=== PATIENT | male | born 1940 | race Caucasian/White ===

== ENCOUNTER 2021-11-02 10:45 | Inpatient (IN) | payer MEDICARE, OTHER ==
[~2021-11-02] VITALS: Ht 190.5 cm; Wt 130.2 kg
[2021-11-02] MEDS ORDERED: DOCUSATE SODIUM 100 MG (COLACE) CAP PO PRN (11:00)
[2021-11-02] MEDS ORDERED: BISACODYL 10 MG SUPP (DULCOLAX) PR PRN (11:00)
[2021-11-02] MEDS ORDERED: ACETAMINOPHEN 325 MG TABLET PO PRN (11:00)
[2021-11-02] MEDS ORDERED: guaiFENesin/CODEINE (ROBITUSSIN AC) 10ML UDC PO PRN (11:00)
[2021-11-02] MEDS ORDERED: ONDANSETRON 4 MG (ZOFRAN) ORAL DISSOLVE TAB PO PRN (11:00)
[2021-11-02] MEDS ORDERED: CALCIUM CARBONATE 500 MG (TUMS) TAB.CHEW PO PRN (11:00)
[2021-11-02] MEDS ORDERED: FLEET ENEMA ADULT 1 EA BTL PR PRN (11:00)
[2021-11-02] MEDS ORDERED: MELATONIN 3 MG TABLET PO PRN (11:00)
[2021-11-02] MEDS ORDERED: LACTULOSE SYRUP 10GM/15ML (ENULOSE) 30ML UDC PO PRN ×2 (11:00→16:00)
[2021-11-02] MEDS ORDERED: ALPRAZolam 0.25 MG (XANAX) TAB PO PRN (11:00)
[2021-11-02] MEDS ORDERED: LOPERAMIDE 2 MG (IMODIUM) TABLET PO PRN (11:00)
[2021-11-02] MEDS ORDERED: diphenhydrAMINE 25 MG TAB (BENADRYL) PO PRN (11:00)
--- NOTE | 2021-11-02 13:14 | Progress Note ---
NOEMI BARRAGAN 11/02/21 1314: Progress Note CC: Debility following sigmoid resection and colostomy placement HPI: This is a 81yo M s/p sigmoid resection and colostomy due to a large bowel obstruction. DNR/DNI? Status post knee replacement with Dr. Mckeon POD #2. 11/29 right knee pain. Tolerating pain medications. Having normal bowel movements, requiring laxatives for help. Urinating without issues. Admitted on 09/22/2021 from [facility]? Pt also monitored by PT and OT during his stay in [place] Patient followed with Pulmonology, Critical Care, Hospitalist, Supervisor Waterproofing PT, OT, and ST (speech therapy) (No RT?) Past Medical Hx: Large Bowel Obstruction s/p sugmoid resection, solostomy aspiration PNA acute hypoxic respiratory failure CHF CKD stage 3 atrial fibrillation anxiety depression pulmonary HTN GERD Past Surgical Hx: sigmoid resection, solostomy CABG appendectomy hernia repair Allergies: Amiodarone Lisinopril Home Medications: Acetaminophen (Tylenol Arthritis) 650 Mg Tablet.er, 650 MG PO Q6H PRN Acetazolamide 250 Mg Tablet PO BID Albuterol Sulfate 2.5 Mg/0.5 Ml Vial.neb, 2.5 MG INH Q4H PRN Atorvastatin Calcium (Atorvastatin Calcium) 40 Mg Tablet, 40 MG PO HS Digoxin (Digoxin) 125 Mcg Tablet, 125 MCG PO DAILY Diltiazem HCl (Diltiazem HCl) 30 Mg Tablet, 30 MG PO BID Docusate Sodium (Docusate Sodium) 100 Mg Capsule, 100 MG PO BID Enoxaparin Sodium (Enoxaparin Sodium) 60 Mg/0.6 Ml Syringe, 60 MG SQ DAILY Famotidine (Famotidine) 20 Mg Tablet, 20 MG PO BID Furosemide (Furosemide) 40 Mg Tablet, 60 MG PO DAILY Gabapentin (Gabapentin) 100 Mg Capsule, 100 MG PO BID Guaifenesin (Mucinex) 600 Mg Tab.er.12h, 600 MG PO BID Ibuprofen (Ibuprofen) 400 Mg Tablet, 400 MG PO Q8H PRN Lactulose 20 Gm/30 Ml Solution, 30 ML PO DAILY PRN Metoclopramide HCl 10 Mg Tablet, 10 MG PO Q6H Multivitamin with Minerals 1 Each Tablet PO Daily Nystatin 15 Gm Cream..g., 1 APPLIC TP Q4H PRN Polyethylene Glycol 3350 (Miralax) 17 Gm Powd.pack, 17 GM PO DAILY Potassium Chloride (K-Tab ER) 20 Meq Tablet.er, 40 MEQ PO DAILY Trazodone HCl (Trazodone HCl) 50 Mg Tablet PO HS Social Hx: Smoke- EtOH- Retired as a or current job as to his [employer] of 31 years Family Hx: ROS: General: No fatigue or dizziness. HEENT: No decrease in hearing or change in vision. CVS: No chest pain, edema, or palpitations. Resp: No cough or shortness of breath. GI: No nausea, vomiting, diarrhea, constipation, abdominal pain, or bloody stools. : No urinary incontinence, dysuria, or hematuria Neuro: No anxiety or depression. Extremities: Decreased ROM on Right knee from knee replacement surgery. No decreased ROM in other extremities. Physical Exam: General Appearance: No apparent distress, WD/WN. HEENT: PERRLA, EOMI, moist mucous membranes, anicteric sclera bilaterally. Respiratory: Lungs clear, normal breath sounds, no accessory muscle use, no respiratory distress. CVS: Regular rate and rhythm, no murmur, no edema GI: Normoactive bowel sounds, no organomegaly, no pulsatile mass, abdomen nontender Neuro: Alert, Oriented x3, No motor/sensory deficits, normal mood/affect, CN II-XII normal as tested Extremity: Decreased ROM on right knee from knee replacement surgery. No decreased ROM in other extremities. Labs and Imaging Assessment: Debility following sigmoid resection and colostomy placement and aspiration pneumonia Post Op Constipation Anemia Large Bowel Obstruction s/p sigmoid resection, colostomy aspiration pna acute hypoxic respiratory failure CHF CKD stage 3, baseline Cr 1.0-1.2? atrial fibrillation anxiety depression pulmonary HTN GERD ?SIgnificant scrotal swelling Plan: Colostomy Care Current O2 status, wean o2 to 2L NC like patient was prior to procedure Supportive care monitor anxiety and depression Pain control Bowel regimen Monitor BP Monitor colostomy Review labs (WBC, Hgb, electrolytes) Start Here CC: Debility following sigmoid resection and colostomy placement and aspiration pneumonia Tolerating pain medications? Having normal bowel movements, requiring laxatives for help? Urinating without issues? Patient currently on __L of O2 by [place] when transferred. Admitted on 09/22/2021 from [facility]? [place] dates? HPI: This is a 81yo M s/p sigmoid resection and colostomy due to a large bowel obstruction. Patient is DNI and DNR. History of CKD stage 3, baseline Documentation Improvement Specialist 1.0-1.2, CHF, atrial fibrillation, anxiety, depression, pulmonary HTN, ?HTN?, GERD, and on home O2 3L. Patient presented to [facility] ED on 08/29/2021 with complaints of abdominal pain, found to have a large bowel obstruction. Subsequently underwent C-scope on 08/30, then laparoscopic sigmoid colon resection and colostomy on 09/02. And now being placed in Rehab at [facility]. During his recovery, patient encountered complications including aspiration PNA, Acute hypoxic respiratory failure, LIST OTHER COMPLICATIONS Patient followed by Critical Care Hospitalist, Supervisor Waterproofing PT, OT, and ST (No RT?) Patient had vomiting post op then aspiration pneumonia. Pas placed NPO and TPN initiated. Patient required BiPap for hypoxia post aspiration on 09/09. Intubated on 09/09/2021 following acute hypoxic respiratory failure due to aspiration and cardiac arrest that required CPR. Patient had Bipap, also with Oximizer and Vapo Therm at various points being involved in the weaning process. Patient eventually to [place] Cannula at 8L by the end of his stay. which in the mix also Aspiration PNA treated with Flagyl and Zosyn, Zosyn later changed to Rocephin. Extubated on 09/15/2021. had LOFTSMAN/WOMAN with hypoxia, SOB, and eventually CPR. He was transferred to ICU, dx with sepsis secondary to asp pna, was treated with zosyn and flagyl, zosyn later changed to rocephin. He was intubated on 09/09 and subsequently extubated on 09/15. Currently today on 8L oximizer, eating regular diet, good ostomy output is being admitted to [facility] for further oxygen weaning and pt and ot CKD remained stable with monitoring of Creatinine throughout the course. GERD controlled with Pepcid Anxiety and depression controlled with Ativan PRN and Zoloft Earliest BNP was at 4240. BNP up to 6990 at one point in time. Then went down a little to 6760 Diuresis with lasix was increased CRP also at 4.9 on 10/08 Patient encountered anemia with a Hgb drop to 7. Lovenox was held. Patient given transfusions and stabilized? Hgb up to 7.8. Hyponatremia with Na down to 130. Patient given NaCl. Hypokalemia with K down to ?3.5? now on bumex? Noted that patient also experiences desaturations when lying flat in the bed. cxr showwed CHF, pulm vascular congestion and his diuretics were increased to bid on 10/09 Increased LE edema Patient also had complaints of abdominal distention and stool from the ostomy was thick, nearly formed 09/28 this am serum bicarb unchanged (on po diamox)- plan to increase dose diamox to 500mg bid serum bicarb 39, and has co2 retention of ABG hgb this am 7.6 Patient given blood transfusionswhen? 10/19 was off AC for a few days for bleeding, will check D dimer today and resume lovenox 40mg bid 10/20 Ddimer 4861?, BNP improved to 4861 from 6760 serum mag 1.6 3 seconds of NSVT yesterday, none since On 10/23 it was noted a large hematoma of right calf area, warm and edema at sight, stat US was ordered, eloquis and ASA were held. US showed right leg hematoma, no DVT. Patient has had bleeding complications from coumadin and eloquis in the past hold eloquis and asa pending results RLE hematoma resolving Lovenox was continued Also had scrotal edema. Xarxlyn also added to regimen 10/25 this am hgb will give 1 unit blood today RLE hematoma resolving circumference of leg reducing, good sensation, motor and pulses wiill resume lovenox 60mg daily starting today cont lasix plus xarxlyn on 8L salter this AM 10/26 r leg hematoma continue to improve back on lovenox daily on 6-8 L salter, bipap at hs bicarb up to 39 this am on chem panel will change to diuretics to daily only lasix plus zaroxylyn 10/27 serum bicarb up to 41 on diuretics will add bid diamox today remains on 7-8 L salter cannula r leg hematoma resolving 10/28 abd distension, had a hard stool yesterday w/ enema through ostomy this am generalized abd tenderness w/ liught presure had lactulose yesterday, soft stool in ostomy this am stoma edematous scrotal edema on lasix plus zaroxylyn no nausea, v, good apetits will obtain AXR, edema to stoma on 5L salter 10/29 down to 5L salter abd distention improved 300ML stool output yesterday from sostomy after mg citrate still swelling RLE millicent wrap RLE had UOP 2L w/ increased lasix plus zarox serum k 2.9 this am will give kcl A and P Large bowel obstruct s/p. C-scope on 08/30. Sigmoid colectomy and colostomy on 09/02. Continue wound care. 09/26 remove christina at lower abdominal. Christina removed 10/11 10/29? down to 5L salter this am abd distention improved had 300ml stool output yesterday from ostomy after mag citrate still las swelling RLE but improved will millicent wrap RLE for therapy Had uop 2L with increased lasix plus zaroxylyn yesterday, will continue twice today also serum k this am 2.9 will give total 160 meq kcl and repeat bmp in am dyspepsia w/ gaseous distention: tympanic sound on exam. Continue [place]lanta. somewhat better today. will obtain AXR. may consider NG tube decompression pe nding findings on XR Acute hypoxic respiratory failure d/t aspiration PNA. Has underlying pulm HTN. slowly improving. On vapotherm RT and pulmonary following for weaning. 10/16 VT 25L,40% changing to salter cannula today, advance to regular diet 10/17 this AM on 25L, 50%, weaning. 10/18 VT 10/[address] 35L, 45%. BNP at 6760 (up) last checked. continue lasix, edema is responding. check d dimer, resume lovenox 40mg bid today was stopped d/t bleeding 10/20 ddimer elevated at 4861 have resumed lovenox 40mg bid, will monitor hgb BNP down to 4861 on increased lasix Today VT 35, 45% 3/ on VT 30,45, weaning in progress. 3/ on VT, off steroids, continue diuretics and eliquis 10/23-10/24 6L salter 10/25 hgb 6.7, will give 1 unit blood today resume lovenox 60mg daily startying today. continue lasix plus xaroxylyn 10/26 6-8L on lovenox daily due to development of right leg hematoma bicarb on chem panel up to 39, will reduce diuretic to lasix plus zaroxylyn only daily 10/27 7-8L salter, add diamox for metabolic alkalosis 10/28 5L salter this am continue to wean pulm following increasing diuretics as below 10/29 down to 5L salter, abd distention improved. had 300 ml stool output yuesterday from ostomy after mg citrate still has swelling RLE, but improved continue acewrap for therapy had uop 2L with increased lasix plus zarox will continue twice today also. serum K this am 2.9 will give total of 160meq kcl repeat bmp in am metabolic alkalosis 10/27 serum bicarb up to 41 on diuretics will add bid diamox increasing diuretics today to bid for 2 days then back ti daily abd distentuion hard stool 10/28 had some results with enema to stoma and lactulose this am stoma noted to be edematous, there is soft stool in ostomy today gave bedside tap water enema today with good results soft stool and gas some relief will obtain axr today, continue lactulose as needed 10/29 abd distention improved had 300ml stool output yesterday from ostomy after citrate of mag still has swelling RLE, but improved scrotal edema generalized edema, anasarca 10/24 add zaroxylyn 2.5 mg QD, one hour prior to lasix dose 10/28 increase lasix plus xaroxylyn to bid for 2 days, then drop back down to da sabrina elevate scrotum on pillows 10/20 had uop 2L with increased lasix plus zaroxylyn yesterday, will continuye twice today also Candidal intertrigo 10/28 add nystatin powder in groin rash area hyponatremia 10/21 resolved serum Na up to 137 this am off nacl tabs NSVT 10/20 had short 3 second episode of NSVT yesterday at 150 bpm, mag was 1.6, will give oral of 4gm mag today over 4 hours serum K this am 3.4, will give KCl continue cardizem, not on BB, will monitor closely 10/21 no furtehr NSVT edema LE bilateral 10/17 will increase lasix 10/25 this am hgb 6.7 will give 1 unit blood today continue lasix plus xaro 7L salter this am CHF/afib, continue rate control meds, rate adequately controlled acute on chronic blood loss anemia. Holding lovenox 10/14. hb down to 7.3 HLD: continue statin. CKD stage 3: grossly stable, renal function slowly improving anxiety/depression: cointinue ativan prn, continue zoloft / add gabapentin GERD: pepcid supportive: DVT ppx with SCD. Hb 7.5 again today. labs tomorrow, if stable can continue DVT ppx DVT PPX: SCD Ulcer PPX: Pepcid stress ulcer ppx with famotidine DNR/DNI Critical Care Progerss Note (10/29) Dx and plan Problesm Acute hypoxic and hypercapnic resporaory failure/Aspiration PNA a fib/CHF pulm htn AAA stent deconditiong s/p post lmaging and surgery rt leg hematoma acute blood loss anemia likely d/t Rt leg hematoma that occurred on 120mg bid of lovanox used at full dose due to elevated D-Dimer Lovenox then decreased to 60mg daily due to hematoma. stress ulcer ppx with famotidine BOB HOUSER DO 11/03/21 0548: Supervisory-Addendum Brief Verification & Attestation Participated in pt care: history, MDM, physical Personally performed: exam, history, MDM, supervision of care Care discussed with: Medical Student Procedures: n/a Results interpretation: Verified all documentation Verification and Attestation of Medical Student E/M Service A medical student performed and documented this service in my presence. I reviewed and verified all information documented by the medical student and made modifications to such information, when appropriate. I personally performed the physical exam and medical decision making. Bob Houser Nov 03, 2021,05:48 NOEMI BARRAGAN Nov 02, 2021 13:14 BOB HOUSER DO Nov 03, 2021 05:48
--- NOTE | 2021-11-02 13:35 | PM&R Post Admission Assessment ---
PM&R HP Date of Visit: Nov 02, 2021 Time of Visit: 14:00 History of Present Illness Chief complaint: Critical illness myopathy History of present illness: This is a 81-year-old white male clinic patient of Dr. Rajiv Silva and counselor aid Dr. Saez who has a past medical history of atrial fibrillation previously on oral anticoagulation who presents from [facility] after a long hospital course following admission to [facility] after presenting to the ER with abdominal pain found to have a large bowel obstruction status post colonoscopy then sigmoid resection with diverting colostomy due to severe obstruction. He had aspiration pneumonia which caused acute respiratory failure requiring ICU admission BiPAP and then intubation and extubated on 10/16/2021. Aspiration pneumonia required antibiotics which have been completed. He also had volume overload requiring diuresis with Lasix and Zaroxolyn and oxygen supplementation has been variable anywhere from Vapotherm to nasal nasal cannula. He remains a DO NOT RESUSCITATE and DO NOT INTUBATE. He did have a right lower extremity hematoma requiring 1 unit of blood and oral anticoagulation is held at this point and only DVT prophylaxis dose of Lovenox given. I have consulted Dr. Brown for cardiology and Dr. Grimes general surgery. I did meet with his upon arrival and explained the process of inpatient rehab. H&P by GUEVARA PonceII: CC: Debility following sigmoid resection and colostomy placement HPI: This is a 81yo M s/p sigmoid resection and colostomy due to a large bowel obstruction. DNR/DNI Admitted on 09/22/2021 from [facility] after presented to the ER for abdominal pain Pt also monitored by PT and OT during his stay in [place] Patient followed with Pulmonology, Critical Care, Hospitalist, Drill Punch Operator PT, OT, and ST (speech therapy) (No RT?) Past Medical Hx: Large Bowel Obstruction s/p sigmoid resection, colostomy aspiration PNA acute hypoxic respiratory failure CHF CKD stage 3 atrial fibrillation anxiety depression pulmonary HTN GERD Past Surgical Hx: sigmoid resection, colostomy CABG appendectomy hernia repair Allergies: Amiodarone Lisinopril Home Medications: Acetaminophen (Tylenol Arthritis) 650 Mg Tablet.er, 650 MG PO Q6H PRN Acetazolamide 250 Mg Tablet PO BID Albuterol Sulfate 2.5 Mg/0.5 Ml Vial.neb, 2.5 MG INH Q4H PRN Atorvastatin Calcium (Atorvastatin Calcium) 40 Mg Tablet, 40 MG PO HS Digoxin (Digoxin) 125 Mcg Tablet, 125 MCG PO DAILY Diltiazem HCl (Diltiazem HCl) 30 Mg Tablet, 30 MG PO BID Docusate Sodium (Docusate Sodium) 100 Mg Capsule, 100 MG PO BID Enoxaparin Sodium (Enoxaparin Sodium) 60 Mg/0.6 Ml Syringe, 60 MG SQ DAILY Famotidine (Famotidine) 20 Mg Tablet, 20 MG PO BID Furosemide (Furosemide) 40 Mg Tablet, 60 MG PO DAILY Gabapentin (Gabapentin) 100 Mg Capsule, 100 MG PO BID Guaifenesin (Mucinex) 600 Mg Tab.er.12h, 600 MG PO BID Ibuprofen (Ibuprofen) 400 Mg Tablet, 400 MG PO Q8H PRN Lactulose 20 Gm/30 Ml Solution, 30 ML PO DAILY PRN Metoclopramide HCl 10 Mg Tablet, 10 MG PO Q6H Multivitamin with Minerals 1 Each Tablet PO Daily Nystatin 15 Gm Cream..g., 1 APPLIC TP Q4H PRN Polyethylene Glycol 3350 (Miralax) 17 Gm Powd.pack, 17 GM PO DAILY Potassium Chloride (K-Tab ER) 20 Meq Tablet.er, 40 MEQ PO DAILY Trazodone HCl (Trazodone HCl) 50 Mg Tablet PO HS Social Hx: Smoke- EtOH- Retired as a or current job to his [employer] of 31 years Family Hx: ROS: General: No fatigue or dizziness. HEENT: No decrease in hearing or change in vision. CVS: No chest pain, edema, or palpitations. Resp: No cough or shortness of breath. GI: No nausea, vomiting, diarrhea, constipation, abdominal pain, or bloody stools. : No urinary incontinence, dysuria, or hematuria Neuro: No anxiety or depression. Extremities: Decreased ROM on Right knee from knee replacement surgery. No decreased ROM in other extremities. Physical Exam: General Appearance: No apparent distress, WD/WN. HEENT: PERRLA, EOMI, moist mucous membranes, anicteric sclera bilaterally. Respiratory: Lungs clear, normal breath sounds, no accessory muscle use, no respiratory distress. CVS: Regular rate and rhythm, no murmur, no edema GI: Normoactive bowel sounds, no organomegaly, no pulsatile mass, abdomen nontender Neuro: Alert, Oriented x3, No motor/sensory deficits, normal mood/affect, CN II-XII normal as tested Extremity: Decreased ROM on right knee from knee replacement surgery. No decreased ROM in other extremities. Labs and Imaging Assessment: Debility following sigmoid resection and colostomy placement and aspiration pneumonia Post Op Constipation Anemia Large Bowel Obstruction s/p sigmoid resection, colostomy aspiration pna acute hypoxic respiratory failure CHF CKD stage 3, baseline Cr 1.0-1.2? atrial fibrillation anxiety depression pulmonary HTN GERD Significant scrotal swelling Plan: Colostomy Care Current O2 status, wean o2 to 2L NC like patient was prior to procedure Supportive care monitor anxiety and depression Pain control Bowel regimen Monitor BP Monitor colostomy Review labs (WBC, Hgb, electrolytes) CC: Debility following sigmoid resection and colostomy placement and aspiration pneumonia Tolerating pain medications? Having normal bowel movements, requiring laxatives for help? Urinating without issues? Patient currently on __L of O2 by CT when transferred. Admitted on 09/22/2021 from [facility]? [place] dates? HPI: This is a 81yo M s/p sigmoid resection and colostomy due to a large bowel obstruction. Patient is DNI and DNR. History of CKD stage 3, baseline Speed Runner 1.0-1.2, CHF, atrial fibrillation, anxiety, depression, pulmonary HTN, ?HTN?, GERD, and on home O2 3L. Patient presented to [facility] ED on 08/29/2021 with complaints of abdominal pain, found to have a large bowel obstruction. Subsequently underwent C-scope on 08/30, then laparoscopic sigmoid colon resection and colostomy on 09/02. And now being placed in Rehab at [facility]. During his recovery, patient encountered complications including aspiration PNA, Acute hypoxic respiratory failure, LIST OTHER COMPLICATIONS Patient followed by Critical Care Hospitalist, Drill Punch Operator PT, OT, and ST (No RT?) Patient had vomiting post op then aspiration pneumonia. Pas placed NPO and TPN initiated. Patient required BiPap for hypoxia post aspiration on 09/09. Intubated on 09/09/2021 following acute hypoxic respiratory failure due to aspiration and cardiac arrest that required CPR. Patient had Bipap, also with Oximizer and Vapo Therm at various points being involved in the weaning process. Patient eventually to Salter Cannula at 8L by the end of his stay. which in the mix also Aspiration PNA treated with Flagyl and Zosyn, Zosyn later changed to Rocephin. Extubated on 09/15/2021. had SOFTWARE SALES REPRESENTATIVE with hypoxia, SOB, and eventually CPR. He was transferred to ICU, dx with sepsis secondary to asp pna, was treated with zosyn and flagyl, zosyn later changed to rocephin. He was intubated on 09/09 and subsequently extubated on 09/15. Currently today on 8L oximizer, eating regular diet, good ostomy output is being admitted to [facility] for further oxygen weaning and pt and ot CKD remained stable with monitoring of Creatinine throughout the course. GERD controlled with Pepcid Anxiety and depression controlled with Ativan PRN and Zoloft Earliest BNP was at 4240. BNP up to 6990 at one point in time. Then went down a little to 6760 Diuresis with lasix was increased CRP also at 4.9 on 10/08 Patient encountered anemia with a Hgb drop to 7. Lovenox was held. Patient given transfusions and stabilized? Hgb up to 7.8. Hyponatremia with Na down to 130. Patient given NaCl. Hypokalemia with K down to ?3.5? now on bumex? Noted that patient also experiences desaturations when lying flat in the bed. cxr showwed CHF, pulm vascular congestion and his diuretics were increased to bid on 10/09 Increased LE edema Patient also had complaints of abdominal distention and stool from the ostomy was thick, nearly formed 09/28 this am serum bicarb unchanged (on po diamox)- plan to increase dose diamox to 500mg bid serum bicarb 39, and has co2 retention of ABG hgb this am 7.6 Patient given blood transfusionswhen? 10/19 was off AC for a few days for bleeding, will check D dimer today and resume lovenox 40mg bid 10/20 Ddimer 4861?, BNP improved to 4861 from 6760 serum mag 1.6 3 seconds of NSVT yesterday, none since On 10/23 it was noted a large hematoma of right calf area, warm and edema at sight, stat US was ordered, eloquis and ASA were held. US showed right leg hematoma, no DVT. Patient has had bleeding complications from coumadin and eloquis in the past hold eloquis and asa pending results RLE hematoma resolving Lovenox was continued Also had scrotal edema. Xarxlyn also added to regimen 10/25 this am hgb will give 1 unit blood today RLE hematoma resolving circumference of leg reducing, good sensation, motor and pulses wiill resume lovenox 60mg daily starting today cont lasix plus xarxlyn on 8L salter this AM 10/26 r leg hematoma continue to improve back on lovenox daily on 6-8 L salter, bipap at hs bicarb up to 39 this am on chem panel will change to diuretics to daily only lasix plus zaroxylyn 10/27 serum bicarb up to 41 on diuretics will add bid diamox today remains on 7-8 L salter cannula r leg hematoma resolving 10/28 abd distension, had a hard stool yesterday w/ enema through ostomy this am generalized abd tenderness w/ liught presure had lactulose yesterday, soft stool in ostomy this am stoma edematous scrotal edema on lasix plus zaroxylyn no nausea, v, good apetits will obtain AXR, edema to stoma on 5L salter 10/29 down to 5L salter abd distention improved 300ML stool output yesterday from sostomy after mg citrate still swelling RLE millicent wrap RLE had UOP 2L w/ increased lasix plus zarox serum k 2.9 this am will give kcl A and P Large bowel obstruct s/p. C-scope on 08/30. Sigmoid colectomy and colostomy on 09/02. Continue wound care. 09/26 remove christina at lower abdominal. Christina removed 10/11 10/29? down to 5L salter this am abd distention improved had 300ml stool output yesterday from ostomy after mag citrate still las swelling RLE but improved will millicent wrap RLE for therapy Had uop 2L with increased lasix plus zaroxylyn yesterday, will continue twice to day also serum k this am 2.9 will give total 160 meq kcl and repeat bmp in am dyspepsia w/ gaseous distention: tympanic sound on exam. Continue mylanta. somewhat better today. will obtain AXR. may consider NG tube decompression pending findings on XR Acute hypoxic respiratory failure d/t aspiration PNA. Has underlying pulm HTN. slowly improving. On vapotherm RT and pulmonary following for weaning. 10/16 VT 25L,40% changing to salter cannula today, advance to regular diet 10/17 this AM on 25L, 50%, weaning. 10/18 VT 10/[address] 35L, 45%. BNP at 6760 (up) last checked. continue lasix, edema is responding. check d dimer, resume lovenox 40mg bid today was stopped d/t bleeding 10/20 ddimer elevated at 4861 have resumed lovenox 40mg bid, will monitor hgb BNP down to 4861 on increased lasix Today VT 35, 45% 10/21 on VT 30,45, weaning in progress. 10/22 on VT, off steroids, continue diuretics and eliquis 10/23-10/24 6L salter 10/25 hgb 6.7, will give 1 unit blood today resume lovenox 60mg daily startying today. continue lasix plus xaroxylyn 10/26 6-8L on lovenox daily due to development of right leg hematoma bicarb on chem panel up to 39, will reduce diuretic to lasix plus zaroxylyn only daily 10/27 7-8L salter, add diamox for metabolic alkalosis 10/28 5L salter this am continue to wean pulm following increasing diuretics as below 10/29 down to 5L salter, abd distention improved. had 300 ml stool output yuesterday from ostomy after mg citrate still has swelling RLE, but improved continue acewrap for therapy had uop 2L with increased lasix plus zarox will continue twice today also. serum K this am 2.9 will give total of 160meq kcl repeat bmp in am metabolic alkalosis 10/27 serum bicarb up to 41 on diuretics will add bid diamox increasing diuretics today to bid for 2 days then back ti daily abd distentuion hard stool 10/28 had some results with enema to stoma and lactulose this am stoma noted to be edematous, there is soft stool in ostomy today gave bedside tap water enema today with good results soft stool and gas some relief will obtain axr today, continue lactulose as needed 10/29 abd distention improved had 300ml stool output yesterday from ostomy after citrate of mag still has swelling RLE, but improved scrotal edema generalized edema, anasarca 10/24 add zaroxylyn 2.5 mg QD, one hour prior to lasix dose 10/28 increase lasix plus xaroxylyn to bid for 2 days, then drop back down to daily elevate scrotum on pillows 10/20 had uop 2L with increased lasix plus zaroxylyn yesterday, will continuye twice today also Candidal intertrigo 10/28 add nystatin powder in groin rash area hyponatremia 10/21 resolved serum Na up to 137 this am off nacl tabs NSVT 10/20 had short 3 second episode of NSVT yesterday at 150 bpm, mag was 1.6, will give oral of 4gm mag today over 4 hours serum K this am 3.4, will give KCl continue cardizem, not on BB, will monitor closely 10/21 no furtehr NSVT edema LE bilateral 10/17 will increase lasix 10/25 this am hgb 6.7 will give 1 unit blood today continue lasix plus xaro 7L salter this am CHF/afib, continue rate control meds, rate adequately controlled acute on chronic blood loss anemia. Holding lovenox 10/14. hb down to 7.3 HLD: continue statin. CKD stage 3: grossly stable, renal function slowly improving anxiety/depression: cointinue ativan prn, continue zoloft 09/23 add gabapentin GERD: pepcid supportive: DVT ppx with SCD. Hb 7.5 again today. labs tomorrow, if stable can continue DVT ppx DVT PPX: SCD Ulcer PPX: Pepcid stress ulcer ppx with famotidine DNR/DNI Critical Care Progerss Note (10/29) Dx and plan Problesm Acute hypoxic and hypercapnic resporaory failure/Aspiration PNA a fib/CHF pulm htn AAA stent deconditiong s/p post lmaging and surgery rt leg hematoma acute blood loss anemia likely d/t Rt leg hematoma that occurred on 120mg bid of lovanox used at full dose due to elevated D-Dimer Lovenox then decreased to 60mg daily due to hematoma. stress ulcer ppx with famotidine Past [id number] Hx Past Med/Social Hx: Reviewed Nursing Past Med/Soc Hx, Reviewed and Corrections made Patient Social History Marrital Status: Employed/Student: retired Alcohol Use: Occasionally Uses Smoking Status: Former Smoker Past Medical History Surgeries: Abdominal (Sigmoid resection), CABG Hernia Respiratory: Pneumonia (Aspiration type during critical illness at [place]) Cardiac: Atrial Fibrillation, Chronic Edema/Swelling, Coronary Artery Disease, High Cholesterol, Hypertension, Peripheral Vascular (AAA endograft) Genitourinary: Benign Prostatic Hyperpl, Renal Failure Gastrointestinal: Gastroesophageal Reflux, Obstructive Bowel Musculoskeletal: Arthritis, Chronic Back Pain Psychosocial: Anxiety, Depression Adverse Reaction to Blood Carey: No PM&R Allergy/Meds/Data Review Allergies Coded Allergies: amiodarone (Verified Allergy, Unknown, 11/02/21) lisinopril (Verified Allergy, Unknown, 11/02/21) Home Medications Scheduled Acetazolamide (Acetazolamide), 250 MG PO BID, (Reported) Atorvastatin Calcium (Atorvastatin Calcium), 40 MG PO HS, (Reported) Digoxin (Digoxin), 125 MCG PO DAILY, (Reported) Diltiazem HCl (Diltiazem HCl), 30 MG PO BID, (Reported) Docusate Sodium (Docusate Sodium), 100 MG PO BID, (Reported) Enoxaparin Sodium (Enoxaparin Sodium), 60 MG SQ DAILY, (Reported) Famotidine (Famotidine), 20 MG PO BID, (Reported) Furosemide (Furosemide), 60 MG PO DAILY, (Reported) Gabapentin (Gabapentin), 100 MG PO BID, (Reported) Guaifenesin (Mucinex), 600 MG PO BID, (Reported) Metoclopramide HCl (Metoclopramide HCl), 10 MG PO Q6H, (Reported) Multivitamin with Minerals (Multivitamins with Minerals), 1 EACH PO DAILY, (Reported) Polyethylene Glycol 3350 (Miralax), 17 GM PO DAILY, (Reported) Potassium Chloride (K-Tab ER), 40 MEQ PO DAILY, (Reported) Trazodone HCl (Trazodone HCl), 50 MG PO HS, (Reported) Scheduled PRN Acetaminophen (Tylenol Arthritis), 650 MG PO Q6H PRN for PAIN-MILD (1-4) OR TEMPATURE, (Reported) Albuterol Sulfate (Albuterol Sulfate), 2.5 MG INH Q4H PRN for SHORTNESS OF BREATH, (Reported) Ibuprofen (Ibuprofen), 400 MG PO Q8H PRN for PAIN-MILD (1-4), (Reported) Lactulose (Lactulose), 30 ML PO DAILY PRN for CONSTIPATION-3RD LINE, (Reported) Nystatin (Nystatin), 1 APPLIC TP Q4H PRN for GROIN RASH, (Reported) Current Medications Current Medications Reviewed Review of Systems Constitutional: see HPI, malaise, weakness EENTM: no symptoms reported Respiratory: dyspnea on exertion, short of breath Cardiovascular: edema Gastrointestinal: abdominal pain, constipation, loss of appetite, nausea Genitourinary: decreased output Musculoskeletal: back pain, joint pain Skin: no symptoms reported Psychiatric/Neurological: Anxiety, Depressed All Other Systems Reviewed Negative Unless Noted: Yes Physical Exam Physical Exam Vital Signs Capillary Refill : Height, Weight, BMI Height: '" Weight: lbs. oz. kg; BMI Method: General Appearance: No Apparent Distress, WD/WN, Chronically ill, Obese Eyes: Bilateral Eye Normal Inspection, Bilateral Eye PERRL HEENT: PERRL/EOMI, Normal ENT Inspection, Pharynx Normal Neck: Full Range of Motion, Normal Inspection, Non Tender, Supple, Carotid Bruit Respiratory: Chest Non Tender, Lungs Clear, Normal Breath Sounds, No Accessory Muscle Use, No Respiratory Distress, Crackles, Decreased Breath Sounds Cardiovascular: No Gallop, No JVD, No Murmur, Normal Peripheral Pulses, Irregularly Irregular Gastrointestinal: Normal Bowel Sounds, No Organomegaly, No Pulsatile Mass, Soft, Distended, Tenderness Back: Normal Inspection, No CVA Tenderness, No Vertebral Tenderness Extremity: Normal Capillary Refill, Normal Inspection, Normal Range of Motion (Limited range of motion), Non Tender, Calf Tenderness (Right) Neurologic/Psychiatric: Alert, Oriented x3, voltage inspector II-XII Norm as Tested, D epressed Affect, Motor Weakness (Generalized) Skin: Normal Color, Warm/Dry Lymphatic: No Adenopathy PM&R Medical Assessment & Plan REHAB/MEDICAL ASSESSMENT AND PLAN: REHAB IMPAIRMENT GROUP: 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 The comorbidities that impact the patients function and/or functional outcome by: Severe myopathy, anasarca, bowel dysfunction, new colostomy, atrial fibrillation, CAD REHAB PLAN: The patient is being admitted to our comprehensive inpatient rehabilitation facility and can tolerate the intensity of service consisting of at least: 180 minutes of therapy a day, 5 out of 7 days a week Rehab treatment will consist of: PT and OT will focus on regaining function with ADLs in order to increase independence in independent living skills and ambulatory skills The patient/family has a good understanding of our discharge process and will benefit from an interdisciplinary inpatient rehabilitation program. The patient has potential to make improvement and is in need of at least two of the following multidisciplinary therapies including but not limited to physical, occupational, speech, and prosthetics and orthotics. Additionally the patient will need services from respiratory, nutritional services, wound care, psychology, etc. (Customize this to each patient). Given the patients complex condition and risk of further medical complications, rehabilitation services cannot be safely or effectively provided at a lower level of care such as a long term facility. 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 PT and OT will focus on regaining function with ADLs in order to increase independence in independent living skills and ambulatory skills All the above goals were reviewed with the patient and he/she is in agreement. By signing this document, I acknowledge that I have personally performed a full physical examination on this patient within 24 hours of admission to this inpatient rehabilitation facility and have determined the patient to be able to tolerate the above course of treatment at an intensive level for a reasonable period of time. I will be completing a detailed individualized Plan of Care for this patient by day #4 of the patients stay based upon the Preadmission Screen, the Post-Admission Evaluation, and the therapy evaluations. Admission Dx/Comorbidities: (1) Myopathy ICD Codes: G72.9 - Myopathy, unspecified (2) Large bowel obstruction ICD Codes: K56.609 - Unspecified intestinal obstruction, unspecified as to partial versus complete obstruction (3) Colostomy present ICD Codes: Z93.3 - Colostomy status (4) Spaulding catheter in place ICD Codes: Z97.8 - Presence of other specified devices (5) CHF (congestive heart failure) ICD Codes: I50.9 - Heart failure, unspecified (6) Anasarca ICD Codes: R60.1 - Generalized edema (7) CAD (coronary artery disease) ICD Codes: I25.10 - Atherosclerotic heart disease of [place] coronary artery without angina pectoris (8) History of coronary artery bypass graft ICD Codes: Z95.1 - Presence of aortocoronary bypass graft (9) Chronic kidney disease, stage III (moderate) ICD Codes: N18.30 - Chronic kidney disease, stage 3 unspecified (10) Anxiety ICD Codes: F41.9 - Anxiety disorder, unspecified (11) Depression ICD Codes: F32.A - Depression, unspecified (12) S/P AAA repair using bifurcation graft ICD Codes: Z95.828 - Presence of other vascular implants and grafts; Z86.79 - Personal history of other diseases of the circulatory system (13) Hypertension ICD Codes: I10 - Essential (primary) hypertension (14) GERD (gastroesophageal reflux disease) ICD Codes: K21.9 - Gastro-esophageal reflux disease without esophagitis (15) Pulmonary hypertension ICD Codes: I27.20 - Pulmonary hypertension, unspecified (16) Hematoma of right lower leg ICD Codes: S80.11XA - Contusion of right lower leg, initial encounter (17) Anemia ICD Codes: D64.9 - Anemia, unspecified (18) History of transfusion ICD Codes: Z92.89 - Personal history of other medical treatment (19) Aspiration pneumonia ICD Codes: J69.0 - Pneumonitis due to inhalation of food and vomit (20) Hypoxia ICD Codes: R09.02 - Hypoxemia (21) Abdominal distention ICD Codes: R14.0 - Abdominal distension (gaseous) Assessment/Plan Assessment and Plan Assess & Plan/Chief Complaint Assessment: 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 Recent aspiration pneumonia requiring intubation Continued hypoxia requiring supplemental oxygen Anasarca Atrial fibrillation CAD History of bypass History of AAA repair with endograft Hypertension GERD Chronic kidney disease Depression Anxiety Spaulding catheter in place Anemia Transfusion required Right lower extremity hematoma Plan: Cardiology consult General surgery consult Ostomy consult Monitor hemoglobin Urology consult Aggressive rehab BOB HOUSER DO Nov 02, 2021 13:35
--- OUTSIDE RECORDS SUMMARY | 2021-11-02 14:01 | XMS REPORT | Clinical Summary ---
Author Author [facility] Organization [facility] Address Unknown Phone Unavailable Care Team Providers Care Brick Wheeler Name Role Phone Edenilson Silva MD PCP Allergies Comments Active Allergy Reactions Severity Noted Date lung toxicity Amiodarone Analogues Other (See 04/10/2019 Comments) Lisinopril Cough 04/10/2019 Medications End Date Status Medication Sig Dispensed Refills Start Date Active apixaban (ELIQUIS) 5 mg Take 5 mg by 0 tablet mouth 2 (two) times a day. Active aspirin 81 MG EC tablet Take 81 mg by 0 mouth daily. Active spironolactone Take 25 mg by 0 (ALDACTONE) 25 MG tablet mouth daily. Active pantoprazole (PROTONIX) Take 40 mg by 0 40 MG tablet mouth every morning. Active atorvastatin (LIPITOR) 40 Take 40 mg by 0 MG tablet mouth nightly. Active calcitriol (ROCALTROL) Take 0.25 mcg 0 0.25 MCG capsule by mouth daily. Takes Mon, Wed and Fri Active ALPRAZolam (XANAX) 0.5 MG Take 0.5 mg 0 tablet by mouth nightly as needed. Active metoprolol tartrate Take 50 mg by 0 (LOPRESSOR) 50 MG tablet mouth 2 (two) times a day. Active ergocalciferol, vitamin Take by mouth 0 D2, (VITAMIN D2 ORAL) daily. Active MULTAQ 400 mg tablet Take 400 mg 0 by mouth 2 0 (two) times a day. Active bumetanide (BUMEX) 2 MG Take 1 tablet 0 tablet (2 mg total) 0 by mouth daily. Active Problems Problem Noted Date residential current use of antiarrhythmic drug 020 Infrarenal Abdominal aortic aneurysm 02/02/2019 Overview: Formatting of this note might be differ ent from the original. 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 PAF (paroxysmal atrial fibrillation) Pulmonary HTN History of mitral valve replacement wit h bioprosthetic valve Secondary hyperparathyroidism Pulmonary fibrosis Essential hypertension Multiple pulmonary nodules CKD (chronic kidney disease), stage III Chronic diastolic heart failure Anemia Chronic respiratory failure Protein calorie malnutrition Depression GILBERTO (obstructive sleep apnea) Oxygen dependent Varicose veins of both lower extremitie s Aortic valve stenosis Atrial fibrillation with RVR Obesity (BMI 30.0-34.9) S/P Maze operation for atrial fibrillat ion Status post AAA (abdominal aortic aneur ysm) repair Amiodarone pulmonary toxicity Resolved Problems Problem Noted Date Resolved Date History of aortic valve replacement with bioprostheti c valve 04/09/2019 Family History Medical History Relation Name Comments Heart attack Father Other Father Rheumatic heart dis ease Kidney disease Mother Thyroid disease Mother Relation Name Status Comments Father COD: [place] (Age 65) Mother COD: Age related (Age 80) Social History Date Tobacco Use Types Packs/Day Years Used 08/22/1958 - 1999 Former Smoker 2 40 Smokeless Tobacco: Never Used Comments Alcohol Use Standard Drinks/Week formerly drank 3/4 of a bottle of scotch daily. Not Currently 0 (1 standard drink = 0.6 o z pure alcohol) Alcohol Habits Answer Date Recorded How often do you have a drink containing alcohol? No t asked How many drinks containing alcohol do you have on No t asked a typical day when you are drinking? How often do you have six or more drinks on one Not asked occasion? Comment: formerly drank 3/4 of a bottle 019 of scotch daily. Sex Assigned at Date Recorded Not on file Last Filed Vital Signs Reading Time Taken Comments Vital Sign 111/56 09/27/2019 7:45 AM [employer] C[employer]IED NETWORK PROFESSIONAL Blood Pressure 63 09/27/2019 7:45 AM [employer]WORK PROFESSIONAL Pulse 36.7 C (98.1 F) 09/27/2019 7:45 AM [employer] C[employer] NETWORK PROFESSIONAL Temperature 20 09/27/2019 7:45 AM [employer] C[employer] NETWORK PROFESSIONAL Respiratory Rate 95% 09/27/2019 7:45 AM [employer] C[employer] NETWORK PROFESSIONAL Oxygen Saturation - - Inhaled Oxygen Concentration 114.9 kg (253 lb 3.2 oz) 09/27/2019 5:00 AM [employer] C[employer] NETWORK PROFESSIONAL Weight 190.5 cm (6' 3") 09/26/2019 6:37 AM [employer] C[employer] NETWORK PROFESSIONAL Height 31.65 09/26/2019 6:37 AM [employer] C[employer]IED NETWORK PROFESSIONAL Body Mass Index Plan of Treatment Health Maintenance Due Date Last Done Comments Medicare Annual Wellness 1940 Td/Tdap# 1940 Pneumococcal Vaccine: 65+ 1948 Years (1 of 4 - PCV13) COVID-19 Vaccine (1) 1954 Zoster Vaccine# (1 of 2) 1992 Advance Care Plan 2007 Conversation Needed # Advance Care Plan 2007 Document Filed # Advance Care Planning # 2007 Depression Screening 2007 PHQ-9 # Fall Risk Assessment # 09/27/2020 09/27/2019 Influenza Vaccine (#1) 2021 Social Determinants of 08/22/2021 Health# Results Not on filefrom Last 3 Months Insurance Type Payer Benefit Subscriber ID Effective Phone Address Plan / Dates Group Medicare MEDICARE MEDICARE [id number] 2007- [phone] WPS GHA PART A B Present ATTN CLAIMS DEPT [address] [place] [address] COMMERCIAL-NONCONTRACTED MUTUAL OF [id number] 2018- [address] Present MUTUAL OF MEDICARE [address] SUPPLEMENT [place] [id number] Bipin Burnette Personal/F Self [address] [place] (Home) [place] [id number] Advance Directives For more information, please contact: [phone] Patient Certified Nurse Explanation Type Date Recorded Health Care Directive Date Inactivated Comments Code Status Date Activated 09/27/2019 2:22 PM Full Code 09/26/2019 10:20 AM 07/12/2019 7:59 PM Full Code 07/12/2019 2:27 PM Care Teams Start Date End Date Brick Wheeler Relationship Specialty 04/10/19 Edenilson Silva MD PCP - General Internal [address] [place] [address] [address] [place] [id number]
--- OUTSIDE RECORDS SUMMARY | 2021-11-02 14:01 | XMS REPORT | Clinical Summary ---
Author Author [facility] Organization [facility] Address Unknown Phone Unavailable Care Team Providers Care Retail Account Manager Name Role Phone Edenilson Silva MD PCP Source Comments Some departments are not documenting in the electronic medical record. If you d o not see the information that you expected, contact Release of Information in [facility] Information Management department at [phone] for further assistan ce in locating additional records.[facility] Allergies Comments Active Allergy Reactions Severity Noted Date Amiodarone UNKNOWN Low 04/30/2020 Lisinopril UNKNOWN Low 04/30/2020 Medications End Date Status Medication Sig Dispensed Refills Start Date Active aspirin 81 mg chewable Chew 81 mg by 0 tablet mouth daily. Take with food. Active spironolactone Take 50 mg by 0 (ALDACTONE) 50 mg tablet mouth daily. Take with food. Active pantoprazole DR Take 40 mg by 0 (PROTONIX) 40 mg tablet mouth daily. Active atorvastatin (LIPITOR) 40 Take 40 mg by 0 mg tablet mouth daily. Active Cholecalciferol (Vitamin Take 1 0 D3) (VITAMIN D-3) 50 mcg capsule by (2,000 unit) cap mouth daily. Active calcitrioL (ROCALTROL) Take 0.25 mcg 0 0.25 mcg capsule by mouth three times weekly. Active ALPRAZolam (XANAX) 0.5 mg Take 0.5 mg 0 tablet by mouth daily as needed for Anxiety. Active bumetanide (BUMEX) 2 mg Take one-half 30 tablet 0 tablet tablet by 0 mouth daily. Active metoprolol tartrate Take one-half 60 tablet 0 04/22 (LOPRESSOR) 25 mg tablet tablet by 0 mouth twice daily. Active warfarin (COUMADIN) 3 mg Take one 90 tablet 0 0 tabletIndications: AFIB tablet by 0 mouth at bedtime daily. Indications: AFIB Active Problems Problem Noted Date GI bleed 04/30/2020 Surgical History Surgery Date Site/Laterality Comments CORONARY ARTERY BYPASS GRAFT APPENDECTOMY HX MITRAL VALVE 08/22/2015 - REPLACEMENT 08/21/2016 SC RIGHT HEART CATH O2 06/22/2019 RV systolic pre ssure > 80 mm Hg, unable to obtain SATURATION & CARDIAC - PA pressure. CI = 2.0 OUTPUT 07/21/2019 ABDOMINAL AORTIC ANEURYSM 08/22/2018 - REPAIR, ENDOVASCULAR 08/21/2019 CARDIOVERSION 08/22/2015 - 08/21/2016 SPIROMETRY FEV1 61% FVC 61%; historic al ABLATION OF DYSRHYTHMIC 09/22/2019 - Cryo; A Fib FOCUS 10/20/2019 UPPER GASTROINTESTINAL 04/30/2020 N/A ESOPHAG OGASTRODUODENOSCOPY WITH BIOPSY - FLEXIBLE ENDOSCOPY performed by Eryn Pichardo MD at [facility] ENDO ENTEROSCOPY 04/30/2020 N/A SMALL INTESTINA L ENTEROSCOPY BEYOND SECOND PORTION DUODENUM WITH CONTROL OF BLEEDING Doubl e Balloon performed by Ronald Pichardo MD at [facility] Medical History Medical History Date Comments Pulmonary HTN (HCC) 06/2019 Dr. Marrufo; RV pressu re 82/27 unable to obtain PA or wedge CHF (congestive heart failure) (HCC) Atrial fibrillation (HCC) Anxiety H/O abdominal aortic aneurysm repair 2018 CKD (chronic kidney disease) stage 3, GFR 30-59 ml/min (HCC) GILBERTO (obstructive sleep apnea) Family History Medical History Relation Name Comments Heart Attack Father Rheumatic fever as a child None Reported Mother Relation Name Status Comments Father Mother Social History Date Tobacco Use Types Packs/Day Years Used 04/30/1956 - 04/30/2000 Former Smoker 2 44 Smokeless Tobacco: Never Used Comments Alcohol Use Standard Drinks/Week 1-2 glasses of wine in the evening, 5 da ys per week. Yes 10 (1 standard drink = 0.6 oz pure alcohol) Alcohol Habits Answer Date Recorded How often do you have a drink containing alcohol? 4 or mor e times a week 04/30/2020 How many drinks containing alcohol do you have on 1 or 2 04/30/2020 a typical day when you are drinking? How often do you have six or more drinks on one Never 04/30/2020 occasion? Comment: 1-2 glasses of wine in the 04/30/2020 evening, 5 days per week. Sex Assigned at Date Recorded Not on file Obstetrics History Last Filed Vital Signs Reading Time Taken Comments Vital Sign 102/81 05/08/2020 12:05 PM CDT Blood Pressure 76 05/08/2020 5:00 AM CDT Pulse 36.4 C (97.5 F) 05/08/2020 8:00 AM CDT Temperature - - Respiratory Rate 94% 05/08/2020 8:00 AM CDT Oxygen Saturation - - Inhaled Oxygen Concentration 115.4 kg (254 lb 6.4 oz) 05/08/2020 12:00 PM CDT Weight 190.5 cm (6' 3") 05/01/2020 3:34 PM CDT Height 31.8 05/01/2020 3:34 PM CDT Body Mass Index Plan of Treatment Health Maintenance Due Date Last Done Comments MEDICARE ANNUAL WELLNESS 1940 VISIT COVID-19 VACCINE (1) 1947 DTAP/TDAP VACCINES (1 - 1960 Tdap) HEPATITIS C SCREENING 1960 PHYSICAL (COMPREHENSIVE) 1960 EXAM SHINGLES RECOMBINANT 1992 VACCINE (1 of 2) PNEUMONIA (PPSV23) 2007 VACCINE (1 of 1 - PPSV23) INFLUENZA VACCINE 03/22/2021 Goals Goal Patient Associated Recent Progress Patient-Stat Aut hor Goal Type Problems ed? 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 needed Care Teams Start Date End Date Retail Account Manager Relationship Specialty 04/30/20 Edenilson Silva MD PCP - General Internal [facility] [address] Medicine [address] [address] [place] [phone]
[2021-11-02] MEDS ORDERED: ATOR40TA70 PO (14:08)
[2021-11-02] MEDS ORDERED: FAMO20TA5 PO (14:08)
[2021-11-02] MEDS ORDERED: LACT20SO2 PO (14:08)
[2021-11-02] MEDS ORDERED: NYST15CR TP (14:08)
[2021-11-02] MEDS ORDERED: POTA-53 PO (14:08)
[2021-11-02] MEDS ORDERED: ACET250T3 PO (14:08)
[2021-11-02] MEDS ORDERED: DIGO125T3 PO (14:08)
[2021-11-02] MEDS ORDERED: ACET-2650 PO (14:08)
[2021-11-02] MEDS ORDERED: FURO40TA4 PO (14:08)
[2021-11-02] MEDS ORDERED: TRZ50T PO (14:08)
[2021-11-02] MEDS ORDERED: POLY17PO6 PO (14:08)
[2021-11-02] MEDS ORDERED: IBUP-1779 PO (14:08)
[2021-11-02] MEDS ORDERED: DILT30TA PO (14:08)
[2021-11-02] MEDS ORDERED: MULT-166 PO (14:08)
[2021-11-02] MEDS ORDERED: ALB0.5V INH (14:08)
[2021-11-02] MEDS ORDERED: ENOX60DI7 SQ (14:08)
[2021-11-02] MEDS ORDERED: GUAI600T43 PO (14:08)
[2021-11-02] MEDS ORDERED: GABA-486 PO (14:08)
[2021-11-02] MEDS ORDERED: MTC10T PO (14:08)
[2021-11-02] MEDS ORDERED: DOCU100C37 PO (14:08)
--- NOTE | 2021-11-02 14:56 | Physical Therapy Evaluation ---
PT Evaluation-General Medical Diagnosis Admission Date Nov 02, 2021 at 13:30 Medical Diagnosis: s/p sigmoid resection and colostomy Onset Date: Sep 22, 2021 Therapy Diagnosis Therapy Diagnosis: impaired mobility, strength, endurance Referral Physician: Lynn Farrar DO Reason for Referral: Evaluation/Treatment Medical History Additional Medical History Past Medical History Large Bowel Obstruction s/p sugmoid resection, solostomy aspiration PNA acute hypoxic respiratory failure CHF CKD stage 3 atrial fibrillation anxiety depression pulmonary HTN GERD Past Surg History sigmoid resection, solostomy CABG appendectomy hernia repair Reviewed History: Yes Social History Current Living Status: Spouse Entry Into Home: Stairs With Railing PT Steps Into Home: 2 Prior Prior Level of Function SCALE: Activities may be completed with or without assistive devices. 3-Ijztddbgqg-nkotima completes the activity by him/herself with no assistance from a helper. 5-Set-up or Clean-up Assistance-helper sets up or cleans up; patient completes activity. Jewell assists only prior to or following the activity. 4-Supervision or Touching Assistance-helper provides verbal cues and/or to uching/steadying and/or contact guard assistance as patient completes activity. Assistance may be provided throughout the activity or intermittently. 3-Partial/Moderate Assistance-helper does LESS THAN HALF the effort. Jewell lifts, holds or supports trunk or limbs, but provides less than half the effort. 2-Substantial/Maximal Assistance-helper does MORE THAN HALF the effort. Jewell lifts or holds trunk or limbs and provides more than half the effort. 2-Sbwsodonx-psjgez does ALL the effort. Patient does none of the effort to complete the activity. Or, the assistance of 2 or more helpers is required for the patient to complete the activity. If activity was not attempted, code reason: 7-Patient Refused. 9-Not Applicable-not attempted and the patient did not perform the activity before the current illness, exacerbation or injury. 10-Not Attempted due to Environmental Limitations-(lack of equipment, weather restraints, etc.). 88-Not Attempted due to Medical Conditions or Safety Concerns. Bed Mobility: 6 Transfers (B,C,W/C): 6 Gait: 6 Stairs: 6 Indoor Mobility (Ambulation): Independent Stairs: Independent PT Evaluation-Current Subjective Patient in bed pre tx, agrees to PT, has unrated pain in scrotum, it is very s wollen. Will be co-treating with OT for part of tx due to poor patient mobility, strength, endurance, severe debility, coordinate UE and LE with activity, safety and reduce risk of falls. Pt/Family Goals to be independent at home Objective Patient Orientation: Person, Place, Situation Attachments: Spaulding Catheter ROM/Strength ROM Lower Extremities limited due to scrotum swelling Strength Lower Extremities LLE (hip flexion 3+/5, knee flexion 4-/5, knee extension 4-/5, dorsiflexion 3- /5), RLE (hip flexion 3+/5, knee flexion 4-/5, knee extension 4-/5, dorsiflexion 3-/5) Sensory Vision: Functional Hearing: Functional Sensation Right Lower Extremit: Intact Sensation Left Lower Extremity: Intact Transfers Roll Left & Right (QC): 2 Sit to Lying (QC): 1 Lying to Sitting/Side of Bed(Q: 1 Sit to Stand (QC): 2 Chair/Nku-ls-Srbiq Xfer(QC): 88 Toilet Transfer (QC): 88 Car Transfer (QC): 88 Patient rolls with max assist, supine <-> sit dependent. Patient needs assist of 2 for supine to sit, he sits to the side of the bed and once he gets there he can sit without assist. He does have discomfort and pain due to his scrotum swelling. Patient is able to stand from the side of the elevated bed with max assist, he stands for about 20 seconds, sits back down and then stands again. He lays back down to rest. During this time his O2 drops into the 80's, O2 is increased to 8L and O2 comes back up into the 90's with purse lip breathing. Patient then bathes. Sits again with assist of 2, attempted to stand but couldn 't, lays back down. Then he performs LE exercises. Gait Walk 10 feet (QC): 88 Walk 50 ft with 2 Turns(QC): 88 Walk 150 ft (QC): 88 Walking 10ft/uneven surface-QC: 88 Wheelchair Training Wheel 50 ft with 2 turns (QC): 88 Wheel 150 ft (QC): 88 Stairs 1 Step (curb) (QC): 88 4 Steps (QC): 88 12 Steps (QC): 88 Balance Sitting Static: Fair Sitting Dynamic: Fair Standing Static: Poor Picking up an Object (QC): 88 Treatment All in supine: Bilateral Ankle pumps (1x10), Bilateral Heel slides (1x10), Bilateral Hip ABD/ADD (1x10), Bilateral SLR (1x5) Assessment/Needs Patient in bed post tx with nurse call, phone, tray, all needs met. Patient has impaired mobility, strength, endurance. He has a lot of scrotal swelling which makes any activity difficult and painful. He was not able to perform a transfer into the chair this afternoon. Rehab Potential: Guarded PT Short Term Goals Short Term Goals Time Frame: Nov 09, 2021 Roll Left & Right: 3 Sit to lyin Lying to sitting on side of be: 2 Sit to stand: 3 Chair/eeb-ab-ugduw transfer: 3 PT Metal Roofing Mechanic Goals Halfway Goals PT Halfway Goals Time Frame: Nov 23, 2021 Roll Left & Right (QC): 4 Sit to Lying (QC): 3 Lying-Sitting on Side/Bed(QC): 3 Sit to Stand (QC): 4 Chair/Wiv-wi-Hntuq Xfer(QC): 4 Toilet Transfer (QC): 4 Car Transfer (QC): 3 Does the Patient Walk: Yes Walk 10 feet (QC): 4 Walk 50ft with 2 Turns (QC): 88 Walk 150 ft (QC): 88 Walking 10ft on Uneven Surface: 88 1 Step (curb) (QC): 88 4 Steps (QC): 88 12 Steps (QC): 88 Picking up an Object (QC): 4 Wheel 50 feet with 2 turns (QC: 4 Wheel 150 feet: 4 PT Plan Problem List Problem List: Activity Tolerance, Functional Strength, Safety, Balance, Gait, Transfer, Bed Mobility, ROM Treatment/Plan Treatment Plan: Continue Plan of Care Treatment Plan: Bed Mobility, Education, Functional Activity Whitney, Functional Strength, Group Therapy, Gait, Safety, Therapeutic Exercise, Transfers Treatment Duration: Nov 23, 2021 Frequency: At least 5 of 7 days/Wk (IRF) Estimated Hrs Per Day: 1.5 hours per day Patient and/or Family Agrees t: Yes Safety Risks/Education Patient Education: Correct Positioning, Safety Issues Teaching Recipient: Patient Teaching Methods: Demonstration, Discussion Response to Teaching: Reinforcement Needed Discharge Recommendations Plan Patient will perform bed mobility and transfer training, balance and endurance training, functional strengthening, gait training, and education, to improve functional mobility and independence at home. Therapy Discharge Recommendati: Scheduled Assistance, Home & Family, Post Acute PT Time/GCodes Time In: 1330 Time Out: 1510 Total Billed Treatment Time: 90 Total Billed Treatment 1 visit EVM 10' FA 80' PT performed bed mobility, sitting, LE strengthening, positioning and safety during ADL's, OT performed ADL's, UE positioning and safety during activity, UE strengthening, assist with mobility. PT eval from [id number], OT eval from [id number], co-treat from [id number] CLIFTON STANLEY PT Nov 02, 2021 14:55
--- NOTE | 2021-11-02 15:09 | Occupational Therapy Eval ---
OT Evaluation-General/PLF Medical Diagnosis Admission Date Nov 02, 2021 at 13:30 Medical Diagnosis: Signmoid colon resection; colostomy Onset Date: Aug 30, 2021 Therapy Diagnosis Therapy Diagnosis: reduced adl status Precautions Precautions/Isolations: Fall Prevention, Standard Precautions Referral Physician: Charan Garcia Reason: Evaluation/Treatment Medical History Pertinent Medical History: Atrial Fib, GERD, Heart Failure Additional Medical History CKD, stage III Current History Pt admitted to [facility] with c/o abdominal pain. He was found to have a large Bowel obstruction and underwent a c-scope on 08/30, then laparoscopic sigmoid colon resection; colostomy. Pt required BiPap for hypoxia post aspiration on 09/09. He was later diagnosed with sepsis due to asp pna. He was intubated and later extubated on 09/15. He was transferred to [facility] for oxygen weaning and therapy. Pt lives with his in a single story home. He was indep with adls and shared iadl responsibilities with his . He was not using any AD prior to admission. He still drove and enjoys gardening/yard work. Reviewed History: Yes Social History Home: Single Level Current Living Status: Spouse ADL-Prior Level of Function SCALE: Activities may be completed with or without assistive devices. 3-Fofmfetevh-epuoewb completes the activity by him/herself with no assistance from a helper. 5-Set-up or Clean-up Assistance-helper sets up or cleans up; patient completes activity. [place] assists only prior to or following the activity. 4-Supervision or Touching Assistance-helper provides verbal cues and/or touching/steadying and/or contact guard assistance as patient completes activity. Assistance may be provided throughout the activity or intermittently. 3-Partial/Moderate Assistance-helper does LESS THAN HALF the effort. [place] lifts, holds or supports trunk or limbs, but provides less than half the effort. 2-Substantial/Maximal Assistance-helper does MORE THAN HALF the effort. [place] lifts or holds trunk or limbs and provides more than half the effort. 5-Ptmerfzct-xujwof does ALL the effort. Patient does none of the effort to complete the activity. Or, the assistance of 2 or more helpers is required for the patient to complete the activity. If activity was not attempted, code reason: 7-Patient Refused. 9-Not Applicable-not attempted and the patient did not perform the activity before the current illness, exacerbation or injury. 10-Not Attempted due to Environmental Limitations-(lack of equipment, weather restraints, etc.). 88-Not Attempted due to Medical Conditions or Safety Concerns. Self Care: Independent Functional Cognition: Independent DME/Equipment: Grab Bars, Shower Drive Self: Yes OT Current Status Subjective Pt reports pain in scrotum and RLE. RN aware. Co-treat with PT due to need of 2 skilled clinicians to progress indep with adls and mobility. Appearance Pt left supine in bed, all needs within reach. Mental Status/Objective Attachments: Colostomy/Ileostomy, Peterson Catheter, Oxygen Current Glasses/Contacts: Yes (readers) Hearing Aids: No Dentures/Partials: Yes Hand Dominance: Left Upper Extremity ROM WNL Upper Extremity Strength R shoulder: 3+/5 L shoulder: 4/5 Bilateral elbow-distally: 3+/5 ADL-Treatment Eating (QC): 4 Oral Hygiene (QC): 4 Shower/Bathe Self (QC): 2 Upper Body Dressing (QC): 88 Lower Body Dressing (QC): 1 (per clinical judgment) On/Off Footwear (QC): 1 Toileting Hygiene (QC): 1 (colostomy and peterson catheter) Supine<>sit: Max a x2. Pt c/o pain with sitting secondary to scrotal edema. Sit<>stand: max a x2. Pt only able to tolerate standing for ~15 seconds before initiating sitting due to fatigue and LE weakness. Pt also unable to tolerate sitting due to pain and fatigue and often requests to return to supine. Sponge bath performed at bed level. Pt able to wash upper body with cues to initiate. Dependent to wash from waist to feet. Significant redness/irritation exhibited around scrotum. OT discussed with RN on getting fungal cream/powder. OT provided pt with scrotal sling with use of millicent wrap and wrapping around torso to provide extra support and lift during transfers. Pt reports some improvement in maintaining proper positioning with adaptive sling. Pt may benefit from wearing supportive underwear/briefs for support. No appropriate size clothing available at this time, thus new gown donned. Anticipate assist x2 for clothing management in standing. Pt requires significant amount of rest breaks secondary to fatigue and desat into mid 80's. Cues for PLB. Oxygen increased from 5 to 8L during activity. Other Treatments Pt completed UE exercises while supine in bed. 10x1 all planes. Mod cues needed for correct technique. Education OT Patient Education: Correct positioning, Disease process, Energy conservation, Modified ADL techniques, Progress toward Goal/Update tx plan, Purpose of tx/functional activities, Reviewed precautions, Rehab process, Safety issues, Transfer techniques Teaching Recipient: Patient, Family Teaching Methods: Demonstration, Discussion Response to Teaching: Verbalize Understanding, Return Demonstration, Reinforcem ent Needed OT Short Term Goals Short Term Goals Time Frame: Nov 13, 2021 Eatin Oral hygiene: 5 Toileting hygiene: 3 Shower/bathe self: 2 Upper body dressin Lower body dressin Putting on/taking off footwear: 2 OT Print Support Specialist Goals Print Support Specialist Goals Time Frame: Dec 04, 2021 Eating (QC): 6 Oral Hygiene (QC): 6 Toileting Hygiene (QC): 3 Shower/Bathe Self (QC): 5 Upper Body Dressing (QC): 6 Lower Body Dressing (QC): 5 On/Off Footwear (QC): 4 1=Demonstrate adherence to instructed precautions during ADL tasks. 2=Patient will verbalize/demonstrate understanding of assistive devices/modifications for ADL. 3=Patient will improve strength/tolerance for activity to enable patient to perform ADL's. OT Education/Plan Problem List/Assessment Assessment: Decreased Activ Tolerance, Decreased Safety Aware, Decreased UE Strength, Dependent Transfers, Edema, Impaired Bed Mobility, Impaired Coordination, Impaired Funct Balance, Impaired I ADL's, Impaired Self-Care Skills, Restricted Funct UE ROM Discharge Recommendations Plan/Recommendations: Continue POC Therapy Discharge Recommendati: Post Acute OT Treatment Plan/Plan of Care Treatment,Training & Education: Yes Patient would benefit from OT for education, treatment and training to promote independence in ADL's, mobility, safety and/or upper extremity function for ADL's. Plan of Care: ADL Retraining, Cognitive Retraining, Functional Mobility, Group Exercise/Act as Ind, UE Funct Exercise/Act, W/C Management Training Treatment Duration: Dec 04, 2021 Frequency: At least 5 of 7 days/Wk (IRF) Estimated Hrs Per Day: 1.5 hours per day Agreement: Yes Time/GCodes Start Time: 13:40 Stop Time: 15:10 Total Time Billed (hr/min): 90 Billed Treatment Time 1 visit EVH (10 min) ADL x3 (50 min) EX x2 (30 min) Constance Hogan OT Nov 02, 2021 15:09
[2021-11-02] MEDS ORDERED: RT-ALBUTEROL SULF 2.5 MG/3 ML PRE-MIX VIAL INH PRN (16:00)
[2021-11-02] MEDS ORDERED: NYSTATIN CREAM (MYCOSTATIN) 30 GM TUBE TP PRN (16:00)
--- NOTE | 2021-11-02 17:24 | Consultation - Surgery ---
ALEXIA SCHNEIDER 11/02/21 1724: History of Present Illness History of Present Illness Patient Consulted On(adair/time) 11/02/21 17:11 Date Seen by Provider: Nov 02, 2021 Time Seen by Provider: 03:15 Reason for Visit: Rehabilitation following sigmoid resection/respiratory failure/sepsis History of Present Illness Consult requested by Dr. Farrar regarding pt's colostomy bag. Pt unable to stay away during examination, most history obtained from his . Pt is 81 yo male with hx of CKD, AFib, GERD, pulmonary HTN, and CHF. He began having lower abdominal pain in early August. No N/V/D or constipation. The pain started as a week of cramps, before transitioning to constant pain on TuesdayAugust 28. OTC meds did not relieve the pain. Pt went to [facility] Tuesday when the pain did not brant. [facility] Xrays showed volvulus. They tried to untwist the volvulus via colonoscopy on TuesdayAug 30. It was unsuccessful, so he underwent a barium enema TuesdaySep 02. He had a sigmoid resection and colostomy that day. He experienced a lot of nausea and vomiting postop, and came down with aspiration pneumonia that led to sepsis on 09/09. He had hypoxic respiratory failure. The pt was extubated on Sep 15. He was moved to [place] after that. There he received some physical therapy. He required high flow oxygen and bipap at night. He resumed a regular diet 3 weeks ago. The pt sought out [facility] rehab because they have more opportunities for physical therapy and rehabilitation. His ostomy is working normally now, although his states it took awhile for his stomach to begin working after his surgery. He just takes Colace now to help with bowel movements. The pt has had a hematoma for 2 weeks on his right leg, though it has become significantly less painful. The pt had one episode of blood in his stool in 2018. He went to [facility] and [facility] trying to find the source. In October of 2019, [facility] cauterized a bleeding source in his upper intestine. His last EGD was at [facility] this past August. His last full colonoscopy was at [facility] in 2019 (he only had a partial to investigate his sigmoid issues this past August). Allergies and Home Medications Allergies Coded Allergies: amiodarone (Verified Allergy, Unknown, 11/02/21) lisinopril (Verified Allergy, Unknown, 11/02/21) Patient Home Medication List Acetaminophen (Tylenol Arthritis) 650 Mg Tablet.er, 650 MG PO Q6H PRN for PAIN- MILD (1-4) OR TEMPATURE, (Reported) Entered as Reported by: DALY WOLF on 11/02/211407 Last Action: Held Acetazolamide (Acetazolamide) 250 Mg Tablet, 250 MG PO BID, (Reported) Entered as Reported by: DALY WOLF on 11/02/211407 Last Action: Continued Albuterol Sulfate (Albuterol Sulfate) 2.5 Mg/0.5 Ml Vial.neb, 2.5 MG INH Q4H PRN for SHORTNESS OF BREATH, (Reported) Entered as Reported by: DALY WOLF on 11/02/211407 Last Action: Continued Atorvastatin Calcium (Atorvastatin Calcium) 40 Mg Tablet, 40 MG PO HS, (Reported) Entered as Reported by: DALY WOLF on 11/02/211407 Last Action: Continued Digoxin (Digoxin) 125 Mcg Tablet, 125 MCG PO DAILY, (Reported) Entered as Reported by: DALY WOLF on 11/02/211407 Last Action: Continued Diltiazem HCl (Diltiazem HCl) 30 Mg Tablet, 30 MG PO BID, (Reported) Entered as Reported by: DALY WOLF on 11/02/211407 Last Action: Continued Docusate Sodium (Docusate Sodium) 100 Mg Capsule, 100 MG PO BID, (Reported) Entered as Reported by: DALY WOLF on 11/02/211407 Last Action: Continued Enoxaparin Sodium (Enoxaparin Sodium) 60 Mg/0.6 Ml Syringe, 60 MG SQ DAILY, (Reported) Entered as Reported by: DALY WOLF on 11/02/211407 Last Action: Continued Famotidine (Famotidine) 20 Mg Tablet, 20 MG PO BID, (Reported) Entered as Reported by: DALY WOLF on 11/02/211407 Last Action: Continued Furosemide (Furosemide) 40 Mg Tablet, 60 MG PO DAILY, (Reported) Entered as Reported by: DALY WOLF on 11/02/211407 Last Action: Continued Gabapentin (Gabapentin) 100 Mg Capsule, 100 MG PO BID, (Reported) Entered as Reported by: DALY WOLF on 11/02/211407 Last Action: Continued Guaifenesin (Mucinex) 600 Mg Tab.er.12h, 600 MG PO BID, (Reported) Entered as Reported by: DALY WOLF on 11/02/211407 Last Action: Continued Ibuprofen (Ibuprofen) 400 Mg Tablet, 400 MG PO Q8H PRN for PAIN-MILD (1-4), (Reported) Entered as Reported by: DALY WOLF on 11/02/211407 Last Action: Held Lactulose (Lactulose) 20 Gm/30 Ml Solution, 30 ML PO DAILY PRN for CONSTIPATION- 3RD LINE, (Reported) Entered as Reported by: DALY WOLF on 11/02/211407 Last Action: Continued Metoclopramide HCl (Metoclopramide HCl) 10 Mg Tablet, 10 MG PO Q6H, (Reported) Entered as Reported by: DALY WOLF on 11/02/211407 Last Action: Continued Multivitamin with Minerals (Multivitamins with Minerals) 1 Each Tablet, 1 EACH PO DAILY, (Reported) Entered as Reported by: DALY WOLF on 11/02/211407 Last Action: Continued Nystatin (Nystatin) 15 Gm Cream..g., 1 APPLIC TP Q4H PRN for GROIN RASH, (Reported) Entered as Reported by: DALY WOLF on 11/02/211407 Last Action: Continued Polyethylene Glycol 3350 (Miralax) 17 Gm Powd.pack, 17 GM PO DAILY, (Reported) Entered as Reported by: DALY WOLF on 11/02/211407 Last Action: Continued Potassium Chloride (K-Tab ER) 20 Meq Tablet.er, 40 MEQ PO DAILY, (Reported) Entered as Reported by: DALY WOLF on 11/02/211407 Last Action: Converted Trazodone HCl (Trazodone HCl) 50 Mg Tablet, 50 MG PO HS, (Reported) Entered as Reported by: DALY WOLF on 11/02/211407 Last Action: Continued Past Flfrfvm-Tokaaz-Wjztqc Hx Patient Social History Smoking Status: Former Smoker (quit 1999; about 40 pack year history) Alcohol Use?: Yes Have you traveled recently?: No Immunizations Up To Date Date of Influenza Vaccine: Jul 06, 2022 Surgeries Surgeries: Abdominal (umbilical hernia), Appendectomy, Bowel Surgery (sigmoid resection and colostomy), Cardiac (aortic aneurysm), CABG, Open Heart Surgery (replaced mitral valve) Respiratory History of Respiratory Disorde: Yes Respiratory Disorders: Pneumonia (aspiration pneumonia; hypoxic respiratory failure) Cardiovascular History of Cardiac Disorders: Yes Cardiac Disorders: Aneurysm, Atrial Fibrillation, Cardiomyopathy Genitourinary Genitourinary Disorders: Renal Failure (CKD) Gastrointestinal History of Gastrointestinal Di: Yes Gastrointestinal Disorders: Gastroesophageal Reflux, Obstructive Bowel Psychosocial Behavioral Health Disorders: Anxiety, Depression Family Medical History Significant Family History: Asthma (sister), Heart Disease (dad) Review of Systems-General Other Unable to obtain, pt drowsy Physical Exam-General Problems Physical Exam Vital Signs Vital Signs - First Documented 11/02/21 13:30 Temp 35.7 Pulse 79 Resp 20 B/P (MAP) 119/67 O2 Delivery Nasal Cannula O2 Flow Rate 6.00 Capillary Refill : General Appearance: WD/WN, obese Neck: supple, normal inspection Respiratory: no respiratory distress, no accessory muscle use, wheezing Cardiovascular: no murmur, irregularly irregular Gastrointestinal: soft, other (colostomy pink and functioning) Extremities: normal inspection, no pedal edema Neurologic/Psychiatric: normal mood/affect, other (drowsy) Skin: warm/dry, other (R leg recent hematoma) Assessment/Plan Assessment/Plan Assessment/Plan 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 Pt seen and examined with his in the room. He appears lethargic but responds to most questions. does give most of the history. Pt denies any abdominal pain, mainly just very weak. Allergies and Home Medications Allergies Coded Allergies: amiodarone (Verified Allergy, Unknown, 11/02/21) lisinopril (Verified Allergy, Unknown, 11/02/21) Patient Home Medication List Home Medication List Reviewed: Yes Acetaminophen (Tylenol Arthritis) 650 Mg Tablet.er, 650 MG PO Q6H PRN for PAIN- MILD (1-4) OR TEMPATURE, (Reported) Entered as Reported by: DALY WOLF on 11/02/211407 Last Action: Held Acetazolamide (Acetazolamide) 250 Mg Tablet, 250 MG PO BID, (Reported) Entered as Reported by: DALY WOLF on 11/02/211407 Last Action: Continued Albuterol Sulfate (Albuterol Sulfate) 2.5 Mg/0.5 Ml Vial.neb, 2.5 MG INH Q4H PRN for SHORTNESS OF BREATH, (Reported) Entered as Reported by: DALY WOLF on 11/02/211407 Last Action: Continued Atorvastatin Calcium (Atorvastatin Calcium) 40 Mg Tablet, 40 MG PO HS, (Reported) Entered as Reported by: DALY WOLF on 11/02/211407 Last Action: Continued Digoxin (Digoxin) 125 Mcg Tablet, 125 MCG PO DAILY, (Reported) Entered as Reported by: DALY WOLF on 11/02/211407 Last Action: Continued Diltiazem HCl (Diltiazem HCl) 30 Mg Tablet, 30 MG PO BID, (Reported) Entered as Reported by: DALY WOLF on 11/02/211407 Last Action: Continued Docusate Sodium (Docusate Sodium) 100 Mg Capsule, 100 MG PO BID, (Reported) Entered as Reported by: DALY WOLF on 11/02/211407 Last Action: Continued Enoxaparin Sodium (Enoxaparin Sodium) 60 Mg/0.6 Ml Syringe, 60 MG SQ DAILY, (Reported) Entered as Reported by: DALY WOLF on 11/02/211407 Last Action: Continued Famotidine (Famotidine) 20 Mg Tablet, 20 MG PO BID, (Reported) Entered as Reported by: DALY WOLF on 11/02/211407 Last Action: Continued Furosemide (Furosemide) 40 Mg Tablet, 60 MG PO DAILY, (Reported) Entered as Reported by: DALY WOLF on 11/02/211407 Last Action: Continued Gabapentin (Gabapentin) 100 Mg Capsule, 100 MG PO BID, (Reported) Entered as Reported by: DALY WOLF on 11/02/211407 Last Action: Continued Guaifenesin (Mucinex) 600 Mg Tab.er.12h, 600 MG PO BID, (Reported) Entered as Reported by: DALY WOLF on 11/02/211407 Last Action: Continued Ibuprofen (Ibuprofen) 400 Mg Tablet, 400 MG PO Q8H PRN for PAIN-MILD (1-4), (Reported) Entered as Reported by: DALY WOLF on 11/02/211407 Last Action: Held Lactulose (Lactulose) 20 Gm/30 Ml Solution, 30 ML PO DAILY PRN for CONSTIPATION- 3RD LINE, (Reported) Entered as Reported by: DALY WOLF on 11/02/211407 Last Action: Continued Metoclopramide HCl (Metoclopramide HCl) 10 Mg Tablet, 10 MG PO Q6H, (Reported) Entered as Reported by: DALY WOLF on 11/02/211407 Last Action: Continued Multivitamin with Minerals (Multivitamins with Minerals) 1 Each Tablet, 1 EACH PO DAILY, (Reported) Entered as Reported by: DALY WOLF on 11/02/211407 Last Action: Continued Nystatin (Nystatin) 15 Gm Cream..g., 1 APPLIC TP Q4H PRN for GROIN RASH, (Reported) Entered as Reported by: DALY WOLF on 11/02/211407 Last Action: Continued Polyethylene Glycol 3350 (Miralax) 17 Gm Powd.pack, 17 GM PO DAILY, (Reported) Entered as Reported by: DALY WOLF on 11/02/211407 Last Action: Continued Potassium Chloride (K-Tab ER) 20 Meq Tablet.er, 40 MEQ PO DAILY, (Reported) Entered as Reported by: DALY WOLF on 11/02/211407 Last Action: Converted Trazodone HCl (Trazodone HCl) 50 Mg Tablet, 50 MG PO HS, (Reported) Entered as Reported by: DALY WOLF on 11/02/211407 Last Action: Continued Past Hsbmxql-Mteejq-Oxtcxd Hx Patient Social History Smoking Status: Former Smoker (quit 1999; about 40 pack year history) Surgeries History of Surgeries: Yes Surgeries: Abdominal (umbilical hernia), Appendectomy, Bowel Surgery (sigmoid resection and colostomy), Cardiac (aortic aneurysm), CABG, Open Heart Surgery (replaced mitral valve) Respiratory History of Respiratory Disorde: Yes Respiratory Disorders: Pneumonia (aspiration pneumonia; hypoxic respiratory failure) Cardiovascular History of Cardiac Disorders: Yes Cardiac Disorders: Aneurysm, Atrial Fibrillation, Cardiomyopathy Genitourinary History of Genitourinary Disor: Yes Genitourinary Disorders: Renal Failure (CKD) Gastrointestinal History of Gastrointestinal Di: Yes Gastrointestinal Disorders: Gastroesophageal Reflux, Obstructive Bowel Endocrine History of Endocrine Disorders: No HEENT Hearing Impairment: Hard of Hearing Cancer History of Cancer: No Psychosocial History of Psychiatric Problem: Yes Behavioral Health Disorders: Anxiety, Depression Family Medical History Significant Family History: Asthma (sister), Heart Disease (dad) Review of Systems-General Constitutional: No chills, No diaphoresis; malaise, weakness EENTM: No blurred vision, No mouth swelling, No epistaxis Respiratory: No cough, No dyspnea on exertion Cardiovascular: No chest pain, No edema; Hx of Intervention Gastrointestinal: No abdominal pain, No hematemesis, No jaundice, No nausea, No vomiting Genitourinary: No dysuria, No frequency, No hematuria Musculoskeletal: joint pain, joint swelling, muscle stiffness, muscle weakness Skin: No change in color, No change in hair/nails Psychiatric/Neurological: Anxiety, Depressed, Weakness Physical Exam-General Problems Physical Exam General Appearance: no apparent distress, obese, other (lethargic) Eyes: Bilateral Eye PERRL, Bilateral Eye EOMI HEENT: pharynx normal; No scleral icterus (R), No scleral icterus (L) Neck: non-tender, supple Respiratory: no respiratory distress, no accessory muscle use, wheezing Cardiovascular: no murmur, irregularly irregular Gastrointestinal: non tender, soft; No guarding, No rebound; other (colostomy pink and functioning) Extremities: normal inspection, no pedal edema, no calf tenderness Neurologic/Psychiatric: normal mood/affect, other (drowsy) Skin: warm/dry, other (R leg recent hematoma) Lymphatic: no adenopathy (neck, axilla or groin) Assessment/Plan Assessment/Plan Assessment/Plan 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 I then reviewed and verified all information documented by the medical student and made raina fications to such information, when appropriate. I personally performed a physical exam, medical decision making and then discussed any differences between the notes and made revisions as necessary to create one note. Brandy Sutton , 11/02/21 , 18:35 ALEXIA SCHNEIDER Nov 02, 2021 17:24 BRANDY SUTTON DO Nov 02, 2021 18:35
[2021-11-02] MEDS: METOCLOPRAMIDE 10 MG (REGLAN) TAB PO SCH ×2 (18:11→20:50)
[2021-11-02 19:32] VITALS: BP 103/57
[2021-11-02] MEDS: acetaZOLAMIDE 250 MG (DIAMOX) TAB PO SCH (20:49)
[2021-11-02] MEDS: FAMOTIDINE 20 MG (PEPCID) TABLET PO SCH (20:49)
[2021-11-02] MEDS: traZODone 50 MG (DESYREL) TAB PO SCH (20:49)
[2021-11-02] MEDS: guaiFENesin (MUCINEX) 600 MG TAB PO SCH (20:49)
[2021-11-02] MEDS: GABAPENTIN 100 MG (NEURONTIN) CAP PO SCH (20:50)
[2021-11-02] MEDS: DOCUSATE SODIUM 100 MG (COLACE) CAP PO SCH ×2 (20:50→20:52)
[2021-11-02] MEDS: SENNA W/DOCUSATE (SENOKOT S) TABLET PO SCH (20:51)
[2021-11-02] MEDS: polyethylene glycoL POWDER 17 GM (MIRALAX) PACK PO SCH (20:52)
[2021-11-03] MEDS: METOCLOPRAMIDE 10 MG (REGLAN) TAB PO SCH ×4 (03:40→20:19)
[2021-11-03] MEDS: MULTIVIT W/MINERALS TAB (THERAGRAN M) PO SCH (06:08)
[2021-11-03 06:09] LABS: BASOPHILS % (AUTO) 0 % (0-10); EOSINOPHILS # (AUTO) 0.3 10^3/uL (0.0-0.3); EOSINOPHILS % (AUTO) 3 % (0-10); HEMATOCRIT 27 % (40-54); HEMOGLOBIN 8.1 g/dL (13.3-17.7); LYMPHOCYTES # (AUTO) 0.8 10^3/uL (1.0-4.0); LYMPHOCYTES % (AUTO) 8 % (12-44); MEAN CORPUSCULAR HEMOGLOBIN 29 pg (25-34); MEAN CORPUSCULAR HGB CONC 30 g/dL (32-36); MEAN CORPUSCULAR VOLUME 95 fL (80-99); MEAN PLATELET VOLUME 9.1 fL (9.0-12.2); MONOCYTES # (AUTO) 0.8 10^3/uL (0.0-1.0); MONOCYTES % (AUTO) 8 % (0-12); NEUTROPHILS # (AUTO) 7.5 10^3/uL (1.8-7.8); NEUTROPHILS % (AUTO) 78 % (42-75); PLATELET COUNT 213 10^3/uL (130-400); WHITE BLOOD COUNT 9.6 10^3/uL (4.3-11.0)
[2021-11-03 06:23] LABS: ALBUMIN 2.4 GM/DL (3.2-4.5)
[2021-11-03 06:24] LABS: POTASSIUM 3.1 MMOL/L (3.6-5.0)
[2021-11-03 06:25] LABS: CALCIUM 8.8 MG/DL (8.5-10.1)
[2021-11-03 06:26] LABS: TOTAL PROTEIN 7.3 GM/DL (6.4-8.2)
[2021-11-03 06:28] LABS: BILIRUBIN,TOTAL 0.7 MG/DL (0.1-1.0)
--- NOTE | 2021-11-03 06:39 | Individualized Plan of Care ---
Individualized Plan of Care Rehab Nursing IPOC Order Admission Date Nov 02, 2021 at 13:30 Current Orders Orders Admission Order(Inpt,Obs,Sdc) (11/02/21 10:52) Vital Signs: Per Unit Policy ( 08,16,00 (11/02/21 10:52) Ehsan Ochoa , (11/02/21 10:52) Sequential Compression Device (11/02/21 10:52) Retail Customer Service Specialist-Inpt Rehab Con (11/02/21 10:52) Rehab Nursing Orders-Ipoc (11/02/21 10:52) Physical Therapy Rehab Orders (11/02/21 10:52) Occupational Therapy Rehab Ord (11/02/21 10:52) Speech Therapy Rehab Orders (11/02/21 10:52) Cbc With Automated Diff (11/03/21 06:00) Comprehensive Metabolic Panel (11/03/21 06:00) Precautions (Aru) (11/02/21 10:52) Weekly Weight WEEK (11/02/21 10:52) Rehab-Intensity Of Therapy (11/02/21 10:52) Initiate Admission Nursing Pro .admission (11/02/21 10:52) Alprazolam Tablet (Xanax Tablet) (11/02/21 11:00) Calcium Carbonate Chew Tablet (Antacid C (11/02/21 11:00) Diphenhydramine Tablet (Benadryl Tablet) (11/02/21 11:00) Docusate Sodium Capsule (Colace Capsule) (11/02/21 21:00) Docusate Sodium Capsule (Colace Capsule) (11/02/21 11:00) Bisacodyl Suppository (Dulcolax Supposit (11/02/21 11:00) Lactulose Oral Solution (Enulose Oral So (11/02/21 11:00) Na Phos/Na Biphos Enema (Fleet Enema Scott (11/02/21 11:00) Guaifenesin/Codeine Syrup (Robitussin Ac (11/02/21 11:00) Loperamide Tablet (Imodium Tablet) (11/02/21 11:00) Melatonin Tablet (Melatonin Tablet) (11/02/21 11:00) Polyethylene Glycol Powder Pkt (Miralax (11/02/21 21:00) Ondansetron Oral Dissolve Tab (Zofran (11/02/21 11:00) Senna S Tablet (Senokot S Tablet) (11/02/21 21:00) Acetaminophen Tablet/Caplet (Tylenol T (11/02/21 11:00) Code/Resuscitation (11/02/21 10:52) Initiate Admission Nursing Pro .admission (11/02/21 10:52) Consult General Surgery (11/02/21 13:34) Consult Cardiology (11/02/21 13:34) Ekg Tracing (11/02/21 13:34) Code/Resuscitation (11/02/21 15:48) Acetazolamide Tablet (Diamox Tablet) (11/02/21 21:00) Albuterol Pre-Mix Nebs (Rt) (Proventil (11/02/21 16:00) Atorvastatin Tablet (Lipitor Tablet) (11/02/21 21:00) Digoxin Tablet (Lanoxin Tablet) (11/03/21 09:00) Diltiazem Tablet (Cardizem Tablet) (11/02/21 21:00) Docusate Sodium Capsule (Colace Capsule) (11/02/21 21:00) Enoxaparin Injection (Lovenox Injectio (11/03/21 09:00) Famotidine Tablet (Pepcid Tablet) (11/02/21 21:00) Furosemide Tablet (Lasix Tablet) (11/03/21 09:00) Gabapentin Capsule/Tablet (Neurontin Cap (11/02/21 21:00) Guaifenesin Tablet (Mucinex Tablet) (11/02/21 21:00) Lactulose Oral Solution (Enulose Oral So (11/02/21 16:00) Metoclopramide Tablet (Reglan Tablet) (11/02/21 16:00) Therapeutic Multivitamin Tab (Vitamins, (11/03/21 07:00) Nystatin Cream (Mycostatin Cream) (11/02/21 16:00) Polyethylene Glycol Powder Pkt (Miralax (11/03/21 09:00) Trazodone Tablet (Desyrel Tablet) (11/02/21 21:00) (Nf) Potassium Chloride (K-Tab Er) (11/03/21 09:00) Svn Small Volume Nebulizer (11/02/21 15:49) Digoxin (11/03/21 06:00) Potassium Chloride (Tablet) (K Dur Table (11/03/21 07:00) General/Regular (11/02/21 Dinner) Potassium Chloride (Tablet) (K Dur Table (11/03/21 07:00) Fluid Restriction (11/03/21 06:40) Consult Urology (11/03/21 06:40) Iron Test (Fe) (11/03/21 06:40) Vitamin B 12 (11/03/21 06:40) Patient Visit (11/03/21 ) Speech Sound Lang Comp (11/03/21 ) Treat. Speech/Lang/Voice (11/03/21 ) Patient Visit (11/02/21 ) Pt Eval Moderate Complexity (11/02/21 ) Functional Activities, Ea 15 (11/02/21 ) Patient Visit (11/03/21 ) Exercise Therap, Ea 15 Min (11/03/21 ) Functional Activities, Ea 15 (11/03/21 ) Consult Wound Care Physician (11/03/21 18:58) Rehab Nursing Orders: Ongoing Assess. of Cognitive Status, Ongoing Assess. of Function Status, Bladder Management, Bladder Scan, Bladder Training, Bowel Management, Bowel Training, Disease Management & Educaiton, DVT Prophylaxis, Fall Prevention, Fluid/Electrolyte/Nutrition Mgmt, Infection Prevention, Medication Management & Education, Management of Risks & Complications, Management of Skin Intergrity, Nutrition Management, Pain Management, Patient/Family Support, Safety Management, Swallow Precautions, Weight Bearing Precaution, Wound Management Intensity of Therapy to be met Patient to be seen: Min.3h per day/5 of 7d PT IPOC Problem List: Activity Tolerance, Functional Strength, Safety, Balance, Gait, Transfer, Bed Mobility, ROM Treatment Plan: Continue Plan of Care Bed Mobility, Education, Functional Activity Whitney, Functional Strength, Group Therapy, Gait, Safety, Therapeutic Exercise, Transfers Treatment Duration: Nov 23, 2021 Frequency: At least 5 of 7 days/Wk (IRF) Estimated Hrs Per Day: 1.5 hours per day OT IPOC Problems: Decreased Activ Tolerance, Decreased Safety Aware, Decreased UE Strength, Dependent Transfers, Edema, Impaired Bed Mobility, Impaired Coordination, Impaired Funct Balance, Impaired I ADL's, Impaired Self-Care Skills, Restricted Funct UE ROM OT Treatment, Training and Edu: Yes Plan of Care: ADL Retraining, Cognitive Retraining, Functional Mobility, Group Exercise/Act as Ind, UE Funct Exercise/Act, W/C Management Training Treatment Duration: Dec 04, 2021 Frequency: At least 5 of 7 days/Wk (IRF) Estimated Hrs Per Day: 1.5 hours per day [facility] Speech Therapy Treatment Plan: Continue Plan of Care Treatment Duration: Nov 03, 2021 Frequency: Modified Program (IRF) Estimated Hrs Per Day: .5 hour per day Retail Customer Service Specialist/Case Mgmt Retail Customer Service Specialist/Case Managemen: Discharge Planning Dietitian/Direct Support Staff Member Dietitian/Direct Support Staff Member to monitor nutritional status and make changes and/or recommendations as needed and work with speech pathology on dietary upgrades as the occur. Physician [facility] Medical Issues being managed closely and that require the 24 hour availability of a physician: Recent critical illness with aspiration requiring intubation and continued edema requiring Cardiology consultation along with Urology and general surgery in order to increase independence with ADL's and ambulatory function in order to return home Medical Issues: Bowel/Bladder Function, DVT Prophylaxis, Falls Precautions, Fluid/Electrolyte/Nutrition Balance, Infection Protection, Pain Management, Swallowing Precautions, Wound Care Brief Synthesis of Preadmission Screen, Post-Admission Evaluation, and Therapy Evaluations: PT OT will focus on regaining function with assistive devices in order to regain enough function to return home to live independently while increasing stamina for ambulation. Medical Prognosis: Good Anticipated Length of Stay: 14 days BOB HOUSER DO Nov 03, 2021 06:39
--- NOTE | 2021-11-03 06:39 | PM&R Progress Note ---
Subjective HPI/CC On Admission Date Seen by Provider: Nov 03, 2021 Time Seen by Provider: 10:00 Subjective/Events-last exam 11/03/2021: Patient had a pretty good night Wore oxygen last night No pain reported Labs noted Urology consulted for Peterson DC Iron and B12 checked Fluid restriction at 1200cc Review of Systems General: Fatigue, Malaise Pulmonary: Dyspnea Cardiovascular: Edema Neurological: Weakness Objective Exam Vital Signs Vital Signs Date Time Temp Pulse Resp B/P (MAP) Pulse Ox O2 Delivery O2 Flow Rate FiO2 11/03/21 21:02 91 Nasal Cannula 5.00 11/03/21 19:43 36.8 86 20 105/59 (74) Capillary Refill : General Appearance: No Apparent Distress, WD/WN, Chronically ill, Obese HEENT: PERRL/EOMI, Normal ENT Inspection, Pharynx Normal Neck: Full Range of Motion, Normal Inspection, Non Tender, Supple, Carotid Bruit Respiratory: Chest Non Tender, Lungs Clear, Normal Breath Sounds, No Accessory Muscle Use, No Respiratory Distress, Crackles, Decreased Breath Sounds Cardiovascular: No Gallop, No JVD, No Murmur, Normal Peripheral Pulses, Irregularly Irregular Gastrointestinal: Normal Bowel Sounds, No Organomegaly, No Pulsatile Mass, Soft, Distended, Tenderness Back: Normal Inspection, No CVA Tenderness, No Vertebral Tenderness Extremity: Normal Capillary Refill, Normal Inspection, Normal Range of Motion (Limited range of motion), Non Tender, Calf Tenderness (Right) Neurologic/Psychiatric: Alert, Oriented x3, specimen transporter II-XII Norm as Tested, Depresse d Affect, Motor Weakness (Generalized) Skin: Normal Color, Warm/Dry Lymphatic: No Adenopathy Results/Procedures Lab Patient resulted labs reviewed. FIM Transfers Therapy Code Descriptions/Definitions Functional [place] Measure: 0=Not Assessed/NA 4=Minimal Assistance 1=Total Assistance 5=Supervision or Setup 2=Maximal Assistance 6=Modified [place] 3=Moderate Assistance 7=Complete IndependenceSCALE: Activities may be completed with or without assistive devices. 6-Omjrpbogvi-pnwbqow completes the activity by him/herself with no assistance from a helper. 5-Set-up or Clean-up Assistance-helper sets up or cleans up; patient completes activity. [place] assists only prior to or following the activity. 4-Supervision or Touching Assistance-helper provides verbal cues and/or touching/steadying and/or contact guard assistance as patient completes activity. Assistance may be provided throughout the activity or intermittently. 3-Partial/Moderate Assistance-helper does LESS THAN HALF the effort. [place] lifts, holds or supports trunk or limbs, but provides less than half the effort. 2-Substantial/Maximal Assistance-helper does MORE THAN HALF the effort. [place] lifts or holds trunk or limbs and provides more than half the effort. 1-Rosezjloq-ryakgb does ALL the effort. Patient does none of the effort to com plete the activity. Or, the assistance of 2 or more helpers is required for the patient to complete the activity. If activity was not attempted, code reason: 7-Patient Refused. 9-Not Applicable-not attempted and the patient did not perform the activity before the current illness, exacerbation or injury. 10-Not Attempted due to Environmental Limitations-(lack of equipment, weather restraints, etc.). 88-Not Attempted due to Medical Conditions or Safety Concerns. Roll Left to Right (QC): 2 Sit to Lying (QC): 1 Sit to Stand (QC): 2 Chair/Sma-xo-Uyfra Xfer(QC): 88 Car Transfer (QC): 88 Gait Training Walk 10 feet (QC): 88 Walk 50 ft with 2 Turns(QC): 88 Walk 150 ft (QC): 88 Walking 10ft/uneven surface-QC: 88 Wheelchair Training Wheel 50 ft with 2 turns (QC): 88 Wheel 150 ft (QC): 88 Stair Training 1 Step (curb) (QC): 88 4 Steps (QC): 88 12 Steps (QC): 88 Balance Picking up an Object (QC): 88 ADL-Treatment Eating (QC): 4 Oral Hygiene (QC): 4 Shower/Bathe Self (QC): 2 Upper Body Dressing (QC): 88 Lower Body Dressing (QC): 1 (per clinical judgment) On/Off Footwear (QC): 1 Toileting Hygiene (QC): 1 (colostomy and peterson catheter) Assessment/Plan Assessment and Plan Assess & Plan/Chief Complaint Assessment: 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 Recent aspiration pneumonia requiring intubation Continued hypoxia requiring supplemental oxygen Anasarca Atrial fibrillation CAD History of bypass History of AAA repair with endograft Hypertension GERD Chronic kidney disease Depression Anxiety Peterson catheter in place consulted Urology Anemia iron def Transfusion required Right lower extremity hematoma Hyponatremia Plan: Cardiology consult General surgery consult Ostomy consult Monitor hemoglobin Urology consult Aggressive rehab 11/03/21: Fluid restriction Iron and B12 check Urology Cardiology (1) Myopathy (2) Large bowel obstruction (3) Colostomy present (4) Peterson catheter in place (5) CHF (congestive heart failure) (6) Anasarca (7) CAD (coronary artery disease) (8) History of coronary artery bypass graft (9) Chronic kidney disease, stage III (moderate) (10) Anxiety (11) Depression (12) S/P AAA repair using bifurcation graft (13) Hypertension (14) GERD (gastroesophageal reflux disease) (15) Pulmonary hypertension (16) Hematoma of right lower leg (17) Anemia (18) History of transfusion (19) Aspiration pneumonia (20) Hypoxia (21) Abdominal distention BOB HOUSER DO Nov 03, 2021 06:39
[2021-11-03] MEDS: KCL 20 MEQ TAB (K-DUR) PO SCH ×4 (06:49→16:55)
[2021-11-03] MEDS ORDERED: KCL 20 MEQ TAB (K-DUR) PO SCH (07:00)
[2021-11-03 07:29] VITALS: BP 102/59
[2021-11-03] MEDS: acetaZOLAMIDE 250 MG (DIAMOX) TAB PO SCH ×2 (08:33→20:19)
[2021-11-03] MEDS: guaiFENesin (MUCINEX) 600 MG TAB PO SCH ×2 (08:33→20:19)
[2021-11-03] MEDS: GABAPENTIN 100 MG (NEURONTIN) CAP PO SCH ×2 (08:33→20:19)
[2021-11-03] MEDS: ENOXAPARIN 60 MG/0.6 ML (LOVENOX) SYR SQ SCH (08:33)
[2021-11-03] MEDS: DIGOXIN 0.125 MG (LANOXIN) TAB PO SCH (08:33)
[2021-11-03] MEDS: DOCUSATE SODIUM 100 MG (COLACE) CAP PO SCH ×4 (08:34→20:19)
[2021-11-03] MEDS: SENNA W/DOCUSATE (SENOKOT S) TABLET PO SCH ×2 (08:34→20:19)
[2021-11-03] MEDS: FUROSEMIDE 40 MG (LASIX) TAB PO SCH (08:34)
[2021-11-03] MEDS: FAMOTIDINE 20 MG (PEPCID) TABLET PO SCH ×2 (08:34→20:19)
[2021-11-03] MEDS: polyethylene glycoL POWDER 17 GM (MIRALAX) PACK PO SCH ×3 (08:34→20:20)
--- NOTE | 2021-11-03 08:55 | Occupational Ther Daily Note ---
OT Current Status-Daily Note Subjective Pt in bed, agreeable to OT tx. Mental Status/Objective Patient Orientation: Person, Place, Situation Attachments: Oxygen (5L at rest, 8L with activity) ADL-Treatment Therapy Code Descriptions/Definitions Functional [place] Measure: 0=Not Assessed/NA 4=Minimal Assistance 1=Total Assistance 5=Supervision or Setup 2=Maximal Assistance 6=Modified [place] 3=Moderate Assistance 7=Complete IndependenceSCALE: Activities may be completed with or without assistive devices. 3-Pguddvealv-gwtdozo completes the activity by him/herself with no assistance from a helper. 5-Set-up or Clean-up Assistance-helper sets up or cleans up; patient completes activity. [place] assists only prior to or following the activity. 4-Supervision or Touching Assistance-helper provides verbal cues and/or touching/steadying and/or contact guard assistance as patient completes activity. Assistance may be provided throughout the activity or intermittently. 3-Partial/Moderate Assistance-helper does LESS THAN HALF the effort. [place] lifts, holds or supports trunk or limbs, but provides less than half the effort. 2-Substantial/Maximal Assistance-helper does MORE THAN HALF the effort. [place] lifts or holds trunk or limbs and provides more than half the effort. 7-Juwkdhkah-lerfcu does ALL the effort. Patient does none of the effort to complete the activity. Or, the assistance of 2 or more helpers is required for the patient to complete the activity. If activity was not attempted, code reason: 7-Patient Refused. 9-Not Applicable-not attempted and the patient did not perform the activity before the current illness, exacerbation or injury. 10-Not Attempted due to Environmental Limitations-(lack of equipment, weather restraints, etc.). 88-Not Attempted due to Medical Conditions or Safety Concerns. Upper Body Dressing (QC): 3 (min A) Lower Body Dressing (QC): 1 (assist x2, assist all parts) On/Off Footwear: 1 (total assist) Toileting Hygiene (QC): 1 (total assist (catheter and ostomy)) Toilet Transfer (QC): 88 Other Treatment [id number] OT tx: Pt laying in bed, declined ADLs at this time. Pt agreeable to BUE exercises in order to increase strength and activity tolerance. Pt completed x10 reps each of the following: shoulder flexion, front punch, elbow flexion/extension. OT gathered clothing from pt's closet, pt agreeable to donning clothes. Mesh disposable underwear in order to support scrotum. [id number] OT/PT cotreat due to skill of 2 clinicians required which a clinical rehabilitation specialist could not perform in order to coordinate UE/LEs, decrease fall risk, and due to pt's limitations in strength, mobility, transfers, and activity tolerance. OT focused on UE placement, cues for sequencing and safety, and ADLs, PT focused on LE placement, gross overall movements, and transfers/mobility. Underwear donned at bed level, pt attempted to bridge up so underwear can be managed up. Pt then transferred to EOB, pants and shirt donned. Pt stood at FWW, assist x2 in pipe organ installer order to manage pant hike. Pt reports he feels good support with scrotum. Pt transferred to w/c via SPT, pt unable to perform transfer with FWW on this date. Pt performed functional mobility in w/c around [facility] common area in order to increase activity tolerance and BUE strengthening. Pt taken to therapy gym, standing in parallel bars x5 trials (10-20 seconds each), 2 trials pt able to take a couple of small steps (R knee buckling with steps). Pt propelled w/c back to his room part way, then assisted the rest of the way. Pt transferred back to bed, SPT (total assist x2). Post tx, pt in bed, call light in reach and all needs met. Education OT Patient Education: Correct positioning, Energy conservation, Modified ADL techniques, Progress toward Goal/Update tx plan, Purpose of tx/functional activities, Rehab process Teaching Recipient: Patient Teaching Methods: Discussion Response to Teaching: Verbalize Understanding OT Short Term Goals Short Term Goals Time Frame: Nov 13, 2021 Eatin Oral hygiene: 5 Toileting hygiene: 3 Shower/bathe self: 2 Upper body dressin Lower body dressin Putting on/taking off footwear: 2 OT Snf Goals Spindle Carver Goals Time Frame: Dec 04, 2021 Eating (QC): 6 Oral Hygiene (QC): 6 Toileting Hygiene (QC): 3 Shower/Bathe Self (QC): 5 Upper Body Dressing (QC): 6 Lower Body Dressing (QC): 5 On/Off Footwear (QC): 4 1=Demonstrate adherence to instructed precautions during ADL tasks. 2=Patient will verbalize/demonstrate understanding of assistive devices/modifications for ADL. 3=Patient will improve strength/tolerance for activity to enable patient to perform ADL's. OT Education/Plan Problem List/Assessment Assessment: Decreased Activ Tolerance, Decreased UE Strength, Dependent Carey sfers, Impaired Bed Mobility, Impaired Funct Balance, Impaired I ADL's, Impaired Self-Care Skills Discharge Recommendations Plan/Recommendations: Continue POC Treatment Plan/Plan of Care Patient would benefit from OT for education, treatment and training to promote independence in ADL's, mobility, safety and/or upper extremity function for ADL's. Plan of Care: ADL Retraining, Cognitive Retraining, Functional Mobility, Group Exercise/Act as Ind, UE Funct Exercise/Act, W/C Management Training Treatment Duration: Dec 04, 2021 Frequency: At least 5 of 7 days/Wk (IRF) Estimated Hrs Per Day: 1.5 hours per day Agreement: Yes Rehab Potential: Guarded Time/GCodes Start Time: 08:45 Stop Time: 10:00 Total Time Billed (hr/min): 75 Billed Treatment Time Cotreat x60', OT tx x15' 1, EX (15'), ADL (15'), FA 3 (45') JUSTIN LOMAX OT Nov 03, 2021 08:55
[2021-11-03] MEDS ORDERED: POTASSIUM CHLORIDE 40 MEQ PO SCH (09:00)
--- NOTE | 2021-11-03 09:32 | Consultation-Cardiology ---
HPI-Cardiology Cardiology Consultation Date of Consultation 11/03/21 Date of Admission Time Seen by Provider: 08:15 Indication: afib HPI Patient is a 81 y/o male with history of chronic afib, mitral valve repain, AAA with stent graft repair. Has had prolonged hospitalization for bowel obstruction, aspiration pneumonia requiring intubation. Had been slowly recovering at [facility] and recently transferred to inpatient rehab. Upon interviewing patient, he reports ongoing dyspnea. Denies any chest pain, dizzi ness or lightheadedness. States he has had afib since 1999 and has been off of OAC for the past 2 years d/t recurrent GI bleed Home Medications & Allergies Allergies: Coded Allergies: amiodarone (Verified Allergy, Unknown, 11/02/21) lisinopril (Verified Allergy, Unknown, 11/02/21) Home Medication List Reviewed: Yes PBA-Zhqjuz-Igimbc Hx Patient Social History Marital Status: Employed/Student: retired Smoking Status: Former Smoker Have you traveled recently?: No Alcohol Use?: Yes Immunizations Up To Date Date of Influenza Vaccine: Jul 06, 2022 Past Medical History Afib, mitral valve repair, CHF Family Medical History Significant Family History: Asthma (sister), Heart Disease (dad) Review of Systems-General Review of Systems Constitutional: see HPI, malaise, weakness EENTM: see HPI, no symptoms reported Respiratory: see HPI, dyspnea on exertion, short of breath Cardiovascular: see HPI; No chest pain; edema, Hx of Intervention; No palpitations, No vascular heart diseas Gastrointestinal: abdominal pain, constipation, loss of appetite, nausea Genitourinary: decreased output Musculoskeletal: back pain, joint pain Skin: no symptoms reported Psychiatric/Neurological: Anxiety, Depressed All Other Systems Reviewed Negative Unless Noted: Yes Reviewed Test Results Reviewed Test Results Lab Laboratory Tests 11/03/21 06:02: White Blood Count 9.6, Red Blood Count 2.80L, Hemoglobin 8.1L, Hematocrit 27L, Mean Corpuscular Volume 95, Mean Corpuscular Hemoglobin 29, Mean Corpuscular Hemoglobin Concent 30L, Red Cell Distribution Width 16.8H, Platelet Count 213, Mean Platelet Volume 9.1, Immature Granulocyte % (Auto) 2, Neutrophils (%) (Auto) 78H, Lymphocytes (%) (Auto) 8L, Monocytes (%) (Auto) 8, Eosinophils (%) (Auto) 3, Basophils (%) (Auto) 0, Neutrophils # (Auto) 7.5, Lymphocytes # (Auto) 0.8L, Monocytes # (Auto) 0.8, Eosinophils # (Auto) 0.3, Basophils # (Auto) 0.0, Immature Granulocyte # (Auto) 0.2H, Sodium Level 128L, Potassium Level 3.1L, Chloride Level 87L, Carbon Dioxide Level 32, Anion Gap 9, Blood Urea Nitrogen 32H, Creatinine 1.00, Estimat Glomerular Filtration Rate 77, BUN/Creatinine Ratio 32, Glucose Level 88, Calcium Level 8.8, Corrected Calcium 10.1, Total Bilirubin 0.7, Aspartate Amino Transf (AST/SGOT) 20, Alanine Aminotransferase (ALT/SGPT) 13, Alkaline Phosphatase 59, Total Protein 7.3, Albumin 2.4L, Digoxin Level 0.61L ECG Impression ECG Initial ECG Rhythm: A Fib/Flutter Physical Exam Physical Exam Vital Signs Vital Signs - First Documented 11/02/21 11/02/21 13:30 17:38 Temp 35.7 Pulse 79 Resp 20 B/P (MAP) 119/67 Pulse Ox 98 O2 Delivery Nasal Cannula O2 Flow Rate 6.00 Capillary Refill : Height, Weight, BMI Height: '" Weight: lbs. oz. kg; 36.12 BMI Method: General Appearance: No Apparent Distress, WD/WN, Chronically ill, Obese Eyes: Bilateral Eye Normal Inspection, Bilateral Eye PERRL, Bilateral Eye EOMI HEENT: PERRL/EOMI, Normal ENT Inspection, Pharynx Normal Neck: Full Range of Motion, Normal Inspection, Non Tender, Supple, Carotid Bruit Respiratory: Chest Non Tender, Lungs Clear, Normal Breath Sounds, No Accessory Muscle Use, No Respiratory Distress, Crackles, Decreased Breath Sounds Cardiovascular: No Gallop, No JVD, No Murmur, Normal Peripheral Pulses, Irregularly Irregular Gastrointestinal: Normal Bowel Sounds, No Organomegaly, No Pulsatile Mass, Soft, Distended, Tenderness Back: Normal Inspection, No CVA Tenderness, No Vertebral Tenderness Extremity: Normal Capillary Refill, Normal Inspection, Normal Range of Motion (Limited range of motion), Non Tender, Calf Tenderness (Right) Neurologic/Psychiatric: Alert, Oriented x3, pets salesperson II-XII Norm as Tested, Depressed Affect, Motor Weakness (Generalized) Skin: Normal Color, Warm/Dry Lymphatic: No Adenopathy A/P-Cardiology Admission Diagnosis afib mitral valve replacement HTN Critical illness myopathy Assessment/Plan Atrial fibrillation, reports long standing hx of afib since 1999, history of GI bleed on Coumadin and Eliquis, patient reports has been off OAC for the past couple years. Currently rate controlled afib, continue to monitor. History of Mitral valve replacement with tissue valve with Dr. Smith approx 6-7 years, questionable KRISTEN ligation, I will try to obtain copy of records for further review. History of AAA with endograft repair. s/p large bowel obstruction in Aug 2021 requiring resection and colostomy Recent aspiration pneumonia requiring intubation, extubated and slowly improving, on supplemental oxygen. Hypertension, controlled, continue to monitor. Critical illness myopathy CKD, continue to montior renal function Right lower extremity hematoma per US done at [facility] 3/4 Anemia requiring recent blood transfusion, continue to monitor H/H. Depression Thank you for allowing us to participate in the management of Mr. Burnette. This is Alice Bardales PA-C, as a scribe for Dr. Brown. Patient was seen and evaluated with Alice, I interviewed and examined the patient and discussed the management plan with Alice. Agree with the current scribed note. Patient has longstanding atrial fibrillation, history of GI bleed, intolerant to aggressive anticoagulation. Had mitral valve replacement with questionable maze procedure. And possible left atrial appendage ligation. Had history of endograft repair of AAA. Continue to monitor blood pressure, no changes to his current medication. ALICE NGUYEN Nov 03, 2021 09:31 MELI BROWN MD Nov 03, 2021 16:43
--- NOTE | 2021-11-03 09:53 | Physical Therapy Daily Note ---
PT Daily Note-Current Subjective Patient in bed pre tx, agrees to PT, has pain in right leg on lateral calf with touch. Will be co-treating with OT due to poor patient mobility, strength, endurance, severe debility, coordinate UE and LE with activity, safety and reduce risk of falls. Appearance Patient in bed post tx with nurse call, phone, tray, all needs met. Mental Status Patient Orientation: Person, Place, Situation Attachments: Spaulding Catheter Transfers SCALE: Activities may be completed with or without assistive devices. 6-Bndnmkzarc-jhaocsg completes the activity by him/herself with no assistance from a helper. 5-Set-up or Clean-up Assistance-helper sets up or cleans up; patient completes activity. [place] assists only prior to or following the activity. 4-Supervision or Touching Assistance-helper provides verbal cues and/or touching/steadying and/or contact guard assistance as patient completes activity. Assistance may be provided throughout the activity or intermittently. 3-Partial/Moderate Assistance-helper does LESS THAN HALF the effort. [place] lifts, holds or supports trunk or limbs, but provides less than half the effort. 2-Substantial/Maximal Assistance-helper does MORE THAN HALF the effort. [place] lifts or holds trunk or limbs and provides more than half the effort. 1-Lafgedtae-cbtruj does ALL the effort. Patient does none of the effort to co mplete the activity. Or, the assistance of 2 or more helpers is required for the patient to complete the activity. If activity was not attempted, code reason: 7-Patient Refused. 9-Not Applicable-not attempted and the patient did not perform the activity before the current illness, exacerbation or injury. 10-Not Attempted due to Environmental Limitations-(lack of equipment, weather restraints, etc.). 88-Not Attempted due to Medical Conditions or Safety Concerns. Roll Left & Right (QC): 3 Sit to Lying (QC): 2 Lying to Sitting/Side of Bed(Q: 2 Sit to Stand (QC): 2 Chair/Xhr-zk-Tlgyh Xfer(QC): 1 Patient dresses partially in bed and then sits to the side of the bed with max assist, rests, continues dressing and then stands to complete dressing. Sits again and rests and then stand pivot to WC. After getting back to his room max assist of 2 people (dependent) stand pivot transfers back to bed and lays back down. Wheelchair Training Does the Pt Use a Wheelchair?: Yes Wheel 50 ft with 2 turns (QC): 3 Type of Wheelchair: Manual 100', 50', uses all 4 extremities Exercises Seated Therapy Exercises: Ankle pumps, Long arc quads Seated Reps: 20 Patient stands in the parallel bars x5 for about 10-20 seconds each time, he is able to take a couple of small steps during 2 of the stands. The steps are only maybe one inch at a time, right knee has to be blocked to prevent buckling when stepping with left leg. Treatments PT performed bed mobility and transfers, standing, stepping, WC mobility, positioning and safety during dressing, OT performed dressing, assisted with transfers, UE positioning and safety during activity. Assessment Current Status: Poor Progress Patient is very debilitated, cannot tolerate much activity, tends to give up and needs encouragement to continue. PT Short Term Goals Short Term Goals Time Frame: Nov 09, 2021 Roll Left & Right: 3 Sit to lyin Lying to sitting on side of be: 2 Sit to stand: 3 Chair/seu-rt-gijzo transfer: 3 PT Alf Goals Alf Goals PT Alf Goals Time Frame: Nov 23, 2021 Roll Left & Right (QC): 4 Sit to Lying (QC): 3 Lying-Sitting on Side/Bed(QC): 3 Sit to Stand (QC): 4 Chair/Kxb-wt-Sfndq Xfer(QC): 4 Toilet Transfer (QC): 4 Car Transfer (QC): 3 Does the Patient Walk: Yes Walk 10 feet (QC): 4 Walk 50ft with 2 Turns (QC): 88 Walk 150 ft (QC): 88 Walking 10ft on Uneven Surface: 88 1 Step (curb) (QC): 88 4 Steps (QC): 88 12 Steps (QC): 88 Picking up an Object (QC): 4 Wheel 50 feet with 2 turns (QC: 4 Wheel 150 feet: 4 PT Plan Problem List Problem List: Activity Tolerance, Functional Strength, Safety, Balance, Gait, Transfer, Bed Mobility, ROM Treatment/Plan Treatment Plan: Continue Plan of Care Treatment Plan: Bed Mobility, Education, Functional Activity [place], Functional Strength, Group Therapy, Gait, Safety, Therapeutic Exercise, Transfers Treatment Duration: Nov 23, 2021 Frequency: At least 5 of 7 days/Wk (IRF) Estimated Hrs Per Day: 1.5 hours per day Patient and/or Family Agrees t: Yes Safety Risks/Education Patient Education: Gait Training, Transfer Techniques, Correct Positioning, W/C Management, Safety Issues Teaching Recipient: Patient Teaching Methods: Demonstration, Discussion Response to Teaching: Reinforcement Needed Time/GCodes Time In: 0900 Time Out: 1000 Total Billed Treatment Time: 60 Total Billed Treatment 1 visit EX 10' FA 50' CLIFTON STANLEY PT Nov 03, 2021 09:53
--- NOTE | 2021-11-03 11:14 | ST Cognitive Linguistic Eval ---
Speech Evaluation-General Medical Diagnosis Signmoid Colon Resection; Colostomy Onset Date: Aug 30, 2021 Therapy Diagnosis Therapy Diagnosis: Mild Neurocognitive Impairment Precautions Precautions: Fall, Aspiration Precautions/Isolations: Aspiration, Fall Prevention, Standard Precautions Referral Referring Physician: Dr. Lynn Farrar Reason for Referral: Evaluation/Treatment Medical History Pertinent Medical History: Atrial Fib, GERD, Heart Failure Current History The patient is a 81 year old male with a past medical history of CKD, AFib, GERD, pulmonary HTN, and CHF, who was transferred from [facility] following a sigmoid resection and colostomy in August 2021. Reviewed History: Yes Social History Current Living Status: Spouse Speech PLF-Current Status Prior Level of Function The patient was independent with ADL's prior to his recent hospitalization. The patient consumed a regular diet with thin liquids. Subjective The patient was lying in bed, awake and alert upon entrance to his room by the clinician. The patient has his and son present at bedside. The patient greeted the clinician appropriately and was agreeable to participation in the cognitive linguistic evaluation. Following a chart review, a prior history of "aspiration pneumonia" was included. The patient appears to have aspirated on his own emesis resulting in intubation. Due to the report, the clinician screened the patient's oropharyngeal swallowing function. The patient ate one bite of a banana and sipped on water via straw. Overt s/s of suspected aspiration were not demonstrated. S/s of aspiration were discussed with the patient and the patient's family members. The patient and the patient's family members were asked to contact the patient's RN if any decline in the swallowing function was experienced. Language Eval: Auditory Comprehends Simple Yes/No Ques: Functional Indent/Objects [place]: Functional Ident/Pics in [place]: Functional Follows 1-Step Commands: Functional Follows Complex Directions: Functional Follows General Conversations: Functional Language Eval: Verbal Language Completes Spontaneous Greeting: Functional Produces Auto, Serial Info: Functional Imitates Simple Words/Phrases: Functional Word Finding: Mild Requests Basic Needs: Functional States Basic Personal Info: Functional Expresses Complex Ideas: Functional Language Evaluation: Reading Follows Simple Written Direct: Functional Language Evaluation: Writing Writes to Simple Dictation: Functional Cognitive Patient Orientation The patient was independently oriented to self, location, month, day of week, date and year. Objective Cognitive Domain Attention: WNL Memory: Mild Problem Solving: Functional Executive Functions: WNL Visuospatial Skills: WNL Composite Severity Rating: Mild Clock Drawing Severity Rating: WNL Objective Formal/Standardized Tests [place] Mental Status Exam (UMS) Results The patient demonstrated a result of +26/30 on the SLUMS correlating to a mild neurocognitive deficit. Oral Motor/Speech Production The patient does not display dysarthria or apraxia of speech. The patient is 100% intelligible in known and unknown contexts. Impression The patient displays a mild neurocognitive deficit in the area of memory. Per patient, he has experienced a decline in his memory function since the onset of his hospitalization in August 2021. Due to this, the clinician will focus skilled speech pathology towards functional memory skills and improvement. Speech Patient Assess Expression of Ideas/Wants: Expression (4) Understanding Verbal Content: Understands (4) Brief Interview-Mental Status: Yes Repetition of Three Words: Three (3) Temporal Orientation: Year: Correct (3) Temporal Orientation: Month: Accurate within 5 days(2) Temporal Orientation: Day: Correct (1) Recall : Wear to say "Sock": Yes, no cue required (2) Recall : Color: Yes, no cue required (2) Recall : Bed: Yes, no cue required (2) Memory/Recall Ability: Current season, Location of own room, That he or she is in a hsp/hsp unit Speech Short Term Goals Short Term Goals Short Term Goals 1. The patient will demonstrate 80% accuracy with memory exercises and mild clinician verbal cueing. Time Frame-STG: Five Days. Speech Mammography Tech Goals Mammography Tech Goals 1. The patient will demonstrate increased neurocognitive skills for safe discharge to the least restrictive environment. Time Frame: Two Weeks Speech-Plan Patient/Family Goals Patient/Family Goals: The patient wishes to return home ([place]) with . Treatment Plan Speech Therapy Treatment Plan: Continue Plan of Care Treatment Duration: Nov 19, 2021 Frequency: Modified Program (IRF) (Three to five times per week.) Estimated Hrs Per Day: .5 hour per day Rehab Potential: Guarded Pt/Family Agrees to Plan: Yes Safety Risks/Education Teaching Recipient: Patient, Family Teaching Methods: Discussion Response to Teaching: Verbalize Understanding Education Topics Provided: Speech Pathology Plan of Care, Results of SLUMS Time Speech Therapy Time In: 10:00 Speech Therapy Time Out: 10:30 Total Billed Time: 30 Billed Treatment Time 1, SPSNDCOMP, SLTS No AMBER,SHANNAN ST Nov 03, 2021 11:14
--- NOTE | 2021-11-03 12:55 | CONSULTATION REPORT ---
DATE OF SERVICE: 11/03/2021 ATTENDING PHYSICIAN: Dr. Farrar. 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 He has a Spaulding catheter in and Dr. Farrar want me on board in case he has issues of voiding. The patient had a TURP 5 years ago in [facility], has been doing well since. He takes no urological medications or has no problem trimble. IMPRESSION: Possible neurogenic bladder and BPH. RECOMMENDATIONS: Trial of voiding any time per Dr. Farrar and we will manage accordingly. Job ID: [id number] DocumentID: [id number] Dictated Date: 11/03/2021 12:11:10 Material Stress Tester Date: 11/03/2021 12:53:48 Dictated By: EMMANUEL HE MD
--- NOTE | 2021-11-03 13:46 | Physical Therapy Daily Note ---
PT Daily Note-Current Subjective Pt was ready for PT this afternoon. Pt reports no new complaints. Pain Comment: Pt voices no complaints of pain Mental Status Patient Orientation: Person, Place, Situation Attachments: Colostomy/Ileostomy, Oxygen, Spaulding Catheter Transfers SCALE: Activities may be completed with or without assistive devices. 2-Gketqgutwp-gzadiin completes the activity by him/herself with no assistance from a helper. 5-Set-up or Clean-up Assistance-helper sets up or cleans up; patient completes activity. [place] assists only prior to or following the activity. 4-Supervision or Touching Assistance-helper provides verbal cues and/or touching/steadying and/or contact guard assistance as patient completes activity. Assistance may be provided throughout the activity or intermittently. 3-Partial/Moderate Assistance-helper does LESS THAN HALF the effort. [place] lifts, holds or supports trunk or limbs, but provides less than half the effort. 2-Substantial/Maximal Assistance-helper does MORE THAN HALF the effort. [place] lifts or holds trunk or limbs and provides more than half the effort. 7-Mfuktrevc-fuhodc does ALL the effort. Patient does none of the effort to complete the activity. Or, the assistance of 2 or more helpers is required for the patient to complete the activity. If activity was not attempted, code reason: 7-Patient Refused. 9-Not Applicable-not attempted and the patient did not perform the activity before the current illness, exacerbation or injury. 10-Not Attempted due to Environmental Limitations-(lack of equipment, weather restraints, etc.). 88-Not Attempted due to Medical Conditions or Safety Concerns. Exercises Supine Ex: Ankle pumps (1x10), Heel Slides (1x10 supine raised head of bed), Short Arc Quads (1x10), Straight leg raise (1x10) LE extension into towel. 2x8 Treatments LE ROM and strengthening Assessment Current Status: Fair Progress Pt seemed to be recovered from therapy this morning and was more energized. Pt performed LE strengthening and ROM exercises. During heel slides, pt's ROM was very short and R LE kept falling into ER and ABD. Pt was especially weak with LE extension, SLR, and SAQ. Pt did not complain of any pain during activities PT Short Term Goals Short Term Goals Time Frame: Nov 09, 2021 Roll Left & Right: 3 Sit to lyin Lying to sitting on side of be: 2 Sit to stand: 3 Chair/sqb-jx-xyzyp transfer: 3 PT Attending Pathologist Goals Care Home Goals PT Care Home Goals Time Frame: Nov 23, 2021 Roll Left & Right (QC): 4 Sit to Lying (QC): 3 Lying-Sitting on Side/Bed(QC): 3 Sit to Stand (QC): 4 Chair/Ahe-ya-Hshqp Xfer(QC): 4 Toilet Transfer (QC): 4 Car Transfer (QC): 3 Does the Patient Walk: Yes Walk 10 feet (QC): 4 Walk 50ft with 2 Turns (QC): 88 Walk 150 ft (QC): 88 Walking 10ft on Uneven Surface: 88 1 Step (curb) (QC): 88 4 Steps (QC): 88 12 Steps (QC): 88 Picking up an Object (QC): 4 Wheel 50 feet with 2 turns (QC: 4 Wheel 150 feet: 4 PT Plan Problem List Problem List: Activity Tolerance, Functional Strength, Safety, Balance, Gait, Transfer, Bed Mobility, ROM Treatment/Plan Treatment Plan: Continue Plan of Care Treatment Plan: Bed Mobility, Education, Functional Activity Whitney, Functional Strength, Group Therapy, Gait, Safety, Therapeutic Exercise, Transfers Treatment Duration: Nov 23, 2021 Frequency: At least 5 of 7 days/Wk (IRF) Estimated Hrs Per Day: 1.5 hours per day Patient and/or Family Agrees t: Yes Safety Risks/Education Patient Education: Correct Positioning, Safety Issues Teaching Recipient: Patient Teaching Methods: Demonstration, Discussion Response to Teaching: Reinforcement Needed Time/GCodes Time In: 1300 Time Out: 1315 Total Billed Treatment Time: 15 Total Billed Treatment 1 visit EX CLIFTON WEAVER PT Nov 03, 2021 13:46
[2021-11-03 19:43] VITALS: BP 105/59
[2021-11-03] MEDS: traZODone 50 MG (DESYREL) TAB PO SCH (20:19)
[2021-11-04] MEDS: METOCLOPRAMIDE 10 MG (REGLAN) TAB PO SCH ×4 (04:12→21:14)
[2021-11-04] MEDS: MULTIVIT W/MINERALS TAB (THERAGRAN M) PO SCH (06:03)
--- NOTE | 2021-11-04 07:23 | PM&R Progress Note ---
Subjective HPI/CC On Admission Date Seen by Provider: Nov 04, 2021 Time Seen by Provider: 10:30 Subjective/Events-last exam 11/04/2021: Patient had a really good night Voiding well no Spaulding catheter in and out cath required No pain is reported Scrotal edema continues to be supported Oxygen is maintained Dr. Bar will evaluate sacral decubitus ulcer and heels Ostomy output has slowed so may need to reach out to Dr. Cornelio Kemp cardiology 11/03/2021: Patient had a pretty good night Wore oxygen last night No pain reported Labs noted Urology consulted for Spaulding DC Iron and B12 checked Fluid restriction at 1200cc Review of Systems General: Fatigue, Malaise Pulmonary: Dyspnea Gastrointestinal: Abdominal Pain Objective Exam Vital Signs Vital Signs Date Time Temp Pulse Resp B/P (MAP) Pulse Ox O2 Delivery O2 Flow Rate FiO2 11/04/21 22:06 95 Nasal Cannula 7.00 11/04/21 20:26 36.6 86 20 108/65 (79) Capillary Refill : General Appearance: No Apparent Distress, WD/WN, Chronically ill, Obese HEENT: PERRL/EOMI, Normal ENT Inspection, Pharynx Normal Neck: Full Range of Motion, Normal Inspection, Non Tender, Supple, Carotid Bruit Respiratory: Chest Non Tender, Lungs Clear, Normal Breath Sounds, No Accessory Muscle Use, No Respiratory Distress, Crackles, Decreased Breath Sounds Cardiovascular: No Gallop, No JVD, No Murmur, Normal Peripheral Pulses, Irregularly Irregular Gastrointestinal: Normal Bowel Sounds, No Organomegaly, No Pulsatile Mass, Soft, Distended, Tenderness Back: Normal Inspection, No CVA Tenderness, No Vertebral Tenderness Extremity: Normal Capillary Refill, Normal Inspection, Normal Range of Motion (Limited range of motion), Non Tender, Calf Tenderness (Right) Neurologic/Psychiatric: Alert, Oriented x3, hotel room attendant II-XII Norm as Tested, Depressed Affect, Motor Weakness (Generalized) Skin: Normal Color, Warm/Dry Lymphatic: No Adenopathy Results/Procedures Lab Patient resulted labs reviewed. FIM Transfers Therapy Code Descriptions/Definitions Functional [place] Measure: 0=Not Assessed/NA 4=Minimal Assistance 1=Total Assistance 5=Supervision or Setup 2=Maximal Assistance 6=Modified [place] 3=Moderate Assistance 7=Complete IndependenceSCALE: Activities may be completed with or without assistive devices. 6-Irzhyxwmba-ibbnrtf completes the activity by him/herself with no assistance from a helper. 5-Set-up or Clean-up Assistance-helper sets up or cleans up; patient completes activity. [place] assists only prior to or following the activity. 4-Supervision or Touching Assistance-helper provides verbal cues and/or touching/steadying and/or contact guard assistance as patient completes activity. Assistance may be provided throughout the activity or intermittently. 3-Partial/Moderate Assistance-helper does LESS THAN HALF the effort. [place] lifts, holds or supports trunk or limbs, but provides less than half the effort. 2-Substantial/Maximal Assistance-helper does MORE THAN HALF the effort. [place] lifts or holds trunk or limbs and provides more than half the effort. 9-Pgumamzfq-vutnda does ALL the effort. Patient does none of the effort to complete the activity. Or, the assistance of 2 or more helpers is required for the patient to complete the activity. If activity was not attempted, code reason: 7-Patient Refused. 9-Not Applicable-not attempted and the patient did not perform the activity before the current illness, exacerbation or injury. 10-Not Attempted due to Environmental Limitations-(lack of equipment, weather restraints, etc.). 88-Not Attempted due to Medical Conditions or Safety Concerns. Roll Left to Right (QC): 3 Sit to Lying (QC): 2 Sit to Stand (QC): 2 Chair/Dvo-vr-Qoctq Xfer(QC): 1 Car Transfer (QC): 88 Gait Training Does the Patient Walk?: No and Walking Goal IS indicated Walk 10 feet (QC): 88 Walk 50 ft with 2 Turns(QC): 88 Walk 150 ft (QC): 88 Walking 10ft/uneven surface-QC: 88 Wheelchair Training Does the Pt Use a Wheelchair?: Yes Wheel 50 ft with 2 turns (QC): 3 Wheel 150 ft (QC): 88 Type of Wheelchair: Manual Stair Training 1 Step (curb) (QC): 88 4 Steps (QC): 88 12 Steps (QC): 88 Balance Picking up an Object (QC): 88 ADL-Treatment Eating (QC): 4 Oral Hygiene (QC): 4 Shower/Bathe Self (QC): 2 Upper Body Dressing (QC): 3 (min A) Lower Body Dressing (QC): 1 (assist x2, assist all parts) On/Off Footwear (QC): 1 (total assist) Toileting Hygiene (QC): 1 (total assist (catheter and ostomy)) Toilet Transfer (QC): 88 Assessment/Plan Assessment and Plan Assess & Plan/Chief Complaint Assessment: 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 Recent aspiration pneumonia requiring intubation Continued hypoxia requiring supplemental oxygen Anasarca Atrial fibrillation CAD 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 Bar for wound care (1) Myopathy (2) Large bowel obstruction (3) Colostomy present (4) Spaulding catheter in place (5) CHF (congestive heart failure) (6) Anasarca (7) CAD (coronary artery disease) (8) History of coronary artery bypass graft (9) Chronic kidney disease, stage III (moderate) (10) Anxiety (11) Depression (12) S/P AAA repair using bifurcation graft (13) Hypertension (14) GERD (gastroesophageal reflux disease) (15) Pulmonary hypertension (16) Hematoma of right lower leg (17) Anemia (18) History of transfusion (19) Aspiration pneumonia (20) Hypoxia (21) Abdominal distention BOB HOUSER DO Nov 04, 2021 07:23
[2021-11-04 07:33] VITALS: BP 134/72
[2021-11-04] MEDS: DOCUSATE SODIUM 100 MG (COLACE) CAP PO SCH ×3 (08:11→21:14)
[2021-11-04] MEDS: polyethylene glycoL POWDER 17 GM (MIRALAX) PACK PO SCH ×3 (08:11→21:16)
[2021-11-04] MEDS: DIGOXIN 0.125 MG (LANOXIN) TAB PO SCH (08:37)
[2021-11-04] MEDS: KCL 20 MEQ TAB (K-DUR) PO SCH ×3 (08:37→17:31)
[2021-11-04] MEDS: guaiFENesin (MUCINEX) 600 MG TAB PO SCH ×2 (08:37→21:14)
[2021-11-04] MEDS: SENNA W/DOCUSATE (SENOKOT S) TABLET PO SCH ×2 (08:37→21:17)
[2021-11-04] MEDS: FUROSEMIDE 40 MG (LASIX) TAB PO SCH (08:37)
[2021-11-04] MEDS: ENOXAPARIN 60 MG/0.6 ML (LOVENOX) SYR SQ SCH (08:37)
[2021-11-04] MEDS: FAMOTIDINE 20 MG (PEPCID) TABLET PO SCH ×2 (08:37→21:14)
[2021-11-04] MEDS: acetaZOLAMIDE 250 MG (DIAMOX) TAB PO SCH ×2 (08:37→21:15)
[2021-11-04] MEDS: GABAPENTIN 100 MG (NEURONTIN) CAP PO SCH ×2 (08:37→21:14)
--- NOTE | 2021-11-04 08:47 | Progress Note - Urology ---
Progress Note-Urology Progress Notes/Assess & Plan Progress/Assessment & Plan VOIDING WELL. PVR UNDER 150CC. CONTINUE SAME Final Diagnosis RETENTION EMMANUEL HE MD Nov 04, 2021 08:47
--- NOTE | 2021-11-04 10:07 | Physical Therapy Daily Note ---
PT Daily Note-Current Subjective Pt is laying in bed upon arrival. Pt agrees to PT/OT co-treat. Pain Location Body Site: Genital Pain Description: Ache Comment: Reported but not rated Mental Status Patient Orientation: Person, Place Attachments: Oxygen (5L at rest & 7L w/activity) Transfers SCALE: Activities may be completed with or without assistive devices. 7-Gjlrjxeyzp-fwkzlgv completes the activity by him/herself with no assistance from a helper. 5-Set-up or Clean-up Assistance-helper sets up or cleans up; patient completes activity. [place] assists only prior to or following the activity. 4-Supervision or Touching Assistance-helper provides verbal cues and/or touching/steadying and/or contact guard assistance as patient completes activity. Assistance may be provided throughout the activity or intermittently. 3-Partial/Moderate Assistance-helper does LESS THAN HALF the effort. [place] lifts, holds or supports trunk or limbs, but provides less than half the effort. 2-Substantial/Maximal Assistance-helper does MORE THAN HALF the effort. [place] lifts or holds trunk or limbs and provides more than half the effort. 0-Wamojectg-keygza does ALL the effort. Patient does none of the effort to complete the activity. Or, the assistance of 2 or more helpers is required for the patient to complete the activity. If activity was not attempted, code reason: 7-Patient Refused. 9-Not Applicable-not attempted and the patient did not perform the activity before the current illness, exacerbation or injury. 10-Not Attempted due to Environmental Limitations-(lack of equipment, weather restraints, etc.). 88-Not Attempted due to Medical Conditions or Safety Concerns. Sit to Lying (QC): 3 Lying to Sitting/Side of Bed(Q: 3 Exercises Supine Ex: Rolling Treatments Co-treat with PT for part of session ([id number]) due to need of 2 skilled clinicians to progress indep with adls and mobility. Dressing tasks performed at bed level with HOB fully upright. Pt able to demonstrate minimal hip flexion/abduction in order to bring foot more proximal. OT instructed and demonstrated use of can patcher to assist in reaching feet. With extra time, pt was able to thread brief/pants over toes (with can patcher) but requires assist to lift foot off bed in order to don over heel. Max a to pull up to thighs due to pain on R side of leg (from hematoma). Pt unable to perform bridging this date after good attempt. Thus he rolled R/L with mod a. Dependent to pull clothing up to waist with therapist also managing scrotum to prevent squishing. Supine>sit: Mod a x2. Extra time and min a to square hips for proper sitting at EOB. Initially pt with posterior list. Requires intermittent min a to maintain upright positioning. With cues and time, pt improves to SBA. Pt sat EOB for ~25 minutes while participating in activities to increase dynamic sitting balance, core strength, endurance, activity tolerance, and functional reach needed for adls and transfers. Pt hit balloon back with both UE's, intermittent CGA and single UE support needed to maintain balance. He fatigues quickly with task and often needs short rest breaks. SOA observable, cues for PLB. Pt then completed seated core exercises including posterior, R/L lateral lean, and anteriorly, 10x 1 each. He fatigues after ~6-7 reps and needs a rest break before finishing remaining reps in set. Pt most fearful about anterior forward reach. PT/OT on each side for comfort and to ease fear. Towards end of session, Wound nurse enters room and requests to remove pants and return pt back to bed in order to assess wounds/jay area. Max a x2 to return to supine, dependent to doff p ants/brief. Assessment Current Status: Good Progress Transfers and bed mobility improving although pt still requires assistance to complete. Balance is improving. PT Short Term Goals Short Term Goals Time Frame: Nov 09, 2021 Roll Left & Right: 3 Sit to lyin Lying to sitting on side of be: 2 Sit to stand: 3 Chair/fgn-uh-gijdg transfer: 3 PT Senior Functional Analyst Goals [facility] Goals PT [facility] Goals Time Frame: Nov 23, 2021 Roll Left & Right (QC): 4 Sit to Lying (QC): 3 Lying-Sitting on Side/Bed(QC): 3 Sit to Stand (QC): 4 Chair/Rgw-nk-Parfm Xfer(QC): 4 Toilet Transfer (QC): 4 Car Transfer (QC): 3 Does the Patient Walk: Yes Walk 10 feet (QC): 4 Walk 50ft with 2 Turns (QC): 88 Walk 150 ft (QC): 88 Walking 10ft on Uneven Surface: 88 1 Step (curb) (QC): 88 4 Steps (QC): 88 12 Steps (QC): 88 Picking up an Object (QC): 4 Wheel 50 feet with 2 turns (QC: 4 Wheel 150 feet: 4 PT Plan Problem List Problem List: Activity Tolerance, Functional Strength, Transfer Treatment/Plan Treatment Plan: Continue Plan of Care Treatment Plan: Bed Mobility, Education, Functional Activity Whitney, Functional Strength, Group Therapy, Gait, Safety, Therapeutic Exercise, Transfers Treatment Duration: Nov 23, 2021 Frequency: At least 5 of 7 days/Wk (IRF) Estimated Hrs Per Day: 1.5 hours per day Patient and/or Family Agrees t: Yes Safety Risks/Education Patient Education: Gait Training, Transfer Techniques, Correct Positioning Teaching Recipient: Patient Teaching Methods: Discussion Response to Teaching: Verbalize Understanding Time/GCodes Time In: 900 Time Out: 1000 Total Billed Treatment Time: 60 Total Billed Treatment Co-treat w/OT for 60m 1, FA x2 (30m) & EX x2 (30m) TELLY BRIZUELA PTA Nov 04, 2021 10:07
--- NOTE | 2021-11-04 10:09 | Occupational Ther Daily Note ---
OT Current Status-Daily Note Subjective Pt reports poor sleep secondary to staff coming in/out of room frequently to turn patient. Co-treat with PT for part of session ([id number]) due to need of 2 skilled clinicians to progress indep with adls and mobility. Appearance Pt returned to supine in bed, all needs within reach, RN notified. Mental Status/Objective Attachments: Oxygen ADL-Treatment Therapy Code Descriptions/Definitions Functional [place] Measure: 0=Not Assessed/NA 4=Minimal Assistance 1=Total Assistance 5=Supervision or Setup 2=Maximal Assistance 6=Modified [place] 3=Moderate Assistance 7=Complete IndependenceSCALE: Activities may be completed with or without assistive devices. 1-Ndpdqpacmp-ighuark completes the activity by him/herself with no assistance from a helper. 5-Set-up or Clean-up Assistance-helper sets up or cleans up; patient completes activity. [place] assists only prior to or following the activity. 4-Supervision or Touching Assistance-helper provides verbal cues and/or touching/steadying and/or contact guard assistance as patient completes activity. Assistance may be provided throughout the activity or intermittently. 3-Partial/Moderate Assistance-helper does LESS THAN HALF the effort. [place] lifts, holds or supports trunk or limbs, but provides less than half the effort. 2-Substantial/Maximal Assistance-helper does MORE THAN HALF the effort. [place] lifts or holds trunk or limbs and provides more than half the effort. 2-Gfdhiqkdh-pqomak does ALL the effort. Patient does none of the effort to complete the activity. Or, the assistance of 2 or more helpers is required for the patient to complete the activity. If activity was not attempted, code reason: 7-Patient Refused. 9-Not Applicable-not attempted and the patient did not perform the activity before the current illness, exacerbation or injury. 10-Not Attempted due to Environmental Limitations-(lack of equipment, weather restraints, etc.). 88-Not Attempted due to Medical Conditions or Safety Concerns. Lower Body Dressing (QC): 2 On/Off Footwear: 1 Toileting Hygiene (QC): 1 Toilet Transfer (QC): 1 Pt supine in bed at OT arrival. Pt reports several incontinence episodes of urine since removal of catheter. Due to significant scrotal edema, pt is unable to position urinal properly. He reports adequate sensation to know when he has to void. Education on calling for assistance right when he receives urge thus accident can be avoided. Lengthy education also on skin care and ensuring skin is clean and dry for proper healing. OT attempts to provide education on positioning and support of scrotum with all transfers and bed positioning however pt often verbalizes that this therapist has no idea because she is a women. Dressing tasks performed at bed level with HOB fully upright. Pt able to demonstrate minimal hip flexion/abduction in order to bring foot more proximal. OT instructed and demonstrated use of planner internship to assist in reaching feet. With extra time, pt was able to thread brief/pants over toes (with planner internship) but requires assist to lift foot off bed in order to don over heel. Max a to pull up to thighs due to pain on R side of leg (from hematoma). Pt unable to perform bridging this date after good attempt. Thus he rolled R/L with mod a. Dependent to pull clothing up to waist with therapist also managing scrotum to prevent squishing. Towards end of session, Wound nurse enters room and requests to remove pants and return pt back to bed in order to assess wounds/jay area. Max a x2 to return to supine, dependent to doff pants/brief. Other Treatment Supine>sit: Mod a x2. Extra time and min a to square hips for proper sitting at EOB. Initially pt with posterior list. Requires intermittent min a to maintain upright positioning. With cues and time, pt improves to SBA. Pt sat EOB for ~25 minutes while participating in activities to increase dynamic sitting balance, core strength, endurance, activity tolerance, and functional reach needed for adls and transfers. Pt hit balloon back with both UE's, intermittent CGA and single UE support needed to maintain balance. He fatigues quickly with task and often needs short rest breaks. SOA observable, cues for PLB. Pt then completed seated core exercises including posterior, R/L lateral lean, and anteriorly, 10x1 each. He fatigues after ~6-7 reps and needs a rest break before finishing remaining reps in set. Pt most fearful about anterior forward reach. PT/OT on each side for comfort and to ease fear. Education OT Patient Education: Correct positioning, Energy conservation, Modified ADL techniques, Progress toward Goal/Update tx plan, Purpose of tx/functional activities, Rehab process, Safety issues, Transfer techniques, Use of adapted equipment Teaching Recipient: Patient Teaching Methods: Demonstration, Discussion Response to Teaching: Verbalize Understanding, Return Demonstration, Reinforcement Needed OT Short Term Goals Short Term Goals Time Frame: Nov 13, 2021 Eatin Oral hygiene: 5 Toileting hygiene: 3 Shower/bathe self: 2 Upper body dressin Lower body dressin Putting on/taking off footwear: 2 OT Senior Living Goals Assistant Administrator Goals Time Frame: Dec 04, 2021 Eating (QC): 6 Oral Hygiene (QC): 6 Toileting Hygiene (QC): 3 Shower/Bathe Self (QC): 5 Upper Body Dressing (QC): 6 Lower Body Dressing (QC): 5 On/Off Footwear (QC): 4 1=Demonstrate adherence to instructed precautions during ADL tasks. 2=Patient will verbalize/demonstrate understanding of assistive devices/modifications for ADL. 3=Patient will improve strength/tolerance for activity to enable patient to perform ADL's. OT Education/Plan Problem List/Assessment Assessment: Decreased Activ Tolerance, Decreased Safety Aware, Decreased UE Strength, Dependent Transfers, Edema, Impaired Bed Mobility, Impaired Cognition, Impaired Funct Balance, Impaired I ADL's, Impaired Self-Care Skills Discharge Recommendations Plan/Recommendations: Continue POC Equpiment Recommendations-D/C: Multiplex Operator Treatment Plan/Plan of Care Treatment,Training & Education: Yes Patient would benefit from OT for education, treatment and training to promote independence in ADL's, mobility, safety and/or upper extremity function for ADL's. Plan of Care: ADL Retraining, Cognitive Retraining, Functional Mobility, Group Exercise/Act as Ind, UE Funct Exercise/Act, W/C Management Training Treatment Duration: Dec 04, 2021 Frequency: At least 5 of 7 days/Wk (IRF) Estimated Hrs Per Day: 1.5 hours per day Agreement: Yes Rehab Potential: Guarded Time/GCodes Start Time: 08:45 Stop Time: 10:00 Total Time Billed (hr/min): 75 Billed Treatment Time 1 visit ADL x3 (45 min) FA x2 (30 min) Constance Hogan OT Nov 04, 2021 10:09
--- NOTE | 2021-11-04 10:54 | Speech Therapy Daily Note ---
Speech Daily Progress Note Subjective Date Seen by Provider: Nov 04, 2021 Time Seen by Provider: 10:00 The patient was lying in bed, eyes closed upon entrance to his room by the clinician. The patient opened his eyes to a verbal clinician greeting and was agreeable to participation in the cognitive linguistic treatment session. To note, the patient displayed fatigue throughout the treatment session, requiring consistent verbal prompting and encouragement for continued participation and appropriate alertness levels. Objective - The patient discussed his fatigue with the clinician throughout the initiation of the treatment session. The patient requested a reduction in nocturnal interruptions stating the "catheter thing" kept him "up and down" all night. The clinician politely explained the necessity of specific interruptions however did agree to share the patient's request with the therapy team at the patient's upcoming plan of care meeting. - Orientation: The patient remains independently oriented to self, location, month, day of week, date, and year. - Delayed Recall/ External Memory Strategies: The patient and clinician discussed external memory strategies including associations, visualizations, and repetition. The patient recalled five of five single words immediately and four of five single words following a five minute delay. The patient was not able to recall the fifth word with a category cue provided. Assessment Assessment Current Status: Fair Progress Treatment Plan Continue Plan of Care Speech Short Term Goals Short Term Goals Short Term Goals 1. The patient will demonstrate 80% accuracy with memory exercises and mild clinician verbal cueing. Time Frame-STG: Five Days. Speech Longterm Goals Auto Locator Goals 1. The patient will demonstrate increased neurocognitive skills for safe discharge to the least restrictive environment. Time Frame: Two Weeks Speech-Plan Treatment Plan Speech Therapy Treatment Plan: Continue Plan of Care Treatment Duration: Nov 03, 2021 Frequency: Modified Program (IRF) Estimated Hrs Per Day: .5 hour per day Rehab Potential: Guarded Pt/Family Agrees to Plan: Yes Safety Risks/Education Teaching Recipient: Patient Teaching Methods: Discussion Response to Teaching: Reinforcement Needed Education Topics Provided: Skilled Therapy Plan of Care, External Memory Strategies Time Speech Therapy Time In: 10:00 Speech Therapy Time Out: 10:30 Total Billed Time: 30 Billed Treatment Time [facility] Nov 04, 2021 10:54
--- NOTE | 2021-11-04 11:58 | Wound Care Assessment ---
Wound Care Assessment Date Seen by Provider: Nov 04, 2021 Time Seen by Provider: 11:53 Chief Complaint 1. Bilateral heel pressure injury 2. Gaulding of jay-area/sacrum HPI This pleasant 81 year old gentleman has had prolonged hospitalization for volvulus and bowel resection/colostomy with subsequent aspiration pneumonia and vent stay. I am consulted today to evaluate for pressure injuries to heel and sacrum. Significant debility and numerous medical comorbidities putting him at risk for chronic wounds. Wound healing will be complicated by: anemia, protein energy malnutrition, chronic edema, and coronary artery disease. Currently, Bipin does not appear to have significant deep injury to heels. He does appear to have 2 corns vs. plantar warts on left heel. No eschar or obvious concern for arterial ulceration today. I would strongly advise cushioning areas with bordered foam dressings and primo boots while in bed/seated due to his significant debility. He has significant gaulding in groin and sacral region with moisture related injury. Plan to switch from anti-fungal cream to powder and cover sacrum with bordered foam dressing for further protection from breakdown. I will also advise addition of protein shakes to aide in protein energy malnutrition. Past Medical History: Admits Heart Disease Anemia, atrial fibrillation (rate controlled), CAD with h/o CABG and CHF, CKD, chronic hyponatremia, s/p large bowel resection and aspiration pneumonia Smoking Status: Former Smoker Alcohol Use: Occasionally Uses Review of Systems General: Fatigue Neurological: Weakness Exam Vital Signs Date Time Temp Pulse Resp B/P (MAP) Pulse Ox O2 Delivery O2 Flow Rate FiO2 11/04/21 09:00 High Flow N/C 5.00 11/04/21 07:33 36.8 90 20 134/72 (92) 92 Capillary Refill : General Appearance: obese Neck: full range of motion Cardiovascular: other (edema) Respiratory: no accessory muscle use Gastrointestinal: other (colostomy) Skin: warm/dry, cyanosis, pallor Wound assessment: 1. Bilateral heels: no open wound or eschar. Callouses bilateral with plantar warts. 2. Periarea: no open wounds. Gaulding with flaking of entire region. Assessment/Plan/Dx Assessment: 1. Protein energy malnutrition 2. Fungal dermatitis of periarea 3. Moisture related injury 4. Immobility syndrome Plan: 1. Allevyn bordered foam dressing bilateral heels 2. Primo boots while sleeping or sitting. Do not wear for ambulation 3. Miconazole powder bid to periarea. Wash daily with soap and water 4. Allevyn bordered foam dressing to sacrum (atop miconazole powder) to be changed qod 5. Protein shakes tid TIGRE LAM MD Nov 04, 2021 11:58
--- NOTE | 2021-11-04 13:23 | Diagnostic Imaging Report ---
INDICATION: PICC line placement. TIME OF EXAM: 12:49 p.m. COMPARISON: No prior studies are available for comparison. FINDINGS: Left upper extremity PICC line has the tip overlying the SVC. There are changes of median sternotomy. The heart is enlarged. There are bilateral interstitial and airspace infiltrates throughout both lungs. There also appears to be a small right effusion. No pneumothorax is seen. IMPRESSION: 1. Satisfactory PICC line placement. 2. Bilateral pulmonary infiltrates and small right effusion. Dictated by: Dictated on workstation # [id number]
[2021-11-04] MEDS: IRON SUCROSE 200 MG/10 ML (VENOFER) VIAL IV SCH (13:54)
[2021-11-04] MEDS: CYANOCOBALAMIN 1,000 MCG (VITAMIN B-12) TABLET PO SCH (13:54)
--- NOTE | 2021-11-04 14:20 | Physical Therapy Daily Note ---
PT Daily Note-Current Subjective Pt asleep Supine in bed w/HOB raised. Sp present. Pt agrees to PT. Pain Location Body Site: Genital Pain Description: Ache Comment: Reports but doesn't rate Mental Status Patient Orientation: Person, Place, Time, Situation Attachments: Oxygen Transfers SCALE: Activities may be completed with or without assistive devices. 3-Qbltqyycan-kcavkfy completes the activity by him/herself with no assistance from a helper. 5-Set-up or Clean-up Assistance-helper sets up or cleans up; patient completes activity. [place] assists only prior to or following the activity. 4-Supervision or Touching Assistance-helper provides verbal cues and/or t ouching/steadying and/or contact guard assistance as patient completes activity. Assistance may be provided throughout the activity or intermittently. 3-Partial/Moderate Assistance-helper does LESS THAN HALF the effort. [place] lifts, holds or supports trunk or limbs, but provides less than half the effort. 2-Substantial/Maximal Assistance-helper does MORE THAN HALF the effort. [place] lifts or holds trunk or limbs and provides more than half the effort. 5-Qatukflek-hrjlsd does ALL the effort. Patient does none of the effort to complete the activity. Or, the assistance of 2 or more helpers is required for the patient to complete the activity. If activity was not attempted, code reason: 7-Patient Refused. 9-Not Applicable-not attempted and the patient did not perform the activity before the current illness, exacerbation or injury. 10-Not Attempted due to Environmental Limitations-(lack of equipment, weather restraints, etc.). 88-Not Attempted due to Medical Conditions or Safety Concerns. Exercises Supine Ex: Ankle pumps, Quad Set, Glut sets, Heel Slides, Short Arc Quads, Straight leg raise, Hip abd/add Supine Reps: 10 Treatments Pt completes Supine Ex with Min A on R LE. Pt resting at end of tx w/all needs met, call light in hand. Assessment Current Status: Fair Progress Pt very fatigued this afternoon, citing tired and didn't get much sleep. PT Short Term Goals Short Term Goals Time Frame: Nov 09, 2021 Roll Left & Right: 3 Sit to lyin Lying to sitting on side of be: 2 Sit to stand: 3 Chair/ecd-fi-gwlry transfer: 3 PT Correction Goals Correction Goals PT Correction Goals Time Frame: Nov 23, 2021 Roll Left & Right (QC): 4 Sit to Lying (QC): 3 Lying-Sitting on Side/Bed(QC): 3 Sit to Stand (QC): 4 Chair/Jxk-tp-Cgabn Xfer(QC): 4 Toilet Transfer (QC): 4 Car Transfer (QC): 3 Does the Patient Walk: Yes Walk 10 feet (QC): 4 Walk 50ft with 2 Turns (QC): 88 Walk 150 ft (QC): 88 Walking 10ft on Uneven Surface: 88 1 Step (curb) (QC): 88 4 Steps (QC): 88 12 Steps (QC): 88 Picking up an Object (QC): 4 Wheel 50 feet with 2 turns (QC: 4 Wheel 150 feet: 4 PT Plan Problem List Problem List: Activity Tolerance, Functional Strength Treatment/Plan Treatment Plan: Continue Plan of Care Treatment Plan: Bed Mobility, Education, Functional Activity Whitney, Functional Strength, Group Therapy, Gait, Safety, Therapeutic Exercise, Transfers Treatment Duration: Nov 23, 2021 Frequency: At least 5 of 7 days/Wk (IRF) Estimated Hrs Per Day: 1.5 hours per day Patient and/or Family Agrees t: Yes Safety Risks/Education Patient Education: Correct Positioning, Safety Issues Teaching Recipient: Patient, Significant Other Teaching Methods: Discussion Response to Teaching: Verbalize Understanding Time/GCodes Time In: 1340 Time Out: 1355 Total Billed Treatment Time: 15 Total Billed Treatment 1, EX (15m) TELLY BRIZUELA PTA Nov 04, 2021 14:20
--- NOTE | 2021-11-04 16:45 | Progress Note ---
ASHISH MCCOY 11/04/21 1645: Progress Note 72yo white M with history of CKD, atrial fibrillation, GERD presents with debility following sigmoid resection due to bowel obstruction, colostomy placement, and aspiration pneumonia. On 08/29/2021, patient was at [facility] ED with abdominal pain and found with large bowel obstruction. Sigmoid resection and colostomy placement on 09/02/2021. Then placed in [facility] inpatient rehab for recovery and faced multiple complications including aspiration pneumonia, acute hypoxic respiratory failure, right calf hematoma without DVT and scrotal wound. On 09/09, patient intubated for aspiration pneumonia leading to acute hypoxic respiratory failure. Treated with flagyl and rocephin. Extubated on 09/15. Then on 10/23, right calf hematoma which is continuing to improve. Scrotal wound is followed by wound care and nystatin powder for candidal intertrigo. On 11/04, anemic and iron level deficient requiring IV iron and B12 supplementation. Patient will need continued care with PT, OT, RT, and wound care. LYNN HOUSER DO 11/05/21 0602: Supervisory-Addendum Brief Verification & Attestation Participated in pt care: history, MDM, physical Personally performed: exam, history, MDM, supervision of care Care discussed with: Medical Student Procedures: n/a Results interpretation: Verified all documentation Verification and Attestation of Medical Student E/M Service A medical student performed and documented this service in my presence. I reviewed and verified all information documented by the medical student and made modifications to such information, when appropriate. I personally performed the physical exam and medical decision making. Lynn Houser Nov 05, 2021,06:02 ASHISH MCCOY Nov 04, 2021 16:45 LYNN HOUSER DO Nov 05, 2021 06:02
[2021-11-04 20:26] VITALS: BP 108/65
[2021-11-04] MEDS: traZODone 50 MG (DESYREL) TAB PO SCH (21:14)
[2021-11-04] MEDS: MICONAZOLE 2% POWDER (DESENEX AF) 90 GM TOP SCH (21:17)
[2021-11-05] MEDS: METOCLOPRAMIDE 10 MG (REGLAN) TAB PO SCH ×4 (03:24→22:58)
[2021-11-05] MEDS: CYANOCOBALAMIN 1,000 MCG (VITAMIN B-12) TABLET PO SCH (06:09)
[2021-11-05] MEDS: MULTIVIT W/MINERALS TAB (THERAGRAN M) PO SCH (06:09)
--- NOTE | 2021-11-05 06:24 | PM&R Progress Note ---
Subjective HPI/CC On Admission Date Seen by Provider: Nov 05, 2021 Time Seen by Provider: 11:30 Subjective/Events-last exam 11/05/2021: Patient doing fairly well Slow progress No pain is reported Voiding fairly well Dr. Rodriguez will evaluate IV diuresis at bedside Oxygen maintained 11/04/2021: Patient had a really good night Voiding well no Spaulding catheter in and out cath required No pain is reported Scrotal edema continues to be supported Oxygen is maintained Dr. Bar will evaluate sacral decubitus ulcer and heels Ostomy output has slowed so may need to reach out to Dr. Grimes Appreciate cardiology 11/03/2021: Patient had a pretty good night Wore oxygen last night No pain reported Labs noted Urology consulted for Spaulding DC Iron and B12 checked Fluid restriction at 1200cc Review of Systems General: Fatigue, Malaise Neurological: Weakness, Incoordination Objective Exam Vital Signs Vital Signs Date Time Temp Pulse Resp B/P (MAP) Pulse Ox O2 Delivery O2 Flow Rate FiO2 11/05/21 20:56 93 High Flow N/C 6.00 11/05/21 19:38 36.8 107 20 112/55 (74) Capillary Refill : General Appearance: No Apparent Distress, WD/WN, Chronically ill, Obese HEENT: PERRL/EOMI, Normal ENT Inspection, Pharynx Normal Neck: Full Range of Motion, Normal Inspection, Non Tender, Supple, Carotid Bruit Respiratory: Chest Non Tender, Lungs Clear, Normal Breath Sounds, No Accessory Muscle Use, No Respiratory Distress, Crackles, Decreased Breath Sounds Cardiovascular: No Gallop, No JVD, No Murmur, Normal Peripheral Pulses, Irregularly Irregular Gastrointestinal: Normal Bowel Sounds, No Organomegaly, No Pulsatile Mass, Soft, Distended, Tenderness Back: Normal Inspection, No CVA Tenderness, No Vertebral Tenderness Extremity: Normal Capillary Refill, Normal Inspection, Normal Range of Motion (Limited range of motion), Non Tender, Calf Tenderness (Right) Neurologic/Psychiatric: Alert, Oriented x3, cheesemaker helper II-XII Norm as Tested, Depressed Affect, Motor Weakness (Generalized) Skin: Normal Color, Warm/Dry Lymphatic: No Adenopathy Results/Procedures Lab Patient resulted labs reviewed. FIM Transfers Therapy Code Descriptions/Definitions Functional [place] Measure: 0=Not Assessed/NA 4=Minimal Assistance 1=Total Assistance 5=Supervision or Setup 2=Maximal Assistance 6=Modified [place] 3=Moderate Assistance 7=Complete IndependenceSCALE: Activities may be completed with or without assistive devices. 5-Sillmhhbcg-fqlxzih completes the activity by him/herself with no assistance from a helper. 5-Set-up or Clean-up Assistance-helper sets up or cleans up; patient completes activity. [place] assists only prior to or following the activity. 4-Supervision or Touching Assistance-helper provides verbal cues and/or touching/steadying and/or contact guard assistance as patient completes activity. Assistance may be provided throughout the activity or intermittently. 3-Partial/Moderate Assistance-helper does LESS THAN HALF the effort. [place] lifts, holds or supports trunk or limbs, but provides less than half the effort. 2-Substantial/Maximal Assistance-helper does MORE THAN HALF the effort. [place] lifts or holds trunk or limbs and provides more than half the effort. 9-Kmrrtvbiz-gdiwjv does ALL the effort. Patient does none of the effort to complete the activity. Or, the assistance of 2 or more helpers is required for the patient to complete the activity. If activity was not attempted, code reason: 7-Patient Refused. 9-Not Applicable-not attempted and the patient did not perform the activity before the current illness, exacerbation or injury. 10-Not Attempted due to Environmental Limitations-(lack of equipment, weather restraints, etc.). 88-Not Attempted due to Medical Conditions or Safety Concerns. Roll Left to Right (QC): 3 Sit to Lying (QC): 3 Sit to Stand (QC): 2 Chair/Cew-xd-Swkvz Xfer(QC): 1 Car Transfer (QC): 88 Gait Training Does the Patient Walk?: No and Walking Goal IS indicated Walk 10 feet (QC): 88 Walk 50 ft with 2 Turns(QC): 88 Walk 150 ft (QC): 88 Walking 10ft/uneven surface-QC: 88 Wheelchair Training Does the Pt Use a Wheelchair?: Yes Wheel 50 ft with 2 turns (QC): 3 Wheel 150 ft (QC): 88 Type of Wheelchair: Manual Stair Training 1 Step (curb) (QC): 88 4 Steps (QC): 88 12 Steps (QC): 88 Balance Picking up an Object (QC): 88 ADL-Treatment Eating (QC): 4 Oral Hygiene (QC): 4 Shower/Bathe Self (QC): 2 Upper Body Dressing (QC): 3 (min A) Lower Body Dressing (QC): 2 On/Off Footwear (QC): 1 Toileting Hygiene (QC): 1 Toilet Transfer (QC): 1 Assessment/Plan Assessment and Plan Assess & Plan/Chief Complaint Assessment: 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 Recent aspiration pneumonia requiring intubation Continued hypoxia requiring supplemental oxygen Anasarca Atrial fibrillation CAD 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 Bar for wound care 11/05/2021: Continue fluid restriction Bowel regimen Dr. Bar appreciated Dr. Rodriguez appreciated IV diuresis? (1) Myopathy (2) Large bowel obstruction (3) Colostomy present (4) Spaulding catheter in place (5) CHF (congestive heart failure) (6) Anasarca (7) CAD (coronary artery disease) (8) History of coronary artery bypass graft (9) Chronic kidney disease, stage III (moderate) (10) Anxiety (11) Depression (12) S/P AAA repair using bifurcation graft (13) Hypertension (14) GERD (gastroesophageal reflux disease) (15) Pulmonary hypertension (16) Hematoma of right lower leg (17) Anemia (18) History of transfusion (19) Aspiration pneumonia (20) Hypoxia (21) Abdominal distention BOB HOUSER DO Nov 05, 2021 06:24
[2021-11-05 07:30] VITALS: BP 130/76
[2021-11-05] MEDS: acetaZOLAMIDE 250 MG (DIAMOX) TAB PO SCH ×2 (08:12→20:13)
[2021-11-05] MEDS: FAMOTIDINE 20 MG (PEPCID) TABLET PO SCH ×2 (08:12→20:13)
[2021-11-05] MEDS: guaiFENesin (MUCINEX) 600 MG TAB PO SCH ×2 (08:12→20:13)
[2021-11-05] MEDS: DOCUSATE SODIUM 100 MG (COLACE) CAP PO SCH ×2 (08:12→20:13)
[2021-11-05] MEDS: GABAPENTIN 100 MG (NEURONTIN) CAP PO SCH ×2 (08:12→20:13)
[2021-11-05] MEDS: DIGOXIN 0.125 MG (LANOXIN) TAB PO SCH (08:12)
[2021-11-05] MEDS: FUROSEMIDE 40 MG (LASIX) TAB PO SCH (08:12)
[2021-11-05] MEDS: polyethylene glycoL POWDER 17 GM (MIRALAX) PACK PO SCH ×2 (08:13→20:14)
[2021-11-05] MEDS: ENOXAPARIN 60 MG/0.6 ML (LOVENOX) SYR SQ SCH (08:19)
[2021-11-05] MEDS: SENNA W/DOCUSATE (SENOKOT S) TABLET PO SCH ×2 (08:30→20:13)
[2021-11-05] MEDS: KCL 20 MEQ TAB (K-DUR) PO SCH ×3 (08:30→17:16)
[2021-11-05] MEDS: MICONAZOLE 2% POWDER (DESENEX AF) 90 GM TOP SCH ×2 (08:34→20:17)
--- NOTE | 2021-11-05 09:57 | Occupational Ther Daily Note ---
OT Current Status-Daily Note Subjective Pt alert, lying in bed. Pt agrees to therapy. No c/o pain only fatigue. Pt on 8L O2 with activity, decreased to mid 80's then with small recovery breaks was able to get over 90%. Mental Status/Objective Patient Orientation: Person, Place, Time, Situation Attachments: IV, Oxygen ADL-Treatment PT/OT cotreat, skills of 2 clinicians required to decrease fall risk, increase functional mobility and monitor O2 levels throughout session. PT focusing on bed mobility, sit to stands and standing endurance while OT focusing on ADLs and dynamic standing during bathing. Pt agrees to sponge bath sitting EOB. Pt able to cleanse upper body, upper legs and using LH sponge lower legs/feet. Assist with drying feet and cleansing in buttocks in standing while PT assists with standing. Dependent with footwear and lower body clothing. After therapy, OTR took over care of pt with COMMUNITY DEVELOPMENT WORKER. All needs met. Therapy Code Descriptions/Definitions Functional [place] Measure: 0=Not Assessed/NA 4=Minimal Assistance 1=Total Assistance 5=Supervision or Setup 2=Maximal Assistance 6=Modified [place] 3=Moderate Assistance 7=Complete IndependenceSCALE: Activities may be completed with or without assistive devices. 9-Oobevyfhoa-aqiqlzy completes the activity by him/herself with no assistance from a helper. 5-Set-up or Clean-up Assistance-helper sets up or cleans up; patient completes activity. [place] assists only prior to or following the activity. 4-Supervision or Touching Assistance-helper provides verbal cues and/or touching/steadying and/or contact guard assistance as patient completes activity. Assistance may be provided throughout the activity or intermittently. 3-Partial/Moderate Assistance-helper does LESS THAN HALF the effort. [place] lifts, holds or supports trunk or limbs, but provides less than half the effort. 2-Substantial/Maximal Assistance-helper does MORE THAN HALF the effort. [place] lifts or holds trunk or limbs and provides more than half the effort. 1-Znvgfmjxe-amguht does ALL the effort. Patient does none of the effort to complete the activity. Or, the assistance of 2 or more helpers is required for the patient to complete the activity. If activity was not attempted, code reason: 7-Patient Refused. 9-Not Applicable-not attempted and the patient did not perform the activity before the current illness, exacerbation or injury. 10-Not Attempted due to Environmental Limitations-(lack of equipment, weather restraints, etc.). 88-Not Attempted due to Medical Conditions or Safety Concerns. Bathing Location: L Arm, R Arm, L Upper Leg, R Upper Leg, L Lower Leg (including foot), R Lower Leg (including foot), Chest, Abdomen Shower/Bathe Self (QC): 1 (Assist x2 during standing for safety while assisting with cleansing buttocks/jay area.) Lower Body Dressing (QC): 1 (Assist x2 in standing for safety. Pt able to stand with one while assist to manipulate clohting with 2nd person.) On/Off Footwear: 1 OT Short Term Goals Short Term Goals Time Frame: Nov 13, 2021 Eatin Oral hygiene: 5 Toileting hygiene: 3 Shower/bathe self: 2 Upper body dressin Lower body dressin Putting on/taking off footwear: 2 OT Chemical Waste Management Technician Goals Usp Goals Time Frame: Dec 04, 2021 Eating (QC): 6 Oral Hygiene (QC): 6 Toileting Hygiene (QC): 3 Shower/Bathe Self (QC): 5 Upper Body Dressing (QC): 6 Lower Body Dressing (QC): 5 On/Off Footwear (QC): 4 1=Demonstrate adherence to instructed precautions during ADL tasks. 2=Patient will verbalize/demonstrate understanding of assistive devices/modifications for ADL. 3=Patient will improve strength/tolerance for activity to enable patient to perform ADL's. OT Education/Plan Problem List/Assessment Assessment: Decreased Activ Tolerance, Decreased UE Strength, Impaired Bed Mobility, Impaired Funct Balance, Impaired Self-Care Skills Discharge Recommendations Plan/Recommendations: Continue POC Treatment Plan/Plan of Care Patient would benefit from OT for education, treatment and training to promote independence in ADL's, mobility, safety and/or upper extremity function for ADL's. Plan of Care: ADL Retraining, Cognitive Retraining, Functional Mobility, Group Exercise/Act as Ind, UE Funct Exercise/Act, W/C Management Training Treatment Duration: Dec 04, 2021 Frequency: At least 5 of 7 days/Wk (IRF) Estimated Hrs Per Day: 1.5 hours per day Agreement: Yes Rehab Potential: Guarded Time/GCodes Start Time: 09:00 Stop Time: 09:30 Total Time Billed (hr/min): 30 Billed Treatment Time 1 visit-ADL 2 (30 min) co-treat with PT MIS CARL Nov 05, 2021 09:57
--- NOTE | 2021-11-05 10:28 | Physical Therapy Daily Note ---
PT Daily Note-Current Subjective Pt alert, lying in bed. Pt agrees to therapy. No c/o pain only fatigue. Pain Location: No Pain Reported Mental Status Patient Orientation: Person, Place, Time, Situation Attachments: Oxygen (6L at rest and 8L during activity) Transfers SCALE: Activities may be completed with or without assistive devices. 6-Xgqiuqixpm-sobiqin completes the activity by him/herself with no assistance from a helper. 5-Set-up or Clean-up Assistance-helper sets up or cleans up; patient completes activity. [place] assists only prior to or following the activity. 4-Supervision or Touching Assistance-helper provides verbal cues and/or touching/steadying and/or contact guard assistance as patient completes activity. Assistance may be provided throughout the activity or intermittently. 3-Partial/Moderate Assistance-helper does LESS THAN HALF the effort. [place] lifts, holds or supports trunk or limbs, but provides less than half the effort. 2-Substantial/Maximal Assistance-helper does MORE THAN HALF the effort. [place] lifts or holds trunk or limbs and provides more than half the effort. 0-Kehzvnuid-agjtsj does ALL the effort. Patient does none of the effort to complete the activity. Or, the assistance of 2 or more helpers is required for the patient to complete the activity. If activity was not attempted, code reason: 7-Patient Refused. 9-Not Applicable-not attempted and the patient did not perform the activity before the current illness, exacerbation or injury. 10-Not Attempted due to Environmental Limitations-(lack of equipment, weather restraints, etc.). 88-Not Attempted due to Medical Conditions or Safety Concerns. Sit to Lying (QC): 2 Lying to Sitting/Side of Bed(Q: 3 Sit to Stand (QC): 2 Weight Bearing Full Weight Bearing Full Weight Bearing Wheelchair Training Does the Pt Use a Wheelchair?: Yes Wheel 50 ft with 2 turns (QC): 3 Wheel 150 ft (QC): 3 Type of Wheelchair: Manual Treatments PT/OT cotreat, skills of 2 clinicians required to decrease fall risk, increase functional mobility and monitor O2 levels throughout session. PT focusing on bed mobility, sit to stands and standing endurance while OT focusing on ADLs and dynamic standing during bathing. Pt agrees to sponge bath sitting EOB. Pt able to cleanse upper body, upper legs and using LH sponge lower legs/feet. Assist with drying feet and cleansing in buttocks in standing while PT assists with standing. Dependent with footwear and lower body clothing. Pt sit to stand & TF to [facility] at Mod-Max A depending on fatigue. Pt propels WC in hallway at Min A for veering to Right. Pt returns to room & TF to EOB then Supine. Pt is repositioned to comfort, B LE elevated on pillows. After therapy, OTR took over care of pt with NETWORKER. All needs met. Assessment t on 8L O2 with activity, decreased to mid 80's then with small recovery breaks was able to get over 90%. PT Short Term Goals Short Term Goals Time Frame: Nov 09, 2021 Roll Left & Right: 3 Sit to lyin Lying to sitting on side of be: 2 Sit to stand: 3 Chair/cno-px-wxest transfer: 3 PT Jacquard Loom Card Changer Goals Snf Goals PT Snf Goals Time Frame: Nov 23, 2021 Roll Left & Right (QC): 4 Sit to Lying (QC): 3 Lying-Sitting on Side/Bed(QC): 3 Sit to Stand (QC): 4 Chair/Xfn-if-Bdwgp Xfer(QC): 4 Toilet Transfer (QC): 4 Car Transfer (QC): 3 Does the Patient Walk: Yes Walk 10 feet (QC): 4 Walk 50ft with 2 Turns (QC): 88 Walk 150 ft (QC): 88 Walking 10ft on Uneven Surface: 88 1 Step (curb) (QC): 88 4 Steps (QC): 88 12 Steps (QC): 88 Picking up an Object (QC): 4 Wheel 50 feet with 2 turns (QC: 4 Wheel 150 feet: 4 PT Plan Problem List Problem List: Activity Tolerance, Functional Strength, Transfer Treatment/Plan Treatment Plan: Continue Plan of Care Treatment Plan: Bed Mobility, Education, Functional Activity [place], Functional Strength, Group Therapy, Gait, Safety, Therapeutic Exercise, Transfers Treatment Duration: Nov 23, 2021 Frequency: At least 5 of 7 days/Wk (IRF) Estimated Hrs Per Day: 1.5 hours per day Patient and/or Family Agrees t: Yes Safety Risks/Education Patient Education: Transfer Techniques, Correct Positioning, W/C Management Teaching Recipient: Patient Teaching Methods: Discussion Response to Teaching: Verbalize Understanding Time/GCodes Time In: 900 Time Out: 1030 Total Billed Treatment Time: 90 Total Billed Treatment Co-treat w/OT for 90m 1, FA x3 (45m) & [facility] (45m) TELLY BRIZUELA NETWORKER Nov 05, 2021 10:28
--- NOTE | 2021-11-05 10:28 | Occupational Ther Daily Note ---
OT Current Status-Daily Note Subjective Pt working with therapy, this therapist took over for THOMAS. Pt agreeable to continued OT/PT cotreat. Mental Status/Objective Attachments: Oxygen (8L with activity, 6L at rest.) ADL-Treatment Therapy Code Descriptions/Definitions Functional [place] Measure: 0=Not Assessed/NA 4=Minimal Assistance 1=Total Assistance 5=Supervision or Setup 2=Maximal Assistance 6=Modified [place] 3=Moderate Assistance 7=Complete IndependenceSCALE: Activities may be completed with or without assistive devices. 8-Valsjnhtel-kgnmpke completes the activity by him/herself with no assistance from a helper. 5-Set-up or Clean-up Assistance-helper sets up or cleans up; patient completes activity. [place] assists only prior to or following the activity. 4-Supervision or Touching Assistance-helper provides verbal cues and/or touching/steadying and/or contact guard assistance as patient completes activity. Assistance may be provided throughout the activity or intermittently. 3-Partial/Moderate Assistance-helper does LESS THAN HALF the effort. [place] lifts, holds or supports trunk or limbs, but provides less than half the effort. 2-Substantial/Maximal Assistance-helper does MORE THAN HALF the effort. [place] lifts or holds trunk or limbs and provides more than half the effort. 6-Naxnvaoxc-igwbvd does ALL the effort. Patient does none of the effort to complete the activity. Or, the assistance of 2 or more helpers is required for the patient to complete the activity. If activity was not attempted, code reason: 7-Patient Refused. 9-Not Applicable-not attempted and the patient did not perform the activity before the current illness, exacerbation or injury. 10-Not Attempted due to Environmental Limitations-(lack of equipment, weather restraints, etc.). 88-Not Attempted due to Medical Conditions or Safety Concerns. Lower Body Dressing (QC): 1 Other Treatment OT took over tx from THOMAS. OT/PT cotreat due to skill of 2 clinicians required which a vocational rehabilitation specialist could not perform in order to coordinate UE/LEs, decrease fall risk, and due to pt's limitations in strength, mobility, transfers and activity tolerance. OT focused on UE placement, cues for sequencing and safety, and ADLs, PT focused on LE placement, gross overall movement, and transfers/mobility. Pt finished donning LE clothing, assist x2 in stand and assist all parts. Pt took seated rest break at EOB, able to maintain sitting balance with SBA. Pt completed sit to stand transfer from EOB to w/c, then performed w/c mobility in hallways. Pt required min assistance with maintaining straight path as he veered towards the R side. Pt had poor recall of how to turn w/c, requiring step by step cues and hand over hand assistance. Pt propelled w/c back to his room. Pt completed sit to stand, but unable to perform transfer as he sat back into chair abruptly. With assist x2, pt able to stand from w/c, and transfer to EOB using FWW. Pt transferred supine, and assisted with positioning to comfort. Post tx, pt in bed, call light in reach and all needs met. Pt on 6L O2 post tx Education OT Patient Education: Correct positioning, Energy conservation, Modified ADL techniques, Progress toward Goal/Update tx plan, Purpose of tx/functional activities, Rehab process Teaching Recipient: Patient Teaching Methods: Discussion Response to Teaching: Verbalize Understanding OT Short Term Goals Short Term Goals Time Frame: Nov 13, 2021 Eatin Oral hygiene: 5 Toileting hygiene: 3 Shower/bathe self: 2 Upper body dressin Lower body dressin Putting on/taking off footwear: 2 OT Custodial Goals Custodial Goals Time Frame: Dec 04, 2021 Eating (QC): 6 Oral Hygiene (QC): 6 Toileting Hygiene (QC): 3 Shower/Bathe Self (QC): 5 Upper Body Dressing (QC): 6 Lower Body Dressing (QC): 5 On/Off Footwear (QC): 4 1=Demonstrate adherence to instructed precautions during ADL tasks. 2=Patient will verbalize/demonstrate understanding of assistive devices/modifications for ADL. 3=Patient will improve strength/tolerance for activity to enable patient to perform ADL's. OT Education/Plan Problem List/Assessment Assessment: Decreased Activ Tolerance, Decreased Safety Aware, Decreased UE Strength, Impaired Bed Mobility, Impaired Coordination, Impaired Funct Balance, Impaired I ADL's, Impaired Self-Care Skills Discharge Recommendations Plan/Recommendations: Continue POC Treatment Plan/Plan of Care Patient would benefit from OT for education, treatment and training to promote independence in ADL's, mobility, safety and/or upper extremity function for ADL's. Plan of Care: ADL Retraining, Cognitive Retraining, Functional Mobility, Group Exercise/Act as Ind, UE Funct Exercise/Act, W/C Management Training Treatment Duration: Dec 04, 2021 Frequency: At least 5 of 7 days/Wk (IRF) Estimated Hrs Per Day: 1.5 hours per day Agreement: Yes Rehab Potential: Guarded Time/GCodes Start Time: 09:30 Stop Time: 10:30 Total Time Billed (hr/min): 60 Billed Treatment Time cotreat x60' 1, FA 4 JUSTIN LOMAX OT Nov 05, 2021 10:28
--- NOTE | 2021-11-05 18:44 | Cardiology Progress Note ---
Progress Note-Cardiology Events since last exam Date Seen by Provider: Nov 05, 2021 Time Seen by Provider: 18:39 Events since last exam We are following him due to atrial fibrillation and possible volume overload. He continues to be fairly short of breath while working with physical therapy. He denies chest discomfort, palpitations, or syncope. He has persistent bilateral lower extremity edema. He normally follows with a wood heel back liner in [place] at [facility]. He does not know when was the last time he had an echocardiogram. Certain portions of this document may have been dictated utilizing voice recognition technology. Inherent to this technology, typographical and grammatical errors may exist. As much as I am diligent to identify and correct these mistakes, some errors may remain in the document. Vitals Last set of Vitals Signs Vital Signs 11/05/21 11/05/21 07:30 08:57 Temp 36.6 Pulse 97 Resp 18 B/P (MAP) 130/76 (94) Pulse Ox 90 O2 Delivery High Flow N/C O2 Flow Rate 6.00 Exam Vital Signs Vital Signs Date Time Temp Pulse Resp B/P (MAP) Pulse Ox O2 Delivery O2 Flow Rate FiO2 11/05/21 08:57 90 High Flow N/C 6.00 11/05/21 07:30 36.6 97 18 130/76 (94) Physical Exam General: Alert. No acute distress. He is obese. Eye: No xanthelasma. HENT: Normocephalic. Neck: Jugular venous pressure does not appear elevated. Respiratory: Lungs have decreased breath sounds bilaterally. Respirations are non-labored. Breath sounds are equal. Symmetrical chest wall expansion. Cardiovascular: Normal rateI. Irregular rhythm. 2/6 systolic ejection murmur. No gallop. Legs are wrapped in [place] bandages. Gastrointestinal: Soft. Normal bowel sounds. Skin: Warm. Dry. Neurologic: Alert and oriented to person, place, time. Cranial nerves 3-11 grossly intact. Psychiatric: Cooperative. Appropriate mood & affect. Diagnosis/Problems Diagnosis/Problems (1) Permanent atrial fibrillation Assessment & Plan: Heart rates appear controlled with digoxin and diltiazem. 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 He may be a candidate for a Watchman device. He can discuss this with his regular wood heel back liner at the outside facility following discharge. (2) Acute on chronic heart failure Assessment & Plan: He appears to have some degree of volume overload. His ejection fraction is unknown. I will start him on intravenous furosemide. I will obtain an echocardiogram in the morning to assess ejection fraction. (3) H/O mitral valve replacement Assessment & Plan: He has a reported bioprosthetic mitral valve. We can assess the prosthetic valve function with the echocardiogram. (4) Primary hypertension Assessment & Plan: Blood pressure is reasonably controlled with the present combination of medications. (5) Mixed hyperlipidemia Assessment & Plan: Continue statin. ELIESER SHAH JR, MD Nov 05, 2021 18:44
[2021-11-05] MEDS ORDERED: FUROSEMIDE 40 MG/4 ML INJ (LASIX) IVP ONE (18:45)
[2021-11-05 19:38] VITALS: BP 112/55
[2021-11-05] MEDS: traZODone 50 MG (DESYREL) TAB PO SCH (20:13)
[2021-11-06] MEDS: METOCLOPRAMIDE 10 MG (REGLAN) TAB PO SCH ×3 (06:18→18:03)
[2021-11-06] MEDS: CYANOCOBALAMIN 1,000 MCG (VITAMIN B-12) TABLET PO SCH (06:18)
[2021-11-06] MEDS: MULTIVIT W/MINERALS TAB (THERAGRAN M) PO SCH (06:18)
--- NOTE | 2021-11-06 06:55 | PM&R Progress Note ---
Subjective HPI/CC On Admission Date Seen by Provider: Nov 06, 2021 Time Seen by Provider: 11:15 Subjective/Events-last exam 11/06/2021: Patient is stable Slow recovery at bedside IV diuresis tolerated Noted labs Change potassium Denies any pain 11/05/2021: Patient doing fairly well Slow progress No pain is reported Voiding fairly well Dr. Rodriguez will evaluate IV diuresis at bedside Oxygen maintained 11/04/2021: Patient had a really good night Voiding well no Spaulding catheter in and out cath required No pain is reported Scrotal edema continues to be supported Oxygen is maintained Dr. Bar will evaluate sacral decubitus ulcer and heels Ostomy output has slowed so may need to reach out to Dr. Cornelio Kemp cardiology 11/03/2021: Patient had a pretty good night Wore oxygen last night No pain reported Labs noted Urology consulted for Spaulding DC Iron and B12 checked Fluid restriction at 1200cc Review of Systems General: Fatigue, Malaise Pulmonary: Dyspnea Cardiovascular: Edema Objective Exam Vital Signs Vital Signs Date Time Temp Pulse Resp B/P (MAP) Pulse Ox O2 Delivery O2 Flow Rate FiO2 11/06/21 20:51 93 High Flow N/C 6.00 11/06/21 20:14 36.3 111 20 121/75 (90) Capillary Refill : General Appearance: No Apparent Distress, WD/WN, Chronically ill, Obese HEENT: PERRL/EOMI, Normal ENT Inspection, Pharynx Normal Neck: Full Range of Motion, Normal Inspection, Non Tender, Supple, Carotid Bruit Respiratory: Chest Non Tender, Lungs Clear, Normal Breath Sounds, No Accessory Muscle Use, No Respiratory Distress, Crackles, Decreased Breath Sounds Cardiovascular: No Gallop, No JVD, No Murmur, Normal Peripheral Pulses, Irre gularly Irregular Gastrointestinal: Normal Bowel Sounds, No Organomegaly, No Pulsatile Mass, Soft, Distended, Tenderness Back: Normal Inspection, No CVA Tenderness, No Vertebral Tenderness Extremity: Normal Capillary Refill, Normal Inspection, Normal Range of Motion (Limited range of motion), Non Tender, Calf Tenderness (Right) Neurologic/Psychiatric: Alert, Oriented x3, lens gauger II-XII Norm as Tested, Depressed Affect, Motor Weakness (Generalized) Skin: Normal Color, Warm/Dry Lymphatic: No Adenopathy Results/Procedures Lab Laboratory Tests 11/06/21 07:30 Patient resulted labs reviewed. FIM Transfers Therapy Code Descriptions/Definitions Functional [place] Measure: 0=Not Assessed/NA 4=Minimal Assistance 1=Total Assistance 5=Supervision or Setup 2=Maximal Assistance 6=Modified [place] 3=Moderate Assistance 7=Complete IndependenceSCALE: Activities may be completed with or without assistive devices. 8-Xpwbsipwcm-ympdyus completes the activity by him/herself with no assistance from a helper. 5-Set-up or Clean-up Assistance-helper sets up or cleans up; patient completes activity. [place] assists only prior to or following the activity. 4-Supervision or Touching Assistance-helper provides verbal cues and/or touching/steadying and/or contact guard assistance as patient completes activ ity. Assistance may be provided throughout the activity or intermittently. 3-Partial/Moderate Assistance-helper does LESS THAN HALF the effort. [place] lifts, holds or supports trunk or limbs, but provides less than half the effort. 2-Substantial/Maximal Assistance-helper does MORE THAN HALF the effort. [place] lifts or holds trunk or limbs and provides more than half the effort. 7-Tvimqasdx-ifurmm does ALL the effort. Patient does none of the effort to complete the activity. Or, the assistance of 2 or more helpers is required for the patient to complete the activity. If activity was not attempted, code reason: 7-Patient Refused. 9-Not Applicable-not attempted and the patient did not perform the activity before the current illness, exacerbation or injury. 10-Not Attempted due to Environmental Limitations-(lack of equipment, weather restraints, etc.). 88-Not Attempted due to Medical Conditions or Safety Concerns. Roll Left to Right (QC): 3 Sit to Lying (QC): 2 Sit to Stand (QC): 2 Chair/Pfi-sv-Rogmi Xfer(QC): 1 Car Transfer (QC): 88 Gait Training Does the Patient Walk?: No and Walking Goal IS indicated Walk 10 feet (QC): 88 Walk 50 ft with 2 Turns(QC): 88 Walk 150 ft (QC): 88 Walking 10ft/uneven surface-QC: 88 Wheelchair Training Does the Pt Use a Wheelchair?: Yes Wheel 50 ft with 2 turns (QC): 3 Wheel 150 ft (QC): 3 Type of Wheelchair: Manual Stair Training 1 Step (curb) (QC): 88 4 Steps (QC): 88 12 Steps (QC): 88 Balance Picking up an Object (QC): 88 ADL-Treatment Eating (QC): 4 Oral Hygiene (QC): 4 Bathing Location: L Arm, R Arm, L Upper Leg, R Upper Leg, L Lower Leg (including foot), R Lower Leg (including foot), Chest, Abdomen Shower/Bathe Self (QC): 1 (Assist x2 during standing for safety while assisting with cleansing buttocks/jay area.) Upper Body Dressing (QC): 3 (min A) Lower Body Dressing (QC): 1 On/Off Footwear (QC): 1 Toileting Hygiene (QC): 1 Toilet Transfer (QC): 1 Assessment/Plan Assessment and Plan Assess & Plan/Chief Complaint Assessment: 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 Recent aspiration pneumonia requiring intubation Continued hypoxia requiring supplemental oxygen Anasarca Atrial fibrillation CAD 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 Bar for wound care 11/05/2021: Continue fluid restriction Bowel regimen Dr. Bar appreciated Dr. Rodriguez appreciated IV diuresis? 11/06/2021: IV diuresis Fluid restriction Wound care Cardiology appreciated (1) Permanent atrial fibrillation Assessment & Plan: Heart rates appear controlled with digoxin and diltiazem. 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 He may be a candidate for a Watchman device. 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 (2) Acute on chronic heart failure Assessment & Plan: He appears to have some degree of volume overload. His ejection fraction is unknown. I will start him on intravenous furosemide. I will obtain an echocardiogram in the morning to assess ejection fraction. (3) H/O mitral valve replacement Assessment & Plan: He has a reported bioprosthetic mitral valve. We can assess the prosthetic valve function with the echocardiogram. (4) Primary hypertension Assessment & Plan: Blood pressure is reasonably controlled with the present combination of medications. (5) Mixed hyperlipidemia Assessment & Plan: Continue statin. BOB HOUSER DO Nov 06, 2021 06:55
[2021-11-06 07:37] LABS: BASOPHILS # (AUTO) 0.1 10^3/uL (0.0-0.1); BASOPHILS % (AUTO) 1 % (0-10); EOSINOPHILS # (AUTO) 0.2 10^3/uL (0.0-0.3); EOSINOPHILS % (AUTO) 2 % (0-10); HEMATOCRIT 30 % (40-54); HEMOGLOBIN 8.9 g/dL (13.3-17.7); LYMPHOCYTES # (AUTO) 0.9 10^3/uL (1.0-4.0); LYMPHOCYTES % (AUTO) 10 % (12-44); MEAN CORPUSCULAR HEMOGLOBIN 29 pg (25-34); MEAN CORPUSCULAR HGB CONC 30 g/dL (32-36); MEAN CORPUSCULAR VOLUME 98 fL (80-99); MEAN PLATELET VOLUME 9.4 fL (9.0-12.2); MONOCYTES # (AUTO) 0.8 10^3/uL (0.0-1.0); MONOCYTES % (AUTO) 9 % (0-12); NEUTROPHILS # (AUTO) 7.1 10^3/uL (1.8-7.8); NEUTROPHILS % (AUTO) 76 % (42-75); PLATELET COUNT 177 10^3/uL (130-400); WHITE BLOOD COUNT 9.4 10^3/uL (4.3-11.0)
[2021-11-06] MEDS: guaiFENesin (MUCINEX) 600 MG TAB PO SCH ×2 (07:49→20:16)
[2021-11-06] MEDS: DIGOXIN 0.125 MG (LANOXIN) TAB PO SCH (07:49)
[2021-11-06] MEDS: FUROSEMIDE 40 MG/4 ML INJ (LASIX) IVP SCH (07:49)
[2021-11-06] MEDS: IRON SUCROSE 200 MG/10 ML (VENOFER) VIAL IV SCH (07:49)
[2021-11-06] MEDS: SENNA W/DOCUSATE (SENOKOT S) TABLET PO SCH ×2 (07:50→20:18)
[2021-11-06] MEDS: ENOXAPARIN 60 MG/0.6 ML (LOVENOX) SYR SQ SCH (07:50)
[2021-11-06] MEDS: acetaZOLAMIDE 250 MG (DIAMOX) TAB PO SCH ×2 (07:50→20:16)
[2021-11-06] MEDS: DOCUSATE SODIUM 100 MG (COLACE) CAP PO SCH ×2 (07:50→20:16)
[2021-11-06] MEDS: KCL 20 MEQ TAB (K-DUR) PO SCH ×2 (07:50→18:03)
[2021-11-06] MEDS: FAMOTIDINE 20 MG (PEPCID) TABLET PO SCH ×2 (07:50→20:16)
[2021-11-06] MEDS: GABAPENTIN 100 MG (NEURONTIN) CAP PO SCH ×2 (07:50→20:16)
[2021-11-06] MEDS: MICONAZOLE 2% POWDER (DESENEX AF) 90 GM TOP SCH ×2 (07:51→20:20)
[2021-11-06] MEDS: polyethylene glycoL POWDER 17 GM (MIRALAX) PACK PO SCH ×2 (07:51→19:28)
[2021-11-06 07:57] LABS: ALBUMIN 2.6 GM/DL (3.2-4.5); BILIRUBIN,TOTAL 0.7 MG/DL (0.1-1.0); CALCIUM 8.9 MG/DL (8.5-10.1); CREATININE SERUM 1.25 MG/DL (0.60-1.30); MAGNESIUM 2.1 MG/DL (1.6-2.4); POTASSIUM 4.2 MMOL/L (3.6-5.0); TOTAL PROTEIN 8.1 GM/DL (6.4-8.2)
[2021-11-06 08:00] VITALS: BP 128/80
--- NOTE | 2021-11-06 09:02 | Diagnostic Imaging Report ---
INDICATION: Shortness of breath. TIME OF EXAM: 9:00 a.m. Correlation is made with prior chest from 11/04/2021. The heart is enlarged and stable. There are changes of median sternotomy and CABG. Left upper extremity PICC line has tip overlying the SVC. Bilateral pulmonary infiltrates persist. Small right effusion is again noted. There is no pneumothorax. IMPRESSION: Stable chest since exam 2 days earlier. Dictated by: Dictated on workstation # [id number]
--- NOTE | 2021-11-06 09:34 | Progress Note - Urology ---
Progress Note-Urology Progress Notes/Assess & Plan Progress/Assessment & Plan CONTINUES FAIRLY WELL LAYLA MURILLO. Final Diagnosis RETENTION EMMANUEL HE MD Nov 06, 2021 09:34
--- NOTE | 2021-11-06 10:33 | Occupational Ther Daily Note ---
OT Current Status-Daily Note Subjective Pt agreeable to treatment. Co-treat with PT for part of session ([id number]) due to need of 2 skilled clinicians to progress indep with adls and mobility. Appearance Pt returned to supine in bed, all needs within reach. Mental Status/Objective Patient Orientation: Person Attachments: Colostomy/Ileostomy, Oxygen ADL-Treatment Therapy Code Descriptions/Definitions Functional [place] Measure: 0=Not Assessed/NA 4=Minimal Assistance 1=Total Assistance 5=Supervision or Setup 2=Maximal Assistance 6=Modified [place] 3=Moderate Assistance 7=Complete IndependenceSCALE: Activities may be completed with or without assistive devices. 1-Avovlyhprg-mxmwwhv completes the activity by him/herself with no assistance from a helper. 5-Set-up or Clean-up Assistance-helper sets up or cleans up; patient completes activity. [place] assists only prior to or following the activity. 4-Supervision or Touching Assistance-helper provides verbal cues and/or touching/steadying and/or contact guard assistance as patient completes activity. Assistance may be provided throughout the activity or intermittently. 3-Partial/Moderate Assistance-helper does LESS THAN HALF the effort. [place] lifts, holds or supports trunk or limbs, but provides less than half the effort. 2-Substantial/Maximal Assistance-helper does MORE THAN HALF the effort. [place] lifts or holds trunk or limbs and provides more than half the effort. 0-Qgtkdqeko-ixndoi does ALL the effort. Patient does none of the effort to complete the activity. Or, the assistance of 2 or more helpers is required for the patient to complete the activity. If activity was not attempted, code reason: 7-Patient Refused. 9-Not Applicable-not attempted and the patient did not perform the activity before the current illness, exacerbation or injury. 10-Not Attempted due to Environmental Limitations-(lack of equipment, weather restraints, etc.). 88-Not Attempted due to Medical Conditions or Safety Concerns. Upper Body Dressing (QC): 4 Lower Body Dressing (QC): 1 On/Off Footwear: 1 Toileting Hygiene (QC): 1 Supine>sit: CGA-Min a with HOB elevated. Upon sitting upright and removing gown, OT notices pt's colostomy bag was max full and leaking out of both ends. He was returned to supine (mod a x2) for clean up and change of bag. Dependent to manage and clean. Prior to sitting upright again, pt reports need to urinate. He refuses to sit up to use urinal and demands therapist position before having ac cident. Dependent for placement and holding as pt voided. Clothing donned seated EOB. Close supervision for seated balance as he donned shirt overhead, no LOB. Extra time and min verbal reminders on use of milieu counselor when threading feet into brief/shorts. He stood from elevated bed with mod-max a x1 as second person completed clothing management. Poor standing tolerance, only able to tolerate ~45 sec. Poor recall on correct hand placement, requires cues with all transfers. Other Treatment Stand pivot from elevated bed with mod a x2, min a to fully turn hips to square with w/c. Pt propelled w/c ~75 feet with min-mod a. Pt often drifts towards the right and requires cues and HOHA to propel on R side. Poor recall of how to maneuver w/c with turns and requires several verbal cues and hands on assist. Pt often verbalizes awareness and dislike about drifting to the right but does not attempt to adjust method or self correct. Pt fatigues quickly with propulsion and requires several rest breaks. Both OT/PT attempt to educate pt on dropping hand toward axle to improve efficiency of propulsion as well as energy expenditure but pt does not follow through with cues. Max a x2 to stand from lower surface and pivot towards bed. Mod a to return to supine. In supine, pt completed UE exercises with 2# dowel keenan. Goal to improve BUE strength and endurance needed for adls and transfers. Pt able to complete all movements through full range with extra time, cues for proper technique. Pt often fatigues after ~8 reps, needs encouragement to finish last 2-3 reps. 10x1 all planes. Education OT Patient Education: Correct positioning, Disease process, Energy conservation, Exercise program, Modified ADL techniques, Progress toward Goal/U pdate tx plan, Purpose of tx/functional activities, Safety issues, Transfer techniques, Use of adapted equipment, W/C management Teaching Recipient: Patient Teaching Methods: Demonstration, Discussion Response to Teaching: Reinforcement Needed OT Short Term Goals Short Term Goals Time Frame: Nov 13, 2021 Eatin Oral hygiene: 5 Toileting hygiene: 3 Shower/bathe self: 2 Upper body dressin Lower body dressin Putting on/taking off footwear: 2 OT Senior Living Goals Senior Living Goals Time Frame: Dec 04, 2021 Eating (QC): 6 Oral Hygiene (QC): 6 Toileting Hygiene (QC): 3 Shower/Bathe Self (QC): 5 Upper Body Dressing (QC): 6 Lower Body Dressing (QC): 5 On/Off Footwear (QC): 4 1=Demonstrate adherence to instructed precautions during ADL tasks. 2=Patient will verbalize/demonstrate understanding of assistive devices/modifications for ADL. 3=Patient will improve strength/tolerance for activity to enable patient to perform ADL's. OT Education/Plan Problem List/Assessment Assessment: Decreased Activ Tolerance, Decreased Safety Aware, Decreased UE Strength, Dependent Transfers, Edema, Impaired Bed Mobility, Impaired Cognition, Impaired Funct Balance, Impaired I ADL's, Impaired Self-Care Skills Discharge Recommendations Plan/Recommendations: Continue POC Equpiment Recommendations-D/C: Sheet Metal Layout Mechanic Treatment Plan/Plan of Care Treatment,Training & Education: Yes Patient would benefit from OT for education, treatment and training to promote independence in ADL's, mobility, safety and/or upper extremity function for ADL's. Plan of Care: ADL Retraining, Cognitive Retraining, Functional Mobility, Group Exercise/Act as Ind, UE Funct Exercise/Act, W/C Management Training Treatment Duration: Dec 04, 2021 Frequency: At least 5 of 7 days/Wk (IRF) Estimated Hrs Per Day: 1.5 hours per day Agreement: Yes Rehab Potential: Guarded Time/GCodes Start Time: 09:00 Stop Time: 10:30 Total Time Billed (hr/min): 90 Billed Treatment Time 1 visit ADL x3 (50 min) FA (15 min) EX x2 (25 min) Constance Hogan OT Nov 06, 2021 10:33
--- NOTE | 2021-11-06 11:12 | Physical Therapy Daily Note ---
PT Daily Note-Current Subjective Pt laying supine in bed upon arrival. Pt agrees to PT. Pain Location Body Site: Genital Pain Description: Ache Comment: Reported but not rated Mental Status Patient Orientation: Person, Place, Time, Situation Transfers SCALE: Activities may be completed with or without assistive devices. 7-Uaswtrufwg-zglpnrg completes the activity by him/herself with no assistance from a helper. 5-Set-up or Clean-up Assistance-helper sets up or cleans up; patient completes activity. [place] assists only prior to or following the activity. 4-Supervision or Touching Assistance-helper provides verbal cues and/or touching/steadying and/or contact guard assistance as patient completes activity. Assistance may be provided throughout the activity or intermittently. 3-Partial/Moderate Assistance-helper does LESS THAN HALF the effort. [place] lifts, holds or supports trunk or limbs, but provides less than half the effort. 2-Substantial/Maximal Assistance-helper does MORE THAN HALF the effort. [place] lifts or holds trunk or limbs and provides more than half the effort. 4-Axwwspfcg-qqesbk does ALL the effort. Patient does none of the effort to complete the activity. Or, the assistance of 2 or more helpers is required for the patient to complete the activity. If activity was not attempted, code reason: 7-Patient Refused. 9-Not Applicable-not attempted and the patient did not perform the activity before the current illness, exacerbation or injury. 10-Not Attempted due to Environmental Limitations-(lack of equipment, weather restraints, etc.). 88-Not Attempted due to Medical Conditions or Safety Concerns. Sit to Lying (QC): 3 Lying to Sitting/Side of Bed(Q: 4 Sit to Stand (QC): 3 Chair/Iof-tj-Jucug Xfer(QC): 3 Weight Bearing Full Weight Bearing Full Weight Bearing Wheelchair Training Does the Pt Use a Wheelchair?: Yes Wheel 50 ft with 2 turns (QC): 3 Wheel 150 ft (QC): 3 Type of Wheelchair: Manual Treatments Co-treat with PT for part of session ([id number]) due to need of 2 skilled clinicians to progress indep with adls and mobility. Supine>sit: CGA-Min a with HOB elevated. Upon sitting upright and removing gown, OT notices pt's colostomy bag was max full and leaking out of both ends. He was returned to supine (mod a x2) for clean up and change of bag. Dependent to manage and clean. Prior to sitting upright again, pt reports need to urinate. He refuses to sit up to use urinal and demands therapist position before having accident. Dependent for placement and holding as pt voided. Clothing donned seated EOB. Close supervision for seated balance as he donned shirt overhead, no LOB. Extra time and min verbal reminders on use of production helper when threading feet into brief/shorts. He stood from elevated bed with mod-max a x1 as second person completed clothing management. Poor standing tolerance, only able to tolerate ~45 sec. Poor recall on correct hand placement, requires cues with all transfers. Stand pivot from elevated bed with mod a x2, min a to fully turn hips to square with w/c. Pt propelled w/c ~75 feet with min-mod a. Pt often drifts towards the right and requires cues and HOHA to propel on R side. Poor recall of how to maneuver w/c with turns and requires several verbal cues and hands on assist. Pt often verbalizes awareness and dislike about drifting to the right but does not attempt to adjust method or self correct. Pt fatigues quickly with propulsion and requires several rest breaks. Both OT/PT attempt to educate pt on dropping hand toward axle to improve efficiency of propulsion as well as energy expenditure but pt does not follow through with cues. Max a x2 to stand from lo wer surface and pivot towards bed. Mod a to return to supine. PT departs at this time, OT continues tx. Assessment Current Status: Fair Progress Pt fatigues easily and needs frequent RB to recover. PT Short Term Goals Short Term Goals Time Frame: Nov 09, 2021 Roll Left & Right: 3 Sit to lyin Lying to sitting on side of be: 2 Sit to stand: 3 Chair/spz-gn-nfkjm transfer: 3 PT Fci Goals Fci Goals PT Private Branch Exchange Repairer Goals Time Frame: Nov 23, 2021 Roll Left & Right (QC): 4 Sit to Lying (QC): 3 Lying-Sitting on Side/Bed(QC): 3 Sit to Stand (QC): 4 Chair/Hjf-do-Zblns Xfer(QC): 4 Toilet Transfer (QC): 4 Car Transfer (QC): 3 Does the Patient Walk: Yes Walk 10 feet (QC): 4 Walk 50ft with 2 Turns (QC): 88 Walk 150 ft (QC): 88 Walking 10ft on Uneven Surface: 88 1 Step (curb) (QC): 88 4 Steps (QC): 88 12 Steps (QC): 88 Picking up an Object (QC): 4 Wheel 50 feet with 2 turns (QC: 4 Wheel 150 feet: 4 PT Plan Problem List Problem List: Activity Tolerance, Functional Strength, Transfer Treatment/Plan Treatment Plan: Continue Plan of Care Treatment Plan: Bed Mobility, Education, Functional Activity [place], Functional Strength, Group Therapy, Gait, Safety, Therapeutic Exercise, Transfers Treatment Duration: Nov 23, 2021 Frequency: At least 5 of 7 days/Wk (IRF) Estimated Hrs Per Day: 1.5 hours per day Patient and/or Family Agrees t: Yes Safety Risks/Education Patient Education: Transfer Techniques, Correct Positioning, W/C Management, Sa fety Issues Teaching Recipient: Patient Teaching Methods: Discussion Response to Teaching: Verbalize Understanding Time/GCodes Time In: 900 Time Out: 1000 Total Billed Treatment Time: 60 Total Billed Treatment 1, FA x2 (25m), EX (15m), [facility] (20m) Co-treat w/OT for 60m TELLY BRIZUELA SUPERVISOR GRAPHITE Nov 06, 2021 11:12
--- NOTE | 2021-11-06 12:31 | Progress Note ---
ASHISH MCCOY 11/06/21 1231: Progress Note Since first seeing patient on 11/04/2021, I have not seen much improvement in patient condition. However, patient is in stable condition. There is still potential, but patient is expected to have a slow recovery. LYNN HOUSER DO 11/07/21 0533: Supervisory-Addendum Brief Verification & Attestation Participated in pt care: history, MDM, physical Personally performed: exam, history, MDM, supervision of care Care discussed with: Medical Student Procedures: n/a Results interpretation: Verified all documentation Verification and Attestation of Medical Student E/M Service A medical student performed and documented this service in my presence. I rev iewed and verified all information documented by the medical student and made modifications to such information, when appropriate. I personally performed the physical exam and medical decision making. Lynn Houser Nov 07, 2021,05:33 ASHISH MCCOY Nov 06, 2021 12:31 LYNN HOUSER DO Nov 07, 2021 05:33
--- NOTE | 2021-11-06 14:00 | Occupational Ther Daily Note ---
OT Current Status-Daily Note Subjective Pt sleeping in bed, woke to touch and name. Pt sleepily agrees to therapy. No c/o pain. Mental Status/Objective Patient Orientation: Person, Place, Time, Situation Attachments: IV ADL-Treatment Therapy Code Descriptions/Definitions Functional [place] Measure: 0=Not Assessed/NA 4=Minimal Assistance 1=Total Assistance 5=Supervision or Setup 2=Maximal Assistance 6=Modified [place] 3=Moderate Assistance 7=Complete IndependenceSCALE: Activities may be completed with or without assistive devices. 0-Sowbnslmfr-qcuvyfz completes the activity by him/herself with no assistance from a helper. 5-Set-up or Clean-up Assistance-helper sets up or cleans up; patient completes activity. [place] assists only prior to or following the activity. 4-Supervision or Touching Assistance-helper provides verbal cues and/or touching/steadying and/or contact guard assistance as patient completes activity. Assistance may be provided throughout the activity or intermittently. 3-Partial/Moderate Assistance-helper does LESS THAN HALF the effort. [place] lifts, holds or supports trunk or limbs, but provides less than half the effort. 2-Substantial/Maximal Assistance-helper does MORE THAN HALF the effort. [place] lifts or holds trunk or limbs and provides more than half the effort. 1-Rlbqdzwhv-sxkzgq does ALL the effort. Patient does none of the effort to complete the activity. Or, the assistance of 2 or more helpers is required for the patient to complete the activity. If activity was not attempted, code reason: 7-Patient Refused. 9-Not Applicable-not attempted and the patient did not perform the activity before the current illness, exacerbation or injury. 10-Not Attempted due to Environmental Limitations-(lack of equipment, weather restraints, etc.). 88-Not Attempted due to Medical Conditions or Safety Concerns. Other Treatment Pt completed B UE exercises with light resistance 1 set 10 reps. Bicep curls, tricep ext, shldr press, int/ext rotation, isometric tricep then internal rotation, ankle pumps and knee ext. Pt fatigues quickly and requires recovery break between sets. After session, pt lying in bed with call light/phone in reach. All needs met in room. OT Short Term Goals Short Term Goals Time Frame: Nov 13, 2021 Eatin Oral hygiene: 5 Toileting hygiene: 3 Shower/bathe self: 2 Upper body dressin Lower body dressin Putting on/taking off footwear: 2 OT Procurement Coordinator Goals [facility] Goals Time Frame: Dec 04, 2021 Eating (QC): 6 Oral Hygiene (QC): 6 Toileting Hygiene (QC): 3 Shower/Bathe Self (QC): 5 Upper Body Dressing (QC): 6 Lower Body Dressing (QC): 5 On/Off Footwear (QC): 4 1=Demonstrate adherence to instructed precautions during ADL tasks. 2=Patient will verbalize/demonstrate understanding of assistive devices/modifications for ADL. 3=Patient will improve strength/tolerance for activity to enable patient to perform ADL's. OT Education/Plan Problem List/Assessment Assessment: Decreased Activ Tolerance, Decreased Safety Aware, Decreased UE Strength Discharge Recommendations Plan/Recommendations: Continue POC Treatment Plan/Plan of Care Patient would benefit from OT for education, treatment and training to promote independence in ADL's, mobility, safety and/or upper extremity function for ADL's. Plan of Care: ADL Retraining, Cognitive Retraining, Functional Mobility, Group Exercise/Act as Ind, UE Funct Exercise/Act, W/C Management Training Treatment Duration: Dec 04, 2021 Frequency: At least 5 of 7 days/Wk (IRF) Estimated Hrs Per Day: 1.5 hours per day Agreement: Yes Rehab Potential: Guarded Time/GCodes Start Time: 13:20 Stop Time: 13:50 Total Time Billed (hr/min): 30 Billed Treatment Time 1 visit-EX 2 (30 min) MIS CARL Nov 06, 2021 14:00
--- NOTE | 2021-11-06 17:47 | Cardiology Progress Note ---
Progress Note-Cardiology Events since last exam Date Seen by Provider: Nov 06, 2021 Time Seen by Provider: 19:12 Events since last exam We are following him due to heart failure with preserved ejection fraction. He still has a fair amount of dyspnea on exertion when working with physical therapy. He also has a fair amount of peripheral edema. He denies chest discomfort, palpitations, or syncope. Certain portions of this document may have been dictated utilizing voice recognition technology. Inherent to this technology, typographical and grammatical errors may exist. As much as I am diligent to identify and correct these mistakes, some errors may remain in the document. Vitals Last set of Vitals Signs Vital Signs 11/06/21 11/06/21 08:00 09:02 Temp 36.0 Pulse 102 Resp 21 B/P (MAP) 128/80 (96) Pulse Ox 90 O2 Delivery High Flow N/C O2 Flow Rate 6.00 Labs Labs Laboratory Tests 11/06/21 07:30 Exam Vital Signs Vital Signs Date Time Temp Pulse Resp B/P (MAP) Pulse Ox O2 Delivery O2 Flow Rate FiO2 11/06/21 09:02 90 High Flow N/C 6.00 11/06/21 08:00 36.0 102 21 128/80 (96) Physical Exam General: Alert. No acute distress. He is obese. Eye: No xanthelasma. HENT: Normocephalic. Neck: Jugular venous pressure does not appear elevated. Respiratory: Lungs have decreased breath sounds bilaterally. Respirations are non-labored. Breath sounds are equal. Symmetrical chest wall expansion. Cardiovascular: Normal rateI. Irregular rhythm. 2/6 systolic ejection murmur and 1/6 diastolic murmur. No gallop. 2+ bilateral pretibial edema. Gastrointestinal: Soft. Normal bowel sounds. Skin: Warm. Dry. Neurologic: Alert and oriented to person, place, time. Cranial nerves 3-11 grossly intact. Psychiatric: Cooperative. Appropriate mood & affect. Labs Laboratory Tests Test 11/06/21 07:30 Range/Units White Blood Count 9.4 4.3-11.0 10^3/uL Red Blood Count 3.08 L 4.30-5.52 10^6/uL Hemoglobin 8.9 L 13.3-17.7 g/dL Hematocrit 30 L 40-54 % Mean Corpuscular Volume 98 80-99 fL Mean Corpuscular Hemoglobin 29 25-34 pg Mean Corpuscular Hemoglobin Concent 30 L 32-36 g/dL Red Cell Distribution Width 17.1 H 10.0-14.5 % Platelet Count 177 130-400 10^3/uL Mean Platelet Volume 9.4 9.0-12.2 fL Immature Granulocyte % (Auto) 3 % Neutrophils (%) (Auto) 76 H 42-75 % Lymphocytes (%) (Auto) 10 L 12-44 % Monocytes (%) (Auto) 9 0-12 % Eosinophils (%) (Auto) 2 0-10 % Basophils (%) (Auto) 1 0-10 % Neutrophils # (Auto) 7.1 1.8-7.8 10^3/uL Lymphocytes # (Auto) 0.9 L 1.0-4.0 10^3/uL Monocytes # (Auto) 0.8 0.0-1.0 10^3/uL Eosinophils # (Auto) 0.2 0.0-0.3 10^3/uL Basophils # (Auto) 0.1 0.0-0.1 10^3/uL Immature Granulocyte # (Auto) 0.3 H 0.0-0.1 10^3/uL Sodium Level 135 135-145 MMOL/L Potassium Level 4.2 3.6-5.0 MMOL/L Chloride Level 96 L 98-107 MMOL/L Carbon Dioxide Level 27 21-32 MMOL/L Anion Gap 12 5-14 MMOL/L Blood Urea Nitrogen 35 H 7-18 MG/DL Creatinine 1.25 0.60-1.30 MG/DL Estimat Glomerular Filtration Rate 59 BUN/Creatinine Ratio 28 Glucose Level 104 70-105 MG/DL Calcium Level 8.9 8.5-10.1 MG/DL Corrected Calcium 10.0 8.5-10.1 MG/DL Magnesium Level 2.1 1.6-2.4 MG/DL Total Bilirubin 0.7 0.1-1.0 MG/DL Aspartate Amino Transf (AST/SGOT) 22 5-34 U/L Alanine Aminotransferase (ALT/SGPT) 19 0-55 U/L Alkaline Phosphatase 54 40-136 U/L Total Protein 8.1 6.4-8.2 GM/DL Albumin 2.6 L 3.2-4.5 GM/DL Radiology ECHOCARDIOGRAM (11/06/2021): 1. Left ventricle: The cavity size is normal. There is severe concentric hypertrophy. Systolic function is normal. The estimated ejection fraction is 55- 65%. There were no regional wall motion abnormalities identified. The left ventricular diastolic function is indeterminate due to atrial fibrillation. 2. Right ventricle: The cavity size is severely increased. Systolic function is normal. TAPSE 1.6 cm. 3. Left atrium: The left atrium is severely dilated with a volume index ranging from 60-85 mL/m. 4. Right atrium: The right atrium is severely dilated with an area of 42 cm. 5. Mitral valve: There appears to be a bioprosthetic valve in the mitral position which has a pressure half-time of 103 ms which is moderately elevated. 6. Aortic valve: The aortic valve appears tricuspid with mildly thickened and calcified leaflets with mildly restricted leaflet mobility. There is mild aortic stenosis with a mean gradient of 18 mmHg, a peak gradient of 34 mmHg, and a peak velocity of 2.9 m/s. The calculated aortic valve area was falsely low. 7. Tricuspid valve: There is severe regurgitation. 8. Inferior vena cava: The vessel is dilated. The respirophasic diameter changes are blunted (less than 50%). These findings are consistent with severely elevated right atrial pressure (15 mmHg). 9. Pulmonary arteries: The estimated pulmonary artery systolic pressure is 81 mmHg assuming a right atrial pressure of 15 mmHg. Diagnosis/Problems Diagnosis/Problems (1) Acute on chronic heart failure with preserved ejection fraction (HFpEF) Assessment & Plan: Since starting intravenous furosemide on 11/05, he has made minimal improvement in the past 24 hours. I recommend he continue the intravenous furosemide and watch his renal function closely. (2) Permanent atrial fibrillation Assessment & Plan: Heart rates appear controlled with digoxin and diltiazem. 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 He may be a candidate for a Watchman device. He can discuss this with his regular ad setter at the outside facility following discharge. I would be inclined to discontinue the digoxin but I will leave this up to the discretion of his regular ad setter at the outside hospital. (3) Pulmonary hypertension Assessment & Plan: He has severe pulmonary hypertension. Some of this could be due to acute heart failure on top of his previous mitral valve surgery now with at least a mild degree of stenosis in the bioprosthesis as noted on his echocardiogram. This will need to be followed longitudinally by his regular ad setter. (4) Primary hypertension Assessment & Plan: Blood pressure is reasonably controlled with the present combination of medications. (5) H/O mitral valve replacement Assessment & Plan: He has a reported bioprosthetic mitral valve. 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 This may be contributing to his heart failure. (6) Mixed hyperlipidemia Assessment & Plan: Continue statin. ELIESER SHAH JR, MD Nov 06, 2021 17:47
[2021-11-06 20:14] VITALS: BP 121/75
[2021-11-06] MEDS: traZODone 50 MG (DESYREL) TAB PO SCH (20:16)
[2021-11-07] MEDS: METOCLOPRAMIDE 10 MG (REGLAN) TAB PO SCH ×4 (00:04→17:30)
[2021-11-07] MEDS: CYANOCOBALAMIN 1,000 MCG (VITAMIN B-12) TABLET PO SCH (05:05)
[2021-11-07] MEDS: MULTIVIT W/MINERALS TAB (THERAGRAN M) PO SCH (05:05)
--- NOTE | 2021-11-07 06:23 | PM&R Progress Note ---
Subjective HPI/CC On Admission Date Seen by Provider: Nov 07, 2021 Time Seen by Provider: 12:00 Subjective/Events-last exam 11/07/2021: Patient doing well Sitting in a wheelchair most the morning at bedside Educated on third spacing fluid IV Lasix maintain Adjusted potassium dosing yesterday High-protein Ensure will be initiated 11/06/2021: Patient is stable Slow recovery at bedside IV diuresis tolerated Noted labs Change potassium Denies any pain 11/05/2021: Patient doing fairly well Slow progress No pain is reported Voiding fairly well Dr. Rodriguez will evaluate IV diuresis at bedside Oxygen maintained 11/04/2021: Patient had a really good night Voiding well no Spaulding catheter in and out cath required No pain is reported Scrotal edema continues to be supported Oxygen is maintained Dr. Bar will evaluate sacral decubitus ulcer and heels Ostomy output has slowed so may need to reach out to Dr. Cornelio Kemp cardiology 11/03/2021: Patient had a pretty good night Wore oxygen last night No pain reported Labs noted Urology consulted for Spaulding DC Iron and B12 checked Fluid restriction at 1200cc Review of Systems General: Fatigue, Malaise Cardiovascular: Edema Neurological: Weakness Objective Exam Vital Signs Vital Signs Date Time Temp Pulse Resp B/P (MAP) Pulse Ox O2 Delivery O2 Flow Rate FiO2 11/07/21 21:00 96 High Flow N/C 6.00 11/07/21 20:00 36.4 86 20 108/65 (79) Capillary Refill : General Appearance: No Apparent Distress, WD/WN, Chronically ill, Obese HEENT: PERRL/EOMI, Normal ENT Inspection, Pharynx Normal Neck: Full Range of Motion, Normal Inspection, Non Tender, Supple, Carotid Bruit Respiratory: Chest Non Tender, Lungs Clear, Normal Breath Sounds, No Accessory Muscle Use, No Respiratory Distress, Crackles, Decreased Breath Sounds Cardiovascular: No Gallop, No JVD, No Murmur, Normal Peripheral Pulses, Irregularly Irregular Gastrointestinal: Normal Bowel Sounds, No Organomegaly, No Pulsatile Mass, Soft, Distended, Tenderness Back: Normal Inspection, No CVA Tenderness, No Vertebral Tenderness Extremity: Normal Capillary Refill, Normal Inspection, Normal Range of Motion (Limited range of motion), Non Tender, Calf Tenderness (Right) Neurologic/Psychiatric: Alert, Oriented x3, senior automation engineer II-XII Norm as Tested, Depressed Affect, Motor Weakness (Generalized) Skin: Normal Color, Warm/Dry Lymphatic: No Adenopathy Results/Procedures Lab Patient resulted labs reviewed. FIM Transfers Therapy Code Descriptions/Definitions Functional [place] Measure: 0=Not Assessed/NA 4=Minimal Assistance 1=Total Assistance 5=Supervision or Setup 2=Maximal Assistance 6=Modified [place] 3=Moderate Assistance 7=Complete IndependenceSCALE: Activities may be completed with or without assistive devices. 6-Ujkbpallps-nqogxnp completes the activity by him/herself with no assistance from a helper. 5-Set-up or Clean-up Assistance-helper sets up or cleans up; patient completes activity. [place] assists only prior to or following the activity. 4-Supervision or Touching Assistance-helper provides verbal cues and/or touchi ng/steadying and/or contact guard assistance as patient completes activity. Assistance may be provided throughout the activity or intermittently. 3-Partial/Moderate Assistance-helper does LESS THAN HALF the effort. [place] lifts, holds or supports trunk or limbs, but provides less than half the effort. 2-Substantial/Maximal Assistance-helper does MORE THAN HALF the effort. [place] lifts or holds trunk or limbs and provides more than half the effort. 8-Qkkcneolp-ttpmlg does ALL the effort. Patient does none of the effort to complete the activity. Or, the assistance of 2 or more helpers is required for the patient to complete the activity. If activity was not attempted, code reason: 7-Patient Refused. 9-Not Applicable-not attempted and the patient did not perform the activity before the current illness, exacerbation or injury. 10-Not Attempted due to Environmental Limitations-(lack of equipment, weather restraints, etc.). 88-Not Attempted due to Medical Conditions or Safety Concerns. Roll Left to Right (QC): 3 Sit to Lying (QC): 3 Sit to Stand (QC): 3 Chair/Bth-ln-Kzlay Xfer(QC): 3 Car Transfer (QC): 88 Gait Training Does the Patient Walk?: No and Walking Goal IS indicated Walk 10 feet (QC): 88 Walk 50 ft with 2 Turns(QC): 88 Walk 150 ft (QC): 88 Walking 10ft/uneven surface-QC: 88 Wheelchair Training Does the Pt Use a Wheelchair?: Yes Wheel 50 ft with 2 turns (QC): 3 Wheel 150 ft (QC): 3 Type of Wheelchair: Manual Stair Training 1 Step (curb) (QC): 88 4 Steps (QC): 88 12 Steps (QC): 88 Balance Picking up an Object (QC): 88 ADL-Treatment Eating (QC): 4 Oral Hygiene (QC): 4 Bathing Location: L Arm, R Arm, L Upper Leg, R Upper Leg, L Lower Leg (including foot), R Lower Leg (including foot), Chest, Abdomen Shower/Bathe Self (QC): 1 (Assist x2 during standing for safety while assisting with cleansing buttocks/jay area.) Upper Body Dressing (QC): 4 Lower Body Dressing (QC): 1 On/Off Footwear (QC): 1 Toileting Hygiene (QC): 1 Toilet Transfer (QC): 1 Assessment/Plan Assessment and Plan Assess & Plan/Chief Complaint Assessment: 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 Recent aspiration pneumonia requiring intubation Continued hypoxia requiring supplemental oxygen Anasarca Atrial fibrillation CAD 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 Bar for wound care 11/05/2021: Continue fluid restriction Bowel regimen Dr. Bar appreciated Dr. Rodriguez appreciated IV diuresis? 11/06/2021: IV diuresis Fluid restriction Wound care Cardiology appreciated 11/07/2021: High-protein Ensure Fluid restriction changed Close monitoring (1) Acute on chronic heart failure with preserved ejection fraction (HFpEF) Assessment & Plan: Since starting intravenous furosemide on 11/05, he has made minimal improvement in the past 24 hours. I recommend he continue the intravenous furosemide and watch his renal function closely. (2) Permanent atrial fibrillation Assessment & Plan: Heart rates appear controlled with digoxin and diltiazem. 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 He may be a candidate for a Watchman device. He can discuss this with his regular production scheduler at the outside facility following discharge. I would be inclined to discontinue the digoxin but I will leave this up to the discretion of his regular production scheduler at the outside hospital. (3) Pulmonary hypertension Assessment & Plan: He has severe pulmonary hypertension. Some of this could be due to acute heart failure on top of his previous mitral valve surgery now with at least a mild degree of stenosis in the bioprosthesis as noted on his echocardiogram. This will need to be followed longitudinally by his regular production scheduler. (4) Primary hypertension Assessment & Plan: Blood pressure is reasonably controlled with the present combination of medications. (5) H/O mitral valve replacement Assessment & Plan: He has a reported bioprosthetic mitral valve. 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 This may be contributing to his heart failure. (6) Mixed hyperlipidemia Assessment & Plan: Continue statin. BOB HOUSER DO Nov 07, 2021 06:23
[2021-11-07 06:41] LABS: POTASSIUM 3.9 MMOL/L (3.6-5.0)
[2021-11-07 06:42] LABS: CALCIUM 9.1 MG/DL (8.5-10.1)
[2021-11-07 06:47] LABS: CREATININE SERUM 1.07 MG/DL (0.60-1.30)
[2021-11-07 08:00] VITALS: BP 112/61
[2021-11-07] MEDS: KCL 20 MEQ TAB (K-DUR) PO SCH ×2 (08:46→17:30)
[2021-11-07] MEDS: acetaZOLAMIDE 250 MG (DIAMOX) TAB PO SCH ×2 (08:46→21:33)
[2021-11-07] MEDS: GABAPENTIN 100 MG (NEURONTIN) CAP PO SCH ×2 (08:46→21:32)
[2021-11-07] MEDS: DOCUSATE SODIUM 100 MG (COLACE) CAP PO SCH ×2 (08:46→21:32)
[2021-11-07] MEDS: SENNA W/DOCUSATE (SENOKOT S) TABLET PO SCH ×2 (08:46→21:32)
[2021-11-07] MEDS: DIGOXIN 0.125 MG (LANOXIN) TAB PO SCH (08:46)
[2021-11-07] MEDS: guaiFENesin (MUCINEX) 600 MG TAB PO SCH ×2 (08:47→21:33)
[2021-11-07] MEDS: FAMOTIDINE 20 MG (PEPCID) TABLET PO SCH ×2 (08:47→21:33)
[2021-11-07] MEDS: ENOXAPARIN 60 MG/0.6 ML (LOVENOX) SYR SQ SCH (08:51)
[2021-11-07] MEDS: FUROSEMIDE 40 MG/4 ML INJ (LASIX) IVP SCH (08:52)
[2021-11-07] MEDS: polyethylene glycoL POWDER 17 GM (MIRALAX) PACK PO SCH ×2 (08:52→21:46)
[2021-11-07] MEDS: MICONAZOLE 2% POWDER (DESENEX AF) 90 GM TOP SCH ×2 (08:52→21:38)
--- NOTE | 2021-11-07 10:25 | Physical Therapy Daily Note ---
PT Daily Note-Current Subjective Pt sitting up in bed upon arrival. Nurse present and assisting w/TF to [facility]. Pain Location Body Site: Genital Pain Description: Ache Comment: Reports but doesn't rate. Mental Status Patient Orientation: Person, Place, Time, Situation Transfers SCALE: Activities may be completed with or without assistive devices. 7-Juwhhdpjpp-srlxmsc completes the activity by him/herself with no assistance from a helper. 5-Set-up or Clean-up Assistance-helper sets up or cleans up; patient completes activity. [place] assists only prior to or following the activity. 4-Supervision or Touching Assistance-helper provides verbal cues and/or touching/steadying and/or contact guard assistance as patient completes activity. Assistance may be provided throughout the activity or intermittently. 3-Partial/Moderate Assistance-helper does LESS THAN HALF the effort. [place] lifts, holds or supports trunk or limbs, but provides less than half the effort. 2-Substantial/Maximal Assistance-helper does MORE THAN HALF the effort. [place] lifts or holds trunk or limbs and provides more than half the effort. 7-Yghqvjziz-tnmexm does ALL the effort. Patient does none of the effort to complete the activity. Or, the assistance of 2 or more helpers is required for the patient to complete the activity. If activity was not attempted, code reason: 7-Patient Refused. 9-Not Applicable-not attempted and the patient did not perform the activity before the current illness, exacerbation or injury. 10-Not Attempted due to Environmental Limitations-(lack of equipment, weather restraints, etc.). 88-Not Attempted due to Medical Conditions or Safety Concerns. Lying to Sitting/Side of Bed(Q: 4 Sit to Stand (QC): 3 Chair/Wnv-nh-Yxmjv Xfer(QC): 3 Weight Bearing Full Weight Bearing Full Weight Bearing Wheelchair Training Does the Pt Use a Wheelchair?: Yes Type of Wheelchair: Manual Treatments Pt TF from Supine to EOB at Min A. Mod A for EOB to H via SPT. Pt is on 7L in room w/activity. All needs met. Assessment Current Status: Fair Progress Pt fatigues easily and needs VC for safety lashell. w/TF. PT Short Term Goals Short Term Goals Time Frame: Nov 09, 2021 Roll Left & Right: 3 Sit to lyin Lying to sitting on side of be: 2 Sit to stand: 3 Chair/tqm-mb-fqsqf transfer: 3 PT Pole Lift Operator Goals Usp Goals PT Usp Goals Time Frame: Nov 23, 2021 Roll Left & Right (QC): 4 Sit to Lying (QC): 3 Lying-Sitting on Side/Bed(QC): 3 Sit to Stand (QC): 4 Chair/Rbr-cl-Iosqk Xfer(QC): 4 Toilet Transfer (QC): 4 Car Transfer (QC): 3 Does the Patient Walk: Yes Walk 10 feet (QC): 4 Walk 50ft with 2 Turns (QC): 88 Walk 150 ft (QC): 88 Walking 10ft on Uneven Surface: 88 1 Step (curb) (QC): 88 4 Steps (QC): 88 12 Steps (QC): 88 Picking up an Object (QC): 4 Wheel 50 feet with 2 turns (QC: 4 Wheel 150 feet: 4 PT Plan Problem List Problem List: Activity Tolerance Treatment/Plan Treatment Plan: Continue Plan of Care Treatment Plan: Bed Mobility, Education, Functional Activity [place], Functional Strength, Group Therapy, Gait, Safety, Therapeutic Exercise, Transfers Treatment Duration: Nov 23, 2021 Frequency: At least 5 of 7 days/Wk (IRF) Estimated Hrs Per Day: 1.5 hours per day Patient and/or Family Agrees t: Yes Safety Risks/Education Patient Education: Transfer Techniques, Correct Positioning, Safety Issues Teaching Recipient: Patient Teaching Methods: Discussion Response to Teaching: Verbalize Understanding Time/GCodes Time In: 940 Time Out: 1000 Total Billed Treatment Time: 20 Total Billed Treatment 1, FA (20m) TELLY BRIZUELA PTA Nov 07, 2021 10:25
--- NOTE | 2021-11-07 15:55 | Cardiology Progress Note ---
Progress Note-Cardiology Events since last exam Date Seen by Provider: Nov 07, 2021 Time Seen by Provider: 15:51 Events since last exam I am following him due to heart failure. He appeared brighter today. He had several family members at the bedside visiting. His nurse tells me that he has been having some issues with complete voiding. Urology has been seeing the patient as needed. The patient denies dyspnea but his nurse reports he still has a fair amount of dyspnea with physical therapy. He seems to be too weak to stand on his own. He denies chest discomfort, palpitations, or syncope. His peripheral edema seems to be improving with the intravenous diuretic. Certain portions of this document may have been dictated utilizing voice recognition technology. Inherent to this technology, typographical and grammatical errors may exist. As much as I am diligent to identify and correct these mistakes, some errors may remain in the document. Vitals Last set of Vitals Signs Vital Signs 11/07/21 11/07/21 08:00 09:36 Temp 36.7 Pulse 85 Resp 20 B/P (MAP) 112/61 (78) Pulse Ox 95 O2 Delivery High Flow N/C O2 Flow Rate 7.00 Labs Labs Laboratory Tests 11/07/21 06:00 Exam Vital Signs Vital Signs Date Time Temp Pulse Resp B/P (MAP) Pulse Ox O2 Delivery O2 Flow Rate FiO2 11/07/21 09:36 High Flow N/C 7.00 11/07/21 08:00 36.7 85 20 112/61 (78) 95 Physical Exam General: Alert. No acute distress. Eye: No xanthelasma. HENT: Normocephalic. Neck: Jugular venous pressure does not appear elevated. Respiratory: Lungs have decreased breath sounds at the bases bilaterally. Respirations are non-labored. Breath sounds are equal. Symmetrical chest wall expansion. Cardiovascular: Normal rate. Irregular rhythm. 2/6 systolic ejection murmur and 1/6 diastolic. No gallop. 1+ bilateral pretibial edema and legs are wrapped in Camilo bandages distal to the knees bilaterally. Gastrointestinal: Soft. Normal bowel sounds. Skin: Warm. Dry. Neurologic: Alert and oriented to person, place, time. Cranial nerves 3-11 grossly intact. Psychiatric: Cooperative. Appropriate mood & affect. Labs Laboratory Tests Test 11/07/21 06:00 Range/Units Sodium Level 135 135-145 MMOL/L Potassium Level 3.9 3.6-5.0 MMOL/L Chloride Level 97 L 98-107 MMOL/L Carbon Dioxide Level 29 21-32 MMOL/L Anion Gap 9 5-14 MMOL/L Blood Urea Nitrogen 31 H 7-18 MG/DL Creatinine 1.07 0.60-1.30 MG/DL Estimat Glomerular Filtration Rate 71 BUN/Creatinine Ratio 29 Glucose Level 88 70-105 MG/DL Calcium Level 9.1 8.5-10.1 MG/DL Diagnosis/Problems Diagnosis/Problems (1) Acute on chronic heart failure with preserved ejection fraction (HFpEF) Assessment & Plan: Since starting intravenous furosemide on 11/05, he has some improvement in his peripheral edema over the past 48 hours. I recommend he continue the intravenous furosemide and watch his renal function closely. (2) Permanent atrial fibrillation Assessment & Plan: Heart rates appear controlled with digoxin and diltiazem. 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 He may be a candidate for a Watchman device. He can discuss this with his regular harness cutter at the outside facility following discharge. I would be inclined to discontinue the digoxin but I will leave this up to the discretion of his regular harness cutter at the outside hospital. (3) Pulmonary hypertension Assessment & Plan: He has severe pulmonary hypertension. Some of this could be due to acute heart failure on top of his previous mitral valve surgery now with at least a mild degree of stenosis in the bioprosthesis as noted on his echocardiogram. This will need to be followed longitudinally by his regular harness cutter. (4) Primary hypertension Assessment & Plan: Blood pressure is reasonably controlled with the present combination of medications. (5) H/O mitral valve replacement Assessment & Plan: He has a reported bioprosthetic mitral valve. 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 This may be contributing to his heart failure. (6) Mixed hyperlipidemia Assessment & Plan: Continue statin. ELIESER SHAH JR, MD Nov 07, 2021 15:55
[2021-11-07] MEDS ORDERED: LIDOCAINE UROJET 2% GEL 10 ML PKG ONE (17:52)
[2021-11-07] MEDS ORDERED: CATHETER FLUSH 10 ML SYR IVP PRN (19:30)
[2021-11-07 20:00] VITALS: BP 108/65
[2021-11-07] MEDS: traZODone 50 MG (DESYREL) TAB PO SCH (21:32)
[2021-11-07] MEDS: CATHETER FLUSH 10 ML SYR IVP SCH (21:38)
[2021-11-08] MEDS: METOCLOPRAMIDE 10 MG (REGLAN) TAB PO SCH ×4 (04:48→17:48)
[2021-11-08] MEDS: MULTIVIT W/MINERALS TAB (THERAGRAN M) PO SCH (06:58)
[2021-11-08] MEDS: CYANOCOBALAMIN 1,000 MCG (VITAMIN B-12) TABLET PO SCH (06:58)
[2021-11-08] MEDS: CATHETER FLUSH 10 ML SYR IVP SCH ×3 (06:59→21:25)
--- NOTE | 2021-11-08 07:01 | PM&R Progress Note ---
Subjective HPI/CC On Admission Date Seen by Provider: Nov 08, 2021 Time Seen by Provider: 13:00 Subjective/Events-last exam 11/08/2021: Patient doing well Sitting up in chair Transfers are better Edema is improving Multiple meds were changed by Dr. Rodriguez Anasarca continues Protein recommended in diet 11/07/2021: Patient doing well Sitting in a wheelchair most the morning at bedside Educated on third spacing fluid IV Lasix maintain Adjusted potassium dosing yesterday High-protein Ensure will be initiated 11/06/2021: Patient is stable Slow recovery at bedside IV diuresis tolerated Noted labs Change potassium Denies any pain 11/05/2021: Patient doing fairly well Slow progress No pain is reported Voiding fairly well Dr. Rodriguez will evaluate IV diuresis at bedside Oxygen maintained 11/04/2021: Patient had a really good night Voiding well no Spaulding catheter in and out cath required No pain is reported Scrotal edema continues to be supported Oxygen is maintained Dr. Bar will evaluate sacral decubitus ulcer and heels Ostomy output has slowed so may need to reach out to Dr. Grimes Appreciate cardiology 11/03/2021: Patient had a pretty good night Wore oxygen last night No pain reported Labs noted Urology consulted for Spaulding DC Iron and B12 checked Fluid restriction at 1200cc Review of Systems General: Fatigue, Malaise Neurological: Weakness Objective Exam Vital Signs Vital Signs Date Time Temp Pulse Resp B/P (MAP) Pulse Ox O2 Delivery O2 Flow Rate FiO2 11/08/21 21:15 92 High Flow N/C 7.00 11/08/21 20:10 36.7 82 20 126/60 (82) Capillary Refill : General Appearance: No Apparent Distress, WD/WN, Chronically ill, Obese HEENT: PERRL/EOMI, Normal ENT Inspection, Pharynx Normal Neck: Full Range of Motion, Normal Inspection, Non Tender, Supple, Carotid Bruit Respiratory: Chest Non Tender, Lungs Clear, Normal Breath Sounds, No Accessory Muscle Use, No Respiratory Distress, Crackles, Decreased Breath Sounds Cardiovascular: No Gallop, No JVD, No Murmur, Normal Peripheral Pulses, Irregularly Irregular Gastrointestinal: Normal Bowel Sounds, No Organomegaly, No Pulsatile Mass, Soft, Distended, Tenderness Back: Normal Inspection, No CVA Tenderness, No Vertebral Tenderness Extremity: Normal Capillary Refill, Normal Inspection, Normal Range of Motion (Limited range of motion), Non Tender, Calf Tenderness (Right) Neurologic/Psychiatric: Alert, Oriented x3, 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 FIM Transfers Therapy Code Descriptions/Definitions Functional [place] Measure: 0=Not Assessed/NA 4=Minimal Assistance 1=Total Assistance 5=Supervision or Setup 2=Maximal Assistance 6=Modified [place] 3=Moderate Assistance 7=Complete IndependenceSCALE: Activities may be completed with or without assistive devices. 4-Jkbqquhxdi-smyhvgy completes the activity by him/herself with no assistance from a helper. 5-Set-up or Clean-up Assistance-helper sets up or cleans up; patient completes activity. [place] assists only prior to or following the activity. 4-Supervision or Touching Assistance-helper provides verbal cues and/or touching /steadying and/or contact guard assistance as patient completes activity. Assistance may be provided throughout the activity or intermittently. 3-Partial/Moderate Assistance-helper does LESS THAN HALF the effort. [place] lifts, holds or supports trunk or limbs, but provides less than half the effort. 2-Substantial/Maximal Assistance-helper does MORE THAN HALF the effort. [place] lifts or holds trunk or limbs and provides more than half the effort. 8-Hwsnexnbb-hpaelp does ALL the effort. Patient does none of the effort to complete the activity. Or, the assistance of 2 or more helpers is required for the patient to complete the activity. If activity was not attempted, code reason: 7-Patient Refused. 9-Not Applicable-not attempted and the patient did not perform the activity before the current illness, exacerbation or injury. 10-Not Attempted due to Environmental Limitations-(lack of equipment, weather restraints, etc.). 88-Not Attempted due to Medical Conditions or Safety Concerns. Roll Left to Right (QC): 3 Sit to Lying (QC): 3 Sit to Stand (QC): 3 Chair/Eyp-yp-Fwdhl Xfer(QC): 3 Car Transfer (QC): 88 Gait Training Does the Patient Walk?: No and Walking Goal IS indicated Walk 10 feet (QC): 88 Walk 50 ft with 2 Turns(QC): 88 Walk 150 ft (QC): 88 Walking 10ft/uneven surface-QC: 88 Wheelchair Training Does the Pt Use a Wheelchair?: Yes Wheel 50 ft with 2 turns (QC): 3 Wheel 150 ft (QC): 3 Type of Wheelchair: Manual Stair Training 1 Step (curb) (QC): 88 4 Steps (QC): 88 12 Steps (QC): 88 Balance Picking up an Object (QC): 88 ADL-Treatment Eating (QC): 4 Oral Hygiene (QC): 4 Bathing Location: L Arm, R Arm, L Upper Leg, R Upper Leg, L Lower Leg (i ncluding foot), R Lower Leg (including foot), Chest, Abdomen Shower/Bathe Self (QC): 1 (Assist x2 during standing for safety while assisting with cleansing buttocks/jay area.) Upper Body Dressing (QC): 4 Lower Body Dressing (QC): 1 On/Off Footwear (QC): 1 Toileting Hygiene (QC): 1 Toilet Transfer (QC): 1 Assessment/Plan Assessment and Plan Assess & Plan/Chief Complaint Assessment: 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 Recent aspiration pneumonia requiring intubation Continued hypoxia requiring supplemental oxygen Anasarca Atrial fibrillation CAD 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 Bar for wound care 11/05/2021: Continue fluid restriction Bowel regimen Dr. Bar appreciated Dr. Rodriguez appreciated IV diuresis? 11/06/2021: IV diuresis Fluid restriction Wound care Cardiology appreciated 11/07/2021: High-protein Ensure Fluid restriction changed Close monitoring 11/08/2021: Supportive care Protein supplements (1) Acute on chronic heart failure with preserved ejection fraction (HFpEF) Assessment & Plan: Since starting intravenous furosemide on 11/05, he has some improvement in his peripheral edema over the past 48 hours. I recommend he continue the intravenous furosemide and watch his renal function closely. (2) Permanent atrial fibrillation Assessment & Plan: Heart rates appear controlled with digoxin and diltiazem. 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 He may be a candidate for a Watchman device. He can discuss this with his regular manager patient at the outside facility following discharge. I would be inclined to discontinue the digoxin but I will leave this up to the discretion of his regular manager patient at the outside hospital. (3) Pulmonary hypertension Assessment & Plan: He has severe pulmonary hypertension. Some of this could be due to acute heart failure on top of his previous mitral valve surgery now with at least a mild degree of stenosis in the bioprosthesis as noted on his echocardiogram. This will need to be followed longitudinally by his regular manager patient. (4) Primary hypertension Assessment & Plan: Blood pressure is reasonably controlled with the present combination of medications. (5) H/O mitral valve replacement Assessment & Plan: He has a reported bioprosthetic mitral valve. 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 This may be contributing to his heart failure. (6) Mixed hyperlipidemia Assessment & Plan: Continue statin. BOB HOUSER DO Nov 08, 2021 07:01
[2021-11-08] MEDS: guaiFENesin (MUCINEX) 600 MG TAB PO SCH ×2 (08:33→21:20)
[2021-11-08] MEDS: FAMOTIDINE 20 MG (PEPCID) TABLET PO SCH ×2 (08:33→21:21)
[2021-11-08] MEDS: GABAPENTIN 100 MG (NEURONTIN) CAP PO SCH ×2 (08:33→21:21)
[2021-11-08] MEDS: DIGOXIN 0.125 MG (LANOXIN) TAB PO SCH (08:33)
[2021-11-08] MEDS: DOCUSATE SODIUM 100 MG (COLACE) CAP PO SCH ×2 (08:33→21:20)
[2021-11-08] MEDS: acetaZOLAMIDE 250 MG (DIAMOX) TAB PO SCH ×2 (08:33→21:20)
[2021-11-08] MEDS: IRON SUCROSE 200 MG/10 ML (VENOFER) VIAL IV SCH (08:34)
[2021-11-08] MEDS: ENOXAPARIN 60 MG/0.6 ML (LOVENOX) SYR SQ SCH (08:34)
[2021-11-08] MEDS: FUROSEMIDE 40 MG/4 ML INJ (LASIX) IVP SCH (08:37)
[2021-11-08] MEDS: polyethylene glycoL POWDER 17 GM (MIRALAX) PACK PO SCH ×2 (08:44→21:20)
[2021-11-08 08:45] VITALS: BP 119/64
[2021-11-08] MEDS: MICONAZOLE 2% POWDER (DESENEX AF) 90 GM TOP SCH ×2 (08:45→21:25)
[2021-11-08] MEDS: SENNA W/DOCUSATE (SENOKOT S) TABLET PO SCH ×2 (08:58→21:20)
[2021-11-08] MEDS: KCL 20 MEQ TAB (K-DUR) PO SCH (08:59)
[2021-11-08 10:31] LABS: CALCIUM 8.7 MG/DL (8.5-10.1); CREATININE SERUM 1.05 MG/DL (0.60-1.30); POTASSIUM 3.7 MMOL/L (3.6-5.0)
[2021-11-08] MEDS ORDERED: SPIRONOLACTONE 25 MG (ALDACTONE) TAB PO ONE (10:45)
--- NOTE | 2021-11-08 11:00 | Cardiology Progress Note ---
Progress Note-Cardiology Events since last exam Date Seen by Provider: Nov 08, 2021 Time Seen by Provider: 10:55 Events since last exam We are following him due to heart failure and atrial fibrillation. He tells me that his regular field adjuster in [place] started him on digoxin not too long ago. He does not feel any different with digoxin. He would not be opposed to stopping this. His peripheral edema continues to improve with the intravenous furosemide. However, he is still fairly short of breath with physical therapy. He denies chest pain, palpitations, or syncope. Certain portions of this document may have been dictated utilizing voice recognition technology. Inherent to this technology, typographical and grammatical errors may exist. As much as I am diligent to identify and correct these mistakes, some errors may remain in the document. Vitals Last set of Vitals Signs Vital Signs 11/08/21 11/08/21 08:45 09:30 Temp 36.9 Pulse 117 Resp 20 B/P (MAP) 119/64 (82) Pulse Ox 96 O2 Delivery High Flow N/C O2 Flow Rate 6.00 Labs Labs Laboratory Tests 11/08/21 09:55 Exam Vital Signs Vital Signs Date Time Temp Pulse Resp B/P (MAP) Pulse Ox O2 Delivery O2 Flow Rate FiO2 11/08/21 09:30 96 High Flow N/C 6.00 11/08/21 08:45 36.9 117 20 119/64 (82) Physical Exam General: Alert. No acute distress. He is obese. Eye: No xanthelasma. HENT: Normocephalic. Neck: Jugular venous pressure does not appear elevated. Respiratory: Lungs are clear to auscultation. Respirations are non-labored. Breath sounds are equal. Symmetrical chest wall expansion. Cardiovascular: Normal rate. Irregular rhythm. 2/6 systolic ejection murmur and 1/6 diastolic murmur. No gallop. 1+ bilateral pretibial edema and legs are wrapped in Camilo bandages below the knees bilaterally. Gastrointestinal: Soft. Normal bowel sounds. Skin: Warm. Dry. Neurologic: Alert and oriented to person, place, time. Cranial nerves 3-11 grossly intact. Psychiatric: Cooperative. Appropriate mood & affect. Labs Laboratory Tests Test 11/08/21 09:55 Range/Units Sodium Level 136 135-145 MMOL/L Potassium Level 3.7 3.6-5.0 MMOL/L Chloride Level 97 L 98-107 MMOL/L Carbon Dioxide Level 30 21-32 MMOL/L Anion Gap 9 5-14 MMOL/L Blood Urea Nitrogen 33 H 7-18 MG/DL Creatinine 1.05 0.60-1.30 MG/DL Estimat Glomerular Filtration Rate 72 BUN/Creatinine Ratio 31 Glucose Level 110 H 70-105 MG/DL Calcium Level 8.7 8.5-10.1 MG/DL Diagnosis/Problems Diagnosis/Problems (1) Acute on chronic heart failure with preserved ejection fraction (HFpEF) Assessment & Plan: Since starting intravenous furosemide on 11/05, he has some improvement in his peripheral edema over the past 48 hours. I recommend he cont inue the intravenous furosemide and watch his renal function closely. I will also start spironolactone which has some positive data in the literature for patients with heart failure with preserved ejection fraction. (2) Permanent atrial fibrillation Assessment & Plan: Heart rates appear controlled with digoxin and diltiazem. Since he did not notice any difference when starting digoxin prior to this admission, I will stop the digoxin. 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 He may be a candidate for a Watchman device. He can discuss this with his regular field adjuster at the outside facility following discharge. (3) Pulmonary hypertension Assessment & Plan: He has severe pulmonary hypertension. Some of this could be due to acute heart failure on top of his previous mitral valve surgery now with at least a mild degree of stenosis in the bioprosthesis as noted on his echocardiogram during this admission. This will need to be followed longitudinally by his regular field adjuster. (4) Primary hypertension Assessment & Plan: Blood pressure is reasonably controlled with the present combination of medications. (5) H/O mitral valve replacement Assessment & Plan: He has a bovine bioprosthetic mitral valve. 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 This may be contributing to his heart failure. This will need to be followed by his regular field adjuster at the outside facility after discharge. (6) Mixed hyperlipidemia Assessment & Plan: Continue statin. ELIESER SHAH JR, MD Nov 08, 2021 11:00
[2021-11-08] MEDS ORDERED: LIDOCAINE UROJET 2% GEL 10 ML PKG ONE (18:23)
[2021-11-08 20:10] VITALS: BP 126/60
[2021-11-08] MEDS: traZODone 50 MG (DESYREL) TAB PO SCH (21:21)
[2021-11-09] MEDS: METOCLOPRAMIDE 10 MG (REGLAN) TAB PO SCH ×5 (00:17→23:39)
[2021-11-09 05:06] LABS: BASOPHILS # (AUTO) 0.1 10^3/uL (0.0-0.1); BASOPHILS % (AUTO) 1 % (0-10); EOSINOPHILS # (AUTO) 0.3 10^3/uL (0.0-0.3); EOSINOPHILS % (AUTO) 3 % (0-10); HEMATOCRIT 28 % (40-54); HEMOGLOBIN 8.3 g/dL (13.3-17.7); LYMPHOCYTES # (AUTO) 0.9 10^3/uL (1.0-4.0); LYMPHOCYTES % (AUTO) 9 % (12-44); MEAN CORPUSCULAR HEMOGLOBIN 29 pg (25-34); MEAN CORPUSCULAR HGB CONC 29 g/dL (32-36); MEAN CORPUSCULAR VOLUME 98 fL (80-99); MEAN PLATELET VOLUME 9.5 fL (9.0-12.2); MONOCYTES # (AUTO) 0.9 10^3/uL (0.0-1.0); MONOCYTES % (AUTO) 9 % (0-12); NEUTROPHILS # (AUTO) 8.3 10^3/uL (1.8-7.8); NEUTROPHILS % (AUTO) 77 % (42-75); PLATELET COUNT 189 10^3/uL (130-400); WHITE BLOOD COUNT 10.8 10^3/uL (4.3-11.0)
[2021-11-09 05:14] LABS: ALBUMIN 2.6 GM/DL (3.2-4.5)
[2021-11-09 05:15] LABS: CALCIUM 8.9 MG/DL (8.5-10.1)
[2021-11-09 05:17] LABS: TOTAL PROTEIN 7.6 GM/DL (6.4-8.2)
[2021-11-09 05:18] LABS: BILIRUBIN,TOTAL 0.7 MG/DL (0.1-1.0)
[2021-11-09 05:20] LABS: CREATININE SERUM 1.15 MG/DL (0.60-1.30)
[2021-11-09] MEDS: CYANOCOBALAMIN 1,000 MCG (VITAMIN B-12) TABLET PO SCH (06:30)
[2021-11-09] MEDS: CATHETER FLUSH 10 ML SYR IVP SCH ×3 (06:31→21:35)
[2021-11-09] MEDS: MULTIVIT W/MINERALS TAB (THERAGRAN M) PO SCH (06:31)
[2021-11-09 07:25] VITALS: BP 117/64
--- NOTE | 2021-11-09 07:32 | PM&R Progress Note ---
Subjective HPI/CC On Admission Date Seen by Provider: Nov 09, 2021 Time Seen by Provider: 12:15 Subjective/Events-last exam 11/09/2021: Pt is doing well Pretty weak today Sodium level was 132 Hemoglobin was 8.3 Daily weights maintained along with Lasix 80 mg IV daily Flomax will be started and he is voiding well 11/08/2021: Patient doing well Sitting up in chair Transfers are better Edema is improving Multiple meds were changed by Dr. Rodriguez Anasarca continues Protein recommended in diet 11/07/2021: Patient doing well Sitting in a wheelchair most the morning at bedside Educated on third spacing fluid IV Lasix maintain Adjusted potassium dosing yesterday High-protein Ensure will be initiated 11/06/2021: Patient is stable Slow recovery at bedside IV diuresis tolerated Noted labs Change potassium Denies any pain 11/05/2021: Patient doing fairly well Slow progress No pain is reported Voiding fairly well Dr. Rodriguez will evaluate IV diuresis at bedside Oxygen maintained 11/04/2021: Patient had a really good night Voiding well no Spaulding catheter in and out cath required No pain is reported Scrotal edema continues to be supported Oxygen is maintained Dr. Bar will evaluate sacral decubitus ulcer and heels Ostomy output has slowed so may need to reach out to Dr. Cornelio Kemp cardiology 11/03/2021: Patient had a pretty good night Wore oxygen last night No pain reported Labs noted Urology consulted for Spaulding DC Iron and B12 checked Fluid restriction at 1200cc Review of Systems General: Fatigue, Malaise Pulmonary: Dyspnea Cardiovascular: Edema Objective Exam Vital Signs Vital Signs Date Time Temp Pulse Resp B/P (MAP) Pulse Ox O2 Delivery O2 Flow Rate FiO2 11/09/21 20:35 96 High Flow N/C 8.00 11/09/21 19:39 36.8 84 20 102/55 (71) Capillary Refill : General Appearance: No Apparent Distress, WD/WN, Chronically ill, Obese HEENT: PERRL/EOMI, Normal ENT Inspection, Pharynx Normal Neck: Full Range of Motion, Normal Inspection, Non Tender, Supple, Carotid Bruit Respiratory: Chest Non Tender, Lungs Clear, Normal Breath Sounds, No Accessory Muscle Use, No Respiratory Distress, Crackles, Decreased Breath Sounds Cardiovascular: No Gallop, No JVD, No Murmur, Normal Peripheral Pulses, Irregularly Irregular Gastrointestinal: Normal Bowel Sounds, No Organomegaly, No Pulsatile Mass, Soft, Distended, Tenderness Back: Normal Inspection, No CVA Tenderness, No Vertebral Tenderness Extremity: Normal Capillary Refill, Normal Inspection, Normal Range of Motion (Limited range of motion), Non Tender, Calf Tenderness (Right) Neurologic/Psychiatric: Alert, Oriented x3, director operations broadcast II-XII Norm as Tested, Depressed Affect, Motor Weakness (Generalized) Skin: Normal Color, Warm/Dry Lymphatic: No Adenopathy Results/Procedures Lab Patient resulted labs reviewed. FIM Transfers Therapy Code Descriptions/Definitions Functional [place] Measure: 0=Not Assessed/NA 4=Minimal Assistance 1=Total Assistance 5=Supervision or Setup 2=Maximal Assistance 6=Modified [place] 3=Moderate Assistance 7=Complete IndependenceSCALE: Activities may be completed with or without assistive devices. 0-Shweaeohjb-kigujcd completes the activity by him/herself with no assistance from a helper. 5-Set-up or Clean-up Assistance-helper sets up or cleans up; patient completes activity. [place] assists only prior to or following the activity. 4-Supervision or Touching Assistance-helper provides verbal cues and/or touching/steadying and/or contact guard assistance as patient completes activity. Assistance may be provided throughout the activity or intermittently. 3-Partial/Moderate Assistance-helper does LESS THAN HALF the effort. [place] lifts, holds or supports trunk or limbs, but provides less than half the effort. 2-Substantial/Maximal Assistance-helper does MORE THAN HALF the effort. [place] lifts or holds trunk or limbs and provides more than half the effort. 3-Tesdltofo-evsmao does ALL the effort. Patient does none of the effort to complete the activity. Or, the assistance of 2 or more helpers is required for the patient to complete the activity. If activity was not attempted, code reason: 7-Patient Refused. 9-Not Applicable-not attempted and the patient did not perform the activity before the current illness, exacerbation or injury. 10-Not Attempted due to Environmental Limitations-(lack of equipment, weather restraints, etc.). 88-Not Attempted due to Medical Conditions or Safety Concerns. Roll Left to Right (QC): 3 Sit to Lying (QC): 3 Sit to Stand (QC): 3 Chair/Ucd-yz-Pihzq Xfer(QC): 3 Car Transfer (QC): 88 Gait Training Does the Patient Walk?: No and Walking Goal IS indicated Walk 10 feet (QC): 88 Walk 50 ft with 2 Turns(QC): 88 Walk 150 ft (QC): 88 Walking 10ft/uneven surface-QC: 88 Wheelchair Training Does the Pt Use a Wheelchair?: Yes Wheel 50 ft with 2 turns (QC): 3 Wheel 150 ft (QC): 3 Type of Wheelchair: Manual Stair Training 1 Step (curb) (QC): 88 4 Steps (QC): 88 12 Steps (QC): 88 Balance Picking up an Object (QC): 88 ADL-Treatment Eating (QC): 4 Oral Hygiene (QC): 4 Bathing Location: L Arm, R Arm, L Upper Leg, R Upper Leg, L Lower Leg (including foot), R Lower Leg (including foot), Chest, Abdomen Shower/Bathe Self (QC): 1 (Assist x2 during standing for safety while assisting with cleansing buttocks/jay area.) Upper Body Dressing (QC): 4 Lower Body Dressing (QC): 1 On/Off Footwear (QC): 1 Toileting Hygiene (QC): 1 Toilet Transfer (QC): 1 Assessment/Plan Assessment and Plan Assess & Plan/Chief Complaint Assessment: 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 Recent aspiration pneumonia requiring intubation Continued hypoxia requiring supplemental oxygen Anasarca Atrial fibrillation CAD 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 Bar for wound care 11/05/2021: Continue fluid restriction Bowel regimen Dr. Bar appreciated Dr. Rodrgiuez appreciated IV diuresis? 11/06/2021: IV diuresis Fluid restriction Wound care Cardiology appreciated 11/07/2021: High-protein Ensure Fluid restriction changed Close monitoring 11/08/2021: Supportive care Protein supplements 11/09/2021: Supportive care May need to start looking at skilled (1) Acute on chronic heart failure with preserved ejection fraction (HFpEF) Assessment & Plan: Since starting intravenous furosemide on 11/05, he has some improvement in his peripheral edema over the past 48 hours. I recommend he continue the intravenous furosemide and watch his renal function closely. I will also start spironolactone which has some positive data in the literature for patients with heart failure with preserved ejection fraction. (2) Permanent atrial fibrillation Assessment & Plan: Heart rates appear controlled with digoxin and diltiazem. Since he did not notice any difference when starting digoxin prior to this admission, I will stop the digoxin. 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 He may be a candidate for a Watchman device. He can discuss this with his regular shank sander at the outside facility following discharge. (3) Pulmonary hypertension Assessment & Plan: He has severe pulmonary hypertension. Some of this could be due to acute heart failure on top of his previous mitral valve surgery now with at least a mild degree of stenosis in the bioprosthesis as noted on his echocardiogram during this admission. This will need to be followed longitudinally by his regular shank sander. (4) Primary hypertension Assessment & Plan: Blood pressure is reasonably controlled with the present combination of medications. (5) H/O mitral valve replacement Assessment & Plan: He has a bovine bioprosthetic mitral valve. 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 This may be contributing to his heart failure. This will need to be followed by his regular shank sander at the outside facility after discharge. (6) Mixed hyperlipidemia Assessment & Plan: Continue statin. BOB HOUSER DO Nov 09, 2021 07:32
[2021-11-09] MEDS: GABAPENTIN 100 MG (NEURONTIN) CAP PO SCH ×2 (08:32→21:30)
[2021-11-09] MEDS: guaiFENesin (MUCINEX) 600 MG TAB PO SCH ×2 (08:32→21:30)
[2021-11-09] MEDS: SPIRONOLACTONE 25 MG (ALDACTONE) TAB PO SCH (08:32)
[2021-11-09] MEDS: SENNA W/DOCUSATE (SENOKOT S) TABLET PO SCH ×2 (08:32→21:30)
[2021-11-09] MEDS: DOCUSATE SODIUM 100 MG (COLACE) CAP PO SCH ×2 (08:32→21:30)
[2021-11-09] MEDS: acetaZOLAMIDE 250 MG (DIAMOX) TAB PO SCH (08:32)
[2021-11-09] MEDS: FUROSEMIDE 40 MG/4 ML INJ (LASIX) IVP SCH (08:32)
[2021-11-09] MEDS: FAMOTIDINE 20 MG (PEPCID) TABLET PO SCH ×2 (08:32→21:30)
[2021-11-09] MEDS: ENOXAPARIN 60 MG/0.6 ML (LOVENOX) SYR SQ SCH (08:33)
[2021-11-09] MEDS: KCL 20 MEQ TAB (K-DUR) PO SCH (08:40)
[2021-11-09] MEDS: MICONAZOLE 2% POWDER (DESENEX AF) 90 GM TOP SCH ×2 (08:42→21:34)
[2021-11-09] MEDS: polyethylene glycoL POWDER 17 GM (MIRALAX) PACK PO SCH ×2 (08:42→21:30)
--- NOTE | 2021-11-09 08:51 | Cardiology Progress Note ---
Subjective Date Seen by Provider: Nov 09, 2021 Time Seen by Provider: 08:47 Subjective/Events-last exam Patient sitting in bed, denies any chest pain, continues to have peripheral edema. Review of Systems General: No Chills, No Night Sweats; Fatigue, Malaise; No Appetite, No Other HEENT: No Head Aches, No Visual Changes, No Eye Pain, No Ear Pain, No Dysphasia, No Sinus Congestion, No Post Nasal Drip, No Sore Throat, No Other Pulmonary: No Dyspnea, No Cough, No Pleuritic Chest Pain, No Other Cardiovascular: No: Chest Pain, Palpitations, Orthopnea, Paroxysmal Noc. Dyspnea, Edema, Lt Headedness, Other Objective-Cardiology Exam Last Set of Vital Signs Vital Signs 11/09/21 11/09/21 07:25 09:22 Temp 36.4 Pulse 78 Resp 18 B/P (MAP) 117/64 (81) Pulse Ox 95 O2 Delivery High Flow N/C O2 Flow Rate 8.00 I&O l Intake and Output 11/09/21 00:00 Intake Total 1100 ml Output Total 1500 ml Balance -400 ml Intake Oral 1100 ml Output Urine Total 1200 ml Stool Total 300 ml General: Alert, Oriented X3, Cooperative HEENT: Atraumatic, PERRLA Lungs: Clear to Auscultation, Normal Air Movement Heart: Normal S1, Normal S2, Other (irregularly irregular) Abdomen: Other (ascites) Extremities: No Clubbing, Other (+2 edema BLE) Psych/Mental Status: Mental Status NL, Mood NL Results Lab Laboratory Tests 11/09/21 05:00 A/P-Cardiology Admission Diagnosis afib mitral valve replacement HTN Critical illness myopathy Assessment/Plan Atrial fibrillation, reports long standing hx of afib since 1999, history of GI bleed on Coumadin and Eliquis, patient reports has been off OAC for the past couple years. Currently rate controlled afib, continue to monitor. History of Mitral valve replacement with tissue valve with Dr. Smith approx 6-7 years, questionable EBENEZER and KRISTEN ligation, I will try to obtain copy of records for further review. 2D Echo done November 06, 2021 showing EF 55-60%, mild to moderate mitral stenosis, PA 80mmHg. Peripheral edema, responding to IV lasix, continue to diurese. History of AAA with endograft repair. s/p large bowel obstruction in Aug 2021 requiring resection and colostomy Recent aspiration pneumonia requiring intubation, extubated and slowly improving, on supplemental oxygen. Hypertension, controlled, continue to monitor. Critical illness myopathy CKD, continue to montior renal function Right lower extremity hematoma per US done at [facility] 3/4 Anemia requiring recent blood transfusion, continue to monitor H/H. Depression Supervisory-Addendum Brief Supervisory Addendum Participated in pt care: history, MDM, physical Personally performed: exam, history, MDM Care discussed with: MICHAEL Results interpretation: Verified all documentation Notes: Patient was seen and evaluated with Alice, examination performed, management plan was discussed, agree with the current scribed note, I made few changes to the note using Italic font Patient was seen at bedside, laying down comfortably Having significant edema Responding to IV Lasix Heart rate is controlled, continue to monitor ALICE NGUYEN Nov 09, 2021 08:51 MELI HEARN MD Nov 09, 2021 10:42
--- NOTE | 2021-11-09 10:02 | Speech Therapy Daily Note ---
Speech Daily Progress Note Subjective Date Seen by Provider: Nov 09, 2021 Time Seen by Provider: 08:30 The patient was lying upright in bed, eyes closed upon entrance to this room. The patient greeted the clinician and was agreeable to participation in the cognitive linguistic treatment session. Objective The patient appears fatigued on this date, requiring maximum verbal encouragement for continued participation in the therapy session. - Orientation: The patient was oriented to date, month, day of week, place, and city. The patient stated the year was "2020." - Internal and External Memory Strategies: Memory strategies were discussed and practiced on this date. The patient stated he keeps a pill box at home, as well as, a calendar on his phone (external memory strategies). Visualization, assoc iation, and repetition were discussed as internal memory strategies. The patient was provided five single words. The patient recalled the five single words with 100% accuracy immediately. Following a five minute delay, the patient recalled four of five words, independently. The patient recalled five of five words with the use of a category cue from the clinician. Assessment Assessment Current Status: Fair Progress Treatment Plan Continue Plan of Care Speech Short Term Goals Short Term Goals Short Term Goals 1. The patient will demonstrate 80% accuracy with memory exercises and mild clinician verbal cueing. Time Frame-STG: Five Days. Speech Vine Pruner Goals Half-Way Goals 1. The patient will demonstrate increased neurocognitive skills for safe discharge to the least restrictive environment. Time Frame: Two Weeks Speech-Plan Treatment Plan Speech Therapy Treatment Plan: Continue Plan of Care Treatment Duration: Nov 03, 2021 Frequency: Modified Program (IRF) Estimated Hrs Per Day: .5 hour per day Rehab Potential: Guarded Safety Risks/Education Teaching Recipient: Patient Teaching Methods: Discussion Response to Teaching: Reinforcement Needed Education Topics Provided: Internal and External Memory Strategies Time Speech Therapy Time In: 08:30 Speech Therapy Time Out: 09:00 Total Billed Time: 30 Billed Treatment Time 1MICHELLESANTA SHANNAN Salas Nov 09, 2021 10:02
--- NOTE | 2021-11-09 10:04 | Physical Therapy Daily Note ---
PT Daily Note-Current Subjective Pt. agrees to Rx but asks "what exactly are you going to do ? walk or what"? This VIOLIN REPAIRER and co treating OT explained that we reassess each treatment and do what the patient can do that given day and hour. Pt. agrees. Pt. throughout Rx c/o SOA and weakness and fatigue. Eventually stating "that's it, I'm done, I cant try to stand any more" Pt. c/o discomfort in scrotal area and wants it readjusted Appearance pt. with edema in abdomen and chest as well as LEs, with HOB lowered for pulling pt up in bed ad rolling pt.became extremely blue red in face and was quickly elevated again Mental Status Patient Orientation: Normal For Age Attachments: Colostomy/Ileostomy, Oxygen (8L) Transfers SCALE: Activities may be completed with or without assistive devices. 2-Djzotbtmbo-oihhuqq completes the activity by him/herself with no assistance from a helper. 5-Set-up or Clean-up Assistance-helper sets up or cleans up; patient completes activity. [place] assists only prior to or following the activity. 4-Supervision or Touching Assistance-helper provides verbal cues and/or touching/steadying and/or contact guard assistance as patient completes activity. Assistance may be provided throughout the activity or intermittently. 3-Partial/Moderate Assistance-helper does LESS THAN HALF the effort. [place] lifts, holds or supports trunk or limbs, but provides less than half the effort. 2-Substantial/Maximal Assistance-helper does MORE THAN HALF the effort. [place] lifts or holds trunk or limbs and provides more than half the effort. 9-Ttvaswchy-cohhrt does ALL the effort. Patient does none of the effort to complete the activity. Or, the assistance of 2 or more helpers is required for the patient to complete the activity. If activity was not attempted, code reason: 7-Patient Refused. 9-Not Applicable-not attempted and the patient did not perform the activity before the current illness, exacerbation or injury. 10-Not Attempted due to Environmental Limitations-(lack of equipment, weather restraints, etc.). 88-Not Attempted due to Medical Conditions or Safety Concerns. Roll Left & Right (QC): 3 Sit to Lying (QC): 2 Lying to Sitting/Side of Bed(Q: 3 Sit to Stand (QC): 2 pt. with HOB up to get out of bed, in seated position pt wanted to be at EOB so far that his scrotum could hang off bed, this put him in a position that was vulnerable for standing, pt. so weak he appeared he might melt/fold/slide off bed.. sit to stand really only happened x 1 with mod to max assist of 2 and pt not completely extending knees and really coming to stance before he again sat on bed. Pt was given much time to rest and O2 sats were checked at 95%. Multiple trials for standing again but pt. never achieved full stance, much education ad demonstration done by OT and PT on proper mechanics and safety and technique of standing. Pt. unable to stand completely safely today Weight Bearing Full Weight Bearing Full Weight Bearing Exercises Seated Therapy Exercises: Ankle pumps, Long arc quads Seated Reps: 10 Treatments PT OT co Rx for TRFs, sitting EOB for donning brief and shorts with assist of OT, max assist for socks, pt. did use watch repairer to don brief and shorts with much time and assist of OT, many rest breaks needed, pt. got pants pulled up to knees but was not able to stand long enough to get them pulled up and then eventually stated he needed to lay back down, assist of 3 to bring pts LEs and trunk into bed, max of 2-3 to pull up in bed , then rolling and max assist to get pants up . pt. left in supine with heels freed by pillows under calves as pt. refused heel boots Assessment Current Status: Poor Progress edema and SOB and weakness inhibit function and strength PT Short Term Goals Short Term Goals Time Frame: Nov 09, 2021 Roll Left & Right: 3 Sit to lyin Lying to sitting on side of be: 2 Sit to stand: 3 Chair/jqf-lv-shrnb transfer: 3 PT Senior Living Goals Supervising Architect Goals PT Supervising Architect Goals Time Frame: Nov 23, 2021 Roll Left & Right (QC): 4 Sit to Lying (QC): 3 Lying-Sitting on Side/Bed(QC): 3 Sit to Stand (QC): 4 Chair/Reg-ln-[place] Xfer(QC): 4 Toilet Transfer (QC): 4 Car Transfer (QC): 3 Does the Patient Walk: Yes Walk 10 feet (QC): 4 Walk 50ft with 2 Turns (QC): 88 Walk 150 ft (QC): 88 Walking 10ft on Uneven Surface: 88 1 Step (curb) (QC): 88 4 Steps (QC): 88 12 Steps (QC): 88 Picking up an Object (QC): 4 Wheel 50 feet with 2 turns (QC: 4 Wheel 150 feet: 4 PT Plan Treatment/Plan Treatment Plan: Continue Plan of Care Treatment Plan: Bed Mobility, Education, Functional Activity [place], Functional Strength, Group Therapy, Gait, Safety, Therapeutic Exercise, Transfers Treatment Duration: Nov 23, 2021 Frequency: At least 5 of 7 days/Wk (IRF) Estimated Hrs Per Day: 1.5 hours per day Patient and/or Family Agrees t: Yes Safety Risks/Education Patient Education: Transfer Techniques, Correct Positioning, Disease Process Teaching Recipient: Patient Teaching Methods: Demonstration, Discussion Response to Teaching: Verbalize Understanding, Return Demonstration, Reinforcement Needed Time/GCodes Time In: 900 Time Out: 1000 Total Billed Treatment Time: 60 Total Billed Treatment 1,FA 60m (PT OT co Rx 60 m) secondary to needs for 2 skilled clinicians STAR DAVIS VIOLIN REPAIRER Nov 09, 2021 10:04
--- NOTE | 2021-11-09 10:19 | Occupational Ther Daily Note ---
OT Current Status-Daily Note Subjective Pt agreeable to Co-treat with PT for part of session ([id number]) due to need of 2 skilled clinicians to progress indep with adls and mobility. Appearance Pt returned to supine in bed, all needs within reach. Mental Status/Objective Attachments: Colostomy/Ileostomy, Oxygen ADL-Treatment Therapy Code Descriptions/Definitions Functional [place] Measure: 0=Not Assessed/NA 4=Minimal Assistance 1=Total Assistance 5=Supervision or Setup 2=Maximal Assistance 6=Modified [place] 3=Moderate Assistance 7=Complete IndependenceSCALE: Activities may be completed with or without assistive devices. 1-Yhcvllcfub-atvbght completes the activity by him/herself with no assistance from a helper. 5-Set-up or Clean-up Assistance-helper sets up or cleans up; patient completes activity. [place] assists only prior to or following the activity. 4-Supervision or Touching Assistance-helper provides verbal cues and/or touching/steadying and/or contact guard assistance as patient completes activity. Assistance may be provided throughout the activity or intermittently. 3-Partial/Moderate Assistance-helper does LESS THAN HALF the effort. [place] lifts, holds or supports trunk or limbs, but provides less than half the effort. 2-Substantial/Maximal Assistance-helper does MORE THAN HALF the effort. [place] lifts or holds trunk or limbs and provides more than half the effort. 6-Yregxayoe-eixspr does ALL the effort. Patient does none of the effort to complete the activity. Or, the assistance of 2 or more helpers is required for the patient to complete the activity. If activity was not attempted, code reason: 7-Patient Refused. 9-Not Applicable-not attempted and the patient did not perform the activity before the current illness, exacerbation or injury. 10-Not Attempted due to Environmental Limitations-(lack of equipment, weather restraints, etc.). 88-Not Attempted due to Medical Conditions or Safety Concerns. Oral Hygiene (QC): 7 Upper Body Dressing (QC): 4 Lower Body Dressing (QC): 1 On/Off Footwear: 1 Toileting Hygiene (QC): 1 Toilet Transfer (QC): 1 Pt supine in bed at therapy arrival. He was initially irritable asking when he would be able to practice walking. Education on improving transfers, endurance and strength all needed before gait training. See PT note regarding assist level to sit EOB. Once sitting upright, pt complains of pain in scrotum secondary to edema and positioning. MAX x 2 to stand upright. Pt unable to reach testicles in order to reposition, thus dependent while returning to sit. Pt still complaining of pain despite improved positioning/placement. Dressing tasks performed seated EOB. Significant time and tactile/verbal cues needed for use of advisor consultant when threading feet through brief/shorts. As fatigue increases, pt unable to lift foot off floor in order to thread shorts completely over heel. Assist to lift leg needed. Pt often initiating rests breaks during adls secondary to SOB, oxygen on 7L, 95%. Multiple attempts needed to automotive finance manager order to perform clothing management. Pt unable to come to full upright with assist x2 secondary to fatigue and inability and extend hips/knees to come to standing. Poor recall of cues during transfers with max cues needed for foot, hand, and walker placement as well as shifting weight anteriority. Pt then refused to attempt any more standing. He was returned to supine with assist x2 and rolled R/L x2 in order for therapists to manage clothing up to waist. Education OT Patient Education: Correct positioning, Energy conservation, Modified ADL techniques, Progress toward Goal/Update tx plan, Purpose of tx/functional activities, Rehab process, Safety issues, Transfer techniques, Use of adapted equipment Teaching Recipient: Patient Teaching Methods: Demonstration, Discussion Response to Teaching: Verbalize Understanding, Reinforcement Needed OT Short Term Goals Short Term Goals Time Frame: Nov 13, 2021 Eatin Oral hygiene: 5 Toileting hygiene: 3 Shower/bathe self: 2 Upper body dressin Lower body dressin Putting on/taking off footwear: 2 OT Halfway Goals Halfway Goals Time Frame: Dec 04, 2021 Eating (QC): 6 Oral Hygiene (QC): 6 Toileting Hygiene (QC): 3 Shower/Bathe Self (QC): 5 Upper Body Dressing (QC): 6 Lower Body Dressing (QC): 5 On/Off Footwear (QC): 4 1=Demonstrate adherence to instructed precautions during ADL tasks. 2=Patient will verbalize/demonstrate understanding of assistive devices/modifications for ADL. 3=Patient will improve strength/tolerance for activity to enable patient to perform ADL's. OT Education/Plan Problem List/Assessment Assessment: Decreased Activ Tolerance, Decreased Safety Aware, Decreased UE Strength, Dependent Transfers, Edema, Impaired Bed Mobility, Impaired Cognition, Impaired Funct Balance, Impaired I ADL's, Impaired Self-Care Skills Discharge Recommendations Plan/Recommendations: Continue POC Treatment Plan/Plan of Care Treatment,Training & Education: Yes Patient would benefit from OT for education, treatment and training to promote independence in ADL's, mobility, safety and/or upper extremity function for ADL's. Plan of Care: ADL Retraining, Cognitive Retraining, Functional Mobility, Group Exercise/Act as Ind, UE Funct Exercise/Act, W/C Management Training Treatment Duration: Dec 04, 2021 Frequency: At least 5 of 7 days/Wk (IRF) Estimated Hrs Per Day: 1.5 hours per day Agreement: Yes Rehab Potential: Guarded Time/GCodes Start Time: 09:00 Stop Time: 10:15 Total Time Billed (hr/min): 75 Billed Treatment Time 1 visit ADL x4 (55 min) FA (20 min) Constance Hogan OT Nov 09, 2021 10:19
--- NOTE | 2021-11-09 10:27 | Progress Note - Urology ---
Progress Note-Urology Progress Notes/Assess & Plan Progress/Assessment & Plan VOIDING WELL WITH SOME PVR. WE WILL ADD FLOMAX Final Diagnosis RETENTION EMMANUEL HE MD Nov 09, 2021 10:27
--- NOTE | 2021-11-09 14:29 | Physical Therapy Daily Note ---
PT Daily Note-Current Subjective Pt laying Supine in bed upon arrival. Pt agrees to PT but is very drowsy and difficult to keep awake. Pain Location Body Site: Genital Pain Description: Ache Comment: Reports but doesn't rate Mental Status Patient Orientation: Person, Place Transfers SCALE: Activities may be completed with or without assistive devices. 6-Hrnoasymcl-jdudwrh completes the activity by him/herself with no assistance from a helper. 5-Set-up or Clean-up Assistance-helper sets up or cleans up; patient completes activity. [place] assists only prior to or following the activity. 4-Supervision or Touching Assistance-helper provides verbal cues and/or touching/steadying and/or contact guard assistance as patient completes activity. Assistance may be provided throughout the activity or intermittently. 3-Partial/Moderate Assistance-helper does LESS THAN HALF the effort. [place] lifts, holds or supports trunk or limbs, but provides less than half the effort. 2-Substantial/Maximal Assistance-helper does MORE THAN HALF the effort. [place] lifts or holds trunk or limbs and provides more than half the effort. 1-Dnqnwijhv-lfxykf does ALL the effort. Patient does none of the effort to complete the activity. Or, the assistance of 2 or more helpers is required for the patient to complete the activity. If activity was not attempted, code reason: 7-Patient Refused. 9-Not Applicable-not attempted and the patient did not perform the activity before the current illness, exacerbation or injury. 10-Not Attempted due to Environmental Limitations-(lack of equipment, weather restraints, etc.). 88-Not Attempted due to Medical Conditions or Safety Concerns. Weight Bearing Full Weight Bearing Full Weight Bearing Exercises Supine Ex: Ankle pumps, Quad Set Supine Reps: 15 Treatments Pt completes limited Supine Ex as pt continual falls asleep. BILINGUAL COUNTER SALES RETAIL discusses with Sp who arrives at end of tx., pt needs to keep trying to complete HEP. Pt is sleeping in bed with all needs met, call light next to pt. Assessment Current Status: Poor Progress Pt is very drowsy and demonstrates difficulty completing Ex. PT Short Term Goals Short Term Goals Time Frame: Nov 09, 2021 Roll Left & Right: 3 Sit to lyin Lying to sitting on side of be: 2 Sit to stand: 3 Chair/kjh-db-desbk transfer: 3 PT Reinstatement Clerk Goals Mcc Goals PT Reinstatement Clerk Goals Time Frame: Nov 23, 2021 Roll Left & Right (QC): 4 Sit to Lying (QC): 3 Lying-Sitting on Side/Bed(QC): 3 Sit to Stand (QC): 4 Chair/Kyp-gw-Bvizn Xfer(QC): 4 Toilet Transfer (QC): 4 Car Transfer (QC): 3 Does the Patient Walk: Yes Walk 10 feet (QC): 4 Walk 50ft with 2 Turns (QC): 88 Walk 150 ft (QC): 88 Walking 10ft on Uneven Surface: 88 1 Step (curb) (QC): 88 4 Steps (QC): 88 12 Steps (QC): 88 Picking up an Object (QC): 4 Wheel 50 feet with 2 turns (QC: 4 Wheel 150 feet: 4 PT Plan Problem List Problem List: Activity Tolerance, Functional Strength, ROM Treatment/Plan Treatment Plan: Continue Plan of Care Treatment Plan: Bed Mobility, Education, Functional Activity [place], Functional Strength, Group Therapy, Gait, Safety, Therapeutic Exercise, Transfers Treatment Duration: Nov 23, 2021 Frequency: At least 5 of 7 days/Wk (IRF) Estimated Hrs Per Day: 1.5 hours per day Patient and/or Family Agrees t: Yes Safety Risks/Education Patient Education: Correct Positioning Teaching Recipient: Patient, Significant Other Teaching Methods: Discussion Response to Teaching: Verbalize Understanding Time/GCodes Time In: 1300 Time Out: 1315 Total Billed Treatment Time: 15 Total Billed Treatment 1, EX (15m) TELLY BRIZUELA PTA Nov 09, 2021 14:29
--- NOTE | 2021-11-09 14:35 | Progress Note ---
ASHISH MCCOY 11/09/21 1435: Progress Note Patient condition has seemed to gradually improve since last week with less pallor and more energetic. Patient reports being able to urinate better than previously. Labs were drawn today and vitals are stable. Patient is still make steady progress towards recovery. LYNN HOUSER DO 11/10/21 0536: Supervisory-Addendum Brief Verification & Attestation Participated in pt care: history, MDM, physical Personally performed: exam, history, MDM, supervision of care Care discussed with: Medical Student Procedures: n/a Results interpretation: Verified all documentation Verification and Attestation of Medical Student E/M Service A medical student performed and documented this service in my presence. I reviewed and verified all information documented by the medical student and made modifications to such information, when appropriate. I personally performed the physical exam and medical decision making. Lynn Houser Nov 10, 2021,05:36 ASHISH MCCOY Nov 09, 2021 14:35 LYNN HOUSER DO Nov 10, 2021 05:36
[2021-11-09] MEDS: TAMSULOSIN 0.4 MG (FLOMAX) CAP PO SCH (17:17)
[2021-11-09 19:39] VITALS: BP 102/55
[2021-11-09] MEDS: traZODone 50 MG (DESYREL) TAB PO SCH (21:30)
--- NOTE | 2021-11-10 06:05 | PM&R Progress Note ---
Subjective HPI/CC On Admission Date Seen by Provider: Nov 10, 2021 Time Seen by Provider: 08:30 Subjective/Events-last exam 11/10/2021: Pt is still very weak It appears that he will need skilled care foot worker will pursue that No significant other issues Appreciate Dr. Meza and Dr. Brown 11/09/2021: Pt is doing well Pretty weak today Sodium level was 132 Hemoglobin was 8.3 Daily weights maintained along with Lasix 80 mg IV daily Flomax will be started and he is voiding well 11/08/2021: Patient doing well Sitting up in chair Transfers are better Edema is improving Multiple meds were changed by Dr. Rodriguez Anasarca continues Protein recommended in diet 11/07/2021: Patient doing well Sitting in a wheelchair most the morning at bedside Educated on third spacing fluid IV Lasix maintain Adjusted potassium dosing yesterday High-protein Ensure will be initiated 11/06/2021: Patient is stable Slow recovery at bedside IV diuresis tolerated Noted labs Change potassium Denies any pain 11/05/2021: Patient doing fairly well Slow progress No pain is reported Voiding fairly well Dr. Rodriguez will evaluate IV diuresis at bedside Oxygen maintained 11/04/2021: Patient had a really good night Voiding well no Spaulding catheter in and out cath required No pain is reported Scrotal edema continues to be supported Oxygen is maintained Dr. Bar will evaluate sacral decubitus ulcer and heels Ostomy output has slowed so may need to reach out to Dr. Grimes Appreciate cardiology 11/03/2021: Patient had a pretty good night Wore oxygen last night No pain reported Labs noted Urology consulted for Spaulding DC Iron and B12 checked Fluid restriction at 1200cc Review of Systems General: Fatigue, Malaise Pulmonary: Dyspnea Cardiovascular: Edema Objective Exam Vital Signs Vital Signs Date Time Temp Pulse Resp B/P (MAP) Pulse Ox O2 Delivery O2 Flow Rate FiO2 11/10/21 22:00 92 22 98/60 (73) 94 11/10/21 20:20 36.7 High Flow N/C 8.00 Capillary Refill : General Appearance: No Apparent Distress, WD/WN, Chronically ill, Obese HEENT: PERRL/EOMI, Normal ENT Inspection, Pharynx Normal Neck: Full Range of Motion, Normal Inspection, Non Tender, Supple, Carotid Bruit Respiratory: Chest Non Tender, Lungs Clear, Normal Breath Sounds, No Accessory Muscle Use, No Respiratory Distress, Crackles, Decreased Breath Sounds Cardiovascular: No Gallop, No JVD, No Murmur, Normal Peripheral Pulses, Irregularly Irregular Gastrointestinal: Normal Bowel Sounds, No Organomegaly, No Pulsatile Mass, Soft, Distended, Tenderness Back: Normal Inspection, No CVA Tenderness, No Vertebral Tenderness Extremity: Normal Capillary Refill, Normal Inspection, Normal Range of Motion (Limited range of motion), Non Tender, Calf Tenderness (Right) Neurologic/Psychiatric: Alert, Oriented x3, dental laboratory technician apprentice II-XII Norm as Tested, Depressed Affect, Motor Weakness (Generalized) Skin: Normal Color, Warm/Dry Lymphatic: No Adenopathy Results/Procedures Lab Patient resulted labs reviewed. FIM Transfers Therapy Code Descriptions/Definitions Functional [place] Measure: 0=Not Assessed/NA 4=Minimal Assistance 1=Total Assistance 5=Supervision or Setup 2=Maximal Assistance 6=Modified [place] 3=Moderate Assistance 7=Complete IndependenceSCALE: Activities may be completed with or without assistive devices. 0-Pfzalbnvnx-oynodxe completes the activity by him/herself with no assistance from a helper. 5-Set-up or Clean-up Assistance-helper sets up or cleans up; patient completes activity. [place] assists only prior to or following the activity. 4-Supervision or Touching Assistance-helper provides verbal cues and/or touching/steadying and/or contact guard assistance as patient completes activity. Assistance may be provided throughout the activity or intermittently. 3-Partial/Moderate Assistance-helper does LESS THAN HALF the effort. [place] l ifts, holds or supports trunk or limbs, but provides less than half the effort. 2-Substantial/Maximal Assistance-helper does MORE THAN HALF the effort. [place] lifts or holds trunk or limbs and provides more than half the effort. 9-Xnhtrklqb-ujphfi does ALL the effort. Patient does none of the effort to complete the activity. Or, the assistance of 2 or more helpers is required for t he patient to complete the activity. If activity was not attempted, code reason: 7-Patient Refused. 9-Not Applicable-not attempted and the patient did not perform the activity before the current illness, exacerbation or injury. 10-Not Attempted due to Environmental Limitations-(lack of equipment, weather restraints, etc.). 88-Not Attempted due to Medical Conditions or Safety Concerns. Roll Left to Right (QC): 3 Sit to Lying (QC): 2 Sit to Stand (QC): 2 Chair/Xfk-gw-Hhttu Xfer(QC): 3 Car Transfer (QC): 88 Gait Training Does the Patient Walk?: No and Walking Goal IS indicated Walk 10 feet (QC): 88 Walk 50 ft with 2 Turns(QC): 88 Walk 150 ft (QC): 88 Walking 10ft/uneven surface-QC: 88 Wheelchair Training Does the Pt Use a Wheelchair?: Yes Wheel 50 ft with 2 turns (QC): 3 Wheel 150 ft (QC): 3 Type of Wheelchair: Manual Stair Training 1 Step (curb) (QC): 88 4 Steps (QC): 88 12 Steps (QC): 88 Balance Picking up an Object (QC): 88 ADL-Treatment Eating (QC): 4 Oral Hygiene (QC): 7 Bathing Location: L Arm, R Arm, L Upper Leg, R Upper Leg, L Lower Leg (including foot), R Lower Leg (including foot), Chest, Abdomen Shower/Bathe Self (QC): 1 (Assist x2 during standing for safety while assisting with cleansing buttocks/jay area.) Upper Body Dressing (QC): 4 Lower Body Dressing (QC): 1 On/Off Footwear (QC): 1 Toileting Hygiene (QC): 1 Toilet Transfer (QC): 1 Assessment/Plan Assessment and Plan Assess & Plan/Chief Complaint Assessment: 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 Recent aspiration pneumonia requiring intubation Continued hypoxia requiring supplemental oxygen Anasarca Atrial fibrillation CAD 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 Bar for wound care 11/05/2021: Continue fluid restriction Bowel regimen Dr. Bar appreciated Dr. Rodriguez appreciated IV diuresis? 11/06/2021: IV diuresis Fluid restriction Wound care Cardiology appreciated 11/07/2021: High-protein Ensure Fluid restriction changed Close monitoring 11/08/2021: Supportive care Protein supplements 11/09/2021: Supportive care May need to start looking at skilled 11/10/2021: Supportive care Skilled care (1) Acute on chronic heart failure with preserved ejection fraction (HFpEF) Assessment & Plan: Since starting intravenous furosemide on 11/05, he has some improvement in his peripheral edema over the past 48 hours. I recommend he continue the intravenous furosemide and watch his renal function closely. I will also start spironolactone which has some positive data in the literature for patients with heart failure with preserved ejection fraction. (2) Permanent atrial fibrillation Assessment & Plan: Heart rates appear controlled with digoxin and diltiazem. Since he did not notice any difference when starting digoxin prior to this admission, I will stop the digoxin. 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 He may be a candidate for a Watchman device. He can discuss this with his regular fiber optic splicer at the outside facility following discharge. (3) Pulmonary hypertension Assessment & Plan: He has severe pulmonary hypertension. Some of this could be due to acute heart failure on top of his previous mitral valve surgery now with at least a mild degree of stenosis in the bioprosthesis as noted on his echocardiogram during this admission. This will need to be followed longitudinally by his regular fiber optic splicer. (4) Primary hypertension Assessment & Plan: Blood pressure is reasonably controlled with the present combination of medications. (5) H/O mitral valve replacement Assessment & Plan: He has a bovine bioprosthetic mitral valve. 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 This may be contributing to his heart failure. This will need to be followed by his regular fiber optic splicer at the outside facility after discharge. (6) Mixed hyperlipidemia Assessment & Plan: Continue statin. BOB HOUSER DO Nov 10, 2021 06:05
[2021-11-10] MEDS: CATHETER FLUSH 10 ML SYR IVP SCH ×3 (06:34→22:19)
[2021-11-10] MEDS: METOCLOPRAMIDE 10 MG (REGLAN) TAB PO SCH ×3 (06:35→17:14)
[2021-11-10] MEDS: CYANOCOBALAMIN 1,000 MCG (VITAMIN B-12) TABLET PO SCH (06:35)
[2021-11-10] MEDS: MULTIVIT W/MINERALS TAB (THERAGRAN M) PO SCH (06:35)
[2021-11-10 07:26] VITALS: BP 100/55
[2021-11-10] MEDS: ENOXAPARIN 60 MG/0.6 ML (LOVENOX) SYR SQ SCH (08:15)
[2021-11-10] MEDS: IRON SUCROSE 200 MG/10 ML (VENOFER) VIAL IV SCH (08:15)
[2021-11-10] MEDS: FUROSEMIDE 40 MG/4 ML INJ (LASIX) IVP SCH ×3 (08:15→17:14)
[2021-11-10] MEDS: DOCUSATE SODIUM 100 MG (COLACE) CAP PO SCH ×2 (08:17→22:17)
[2021-11-10] MEDS: KCL 20 MEQ TAB (K-DUR) PO SCH (08:17)
[2021-11-10] MEDS: SENNA W/DOCUSATE (SENOKOT S) TABLET PO SCH ×2 (08:17→22:18)
[2021-11-10] MEDS: guaiFENesin (MUCINEX) 600 MG TAB PO SCH ×2 (08:18→22:16)
[2021-11-10] MEDS: SPIRONOLACTONE 25 MG (ALDACTONE) TAB PO SCH (08:18)
[2021-11-10] MEDS: GABAPENTIN 100 MG (NEURONTIN) CAP PO SCH ×2 (08:18→22:16)
[2021-11-10] MEDS: MICONAZOLE 2% POWDER (DESENEX AF) 90 GM TOP SCH ×2 (08:19→22:19)
[2021-11-10] MEDS: FAMOTIDINE 20 MG (PEPCID) TABLET PO SCH ×2 (08:19→22:19)
[2021-11-10 08:27] VITALS: BP 105/58
--- NOTE | 2021-11-10 08:30 | Cardiology Progress Note ---
Subjective Date Seen by Provider: Nov 10, 2021 Time Seen by Provider: 08:28 Subjective/Events-last exam Patient sitting up in bed, denies chest pain or dyspnea. Continues to have peripheral edema. Review of Systems General: No Chills, No Night Sweats; Fatigue, Malaise; No Appetite, No Other HEENT: No Head Aches, No Visual Changes, No Eye Pain, No Ear Pain, No Dysphasia, No Sinus Congestion, No Post Nasal Drip, No Sore Throat, No Other Pulmonary: Dyspnea; No Cough, No Pleuritic Chest Pain, No Other Cardiovascular: Edema; No: Chest Pain, Palpitations, Orthopnea, Paroxysmal Noc. Dyspnea, Lt Headedness, Other Objective-Cardiology Exam Last Set of Vital Signs Vital Signs 11/10/21 11/10/21 07:26 08:27 Temp 36.7 Pulse 89 Resp 20 B/P (MAP) 105/58 (74) Pulse Ox 98 O2 Delivery High Flow N/C O2 Flow Rate 8.00 I&O Intake and Output 11/10/21 00:00 Intake Total 2170 ml Output Total 1375 ml Balance 795 ml Intake Oral 2170 ml Output Urine Total 1000 ml Stool Total 375 ml Bladder Scan Volume Amount 149 ml # Urine Diapers 2 General: Alert, Oriented X3, Cooperative HEENT: Atraumatic, PERRLA Lungs: Clear to Auscultation, Normal Air Movement Heart: Normal S1, Normal S2, Other (Peripheral edema) Abdomen: Other (ascites) Extremities: No Clubbing, Other Psych/Mental Status: Mental Status NL, Mood NL A/P-Cardiology Admission Diagnosis afib mitral valve replacement HTN Critical illness myopathy Assessment/Plan Atrial fibrillation, reports long standing hx of afib since 1999, history of GI bleed on Coumadin and Eliquis, patient reports has been off OAC for the past couple years. Currently rate controlled afib, continue to monitor. History of Mitral valve replacement with tissue valve with Dr. Smith approx 6-7 years, questionable EBENEZER and KRISTEN ligation, I will try to obtain copy of records for further review. 2D Echo done November 06, 2021 showing EF 55-60%, mild to moderate mitral stenosis, PA 80mmHg. Cor pulmonale with severe pulmonary hypertension, peripheral edema, started on Lasix, increasing the dose and monitor tolerance and response Peripheral edema,volume overload, I will increase Lasix to 80mg IV BID for the next 2 days. History of AAA with endograft repair. s/p large bowel obstruction in Aug 2021 requiring resection and colostomy Recent aspiration pneumonia requiring intubation, extubated and slowly improving, on supplemental oxygen. Hypertension, controlled, continue to monitor. Critical illness myopathy CKD, continue to montior renal function Right lower extremity hematoma per US done at [facility] 3/4 Anemia requiring recent blood transfusion, continue to monitor H/H. Depression Supervisory-Addendum Brief Supervisory Addendum Participated in pt care: history, MDM, physical Personally performed: exam, history, MDM Care discussed with: MICHAEL Results interpretation: Verified all documentation Notes: Patient was seen and evaluated with Alice, examination performed, management plan was discussed, agree with the current scribed note, I made few changes to the note using Italic font Patient was seen at bedside laying down comfortably Having significant edema, slow response to Lasix 80 mg daily, I will increase the dose to 80 mg twice daily for 2 days and monitor renal function closely Continue to monitor daily weight Monitor blood pressure ALICE NGUYEN Nov 10, 2021 08:30 MELI HEARN MD Nov 10, 2021 08:41
[2021-11-10] MEDS: polyethylene glycoL POWDER 17 GM (MIRALAX) PACK PO SCH ×3 (08:34→22:15)
--- NOTE | 2021-11-10 09:43 | Progress Note - Urology ---
Progress Note-Urology Progress Notes/Assess & Plan Progress/Assessment & Plan CONTINUES VOIDING WELL. FAIRLY GOOD EMPTYING. TOLERATES FLOMAX WELL Final Diagnosis RETENTION EMMANUEL HE MD Nov 10, 2021 09:43
--- NOTE | 2021-11-10 10:01 | Physical Therapy Daily Note ---
PT Daily Note-Current Subjective Pt working w/OT upon arrival. Pt agrees to PT. Mental Status Patient Orientation: Person, Place Attachments: Oxygen (8L during tx) Transfers SCALE: Activities may be completed with or without assistive devices. 4-Glqrchevtq-cmbhgkf completes the activity by him/herself with no assistance from a helper. 5-Set-up or Clean-up Assistance-helper sets up or cleans up; patient completes activity. [place] assists only prior to or following the activity. 4-Supervision or Touching Assistance-helper provides verbal cues and/or touching/steadying and/or contact guard assistance as patient completes activity. Assistance may be provided throughout the activity or intermittently. 3-Partial/Moderate Assistance-helper does LESS THAN HALF the effort. [place] lifts, holds or supports trunk or limbs, but provides less than half the effort. 2-Substantial/Maximal Assistance-helper does MORE THAN HALF the effort. [place] lifts or holds trunk or limbs and provides more than half the effort. 2-Sqxuhcsqc-ielpku does ALL the effort. Patient does none of the effort to complete the activity. Or, the assistance of 2 or more helpers is required for the patient to complete the activity. If activity was not attempted, code reason: 7-Patient Refused. 9-Not Applicable-not attempted and the patient did not perform the activity before the current illness, exacerbation or injury. 10-Not Attempted due to Environmental Limitations-(lack of equipment, weather restraints, etc.). 88-Not Attempted due to Medical Conditions or Safety Concerns. Roll Left & Right (QC): 3 Sit to Lying (QC): 2 Lying to Sitting/Side of Bed(Q: 3 Sit to Stand (QC): 2 Weight Bearing Full Weight Bearing Full Weight Bearing Exercises Seated Therapy Exercises: Sit to stand Seated Reps: 5 Treatments Agreeable to co-treat for part of session ([id number]) due to need of 2 skilled clinicians to progress indep with adls and mobility. Mod-max a to sit EOB with HOB elevated. Significant time to push up on R elbow to full upright positioning. Once upright, pt often listing R, unable to follow verbal cues, needing mod a to maintain midline. Pt cued to reach with RUE across midline and anteriorly towards object in order to shift weight. Pt with improved posture post adjustment. Throughout session, when pt began to shift right, he participated in activity to place rings on designated stand to assist in shifting weight back towards midline. Pt appears apprehensive about anterior weights shifting. Again, to help conserve energy, OT donned brief over pt's feet, pt donned shorts. Extra time and min a with use of cashier self service gasoline to thread shorts fully over feet/heels. RLE significantly weaker than L, needing assist to lift and position properly. Max a x2 to stand, dependent to manage clothing up to waist. Pt then completed 4 partial sit<>stands (with max a x2) due to inability to come to full upright. Pt having difficult time extending hips/trunk and resists against therapist cues/assist to shift weight/adjust posture. When asked if pt is feeling fatigued, weak, fearful, etc, pt often verbalizes "I don't know." Pt was returned to supine and requested to use urinal. Dependent for placement. Clothing doffed and new gown donned. Several rests breaks needed throughout session secondary to poor activity tolerance. Oxygen remains >93% throughout session, 8L. Assessment Current Status: Poor Progress Pt needs a lot of VC & TC for complete tasks lashell. for standing. Pt attempts standing which pt complete first time with assistance from Therapists. Pt is not able to full stand again but completes 4 partial stands. Pt won't/can't bring butt underneath him to stand up even with cuing. PT Short Term Goals Short Term Goals Time Frame: Nov 09, 2021 Roll Left & Right: 3 Sit to lyin Lying to sitting on side of be: 2 Sit to stand: 3 Chair/fvd-wk-ptgar transfer: 3 PT Brush Material Preparer Goals Group Home Goals PT Group Home Goals Time Frame: Nov 23, 2021 Roll Left & Right (QC): 4 Sit to Lying (QC): 3 Lying-Sitting on Side/Bed(QC): 3 Sit to Stand (QC): 4 Chair/Ony-ih-Jzske Xfer(QC): 4 Toilet Transfer (QC): 4 Car Transfer (QC): 3 Does the Patient Walk: Yes Walk 10 feet (QC): 4 Walk 50ft with 2 Turns (QC): 88 Walk 150 ft (QC): 88 Walking 10ft on Uneven Surface: 88 1 Step (curb) (QC): 88 4 Steps (QC): 88 12 Steps (QC): 88 Picking up an Object (QC): 4 Wheel 50 feet with 2 turns (QC: 4 Wheel 150 feet: 4 PT Plan Problem List Problem List: Activity Tolerance, Functional Strength, Transfer Treatment/Plan Treatment Plan: Continue Plan of Care Treatment Plan: Bed Mobility, Education, Functional Activity Whitney, Functional Strength, Group Therapy, Gait, Safety, Therapeutic Exercise, Transfers Treatment Duration: Nov 23, 2021 Frequency: At least 5 of 7 days/Wk (IRF) Estimated Hrs Per Day: 1.5 hours per day Patient and/or Family Agrees t: Yes Safety Risks/Education Patient Education: Transfer Techniques, Correct Positioning, Safety Issues Teaching Recipient: Patient Teaching Methods: Demonstration, Discussion Response to Teaching: Reinforcement Needed Time/GCodes Time In: 900 Time Out: 1000 Total Billed Treatment Time: 60 Total Billed Treatment Co-treat w/OT for 60m (900-1000) 1, FA x4 GELACIOJABARITELLY BUSINESS TEACHER Nov 10, 2021 10:01
--- NOTE | 2021-11-10 10:08 | Occupational Ther Daily Note ---
OT Current Status-Daily Note Subjective Pt denies pain, reports slightly better sleep. Agreeable to co-treat for part of session ([id number]) due to need of 2 skilled clinicians to progress indep with adls and mobility. Appearance Pt returned to supine, all needs within reach. Mental Status/Objective Attachments: IV, Oxygen ADL-Treatment Therapy Code Descriptions/Definitions Functional [place] Measure: 0=Not Assessed/NA 4=Minimal Assistance 1=Total Assistance 5=Supervision or Setup 2=Maximal Assistance 6=Modified [place] 3=Moderate Assistance 7=Complete IndependenceSCALE: Activities may be completed with or without assistive devices. 9-Jrikddydag-yalhshs completes the activity by him/herself with no assistance from a helper. 5-Set-up or Clean-up Assistance-helper sets up or cleans up; patient completes activity. [place] assists only prior to or following the activity. 4-Supervision or Touching Assistance-helper provides verbal cues and/or touching/steadying and/or contact guard assistance as patient completes activity. Assistance may be provided throughout the activity or intermittently. 3-Partial/Moderate Assistance-helper does LESS THAN HALF the effort. [place] lifts, holds or supports trunk or limbs, but provides less than half the effort. 2-Substantial/Maximal Assistance-helper does MORE THAN HALF the effort. [place] lifts or holds trunk or limbs and provides more than half the effort. 0-Racppavds-zlgtya does ALL the effort. Patient does none of the effort to complete the activity. Or, the assistance of 2 or more helpers is required for the patient to complete the activity. If activity was not attempted, code reason: 7-Patient Refused. 9-Not Applicable-not attempted and the patient did not perform the activity before the current illness, exacerbation or injury. 10-Not Attempted due to Environmental Limitations-(lack of equipment, weather restraints, etc.). 88-Not Attempted due to Medical Conditions or Safety Concerns. Shower/Bathe Self (QC): 2 Upper Body Dressing (QC): 4 Lower Body Dressing (QC): 1 On/Off Footwear: 1 Toileting Hygiene (QC): 1 Toilet Transfer (QC): 1 UB bathing/dressing performed at bed level with efforts to conserve energy. Pt able to wash upper body without assist. Dependent to wash jay area and buttocks while rolling R/L. RN in to apply Nystatin powder to groin area. LE's not addressed as RN had already washed and wrapped at start of session. Mod-max a to sit EOB with HOB elevated. Significant time to push up on R elbow to full upright positioning. Once upright, pt often listing R, unable to follow verbal cues, needing mod a to maintain midline. Pt cued to reach with RUE across midline and anteriorly towards object in order to shift weight. Pt with improved posture post adjustment. Throughout session, when pt began to shift right, he participated in activity to place rings on designated stand to assist in shifting weight back towards midline. Pt appears apprehensive about anterior weights shifting. Again, to help conserve energy, OT donned brief over pt's feet, pt donned shorts. Extra time and min a with use of grounds foreman to thread shorts fully over feet/heels. RLE significantly weaker than L, needing assist to lift and position properly. Max a x2 to stand, dependent to manage clothing up to waist. Pt then completed 4 partial sit<>stands (with max a x2) due to inability to come to full upright. Pt having difficult time extending hips/trunk and resists against therapist cues/assist to shift weight/adjust posture. When asked if pt is feeling fatigued, weak, fearful, etc, pt often verbalizes "I don't know." Pt was returned to supine and requested to use urinal. Dependent for placement. Clothing doffed and new gown donned. Several rests breaks needed throughout session secondary to poor activity tolerance. Oxygen remains >93% throughout session, 8L. Education OT Patient Education: Correct positioning, Energy conservation, Exercise program, Modified ADL techniques, Progress toward Goal/Update tx plan, Purpose of tx/functional activities, Reviewed precautions, Rehab process, Safety issues, Transfer techniques, Use of adapted equipment Teaching Recipient: Patient Teaching Methods: Demonstration, Discussion Response to Teaching: Reinforcement Needed OT Short Term Goals Short Term Goals Time Frame: Nov 13, 2021 Eatin Oral hygiene: 5 Toileting hygiene: 3 Shower/bathe self: 2 Upper body dressin Lower body dressin Putting on/taking off footwear: 2 OT Residential Goals Residential Goals Time Frame: Dec 04, 2021 Eating (QC): 6 Oral Hygiene (QC): 6 Toileting Hygiene (QC): 3 Shower/Bathe Self (QC): 5 Upper Body Dressing (QC): 6 Lower Body Dressing (QC): 5 On/Off Footwear (QC): 4 1=Demonstrate adherence to instructed precautions during ADL tasks. 2=Patient will verbalize/demonstrate understanding of assistive devices/modifications for ADL. 3=Patient will improve strength/tolerance for activity to enable patient to perform ADL's. OT Education/Plan Problem List/Assessment Assessment: Decreased Activ Tolerance, Decreased Safety Aware, Decreased UE Strength, Dependent Transfers, Edema, Impaired Bed Mobility, Impaired Cognition, Impaired Coordination, Impaired Funct Balance, Impaired I ADL's, Impaired Self- Care Skills Discharge Recommendations Plan/Recommendations: Continue POC Therapy Discharge Recommendati: Post Acute OT Treatment Plan/Plan of Care Treatment,Training & Education: Yes Patient would benefit from OT for education, treatment and training to promote independence in ADL's, mobility, safety and/or upper extremity function for ADL's. Plan of Care: ADL Retraining, Cognitive Retraining, Functional Mobility, Group Exercise/Act as Ind, UE Funct Exercise/Act, W/C Management Training Treatment Duration: Dec 04, 2021 Frequency: At least 5 of 7 days/Wk (IRF) Estimated Hrs Per Day: 1.5 hours per day Agreement: Yes Rehab Potential: Guarded Time/GCodes Start Time: 08:45 Stop Time: 10:00 Total Time Billed (hr/min): 75 Billed Treatment Time 1 visit ADL x3 (45 min) FA x2 (30 min) Constance Hogan OT Nov 10, 2021 10:08
--- NOTE | 2021-11-10 10:25 | Speech Therapy Daily Note ---
Speech Daily Progress Note Subjective Date Seen by Provider: Nov 10, 2021 Time Seen by Provider: 10:30 The patient was lying in bed, eyes closed upon entrance to his room by the clinician. The patient's is present at bedside. The patient intermittently opens his eyes and agrees to participation in the skilled treatment session. To note, the patient continues to require maximum verbal encouragement for minimal participation in daily therapy. The patient's personal motivation is a large barrier for improvement. Objective - Orientation: The patient remains independently oriented to date, month, day of week, day, year, place and city. - External and Internal Memory Strategies: The patient and clinician reviewed external and internal memory strategies. The day prior the patient stated he did have a pill box at home. On this date, the patient stated he does not have a pill box at home. The clinician encouraged the patient to locate a pill box to use as a memory aid with his medication. The patient stated he uses [employer] to keep track of appointments. The patient and clinician practiced internal memory strategies of association, visualization, and repetition. The p atient recalled five of five single words immediately and four of five following a five minute delay. The patient was able to recall five of five with a category cue from the clinician. Assessment Assessment Current Status: Poor Progress Treatment Plan Continue Plan of Care Speech Short Term Goals Short Term Goals Short Term Goals 1. The patient will demonstrate 80% accuracy with memory exercises and mild cl inician verbal cueing. Time Frame-STG: Five Days. Speech Facing Slitter Goals Shelter Goals 1. The patient will demonstrate increased neurocognitive skills for safe discharge to the least restrictive environment. Time Frame: Two Weeks Speech-Plan Treatment Plan Speech Therapy Treatment Plan: Continue Plan of Care Treatment Duration: Nov 03, 2021 Frequency: Modified Program (IRF) Estimated Hrs Per Day: .5 hour per day Rehab Potential: Guarded Safety Risks/Education Teaching Recipient: Patient, Family Teaching Methods: Discussion Response to Teaching: Reinforcement Needed Education Topics Provided: Speech Pathology Plan of Care Time Speech Therapy Time In: 10:30 Speech Therapy Time Out: 11:00 Total Billed Time: 30 Billed Treatment Time MadisonMICHELLESANTA Meron BEATRIZ CLARKLAZARO FORDE Nov 10, 2021 10:25
[2021-11-10] MEDS ORDERED: SPIR50TA4 PO (14:00)
[2021-11-10] MEDS ORDERED: ALPR0.5T7 PO (14:00)
[2021-11-10] MEDS ORDERED: PANT40TA52 PO (14:00)
[2021-11-10] MEDS ORDERED: DILT300C26 PO (14:00)
[2021-11-10] MEDS ORDERED: BUME2TAB7 PO (14:00)
[2021-11-10] MEDS ORDERED: CALC0.253 PO (14:00)
--- NOTE | 2021-11-10 15:16 | Physical Therapy Daily Note ---
PT Daily Note-Current Subjective Pt asleep again this afternoon session. Sp is present. Pt agrees to work w/PT but again difficult to keep awake. Pain Location Body Site: Genital Pain Description: Ache Comment: Reports but doesn't rate Mental Status Patient Orientation: Person, Place Attachments: Oxygen (8L) Transfers SCALE: Activities may be completed with or without assistive devices. 6-Yhxhfypepi-mrhdpqf completes the activity by him/herself with no assistance from a helper. 5-Set-up or Clean-up Assistance-helper sets up or cleans up; patient completes activity. [place] assists only prior to or following the activity. 4-Supervision or Touching Assistance-helper provides verbal cues and/or touching/steadying and/or contact guard assistance as patient completes activity. Assistance may be provided throughout the activity or intermittently. 3-Partial/Moderate Assistance-helper does LESS THAN HALF the effort. [place] lifts, holds or supports trunk or limbs, but provides less than half the effort. 2-Substantial/Maximal Assistance-helper does MORE THAN HALF the effort. [place] lifts or holds trunk or limbs and provides more than half the effort. 1-Zwtqvxalf-zzpksv does ALL the effort. Patient does none of the effort to complete the activity. Or, the assistance of 2 or more helpers is required for the patient to complete the activity. If activity was not attempted, code reason: 7-Patient Refused. 9-Not Applicable-not attempted and the patient did not perform the activity before the current illness, exacerbation or injury. 10-Not Attempted due to Environmental Limitations-(lack of equipment, weather restraints, etc.). 88-Not Attempted due to Medical Conditions or Safety Concerns. Weight Bearing Full Weight Bearing Full Weight Bearing Exercises Supine Ex: Ankle pumps, Quad Set, Glut sets Supine Reps: 15 Treatments GRINDER SET UP OPERATOR & Sp speak about pt's progress the last couple of days and how pt's seems to be backsliding. Extended time to stand or only able to partial stand, not bringing butt under pt. Very fatigued in afternoon and not able to complete much tx. GRINDER SET UP OPERATOR advised Sp that conversation will be relayed to Nurse in case pt feels need to sit EOB. Pt resting in bed with all needs met, call light next to pt. Assessment Current Status: Poor Progress Pt fatigues quickly and difficult to keep awake. PT Short Term Goals Short Term Goals Time Frame: Nov 09, 2021 Roll Left & Right: 3 Sit to lyin Lying to sitting on side of be: 2 Sit to stand: 3 Chair/gqn-dr-xcpnj transfer: 3 PT Long-Term Goals Business Continuity Coordinator Goals PT Long-Term Goals Time Frame: Nov 23, 2021 Roll Left & Right (QC): 4 Sit to Lying (QC): 3 Lying-Sitting on Side/Bed(QC): 3 Sit to Stand (QC): 4 Chair/Blu-mk-Tyzbv Xfer(QC): 4 Toilet Transfer (QC): 4 Car Transfer (QC): 3 Does the Patient Walk: Yes Walk 10 feet (QC): 4 Walk 50ft with 2 Turns (QC): 88 Walk 150 ft (QC): 88 Walking 10ft on Uneven Surface: 88 1 Step (curb) (QC): 88 4 Steps (QC): 88 12 Steps (QC): 88 Picking up an Object (QC): 4 Wheel 50 feet with 2 turns (QC: 4 Wheel 150 feet: 4 PT Plan Problem List Problem List: Activity Tolerance, Functional Strength, Balance, Transfer Treatment/Plan Treatment Plan: Continue Plan of Care Treatment Plan: Bed Mobility, Education, Functional Activity Whitney, Functional Strength, Group Therapy, Gait, Safety, Therapeutic Exercise, Transfers Treatment Duration: Nov 23, 2021 Frequency: At least 5 of 7 days/Wk (IRF) Estimated Hrs Per Day: 1.5 hours per day Patient and/or Family Agrees t: Yes Safety Risks/Education Patient Education: Transfer Techniques, Correct Positioning, Safety Issues Teaching Recipient: Patient, Significant Other Teaching Methods: Demonstration, Discussion Response to Teaching: Verbalize Understanding Time/GCodes Time In: 1315 Time Out: 1330 Total Billed Treatment Time: 15 Total Billed Treatment 1, FA (15m) TELLY BRIZUELA PTA Nov 10, 2021 15:16
[2021-11-10] MEDS: TAMSULOSIN 0.4 MG (FLOMAX) CAP PO SCH (17:14)
[2021-11-10 20:20] VITALS: BP 100/61
[2021-11-10 22:00] VITALS: BP 98/60
[2021-11-10] MEDS: traZODone 50 MG (DESYREL) TAB PO SCH (22:15)
[2021-11-11] MEDS: METOCLOPRAMIDE 10 MG (REGLAN) TAB PO SCH ×4 (00:14→17:03)
--- NOTE | 2021-11-11 05:37 | PM&R Progress Note ---
Subjective HPI/CC On Admission Date Seen by Provider: Nov 11, 2021 Time Seen by Provider: 10:00 Subjective/Events-last exam 11/11/2021: Pt is doing about the same Sodium level is 130 Hemoglobin was 8.3 Last iron infusion today 80mg of Lasix will be given BID Effexor started for depression Had a long discussion with his and he will be signed up for hospice of Dr. 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 Meza and Dr. Brown 11/09/2021: Pt is doing well Pretty weak today Sodium level was 132 Hemoglobin was 8.3 Daily weights maintained along with Lasix 80 mg IV daily Flomax will be started and he is voiding well 11/08/2021: Patient doing well Sitting up in chair Transfers are better Edema is improving Multiple meds were changed by Dr. Rodriguez Anasarca continues Protein recommended in diet 11/07/2021: Patient doing well Sitting in a wheelchair most the morning at bedside Educated on third spacing fluid IV Lasix maintain Adjusted potassium dosing yesterday High-protein Ensure will be initiated 11/06/2021: Patient is stable Slow recovery at bedside IV diuresis tolerated Noted labs Change potassium Denies any pain 11/05/2021: Patient doing fairly well Slow progress No pain is reported Voiding fairly well Dr. Rodriguez will evaluate IV diuresis at bedside Oxygen maintained 11/04/2021: Patient had a really good night Voiding well no Spaulding catheter in and out cath required No pain is reported Scrotal edema continues to be supported Oxygen is maintained Dr. Bar will evaluate sacral decubitus ulcer and heels Ostomy output has slowed so may need to reach out to Dr. Cornelio Kemp cardiology 11/03/2021: Patient had a pretty good night Wore oxygen last night No pain reported Labs noted Urology consulted for Spaulding DC Iron and B12 checked Fluid restriction at 1200cc Review of Systems General: Fatigue, Malaise Pulmonary: Dyspnea Cardiovascular: Edema Objective Exam Vital Signs Vital Signs Date Time Temp Pulse Resp B/P (MAP) Pulse Ox O2 Delivery O2 Flow Rate FiO2 11/11/21 20:23 36.2 92 20 110/68 (82) 95 High Flow N/C 8.00 Capillary Refill : General Appearance: No Apparent Distress, WD/WN, Chronically ill, Obese HEENT: PERRL/EOMI, Normal ENT Inspection, Pharynx Normal Neck: Full Range of Motion, Normal Inspection, Non Tender, Supple, Carotid Bruit Respiratory: Chest Non Tender, Lungs Clear, Normal Breath Sounds, No Accessory Muscle Use, No Respiratory Distress, Crackles, Decreased Breath Sounds Cardiovascular: No Gallop, No JVD, No Murmur, Normal Peripheral Pulses, Irregularly Irregular Gastrointestinal: Normal Bowel Sounds, No Organomegaly, No Pulsatile Mass, Soft, Distended, Tenderness Back: Normal Inspection, No CVA Tenderness, No Vertebral Tenderness Extremity: Normal Capillary Refill, Normal Inspection, Normal Range of Motion (Limited range of motion), Non Tender, Calf Tenderness (Right) Neurologic/Psychiatric: Alert, Oriented x3, on air director II-XII Norm as Tested, Depressed Affect, Motor Weakness (Generalized) Skin: Normal Color, Warm/Dry Lymphatic: No Adenopathy Results/Procedures Lab Laboratory Tests 11/11/21 06:10 Patient resulted labs reviewed. FIM Transfers Therapy Code Descriptions/Definitions Functional [place] Measure: 0=Not Assessed/NA 4=Minimal Assistance 1=Total Assistance 5=Supervision or Setup 2=Maximal Assistance 6=Modified [place] 3=Moderate Assistance 7=Complete IndependenceSCALE: Activities may be completed with or without assistive devices. 7-Jqtsnzhaqx-wtcpllv completes the activity by him/herself with no assistance from a helper. 5-Set-up or Clean-up Assistance-helper sets up or cleans up; patient completes activity. [place] assists only prior to or following the activity. 4-Supervision or Touching Assistance-helper provides verbal cues and/or touching/steadying and/or contact guard assistance as patient completes activity. Assistance may be provided throughout the activity or intermittently. 3-Partial/Moderate Assistance-helper does LESS THAN HALF the effort. [place] lifts, holds or supports trunk or limbs, but provides less than half the effort. 2-Substantial/Maximal Assistance-helper does MORE THAN HALF the effort. [place] lifts or holds trunk or limbs and provides more than half the effort. 9-Kjufwymec-kfrwaw does ALL the effort. Patient does none of the effort to complete the activity. Or, the assistance of 2 or more helpers is required for the patient to complete the activity. If activity was not attempted, code reason: 7-Patient Refused. 9-Not Applicable-not attempted and the patient did not perform the activity before the current illness, exacerbation or injury. 10-Not Attempted due to Environmental Limitations-(lack of equipment, weather restraints, etc.). 88-Not Attempted due to Medical Conditions or Safety Concerns. Roll Left to Right (QC): 3 Sit to Lying (QC): 2 Sit to Stand (QC): 2 Chair/Xwv-ob-Rkmal Xfer(QC): 3 Car Transfer (QC): 88 Gait Training Does the Patient Walk?: No and Walking Goal IS indicated Walk 10 feet (QC): 88 Walk 50 ft with 2 Turns(QC): 88 Walk 150 ft (QC): 88 Walking 10ft/uneven surface-QC: 88 Wheelchair Training Does the Pt Use a Wheelchair?: Yes Wheel 50 ft with 2 turns (QC): 3 Wheel 150 ft (QC): 3 Type of Wheelchair: Manual Stair Training 1 Step (curb) (QC): 88 4 Steps (QC): 88 12 Steps (QC): 88 Balance Picking up an Object (QC): 88 ADL-Treatment Eating (QC): 4 Oral Hygiene (QC): 7 Bathing Location: L Arm, R Arm, L Upper Leg, R Upper Leg, L Lower Leg (inc luding foot), R Lower Leg (including foot), Chest, Abdomen Shower/Bathe Self (QC): 2 Upper Body Dressing (QC): 4 Lower Body Dressing (QC): 1 On/Off Footwear (QC): 1 Toileting Hygiene (QC): 1 Toilet Transfer (QC): 1 Assessment/Plan Assessment and Plan Assess & Plan/Chief Complaint Assessment: 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 Recent aspiration pneumonia requiring intubation Continued hypoxia requiring supplemental oxygen Anasarca Atrial fibrillation CAD 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 Bar for wound care 11/05/2021: Continue fluid restriction Bowel regimen Dr. Bar appreciated Dr. Rodriguez appreciated IV diuresis? 11/06/2021: IV diuresis Fluid restriction Wound care Cardiology appreciated 11/07/2021: High-protein Ensure Fluid restriction changed Close monitoring 11/08/2021: Supportive care Protein supplements 11/09/2021: Supportive care May need to start looking at skilled 11/10/2021: Supportive care Skilled care 11/11/2021: Hospice at discharge (1) Acute on chronic heart failure with preserved ejection fraction (HFpEF) Assessment & Plan: Since starting intravenous furosemide on 11/05, he has some improvement in his peripheral edema over the past 48 hours. I recommend he continue the intravenous furosemide and watch his renal function closely. I will also start spironolactone which has some positive data in the literature for patients with heart failure with preserved ejection fraction. (2) Permanent atrial fibrillation Assessment & Plan: Heart rates appear controlled with digoxin and diltiazem. Since he did not notice any difference when starting digoxin prior to this admission, I will stop the digoxin. 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 He may be a candidate for a Watchman device. He can discuss this with his regular public speaker at the outside facility following discharge. (3) Pulmonary hypertension Assessment & Plan: He has severe pulmonary hypertension. Some of this could be due to acute heart failure on top of his previous mitral valve surgery now with at least a mild degree of stenosis in the bioprosthesis as noted on his echocardiogram during this admission. This will need to be followed longitudinally by his regular public speaker. (4) Primary hypertension Assessment & Plan: Blood pressure is reasonably controlled with the present combination of medications. (5) H/O mitral valve replacement Assessment & Plan: He has a bovine bioprosthetic mitral valve. 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 This may be contributing to his heart failure. This will need to be followed by his regular public speaker at the outside facility after discharge. (6) Mixed hyperlipidemia Assessment & Plan: Continue statin. BOB HOUSER DO Nov 11, 2021 05:37
[2021-11-11] MEDS: CYANOCOBALAMIN 1,000 MCG (VITAMIN B-12) TABLET PO SCH (06:05)
[2021-11-11] MEDS: CATHETER FLUSH 10 ML SYR IVP SCH ×3 (06:05→20:07)
[2021-11-11] MEDS: FUROSEMIDE 40 MG/4 ML INJ (LASIX) IVP SCH ×2 (06:05→16:03)
[2021-11-11] MEDS: MULTIVIT W/MINERALS TAB (THERAGRAN M) PO SCH (06:05)
[2021-11-11 06:47] LABS: POTASSIUM 4.1 MMOL/L (3.6-5.0)
[2021-11-11 06:49] LABS: CALCIUM 8.6 MG/DL (8.5-10.1)
[2021-11-11 06:53] LABS: CREATININE SERUM 1.01 MG/DL (0.60-1.30)
[2021-11-11 08:00] VITALS: BP 110/70
[2021-11-11] MEDS: DOCUSATE SODIUM 100 MG (COLACE) CAP PO SCH ×2 (08:15→20:07)
[2021-11-11] MEDS: ENOXAPARIN 60 MG/0.6 ML (LOVENOX) SYR SQ SCH (08:16)
[2021-11-11] MEDS: SPIRONOLACTONE 25 MG (ALDACTONE) TAB PO SCH (08:16)
[2021-11-11] MEDS: FAMOTIDINE 20 MG (PEPCID) TABLET PO SCH ×2 (08:16→20:07)
[2021-11-11] MEDS: GABAPENTIN 100 MG (NEURONTIN) CAP PO SCH ×2 (08:16→20:06)
[2021-11-11] MEDS: polyethylene glycoL POWDER 17 GM (MIRALAX) PACK PO SCH ×2 (08:16→20:05)
[2021-11-11] MEDS: SENNA W/DOCUSATE (SENOKOT S) TABLET PO SCH ×2 (08:16→21:22)
[2021-11-11] MEDS: KCL 20 MEQ TAB (K-DUR) PO SCH (08:16)
[2021-11-11] MEDS: guaiFENesin (MUCINEX) 600 MG TAB PO SCH ×2 (08:16→20:06)
[2021-11-11] MEDS: MICONAZOLE 2% POWDER (DESENEX AF) 90 GM TOP SCH ×2 (08:17→20:09)
--- NOTE | 2021-11-11 09:16 | Cardiology Progress Note ---
Subjective Date Seen by Provider: Nov 11, 2021 Time Seen by Provider: 08:20 Subjective/Events-last exam Patient is sitting up in bed, denies any chest pain Review of Systems General: No Chills, No Night Sweats; Fatigue, Malaise; No Appetite, No Other HEENT: No Head Aches, No Visual Changes, No Eye Pain, No Ear Pain, No Dysphasia, No Sinus Congestion, No Post Nasal Drip, No Sore Throat, No Other Pulmonary: Dyspnea; No Cough, No Pleuritic Chest Pain, No Other Cardiovascular: Edema; No: Chest Pain, Palpitations, Orthopnea, Paroxysmal Noc. Dyspnea, Lt Headedness, Other Objective-Cardiology Exam Last Set of Vital Signs Vital Signs 11/11/21 11/11/21 08:00 08:25 Temp 36.4 Pulse 106 Resp 20 B/P (MAP) 110/70 (83) Pulse Ox 96 O2 Delivery High Flow N/C O2 Flow Rate 8.00 I&O Intake and Output 11/10/21 23:59 Intake Total 1650 ml Output Total 1275 ml Balance 375 ml Intake Oral 1650 ml Output Urine Total 1125 ml Stool Total 150 ml # Voids 3 # Bowel Movements 1 General: Alert, Oriented X3, Cooperative HEENT: Atraumatic, PERRLA Lungs: Clear to Auscultation, Normal Air Movement Heart: Normal S1, Normal S2, Other (Peripheral edema) Abdomen: Other (ascites) Extremities: No Clubbing, Other Psych/Mental Status: Mental Status NL, Mood NL Results Lab Laboratory Tests 11/11/21 06:10 A/P-Cardiology Admission Diagnosis afib mitral valve replacement HTN Critical illness myopathy Assessment/Plan Atrial fibrillation, reports long standing hx of afib since 1999, history of GI bleed on Coumadin and Eliquis, patient reports has been off OAC for the past couple years. Currently rate controlled afib, continue to monitor. History of Mitral valve replacement with tissue valve with Dr. Smith approx 6-7 years, questionable MAZE and KRISTEN ligation, I will try to obtain copy of records for further review. 2D Echo done November 06, 2021 showing EF 55-60%, mild to moderate mitral stenosis, PA 80mmHg. Cor pulmonale with severe pulmonary hypertension, peripheral edema, started on Lasix, increased to 80mg BID on 11/10/21, monitor tolerance and response History of AAA with endograft repair. s/p large bowel obstruction in Aug 2021 requiring resection and colostomy Recent aspiration pneumonia requiring intubation, extubated and slowly improving, on supplemental oxygen. Hypertension, controlled, continue to monitor. Critical illness myopathy CKD, continue to montior renal function Right lower extremity hematoma per US done at [place] 3/4 Anemia requiring recent blood transfusion, continue to monitor H/H. Depression Supervisory-Addendum Brief Supervisory Addendum Participated in pt care: history, MDM, physical Personally performed: exam, history, MDM Care discussed with: MICHAEL Results interpretation: Verified all documentation Notes: Patient was seen and evaluated with Alice, examination performed, management plan was discussed, agree with the current scribed note, I made few changes to the note using Italic font Patient was seen at bedside, laying down comfortably, still having shortness of breath Still having significant edema Responding to aggressive diuresis with Lasix 80 mg twice daily Was borderline hypotensive earlier this morning I will give him additional dose of Zaroxolyn 5 mg and evaluate tolerance and response ALICE NGUYEN Nov 11, 2021 09:16 MELI HEARN MD Nov 11, 2021 14:47
--- NOTE | 2021-11-11 09:22 | Progress Note - Urology ---
Progress Note-Urology Progress Notes/Assess & Plan Progress/Assessment & Plan STATUS QUO LAYLA MURILLO Final Diagnosis RETENTION EMMANUEL HE MD Nov 11, 2021 09:22
--- NOTE | 2021-11-11 10:00 | Occupational Ther Daily Note ---
OT Current Status-Daily Note Subjective Pt agreeable to treatment yet demonstrates poor motivation throughout session. Appearance Pt returned to supine, all needs within reach. Mental Status/Objective Attachments: Oxygen ADL-Treatment Therapy Code Descriptions/Definitions Functional [place] Measure: 0=Not Assessed/NA 4=Minimal Assistance 1=Total Assistance 5=Supervision or Setup 2=Maximal Assistance 6=Modified [place] 3=Moderate Assistance 7=Complete IndependenceSCALE: Activities may be completed with or without assistive devices. 4-Slezvlgozb-cywhsdz completes the activity by him/herself with no assistance from a helper. 5-Set-up or Clean-up Assistance-helper sets up or cleans up; patient completes activity. [place] assists only prior to or following the activity. 4-Supervision or Touching Assistance-helper provides verbal cues and/or touching/steadying and/or contact guard assistance as patient completes activity. Assistance may be provided throughout the activity or intermittently. 3-Partial/Moderate Assistance-helper does LESS THAN HALF the effort. [place] lifts, holds or supports trunk or limbs, but provides less than half the effort. 2-Substantial/Maximal Assistance-helper does MORE THAN HALF the effort. [place] lifts or holds trunk or limbs and provides more than half the effort. 8-Nubirnahs-uvuiyp does ALL the effort. Patient does none of the effort to complete the activity. Or, the assistance of 2 or more helpers is required for the patient to complete the activity. If activity was not attempted, code reason: 7-Patient Refused. 9-Not Applicable-not attempted and the patient did not perform the activity before the current illness, exacerbation or injury. 10-Not Attempted due to Environmental Limitations-(lack of equipment, weather restraints, etc.). 88-Not Attempted due to Medical Conditions or Safety Concerns. Lower Body Dressing (QC): 1 On/Off Footwear: 1 Toileting Hygiene (QC): 1 While supine, pt completed shaving (with electric razor), face washing and upper body bathing. Min-mod a needed for thorough shave due to poor awareness and safety towards O2 tubing. Pt was able to wash upper body without assist. New gown donned seated EOB. Pt continues to need step by step sequencing cues with all transfers. Mod-max a to sit EOB. Pt verbalizes awareness of listing R but does not attempt to correct without cues. While seated EOB, he threaded feet thr ough brief with min A and use of dermatology nurse. Often during task, pt begins to list posteriorly and towards right needing intermittent mod a to sustain midline. When leaning posteriorly, he then has difficulty seeing feet to see what he is doing with the dermatology nurse. Due to fear of weight shifting forward during transfers, back of recliner placed in front of patient to help ease comfort. Pt uses back of recliner to pull self forward to aid in repositioning. He verbalizes that he is using all of his strength in his BUE's to maintain balance, thus compensating for poor trunk control/strength. Pt stood x5 with mod-max a x2. He requires extensive encouragement prior to each standing bout and a Lengthy seated rest breaks required after each stand. Standing times included: 1 min, 30 seconds, and 15-20 seconds for last 3 standing bouts. In standing, pt does not demonstrate any knee buckling or LE shakiness/weakness and yet he continues to refuse any further standing. He often begins to self initiate sitting. With discussion, he verbalizes it is due to fatigue. Dependent for clothing management in standing. Max a x2 to side scoot hips towards HOB and return to supine. Education OT Patient Education: Correct positioning, Energy conservation, Modified ADL techniques, Progress toward Goal/Update tx plan, Purpose of tx/functional activities, Rehab process, Safety issues, Transfer techniques, Use of adapted equipment Teaching Recipient: Patient Teaching Methods: Demonstration, Discussion Response to Teaching: Verbalize Understanding, Reinforcement Needed OT Short Term Goals Short Term Goals Time Frame: Nov 13, 2021 Eatin Oral hygiene: 5 Toileting hygiene: 3 Shower/bathe self: 2 Upper body dressin Lower body dressin Putting on/taking off footwear: 2 OT [facility] Goals Research And Evaluation Analyst Goals Time Frame: Dec 04, 2021 Eating (QC): 6 Oral Hygiene (QC): 6 Toileting Hygiene (QC): 3 Shower/Bathe Self (QC): 5 Upper Body Dressing (QC): 6 Lower Body Dressing (QC): 5 On/Off Footwear (QC): 4 1=Demonstrate adherence to instructed precautions during ADL tasks. 2=Patient will verbalize/demonstrate understanding of assistive devices/modifications for ADL. 3=Patient will improve strength/tolerance for activity to enable patient to perform ADL's. OT Education/Plan Problem List/Assessment Assessment: Decreased Activ Tolerance, Decreased Safety Aware, Decreased UE Strength, Dependent Transfers, Edema, Impaired Bed Mobility, Impaired Cognition, Impaired Funct Balance, Impaired I ADL's, Impaired Self-Care Skills Discharge Recommendations Plan/Recommendations: Continue POC Treatment Plan/Plan of Care Treatment,Training & Education: Yes Patient would benefit from OT for education, treatment and training to promote independence in ADL's, mobility, safety and/or upper extremity function for ADL's. Plan of Care: ADL Retraining, Cognitive Retraining, Functional Mobility, Group Exercise/Act as Ind, UE Funct Exercise/Act, W/C Management Training Treatment Duration: Dec 04, 2021 Frequency: At least 5 of 7 days/Wk (IRF) Estimated Hrs Per Day: 1.5 hours per day Agreement: Yes Rehab Potential: Guarded Time/GCodes Start Time: 08:40 Stop Time: 10:00 Total Time Billed (hr/min): 80 Billed Treatment Time 1 visit ADL x2 (30 min) FA x3 (50 min) Constance Hogan OT Nov 11, 2021 09:59
--- NOTE | 2021-11-11 10:01 | Physical Therapy Daily Note ---
PT Daily Note-Current Subjective Pt laying Supine in bed upon arrival. Pt agrees to Pt/OT co-treat. Pain Location Body Site: Genital Pain Description: Ache Comment: Reports but doesn't rate Mental Status Patient Orientation: Person, Place, Situation Transfers SCALE: Activities may be completed with or without assistive devices. 5-Fbnkbyelmn-vbyludp completes the activity by him/herself with no assistance from a helper. 5-Set-up or Clean-up Assistance-helper sets up or cleans up; patient completes activity. [place] assists only prior to or following the activity. 4-Supervision or Touching Assistance-helper provides verbal cues and/or touching/steadying and/or contact guard assistance as patient completes activity. Assistance may be provided throughout the activity or intermittently. 3-Partial/Moderate Assistance-helper does LESS THAN HALF the effort. [place] lifts, holds or supports trunk or limbs, but provides less than half the effort. 2-Substantial/Maximal Assistance-helper does MORE THAN HALF the effort. [place] lifts or holds trunk or limbs and provides more than half the effort. 3-[place]ag-[place] does ALL the effort. Patient does none of the effort to complete the activity. Or, the assistance of 2 or more helpers is required for the patient to complete the activity. If activity was not attempted, code reason: 7-Patient Refused. 9-Not Applicable-not attempted and the patient did not perform the activity before the current illness, exacerbation or injury. 10-Not Attempted due to Environmental Limitations-(lack of equipment, weather restraints, etc.). 88-Not Attempted due to Medical Conditions or Safety Concerns. Roll Left & Right (QC): 2 Sit to Lying (QC): 2 Lying to Sitting/Side of Bed(Q: 2 Sit to Stand (QC): 2 Weight Bearing Full Weight Bearing Full Weight Bearing Exercises Seated Therapy Exercises: Sit to stand Treatments Mod-max a to sit EOB. Pt verbalizes awareness of listing R but does not attempt to correct without cues. While seated EOB, he threaded feet through brief with min A and use of welcome center attendant. Often during task, pt begins to list posteriorly and towards right needing intermittent mod a to sustain midline. When leaning poste riorly, he then has difficulty seeing feet to see what he is doing with the welcome center attendant. Due to fear of weight shifting forward during transfers, back of recliner placed in front of patient to help ease comfort. Pt uses back of recliner to pull self forward to aid in repositioning. He verbalizes that he is using all of his strength in his BUE's to maintain balance, thus compensating fo r poor trunk control/strength. Pt stood x5 with mod-max a x2. He requires extensive encouragement prior to each standing bout and a Lengthy seated rest breaks required after each stand. Standing times included: 1 min, 30 seconds, and 15-20 seconds for last 3 standing bouts. In standing, pt does not demonstrate any knee buckling or LE shakiness/weakness and yet he continues to refuse any further standing. He often begins to self initiate sitting. With discussion, he verbalizes it is due to fatigue. Dependent for clothing management in standing. Max a x2 to side scoot hips towards HOB and return to supine. Assessment Current Status: Poor Progress Pt is very retropulsive, needing VC to right self. Pt agreeable to treatment ye t demonstrates poor motivation throughout session. PT Short Term Goals Short Term Goals Time Frame: Nov 09, 2021 Roll Left & Right: 3 Sit to lyin Lying to sitting on side of be: 2 Sit to stand: 3 Chair/nno-jd-jfqxs transfer: 3 PT Nursing Home Goals [employer] Model [employer] Goals PT Nursing Home Goals Time Frame: Nov 23, 2021 Roll Left & Right (QC): 4 Sit to Lying (QC): 3 Lying-Sitting on Side/Bed(QC): 3 Sit to Stand (QC): 4 Chair/Tfn-hy-Pgvem Xfer(QC): 4 Toilet Transfer (QC): 4 Car Transfer (QC): 3 Does the Patient Walk: Yes Walk 10 feet (QC): 4 Walk 50ft with 2 Turns (QC): 88 Walk 150 ft (QC): 88 Walking 10ft on Uneven Surface: 88 1 Step (curb) (QC): 88 4 Steps (QC): 88 12 Steps (QC): 88 Picking up an Object (QC): 4 Wheel 50 feet with 2 turns (QC: 4 Wheel 150 feet: 4 PT Plan Problem List Problem List: Activity Tolerance, Functional Strength, Balance, Transfer, Bed Mobility Treatment/Plan Treatment Plan: Continue Plan of Care Treatment Plan: Bed Mobility, Education, Functional Activity [place], Functional Strength, Group Therapy, Gait, Safety, Therapeutic Exercise, Transfers Treatment Duration: Nov 23, 2021 Frequency: At least 5 of 7 days/Wk (IRF) Estimated Hrs Per Day: 1.5 hours per day Patient and/or Family Agrees t: Yes Safety Risks/Education Patient Education: Transfer Techniques, Correct Positioning, Safety Issues Teaching Recipient: Patient Teaching Methods: Discussion Response to Teaching: Reinforcement Needed Time/GCodes Time In: 900 Time Out: 1000 Total Billed Treatment Time: 60 Total Billed Treatment Co-treat w/OT for 60m 1, FA x4 (60m) TELLY BRIZUELA PTA Nov 11, 2021 10:01
[2021-11-11] MEDS: VENlafaxine XR 75 MG (EFFEXOR XR) CAP PO SCH (12:36)
--- NOTE | 2021-11-11 12:48 | Speech Therapy Daily Note ---
Speech Daily Progress Note Subjective Date Seen by Provider: Nov 11, 2021 Time Seen by Provider: 10:00 The patient was lying in bed, eyes closed upon entrance to his room by the clinician. The patient briefly opened his eyes upon a verbal greeting and responded appropriately. The patient's was present at bedside. Objective - Orientation: The patient was oriented to self, location, month, day of week, date and year with the aid of the in-room white board. - Functional Recall: The patient was able to accurately recall the events of his morning, including specific therapy routines and achievements from physical and occupational therapy sessions. The patient continues to require maximum verbal prompting for limited participation, displaying overall poor motivation. The patient states, "I don't want to do this mental stuff, the physical is what I want." The clinician discussed the rationale for speech pathology therapy and encouraged participation, however, the patient continues to request discharge. At this time, the patient will be discharged from skilled speech pathology services. Assessment Assessment Current Status: Poor Progress Treatment Plan Discontinue ST Speech Short Term Goals Short Term Goals Short Term Goals 1. The patient will demonstrate 80% accuracy with memory exercises and mild clinician verbal cueing. Time Frame-STG: Five Days. Speech Retirement Goals Heat Treat Operator Goals 1. The patient will demonstrate increased neurocognitive skills for safe discharge to the least restrictive environment. Time Frame: Two Weeks Speech-Plan Treatment Plan Speech Therapy Treatment Plan: Discontinue ST Per patient request. Treatment Duration: Nov 03, 2021 Frequency: Modified Program (IRF) Estimated Hrs Per Day: .5 hour per day Rehab Potential: Guarded Safety Risks/Education Teaching Recipient: Patient, Family Teaching Methods: Discussion Response to Teaching: Verbalize Understanding Education Topics Provided: Discharge from Skilled Speech Pathology Services Time Speech Therapy Time In: 10:00 Speech Therapy Time Out: 10:30 Total Billed Time: 30 Billed Treatment Time 1, BAYRON CLARKSHANNAN ST Nov 11, 2021 12:48
--- NOTE | 2021-11-11 12:51 | Therapy Team Discharge Summary ---
Therapy Discharge Summary Discharge Recommendations Date of Discharge Physical Therapy Roll Left to Right (QC): 2 Sit to Lying (QC): 2 Lying to Sitting/Side of Bed(Q: 2 Sit to Stand (QC): 2 Chair/Yfa-pg-Fjbgg Xfer(QC): 3 Toilet Transfer (QC): 88 Car Transfer (QC): 88 Does the Patient Walk: No and Walking Goal IS indicated Walk 10 feet (QC): 88 Walk 50 ft with 2 Turns(QC): 88 Walk 150 ft (QC): 88 Walking 10ft on uneven surface: 88 Does the Pt Use a Wheelchair: Yes Wheel 50 ft with 2 turns (QC): 3 Wheel 150 ft (QC): 3 Type of Wheelchair: Manual 1 Step (curb) (QC): 88 4 Steps (QC): 88 12 Steps (QC): 88 Balance Sitting Static: Fair Balance Sitting Dynamic: Fair Balance-Standing Static: Poor Picking up an Object (QC): 88 Occupational Therapy Decreased Activ Tolerance, Decreased Safety Aware, Decreased UE Strength, De pendent Transfers, Edema, Impaired Bed Mobility, Impaired Cognition, Impaired Funct Balance, Impaired I ADL's, Impaired Self-Care Skills Eating (QC): 4 Oral Hygiene (QC): 7 Shower/Bathe Self (QC): 2 Upper Body Dressing (QC): 4 Lower Body Dressing (QC): 1 On/Off Footwear (QC): 1 Toileting Hygiene (QC): 1 Speech-Language Pathology Per patient request, the patient will discharge from skilled speech pathology services at this time stating he would "like to do more physical therapy." The patient remained with stable cognition throughout his treatment with speech pathology, however, consistently displayed poor motivation. PT Fpc Goals Fpc Goals PT Systems Accountant Goals Time Frame: Nov 23, 2021 Roll Left to Right (QC): 4 Sit to Lying (QC): 3 Lying-Sitting on Side/Bed(QC): 3 Sit to Stand (QC): 4 Chair/Qjd-mh-Wmfwe Xfer(QC): 4 Car Transfer (QC): 3 Does the Patient Walk: Yes Walk 10 feet (QC): 4 Walk 10ft-Uneven Surface(QC): 88 Walk 50ft with 2 Turns (QC): 88 Walk 150 ft (QC): 88 Wheel 50 feet with 2 turns (QC: 4 1 Step (curb) (QC): 88 4 Steps (QC): 88 12 Steps (QC): 88 Picking up an Object (QC): 4 OT Fpc Goals Systems Accountant Goals Time Frame: Dec 04, 2021 Eating (QC): 6 Oral Hygiene (QC): 6 Shower/Bathe Self (QC): 5 Upper Body Dressing (QC): 6 Lower Body Dressing (QC): 5 On/Off Footwear (QC): 4 Toileting Hygiene (QC): 3 Toilet/Commode Transfer (QC): 4 1=Demonstrate adherence to instructed precautions during ADL tasks. 2=Patient will verbalize/demonstrate understanding of assistive devic es/modifications for ADL. 3=Patient will improve strength/tolerance for activity to enable patient to perform ADL's. Speech Fpc Goals Fpc Goals 1. The patient will demonstrate increased neurocognitive skills for safe discharge to the least restrictive environment. NOT MET Time Frame: Two Weeks SHANNAN CLARK Nov 11, 2021 12:51
--- NOTE | 2021-11-11 14:30 | Physical Therapy Daily Note ---
PT Daily Note-Current Subjective Pt laying Supine in bed asleep upon arrival. Pt agrees to PT but again very drowsy and difficult to keep awake. Mental Status Patient Orientation: Person, Place, Situation Attachments: Oxygen (8L) Transfers SCALE: Activities may be completed with or without assistive devices. 1-Plhztxwdrj-jxhxljm completes the activity by him/herself with no assistance from a helper. 5-Set-up or Clean-up Assistance-helper sets up or cleans up; patient completes activity. [place] assists only prior to or following the activity. 4-Supervision or Touching Assistance-helper provides verbal cues and/or touching/steadying and/or contact guard assistance as patient completes activity. Assistance may be provided throughout the activity or intermittently. 3-Partial/Moderate Assistance-helper does LESS THAN HALF the effort. Hope lifts, holds or supports trunk or limbs, but provides less than half the effort. 2-Substantial/Maximal Assistance-helper does MORE THAN HALF the effort. [place] lifts or holds trunk or limbs and provides more than half the effort. 0-Adkezvtwg-ywgkum does ALL the effort. Patient does none of the effort to complete the activity. Or, the assistance of 2 or more helpers is required for the patient to complete the activity. If activity was not attempted, code reason: 7-Patient Refused. 9-Not Applicable-not attempted and the patient did not perform the activity before the current illness, exacerbation or injury. 10-Not Attempted due to Environmental Limitations-(lack of equipment, weather restraints, etc.). 88-Not Attempted due to Medical Conditions or Safety Concerns. Weight Bearing Full Weight Bearing Full Weight Bearing Exercises Supine Ex: Ankle pumps, Quad Set, Glut sets, Heel Slides, Hip abd/add Supine Reps: 10 Treatments Pt needs assistance to complete Ex in Supine and reports not having strength to sit up at EOB. Pt back asleep at end of tx. All needs met, call light in hand. Assessment Current Status: Poor Progress Pt fatigues easily and needs frequent RB. Family Training needed to communicate amount of effort needed for transfers and mobility as Sp wants to return home upon d/c. PT Short Term Goals Short Term Goals Time Frame: Nov 09, 2021 Roll Left & Right: 3 Sit to lyin Lying to sitting on side of be: 2 Sit to stand: 3 Chair/hro-iu-pngpg transfer: 3 PT Electrical Wiring Lineman Goals [facility] Goals PT Electrical Wiring Lineman Goals Time Frame: Nov 23, 2021 Roll Left & Right (QC): 4 Sit to Lying (QC): 3 Lying-Sitting on Side/Bed(QC): 3 Sit to Stand (QC): 4 Chair/Dfa-fn-Qtbel Xfer(QC): 4 Toilet Transfer (QC): 4 Car Transfer (QC): 3 Does the Patient Walk: Yes Walk 10 feet (QC): 4 Walk 50ft with 2 Turns (QC): 88 Walk 150 ft (QC): 88 Walking 10ft on Uneven Surface: 88 1 Step (curb) (QC): 88 4 Steps (QC): 88 12 Steps (QC): 88 Picking up an Object (QC): 4 Wheel 50 feet with 2 turns (QC: 4 Wheel 150 feet: 4 PT Plan Problem List Problem List: Activity Tolerance, Functional Strength, Transfer, Bed Mobility Treatment/Plan Treatment Plan: Continue Plan of Care Treatment Plan: Bed Mobility, Education, Functional Activity Whitney, Functional Strength, Group Therapy, Gait, Safety, Therapeutic Exercise, Transfers Treatment Duration: Nov 23, 2021 Frequency: At least 5 of 7 days/Wk (IRF) Estimated Hrs Per Day: 1.5 hours per day Patient and/or Family Agrees t: Yes Time/GCodes Time In: 1400 Time Out: 1415 Total Billed Treatment Time: 15 Total Billed Treatment 1, FILIBERTO (15m) TELLY BRIZUELA PTA Nov 11, 2021 14:30
[2021-11-11] MEDS ORDERED: METOLAZONE 5 MG (ZAROXOLYN) TAB PO ONE (15:00)
[2021-11-11] MEDS: TAMSULOSIN 0.4 MG (FLOMAX) CAP PO SCH (17:03)
[2021-11-11] MEDS: traZODone 50 MG (DESYREL) TAB PO SCH (20:06)
[2021-11-11 20:23] VITALS: BP 110/68
[2021-11-12] MEDS: METOCLOPRAMIDE 10 MG (REGLAN) TAB PO SCH ×4 (00:45→17:14)
[2021-11-12 05:56] LABS: POTASSIUM 4.1 MMOL/L (3.6-5.0)
[2021-11-12 05:57] LABS: CALCIUM 8.6 MG/DL (8.5-10.1)
[2021-11-12 06:02] LABS: CREATININE SERUM 1.05 MG/DL (0.60-1.30)
[2021-11-12] MEDS: FUROSEMIDE 40 MG/4 ML INJ (LASIX) IVP SCH ×2 (06:08→17:14)
[2021-11-12] MEDS: CYANOCOBALAMIN 1,000 MCG (VITAMIN B-12) TABLET PO SCH (06:08)
[2021-11-12] MEDS: MULTIVIT W/MINERALS TAB (THERAGRAN M) PO SCH (06:08)
[2021-11-12] MEDS: CATHETER FLUSH 10 ML SYR IVP SCH ×3 (06:08→20:12)
[2021-11-12] MEDS: VENlafaxine XR 75 MG (EFFEXOR XR) CAP PO SCH (06:08)
--- NOTE | 2021-11-12 06:10 | PM&R Progress Note ---
Subjective HPI/CC On Admission Date Seen by Provider: Nov 12, 2021 Time Seen by Provider: 11:30 Subjective/Events-last exam 11/12/2021: Patient more sleepy Hospice will be set up with [place] [facility] will be left in place at discharge Camilo wraps to lower extremities Lasix will still be maintained 11/11/2021: Pt is doing about the same Sodium level is 130 Hemoglobin was 8.3 Last iron infusion today 80mg of Lasix will be given BID Effexor started for depression Had a long discussion with his and he will be signed up for hospice of Dr. 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 Meza and Dr. Brown 11/09/2021: Pt is doing well Pretty weak today Sodium level was 132 Hemoglobin was 8.3 Daily weights maintained along with Lasix 80 mg IV daily Flomax will be started and he is voiding well 11/08/2021: Patient doing well Sitting up in chair Transfers are better Edema is improving Multiple meds were changed by Dr. Rodriguez Anasarca continues Protein recommended in diet 11/07/2021: Patient doing well Sitting in a wheelchair most the morning at bedside Educated on third spacing fluid IV Lasix maintain Adjusted potassium dosing yesterday High-protein Ensure will be initiated 11/06/2021: Patient is stable Slow recovery at bedside IV diuresis tolerated Noted labs Change potassium Denies any pain 11/05/2021: Patient doing fairly well Slow progress No pain is reported Voiding fairly well Dr. Rodriguez will evaluate IV diuresis at bedside Oxygen maintained 11/04/2021: Patient had a really good night Voiding well no Spaulding catheter in and out cath required No pain is reported Scrotal edema continues to be supported Oxygen is maintained Dr. Bar will evaluate sacral decubitus ulcer and heels Ostomy output has slowed so may need to reach out to Dr. Grimes Appreciate cardiology 11/03/2021: Patient had a pretty good night Wore oxygen last night No pain reported Labs noted Urology consulted for [facility] DC Iron and B12 checked Fluid restriction at 1200cc Review of Systems General: Fatigue, Malaise Cardiovascular: Edema Objective Exam Vital Signs Vital Signs Date Time Temp Pulse Resp B/P (MAP) Pulse Ox O2 Delivery O2 Flow Rate FiO2 11/12/21 23:06 94 High Flow N/C 8.00 11/12/21 19:54 36.0 90 16 110/57 (74) Capillary Refill : General Appearance: No Apparent Distress, WD/WN, Chronically ill, Obese HEENT: PERRL/EOMI, Normal ENT Inspection, Pharynx Normal Neck: Full Range of Motion, Normal Inspection, Non Tender, Supple, Carotid Bruit Respiratory: Chest Non Tender, Lungs Clear, Normal Breath Sounds, No Accessory Muscle Use, No Respiratory Distress, Crackles, Decreased Breath Sounds Cardiovascular: No Gallop, No JVD, No Murmur, Normal Peripheral Pulses, Irregularly Irregular Gastrointestinal: Normal Bowel Sounds, No Organomegaly, No Pulsatile Mass, Soft, Distended, Tenderness Back: Normal Inspection, No CVA Tenderness, No Vertebral Tenderness Extremity: Normal Capillary Refill, Normal Inspection, Normal Range of Motion (Limited range of motion), Non Tender, Calf Tenderness (Right) Neurologic/Psychiatric: Alert, Oriented x3, police communications dispatcher II-XII Norm as Tested, Depressed Affect, Motor Weakness (Generalized) Skin: Normal Color, Warm/Dry Lymphatic: No Adenopathy Results/Procedures Lab Laboratory Tests 11/12/21 05:40 Patient resulted labs reviewed. FIM Transfers Therapy Code Descriptions/Definitions Functional [place] Measure: 0=Not Assessed/NA 4=Minimal Assistance 1=Total Assistance 5=Supervision or Setup 2=Maximal Assistance 6=Modified [place] 3=Moderate Assistance 7=Complete IndependenceSCALE: Activities may be completed with or without assistive devices. 6-Dghleahvfy-harllza completes the activity by him/herself with no assistance from a helper. 5-Set-up or Clean-up Assistance-helper sets up or cleans up; patient completes activity. [place] assists only prior to or following the activity. 4-Supervision or Touching Assistance-helper provides verbal cues and/or touching/steadying and/or contact guard assistance as patient completes activity. Assistance may be provided throughout the activity or intermittently. 3-Partial/Moderate Assistance-helper does LESS THAN HALF the effort. [place] lifts, holds or supports trunk or limbs, but provides less than half the effort. 2-Substantial/Maximal Assistance-helper does MORE THAN HALF the effort. [place] lifts or holds trunk or limbs and provides more than half the effort. 5-Wrblcdrdd-lpwcrt does ALL the effort. Patient does none of the effort to complete the activity. Or, the assistance of 2 or more helpers is required for the patient to complete the activity. If activity was not attempted, code reason: 7-Patient Refused. 9-Not Applicable-not attempted and the patient did not perform the activity before the current illness, exacerbation or injury. 10-Not Attempted due to Environmental Limitations-(lack of equipment, weather restraints, etc.). 88-Not Attempted due to Medical Conditions or Safety Concerns. Roll Left to Right (QC): 2 Sit to Lying (QC): 2 Sit to Stand (QC): 2 Chair/Tej-vc-Dkout Xfer(QC): 3 Car Transfer (QC): 88 Gait Training Does the Patient Walk?: No and Walking Goal IS indicated Walk 10 feet (QC): 88 Walk 50 ft with 2 Turns(QC): 88 Walk 150 ft (QC): 88 Walking 10ft/uneven surface-QC: 88 Wheelchair Training Does the Pt Use a Wheelchair?: Yes Wheel 50 ft with 2 turns (QC): 3 Wheel 150 ft (QC): 3 Type of Wheelchair: Manual Stair Training 1 Step (curb) (QC): 88 4 Steps (QC): 88 12 Steps (QC): 88 Balance Picking up an Object (QC): 88 ADL-Treatment Eating (QC): 4 Oral Hygiene (QC): 7 Bathing Location: L Arm, R Arm, L Upper Leg, R Upper Leg, L Lower Leg (including foot), R Lower Leg (including foot), Chest, Abdomen Shower/Bathe Self (QC): 2 Upper Body Dressing (QC): 4 Lower Body Dressing (QC): 1 On/Off Footwear (QC): 1 Toileting Hygiene (QC): 1 Toilet Transfer (QC): 1 Assessment/Plan Assessment and Plan Assess & Plan/Chief Complaint Assessment: 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 Recent aspiration pneumonia requiring intubation Continued hypoxia requiring supplemental oxygen Anasarca Atrial fibrillation CAD 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 Bar for wound care 11/05/2021: Continue fluid restriction Bowel regimen Dr. Bar appreciated Dr. Rodriguez appreciated IV diuresis? 11/06/2021: IV diuresis Fluid restriction Wound care Cardiology appreciated 11/07/2021: High-protein Ensure Fluid restriction changed Close monitoring 11/08/2021: Supportive care Protein supplements 11/09/2021: Supportive care May need to start looking at skilled 11/10/2021: Supportive care Skilled care 11/11/2021: Hospice at discharge 11/12/2021: Maintain [facility] at discharge (1) Acute on chronic heart failure with preserved ejection fraction (HFpEF) Assessment & Plan: Since starting intravenous furosemide on 11/05, he has some improvement in his peripheral edema over the past 48 hours. I recommend he continue the intravenous furosemide and watch his renal function closely. I will also start spironolactone which has some positive data in the literature for patients with heart failure with preserved ejection fraction. (2) Permanent atrial fibrillation Assessment & Plan: Heart rates appear controlled with digoxin and diltiazem. Since he did not notice any difference when starting digoxin prior to this admission, I will stop the digoxin. 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 He may be a candidate for a Watchman device. He can discuss this with his regular director social welfare at the outside facility following discharge. (3) Pulmonary hypertension Assessment & Plan: He has severe pulmonary hypertension. Some of this could be due to acute heart failure on top of his previous mitral valve surgery now with at least a mild degree of stenosis in the bioprosthesis as noted on his echocardiogram during this admission. This will need to be followed longitudinally by his regular director social welfare. (4) Primary hypertension Assessment & Plan: Blood pressure is reasonably controlled with the present combination of medications. (5) H/O mitral valve replacement Assessment & Plan: He has a bovine bioprosthetic mitral valve. 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 This may be contributing to his heart failure. This will need to be followed by his regular director social welfare at the outside facility after discharge. (6) Mixed hyperlipidemia Assessment & Plan: Continue statin. BOB HOUSER DO Nov 12, 2021 06:10
[2021-11-12 07:43] VITALS: BP 117/67
[2021-11-12] MEDS: ENOXAPARIN 60 MG/0.6 ML (LOVENOX) SYR SQ SCH (08:01)
[2021-11-12] MEDS: SPIRONOLACTONE 25 MG (ALDACTONE) TAB PO SCH (08:02)
[2021-11-12] MEDS: guaiFENesin (MUCINEX) 600 MG TAB PO SCH ×2 (08:02→20:13)
[2021-11-12] MEDS: KCL 20 MEQ TAB (K-DUR) PO SCH (08:02)
[2021-11-12] MEDS: MICONAZOLE 2% POWDER (DESENEX AF) 90 GM TOP SCH ×2 (08:02→20:12)
[2021-11-12] MEDS: SENNA W/DOCUSATE (SENOKOT S) TABLET PO SCH ×2 (08:02→20:13)
[2021-11-12] MEDS: DOCUSATE SODIUM 100 MG (COLACE) CAP PO SCH ×2 (08:02→20:13)
[2021-11-12] MEDS: GABAPENTIN 100 MG (NEURONTIN) CAP PO SCH ×2 (08:02→20:13)
[2021-11-12] MEDS: polyethylene glycoL POWDER 17 GM (MIRALAX) PACK PO SCH ×2 (08:02→20:13)
[2021-11-12] MEDS: FAMOTIDINE 20 MG (PEPCID) TABLET PO SCH ×2 (08:03→20:13)
--- NOTE | 2021-11-12 08:16 | Cardiology Progress Note ---
Subjective Date Seen by Provider: Nov 12, 2021 Time Seen by Provider: 08:15 Subjective/Events-last exam Patient sitting up in bed, no new complaints Review of Systems General: No Chills, No Night Sweats; Fatigue, Malaise; No Appetite, No Other HEENT: No Head Aches, No Visual Changes, No Eye Pain, No Ear Pain, No Dysphasia, No Sinus Congestion, No Post Nasal Drip, No Sore Throat, No Other Pulmonary: No Dyspnea, No Cough, No Pleuritic Chest Pain, No Other Cardiovascular: Edema; No: Chest Pain, Palpitations, Orthopnea, Paroxysmal Noc. Dyspnea, Lt Headedness, Other Objective-Cardiology Exam Last Set of Vital Signs Vital Signs 11/12/21 07:43 Temp 36.1 Pulse 96 Resp 18 B/P (MAP) 117/67 (84) Pulse Ox 93 O2 Delivery High Flow N/C O2 Flow Rate 8.00 I&O Intake and Output 11/12/21 00:00 Intake Total 1450 ml Output Total 1500 ml Balance -50 ml Intake Oral 1450 ml Output Urine Total 1300 ml Stool Total 200 ml # Voids 3 # Bowel Movements 1 General: Alert, Oriented X3, Cooperative HEENT: Atraumatic, PERRLA Lungs: Clear to Auscultation, Normal Air Movement Heart: Normal S1, Normal S2, Other (Peripheral edema) Abdomen: Other (ascites) Extremities: No Clubbing, Other Skin: No Rashes Neuro: Normal Speech Psych/Mental Status: Mental Status NL, Mood NL Results Lab Laboratory Tests 11/12/21 05:40 A/P-Cardiology Admission Diagnosis afib mitral valve replacement HTN Critical illness myopathy Assessment/Plan Atrial fibrillation, reports long standing hx of afib since 1999, history of GI bleed on Coumadin and Eliquis, patient reports has been off OAC for the past couple years. Currently rate controlled afib, continue to monitor. History of Mitral valve replacement with tissue valve with Dr. Smith approx 6-7 years, questionable MAZE and KRISTEN ligation, I will try to obtain copy of records for further review. 2D Echo done November 06, 2021 showing EF 55-60%, mild to moderate mitral stenosis, PA 80mmHg. Cor pulmonale with severe pulmonary hypertension, peripheral edema, started on Lasix, increased to 80mg BID on 11/10/21, Zaroxolyn 5mg x 1 dose given yesterday, will continue with BID Lasix again today. History of AAA with endograft repair. s/p large bowel obstruction in Aug 2021 requiring resection and colostomy Recent aspiration pneumonia requiring intubation, extubated and slowly improving, on supplemental oxygen. Hypertension, controlled, continue to monitor. Critical illness myopathy CKD, continue to montior renal function Right lower extremity hematoma per US done at [facility] 3/4 Anemia requiring recent blood transfusion, continue to monitor H/H. Depression Supervisory-Addendum Brief Supervisory Addendum Participated in pt care: history, MDM, physical Personally performed: exam, history, MDM Care discussed with: MICHAEL Results interpretation: Verified all documentation Notes: Patient was seen and evaluated with Alice, examination performed, management plan was discussed, agree with the current scribed note, I made few changes to the note using Italic font Patient was seen at bedside laying down comfortably Still having significant edema Better urine output today, will continue Lasix 80 twice daily and monitor renal function closely Continue to monitor blood pressure ALICE NGUYEN Nov 12, 2021 08:16 MELI HEARN MD Nov 12, 2021 08:44
[2021-11-12] MEDS: IRON SUCROSE 200 MG/10 ML (VENOFER) VIAL IV SCH (08:21)
--- NOTE | 2021-11-12 09:43 | Progress Note - Urology ---
Progress Note-Urology Progress Notes/Assess & Plan Progress/Assessment & Plan [facility] IN PER PATIENT REQUEST. MAY GO ON HOSPICE. PLAN PER PATIENT CHOICE. WE WILL SEE EMMANUEL BIGGS MD Nov 12, 2021 09:43
--- NOTE | 2021-11-12 10:07 | Occupational Ther Daily Note ---
OT Current Status-Daily Note Subjective Pt alert, laying in bed with HOB raised. Pt agreed to therapy. No c/o pain reported. Mental Status/Objective Patient Orientation: Person, Place, Time, Situation Attachments: Spaulding Catheter, IV, Oxygen ADL-Treatment Pt agreed to complete sponge bath at this time. After set up of materials required, pt agreed to cleanse UB, chest, abdomen. Declined LB due to being wrapped. When asked if pt would complete oral hygiene, pt declined stating he did it last night. Therapy Code Descriptions/Definitions Functional [place] Measure: 0=Not Assessed/NA 4=Minimal Assistance 1=Total Assistance 5=Supervision or Setup 2=Maximal Assistance 6=Modified [place] 3=Moderate Assistance 7=Complete IndependenceSCALE: Activities may be completed with or without assistive devices. 6-Gwatfktlhf-haceowu completes the activity by him/herself with no assistance from a helper. 5-Set-up or Clean-up Assistance-helper sets up or cleans up; patient completes activity. [place] assists only prior to or following the activity. 4-Supervision or Touching Assistance-helper provides verbal cues and/or touching/steadying and/or contact guard assistance as patient completes activity. Assistance may be provided throughout the activity or intermittently. 3-Partial/Moderate Assistance-helper does LESS THAN HALF the effort. [place] lifts, holds or supports trunk or limbs, but provides less than half the effort. 2-Substantial/Maximal Assistance-helper does MORE THAN HALF the effort. [place] lifts or holds trunk or limbs and provides more than half the effort. 4-Wdkacasoz-rbtmoy does ALL the effort. Patient does none of the effort to complete the activity. Or, the assistance of 2 or more helpers is required for the patient to complete the activity. If activity was not attempted, code reason: 7-Patient Refused. 9-Not Applicable-not attempted and the patient did not perform the activity before the current illness, exacerbation or injury. 10-Not Attempted due to Environmental Limitations-(lack of equipment, weather restraints, etc.). 88-Not Attempted due to Medical Conditions or Safety Concerns. Bathing Location: L Arm, R Arm Shower/Bathe Self (QC): 3 Other Treatment [id number] OT/PT cotreat due to skill of 2 clinicians required which a career and technology education teacher could not perform in order to coordinate UE/LEs, decrease fall risk, and due to pt's limitations in strength, mobility, transfers, and activity tolerance. OT focused on UE placement, cues for sequencing and safety, and ADLs, PT focused on LE placement, gross overall movements, and transfers. enters room for family education. Mod-max a to sit EOB. Pt requires increased time to complete task due to poor mobility and activity tolerance. Pt verbalizes awareness of listing R but does not attempt to correct without cues. Pt looked self in mirror to be able to have awareness of R side and to maintain balance. Pt was unable to correct self. Pt sit-stand from EOB with Mod A x2, pt unable to push self from EOB. Pt required resting break before trying again. Pt stated he was ready to try again. Pt sit-stand from EOB with Mod A x2, pt unable to push self from EOB to complete standing task. Pt stated he was tired and needs to lay down. Mod A x2 to assist pt from EOB to supine. After session, pt laying in bed with HOB raised. present in room. All needs met and call light in reach. Education OT Patient Education: Correct positioning, Energy conservation, Modified ADL techniques, Progress toward Goal/Update tx plan, Safety issues, Transfer techniques Teaching Recipient: Patient, Significant Other Teaching Methods: Demonstration, Discussion Response to Teaching: Verbalize Understanding, Return Demonstration OT Short Term Goals Short Term Goals Time Frame: Nov 13, 2021 Eatin Oral hygiene: 5 Toileting hygiene: 3 Shower/bathe self: 2 Upper body dressin Lower body dressin Putting on/taking off footwear: 2 OT Assisted Goals Motor Mechanic Goals Time Frame: Dec 04, 2021 Eating (QC): 6 Oral Hygiene (QC): 6 Toileting Hygiene (QC): 3 Shower/Bathe Self (QC): 5 Upper Body Dressing (QC): 6 Lower Body Dressing (QC): 5 On/Off Footwear (QC): 4 1=Demonstrate adherence to instructed precautions during ADL tasks. 2=Patient will verbalize/demonstrate understanding of assistive devices/modifications for ADL. 3=Patient will improve strength/tolerance for activity to enable patient to perform ADL's. OT Education/Plan Problem List/Assessment Assessment: Decreased Activ Tolerance, Decreased Safety Aware, Decreased UE Strength, Impaired Bed Mobility, Impaired Funct Balance, Impaired I ADL's, Impaired Self-Care Skills Discharge Recommendations Plan/Recommendations: Continue POC Treatment Plan/Plan of Care Patient would benefit from OT for education, treatment and training to promote independence in ADL's, mobility, safety and/or upper extremity function for ADL' s. Plan of Care: ADL Retraining, Cognitive Retraining, Functional Mobility, Group Exercise/Act as Ind, UE Funct Exercise/Act, W/C Management Training Treatment Duration: Dec 04, 2021 Frequency: At least 5 of 7 days/Wk (IRF) Estimated Hrs Per Day: 1.5 hours per day Agreement: Yes Rehab Potential: Guarded Time/GCodes Start Time: 08:45 Stop Time: 10:15 Total Time Billed (hr/min): 90 Billed Treatment Time 1 visit- ADL 1 (15 mins) FA 5( 75 mins) Co-Treat ([phone]) Individual ([phone], [id number]) TANNER ALBRECHT Nov 12, 2021 10:07
--- NOTE | 2021-11-12 10:17 | Physical Therapy Daily Note ---
PT Daily Note-Current Subjective Pt laying Supine in bed with Sp present working w/OT upon arrival. Pt agrees to PT/OT co-treat w/focus on training Sp for transfers/care at home upon d/c as Sp requested. Mental Status Attachments: Oxygen (8L), Spaulding Catheter Transfers SCALE: Activities may be completed with or without assistive devices. 9-Yswdgbaruw-vhgqyip completes the activity by him/herself with no assistance from a helper. 5-Set-up or Clean-up Assistance-helper sets up or cleans up; patient completes activity. [place] assists only prior to or following the activity. 4-Supervision or Touching Assistance-helper provides verbal cues and/or touching/steadying and/or contact guard assistance as patient completes activity. Assistance may be provided throughout the activity or intermittently. 3-Partial/Moderate Assistance-helper does LESS THAN HALF the effort. [place] lifts, holds or supports trunk or limbs, but provides less than half the effort. 2-Substantial/Maximal Assistance-helper does MORE THAN HALF the effort. [place] lifts or holds trunk or limbs and provides more than half the effort. 2-Gxojmcdnm-ichtit does ALL the effort. Patient does none of the effort to complete the activity. Or, the assistance of 2 or more helpers is required for the patient to complete the activity. If activity was not attempted, code reason: 7-Patient Refused. 9-Not Applicable-not attempted and the patient did not perform the activity before the current illness, exacerbation or injury. 10-Not Attempted due to Environmental Limitations-(lack of equipment, weather restraints, etc.). 88-Not Attempted due to Medical Conditions or Safety Concerns. Weight Bearing Full Weight Bearing Full Weight Bearing Exercises Supine Ex: Bridging, Rolling, Scooting Treatments [id number] OT/PT cotreat due to skill of 2 clinicians required which a rehabilitation services director could not perform in order to coordinate UE/LEs, decrease fall risk, and due to pt's limitations in strength, mobility, transfers, and activity tolerance. OT focused on UE placement, cues for sequencing and safety, and ADLs, PT focused on LE placement, gross overall movements, and transfers. enters room for family education. Mod-max a to sit EOB. Pt requires increased time to complete task due to poor mobility and activity tolerance. Pt verbalizes awareness of listing R but does not attempt to correct without cues. Pt looked self in mirror to be able to have awareness of R side and to maintain balance. Pt was unable to correct self. Pt sit-stand from EOB with Mod A x2, pt unable to push self from EOB. Pt required resting break before trying again. Pt stated he was ready to try again. Pt sit-stand from EOB with Mod A x2, pt unable to push self from EOB to complete standing task. Pt stated he was tired and needs to lay down. Max A x2 to assist pt from EOB to supine. After session, pt laying in bed with HOB ra ised. present in room. All needs met and call light in reach. Assessment Current Status: Poor Progress Pt takes extend time to complete any task whether it be Supine to EOB or standing. Pt is usually Max A for transfers lashell. if multiple times attempted. Pt is retropulsive and doesn't correct even with VC. Pt fatigues quickly and demonstrates unmotivated to complete tasks. Sp is present and is unrealistic about expectations of both pt & care that can be provided at home. PT Short Term Goals Short Term Goals Time Frame: Nov 09, 2021 Roll Left & Right: 3 Sit to lyin Lying to sitting on side of be: 2 Sit to stand: 3 Chair/ayz-eu-glkeo transfer: 3 PT Prison Goals Prison Goals PT Prison Goals Time Frame: Nov 23, 2021 Roll Left & Right (QC): 4 Sit to Lying (QC): 3 Lying-Sitting on Side/Bed(QC): 3 Sit to Stand (QC): 4 Chair/Hpp-ou-Qqgyn Xfer(QC): 4 Toilet Transfer (QC): 4 Car Transfer (QC): 3 Does the Patient Walk: Yes Walk 10 feet (QC): 4 Walk 50ft with 2 Turns (QC): 88 Walk 150 ft (QC): 88 Walking 10ft on Uneven Surface: 88 1 Step (curb) (QC): 88 4 Steps (QC): 88 12 Steps (QC): 88 Picking up an Object (QC): 4 Wheel 50 feet with 2 turns (QC: 4 Wheel 150 feet: 4 PT Plan Problem List Problem List: Activity Tolerance, Functional Strength, Transfer, Bed Mobility, ROM Treatment/Plan Treatment Plan: Continue Plan of Care Treatment Plan: Bed Mobility, Education, Functional Activity [place], Functional Strength, Group Therapy, Gait, Safety, Therapeutic Exercise, Transfers Treatment Duration: Nov 23, 2021 Frequency: At least 5 of 7 days/Wk (IRF) Estimated Hrs Per Day: 1.5 hours per day Patient and/or Family Agrees t: Yes Safety Risks/Education Patient Education: Transfer Techniques, Correct Positioning, Instructions to Caregiver, Safety Issues Teaching Recipient: Patient, Significant Other Teaching Methods: Demonstration, Discussion Response to Teaching: Verbalize Understanding Time/GCodes Time In: 900 Time Out: 1000 Total Billed Treatment Time: 60 Total Billed Treatment Co-treat w/OT for 60m 1, FA x4 (60m) TELLY BRIZUELA GAUGER CHIEF DELIVERY Nov 12, 2021 10:17
--- NOTE | 2021-11-12 12:03 | Physical Therapy Daily Note ---
PT Daily Note-Current Subjective Pt asleep laying Supine in bed with Sp on phone upon arrival. Pt agrees to PT. Pain Location: No Pain Reported Mental Status Patient Orientation: Person, Place Attachments: Oxygen (8L), Spaulding Catheter, IV Transfers SCALE: Activities may be completed with or without assistive devices. 1-Xlmsuizxbf-tdqzhns completes the activity by him/herself with no assistance from a helper. 5-Set-up or Clean-up Assistance-helper sets up or cleans up; patient completes activity. [place] assists only prior to or following the activity. 4-Supervision or Touching Assistance-helper provides verbal cues and/or touching/steadying and/or contact guard assistance as patient completes activity. Assistance may be provided throughout the activity or intermittently. 3-Partial/Moderate Assistance-helper does LESS THAN HALF the effort. [place] lifts, holds or supports trunk or limbs, but provides less than half the effort. 2-Substantial/Maximal Assistance-helper does MORE THAN HALF the effort. [place] lifts or holds trunk or limbs and provides more than half the effort. 2-Xjxedkdmx-gixggn does ALL the effort. Patient does none of the effort to complete the activity. Or, the assistance of 2 or more helpers is required for the patient to complete the activity. If activity was not attempted, code reason: 7-Patient Refused. 9-Not Applicable-not attempted and the patient did not perform the activity before the current illness, exacerbation or injury. 10-Not Attempted due to Environmental Limitations-(lack of equipment, weather restraints, etc.). 88-Not Attempted due to Medical Conditions or Safety Concerns. Weight Bearing Full Weight Bearing Full Weight Bearing Exercises Supine Ex: Ankle pumps, Quad Set, Glut sets, Heel Slides, Straight leg raise, Hip abd/add Supine Reps: 15 Treatments Pt completes Supine Ex with several RB for fatigue. GINSENG FARMER assists pt as well as continued to wake pt because easily falling asleep. Pt sleeping at end of tx. All needs met, call light in hand and Sp on phone. Assessment Current Status: Poor Progress Difficult to keep pt awake. Nursing reports pt is sleeping at night but continually sleeps during day as well. PT Short Term Goals Short Term Goals Time Frame: Nov 09, 2021 Roll Left & Right: 3 Sit to lyin Lying to sitting on side of be: 2 Sit to stand: 3 Chair/dyh-uy-srjna transfer: 3 PT Assisted Goals Anode Worker Goals PT Assisted Goals Time Frame: Nov 23, 2021 Roll Left & Right (QC): 4 Sit to Lying (QC): 3 Lying-Sitting on Side/Bed(QC): 3 Sit to Stand (QC): 4 Chair/Soa-kp-Lumhh Xfer(QC): 4 Toilet Transfer (QC): 4 Car Transfer (QC): 3 Does the Patient Walk: Yes Walk 10 feet (QC): 4 Walk 50ft with 2 Turns (QC): 88 Walk 150 ft (QC): 88 Walking 10ft on Uneven Surface: 88 1 Step (curb) (QC): 88 4 Steps (QC): 88 12 Steps (QC): 88 Picking up an Object (QC): 4 Wheel 50 feet with 2 turns (QC: 4 Wheel 150 feet: 4 PT Plan Problem List Problem List: Activity Tolerance, Functional Strength, Bed Mobility, ROM Treatment/Plan Treatment Plan: Continue Plan of Care Treatment Plan: Bed Mobility, Education, Functional Activity [place], Functional Strength, Group Therapy, Gait, Safety, Therapeutic Exercise, Transfers Treatment Duration: Nov 23, 2021 Frequency: At least 5 of 7 days/Wk (IRF) Estimated Hrs Per Day: 1.5 hours per day Patient and/or Family Agrees t: Yes Safety Risks/Education Patient Education: Correct Positioning Teaching Recipient: Patient Teaching Methods: Discussion Response to Teaching: Verbalize Understanding Time/GCodes Time In: 1125 Time Out: 1155 Total Billed Treatment Time: 30 Total Billed Treatment 1, Ex x2 (30m) TELLY BRIZUELA PTA Nov 12, 2021 12:03
[2021-11-12] MEDS: TAMSULOSIN 0.4 MG (FLOMAX) CAP PO SCH (17:14)
[2021-11-12 19:54] VITALS: BP 110/57
[2021-11-12] MEDS: traZODone 50 MG (DESYREL) TAB PO SCH (20:13)
[2021-11-13] MEDS: METOCLOPRAMIDE 10 MG (REGLAN) TAB PO SCH ×5 (00:43→23:57)
--- NOTE | 2021-11-13 06:04 | PM&R Progress Note ---
Subjective HPI/CC On Admission Date Seen by Provider: Nov 13, 2021 Time Seen by Provider: 12:30 Subjective/Events-last exam 11/13/2021: Pt is more lethargic IV Lasix given BID Hospice will be set up and he will discharge tomorrow 11/12/2021: Patient more sleepy Hospice will be set up with [place] Spaulding will be left in place at discharge [place] wraps to lower extremities Lasix will still be maintained 11/11/2021: Pt is doing about the same Sodium level is 130 Hemoglobin was 8.3 Last iron infusion today 80mg of Lasix will be given BID Effexor started for depression Had a long discussion with his and he will be signed up for hospice of Dr. Silva's choice We will get him functional enough to return home with hospice services 11/10/2021: Pt is still very weak It appears that he will need skilled care beam worker will pursue that No significant other issues Appreciate Dr. Meza and Dr. Brown 11/09/2021: Pt is doing well Pretty weak today Sodium level was 132 Hemoglobin was 8.3 Daily weights maintained along with Lasix 80 mg IV daily Flomax will be started and he is voiding well 11/08/2021: Patient doing well Sitting up in chair Transfers are better Edema is improving Multiple meds were changed by Dr. Rodriguez Anasarca continues Protein recommended in diet 11/07/2021: Patient doing well Sitting in a wheelchair most the morning at bedside Educated on third spacing fluid IV Lasix maintain Adjusted potassium dosing yesterday High-protein Ensure will be initiated 11/06/2021: Patient is stable Slow recovery at bedside IV diuresis tolerated Noted labs Change potassium Denies any pain 11/05/2021: Patient doing fairly well Slow progress No pain is reported Voiding fairly well Dr. Rodriguez will evaluate IV diuresis at bedside Oxygen maintained 11/04/2021: Patient had a really good night Voiding well no Spaulding catheter in and out cath required No pain is reported Scrotal edema continues to be supported Oxygen is maintained Dr. Bar will evaluate sacral decubitus ulcer and heels Ostomy output has slowed so may need to reach out to Dr. Cornelio Kemp cardiology 11/03/2021: Patient had a pretty good night Wore oxygen last night No pain reported Labs noted Urology consulted for Spaulding DC Iron and B12 checked Fluid restriction at 1200cc Review of Systems General: Fatigue, Malaise Objective Exam Vital Signs Vital Signs Date Time Temp Pulse Resp B/P (MAP) Pulse Ox O2 Delivery O2 Flow Rate FiO2 11/13/21 19:25 36.7 80 20 106/60 (75) 97 Nasal Cannula 8.00 Capillary Refill : General Appearance: No Apparent Distress, WD/WN, Chronically ill, Obese HEENT: PERRL/EOMI, Normal ENT Inspection, Pharynx Normal Neck: Full Range of Motion, Normal Inspection, Non Tender, Supple, Carotid Bruit Respiratory: Chest Non Tender, Lungs Clear, Normal Breath Sounds, No Accessory Muscle Use, No Respiratory Distress, Crackles, Decreased Breath Sounds Cardiovascular: No Gallop, No JVD, No Murmur, Normal Peripheral Pulses, Irregularly Irregular Gastrointestinal: Normal Bowel Sounds, No Organomegaly, No Pulsatile Mass, Soft, Distended, Tenderness Back: Normal Inspection, No CVA Tenderness, No Vertebral Tenderness Extremity: Normal Capillary Refill, Normal Inspection, Normal Range of Motion (Limited range of motion), Non Tender, Calf Tenderness (Right) Neurologic/Psychiatric: Alert, Oriented x3, sales service rep II-XII Norm as Tested, Depressed Affect, Motor Weakness (Generalized) Skin: Normal Color, Warm/Dry Lymphatic: No Adenopathy Results/Procedures Lab Patient resulted labs reviewed. FIM Transfers Therapy Code Descriptions/Definitions Functional [place] Measure: 0=Not Assessed/NA 4=Minimal Assistance 1=Total Assistance 5=Supervision or Setup 2=Maximal Assistance 6=Modified [place] 3=Moderate Assistance 7=Complete IndependenceSCALE: Activities may be completed with or without assistive devices. 6-Zrmckmftnc-toatrop completes the activity by him/herself with no assistance from a helper. 5-Set-up or Clean-up Assistance-helper sets up or cleans up; patient completes a ctivity. [place] assists only prior to or following the activity. 4-Supervision or Touching Assistance-helper provides verbal cues and/or touching/steadying and/or contact guard assistance as patient completes activity. Assistance may be provided throughout the activity or intermittently. 3-Partial/Moderate Assistance-helper does LESS THAN HALF the effort. [place] lifts, holds or supports trunk or limbs, but provides less than half the effort. 2-Substantial/Maximal Assistance-helper does MORE THAN HALF the effort. [place] lifts or holds trunk or limbs and provides more than half the effort. 8-Tlfpchdvk-scuvyg does ALL the effort. Patient does none of the effort to complete the activity. Or, the assistance of 2 or more helpers is required for the patient to complete the activity. If activity was not attempted, code reason: 7-Patient Refused. 9-Not Applicable-not attempted and the patient did not perform the activity before the current illness, exacerbation or injury. 10-Not Attempted due to Environmental Limitations-(lack of equipment, weather restraints, etc.). 88-Not Attempted due to Medical Conditions or Safety Concerns. Roll Left to Right (QC): 2 Sit to Lying (QC): 2 Sit to Stand (QC): 2 Chair/Sgk-py-Xsddu Xfer(QC): 3 Car Transfer (QC): 88 Gait Training Does the Patient Walk?: No and Walking Goal IS indicated Walk 10 feet (QC): 88 Walk 50 ft with 2 Turns(QC): 88 Walk 150 ft (QC): 88 Walking 10ft/uneven surface-QC: 88 Wheelchair Training Does the Pt Use a Wheelchair?: Yes Wheel 50 ft with 2 turns (QC): 3 Wheel 150 ft (QC): 3 Type of Wheelchair: Manual Stair Training 1 Step (curb) (QC): 88 4 Steps (QC): 88 12 Steps (QC): 88 Balance Picking up an Object (QC): 88 ADL-Treatment Eating (QC): 4 Oral Hygiene (QC): 7 Bathing Location: L Arm, R Arm Shower/Bathe Self (QC): 3 Upper Body Dressing (QC): 4 Lower Body Dressing (QC): 1 On/Off Footwear (QC): 1 Toileting Hygiene (QC): 1 Toilet Transfer (QC): 1 Assessment/Plan Assessment and Plan Assess & Plan/Chief Complaint Assessment: 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 Recent aspiration pneumonia requiring intubation Continued hypoxia requiring supplemental oxygen Anasarca Atrial fibrillation CAD 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 Bar for wound care 11/05/2021: Continue fluid restriction Bowel regimen Dr. Bar appreciated Dr. Rodriguez appreciated IV diuresis? 11/06/2021: IV diuresis Fluid restriction Wound care Cardiology appreciated 11/07/2021: High-protein Ensure Fluid restriction changed Close monitoring 11/08/2021: Supportive care Protein supplements 11/09/2021: Supportive care May need to start looking at skilled 11/10/2021: Supportive care Skilled care 11/11/2021: Hospice at discharge 11/12/2021: Maintain [facility] at discharge 11/13/2021: Supportive care Hospice discharge (1) Acute on chronic heart failure with preserved ejection fraction (HFpEF) Assessment & Plan: Since starting intravenous furosemide on 11/05, he has some improvement in his peripheral edema over the past 48 hours. I recommend he continue the intravenous furosemide and watch his renal function closely. I will also start spironolactone which has some positive data in the literature for patients with heart failure with preserved ejection fraction. (2) Permanent atrial fibrillation Assessment & Plan: Heart rates appear controlled with digoxin and diltiazem. Since he did not notice any difference when starting digoxin prior to this admission, I will stop the digoxin. 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 He may be a candidate for a Watchman device. He can discuss this with his regular options advisor at the outside facility following discharge. (3) Pulmonary hypertension Assessment & Plan: He has severe pulmonary hypertension. Some of this could be due to acute heart failure on top of his previous mitral valve surgery now with at least a mild degree of stenosis in the bioprosthesis as noted on his echocardiogram during this admission. This will need to be followed longitudinally by his regular options advisor. (4) Primary hypertension Assessment & Plan: Blood pressure is reasonably controlled with the present combination of medications. (5) H/O mitral valve replacement Assessment & Plan: He has a bovine bioprosthetic mitral valve. 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 This may be contributing to his heart failure. This will need to be followed by his regular options advisor at the outside facility after discharge. (6) Mixed hyperlipidemia Assessment & Plan: Continue statin. BOB HOUSER DO Nov 13, 2021 06:04
[2021-11-13] MEDS: CATHETER FLUSH 10 ML SYR IVP SCH ×3 (06:35→21:02)
[2021-11-13] MEDS: VENlafaxine XR 75 MG (EFFEXOR XR) CAP PO SCH (06:35)
[2021-11-13] MEDS: MULTIVIT W/MINERALS TAB (THERAGRAN M) PO SCH (06:35)
[2021-11-13] MEDS: CYANOCOBALAMIN 1,000 MCG (VITAMIN B-12) TABLET PO SCH (06:35)
[2021-11-13] MEDS: FUROSEMIDE 40 MG/4 ML INJ (LASIX) IVP SCH ×2 (06:35→17:55)
[2021-11-13 07:40] VITALS: BP 121/60
[2021-11-13] MEDS: MICONAZOLE 2% POWDER (DESENEX AF) 90 GM TOP SCH ×2 (07:59→21:03)
[2021-11-13] MEDS: ENOXAPARIN 60 MG/0.6 ML (LOVENOX) SYR SQ SCH (07:59)
[2021-11-13] MEDS: polyethylene glycoL POWDER 17 GM (MIRALAX) PACK PO SCH ×2 (07:59→21:02)
[2021-11-13] MEDS: SPIRONOLACTONE 25 MG (ALDACTONE) TAB PO SCH (08:00)
[2021-11-13] MEDS: GABAPENTIN 100 MG (NEURONTIN) CAP PO SCH ×2 (08:00→21:02)
[2021-11-13] MEDS: guaiFENesin (MUCINEX) 600 MG TAB PO SCH ×2 (08:00→21:02)
[2021-11-13] MEDS: FAMOTIDINE 20 MG (PEPCID) TABLET PO SCH ×2 (08:00→21:02)
[2021-11-13] MEDS: KCL 20 MEQ TAB (K-DUR) PO SCH (08:00)
[2021-11-13] MEDS: DOCUSATE SODIUM 100 MG (COLACE) CAP PO SCH ×2 (08:00→21:02)
[2021-11-13] MEDS: SENNA W/DOCUSATE (SENOKOT S) TABLET PO SCH ×2 (08:00→21:01)
--- NOTE | 2021-11-13 10:17 | Occupational Ther Daily Note ---
OT Current Status-Daily Note Subjective Pt with very soft vocal volume, requires cues to speak louder. Appearance Pt returned to supine in bed, all needs within reach. Mental Status/Objective Patient Orientation: Person, Situation Attachments: Colostomy/Ileostomy, Spaulding Catheter, IV, Oxygen ADL-Treatment Therapy Code Descriptions/Definitions Functional [place] Measure: 0=Not Assessed/NA 4=Minimal Assistance 1=Total Assistance 5=Supervision or Setup 2=Maximal Assistance 6=Modified [place] 3=Moderate Assistance 7=Complete IndependenceSCALE: Activities may be completed with or without assistive devices. 2-Uxusrkkbkc-jqkhrgw completes the activity by him/herself with no assistance from a helper. 5-Set-up or Clean-up Assistance-helper sets up or cleans up; patient completes activity. [place] assists only prior to or following the activity. 4-Supervision or Touching Assistance-helper provides verbal cues and/or touching/steadying and/or contact guard assistance as patient completes activity. Assistance may be provided throughout the activity or intermittently. 3-Partial/Moderate Assistance-helper does LESS THAN HALF the effort. [place] lifts, holds or supports trunk or limbs, but provides less than half the effort. 2-Substantial/Maximal Assistance-helper does MORE THAN HALF the effort. [place] lifts or holds trunk or limbs and provides more than half the effort. 9-Lgwccxofd-tjnkir does ALL the effort. Patient does none of the effort to complete the activity. Or, the assistance of 2 or more helpers is required for the patient to complete the activity. If activity was not attempted, code reason: 7-Patient Refused. 9-Not Applicable-not attempted and the patient did not perform the activity before the current illness, exacerbation or injury. 10-Not Attempted due to Environmental Limitations-(lack of equipment, weather restraints, etc.). 88-Not Attempted due to Medical Conditions or Safety Concerns. On/Off Footwear: 1 Toileting Hygiene (QC): 1 Toilet Transfer (QC): 1 Co-treat with PT due to need of 2 skilled clinicians to progress indep and safety with adls and mobility. Pt very drowsy at therapy arrival. Requires extra time to waken. Post set up, pt completed Face washing at bed level. Dependent to don bilateral socks. Pt with very soft vocal volume this date, requires extra time and cues to speak louder in order for therapist to understand. Pt sat EOB with extra time and mod a to bring torso up to midline. Improved sitting balance notable this session; only needing 1 cue to maintain midline positioning. Continues to need intermittent cues for correct positioning of feet, specifically right foot as it has a tendency to shift towards other foot. Pt stood x3 this date with mod-max a x2. Pt utilized back of recliner to assist in pulling up from and to ease comfort in standing as pt appears apprehensive about using walker. Each standing bout ~15-25 seconds each. On last stand, pt able to side step ~3-5 very small steps towards HOB with assist x2 and assistance in scooting R foot. Pt exhibits SOB and fatigue with each stand, Oxygen remains in 90's post activity, on 8L. Education OT Patient Education: Correct positioning, Energy conservation, Modified ADL techniques, Progress toward Goal/Update tx plan, Purpose of tx/functional activities, Safety issues, Transfer techniques Teaching Recipient: Patient Teaching Methods: Demonstration, Discussion Response to Teaching: Verbalize Understanding, Reinforcement Needed OT Short Term Goals Short Term Goals Time Frame: Nov 13, 2021 Eatin Oral hygiene: 5 Toileting hygiene: 3 Shower/bathe self: 2 Upper body dressin Lower body dressin Putting on/taking off footwear: 2 OT Linux System Admin Goals Linux System Admin Goals Time Frame: Dec 04, 2021 Eating (QC): 6 Oral Hygiene (QC): 6 Toileting Hygiene (QC): 3 Shower/Bathe Self (QC): 5 Upper Body Dressing (QC): 6 Lower Body Dressing (QC): 5 On/Off Footwear (QC): 4 1=Demonstrate adherence to instructed precautions during ADL tasks. 2=Patient will verbalize/demonstrate understanding of assistive devices/modifications for ADL. 3=Patient will improve strength/tolerance for activity to enable patient to perform ADL's. OT Education/Plan Problem List/Assessment Assessment: Decreased Activ Tolerance, Decreased Safety Aware, Decreased UE Strength, Dependent Transfers, Edema, Impaired Bed Mobility, Impaired Cognition, Impaired Funct Balance, Impaired I ADL's, Impaired Self-Care Skills Discharge Recommendations Plan/Recommendations: Continue POC Treatment Plan/Plan of Care Treatment,Training & Education: Yes Patient would benefit from OT for education, treatment and training to promote independence in ADL's, mobility, safety and/or upper extremity function for ADL's. Plan of Care: ADL Retraining, Cognitive Retraining, Functional Mobility, Group Exercise/Act as Ind, UE Funct Exercise/Act, W/C Management Training Treatment Duration: Dec 04, 2021 Frequency: At least 5 of 7 days/Wk (IRF) Estimated Hrs Per Day: 1.5 hours per day Agreement: Yes Rehab Potential: Guarded Time/GCodes Start Time: 09:00 Stop Time: 10:00 Total Time Billed (hr/min): 60 Billed Treatment Time 1 visit ADL (15 min) FA x3 (45 min) Constance Hogan OT Nov 13, 2021 10:17
--- NOTE | 2021-11-13 11:24 | Occupational Ther Daily Note ---
OT Current Status-Daily Note Subjective Pt very drowsy, requires several cues to waken/remain alert. Appearance Pt left supine in bed, all needs within reach. ADL-Treatment Therapy Code Descriptions/Definitions Functional [place] Measure: 0=Not Assessed/NA 4=Minimal Assistance 1=Total Assistance 5=Supervision or Setup 2=Maximal Assistance 6=Modified [place] 3=Moderate Assistance 7=Complete IndependenceSCALE: Activities may be completed with or without assistive devices. 9-Ypzoouiuby-xkizykd completes the activity by him/herself with no assistance from a helper. 5-Set-up or Clean-up Assistance-helper sets up or cleans up; patient completes activity. [place] assists only prior to or following the activity. 4-Supervision or Touching Assistance-helper provides verbal cues and/or touching/steadying and/or contact guard assistance as patient completes activity. Assistance may be provided throughout the activity or intermittently. 3-Partial/Moderate Assistance-helper does LESS THAN HALF the effort. [place] lifts, holds or supports trunk or limbs, but provides less than half the effort. 2-Substantial/Maximal Assistance-helper does MORE THAN HALF the effort. [place] lifts or holds trunk or limbs and provides more than half the effort. 5-Ydppjwlzk-sihxtp does ALL the effort. Patient does none of the effort to complete the activity. Or, the assistance of 2 or more helpers is required for the patient to complete the activity. If activity was not attempted, code reason: 7-Patient Refused. 9-Not Applicable-not attempted and the patient did not perform the activity before the current illness, exacerbation or injury. 10-Not Attempted due to Environmental Limitations-(lack of equipment, weather restraints, etc.). 88-Not Attempted due to Medical Conditions or Safety Concerns. Other Treatment Attempt at performing UE exercises with goal to promote increased strength and endurance needed for adls and mobility. 2# resistance for bicep curl only. All other joints performed without any resistance, AROM only. Pt often would complete 5-6 reps and then begin to doze off. Requires consistent cues to remain alert and open eyes. Poor technique when compared to past sessions, requires reminders and tactile cues. Shoulder movements performed to 90 degrees only. Often pt needs AAROM to finish last 3-4 reps due to fatigue. 10x1 all planes. Poor tolerance to treatment. Education OT Patient Education: Correct positioning, Exercise program, Progress toward Goal/Update tx plan, Purpose of tx/functional activities Teaching Recipient: Patient Teaching Methods: Demonstration, Discussion Response to Teaching: Reinforcement Needed OT Short Term Goals Short Term Goals Time Frame: Nov 13, 2021 Eatin Oral hygiene: 5 Toileting hygiene: 3 Shower/bathe self: 2 Upper body dressin Lower body dressin Putting on/taking off footwear: 2 OT Animal Husbandry Manager Goals Animal Husbandry Manager Goals Time Frame: Dec 04, 2021 Eating (QC): 6 Oral Hygiene (QC): 6 Toileting Hygiene (QC): 3 Shower/Bathe Self (QC): 5 Upper Body Dressing (QC): 6 Lower Body Dressing (QC): 5 On/Off Footwear (QC): 4 1=Demonstrate adherence to instructed precautions during ADL tasks. 2=Patient will verbalize/demonstrate understanding of assistive devices/modifications for ADL. 3=Patient will improve strength/tolerance for activity to enable patient to perform ADL's. OT Education/Plan Problem List/Assessment Assessment: Decreased Activ Tolerance, Decreased Safety Aware, Decreased UE Strength, Dependent Transfers, Edema, Impaired Bed Mobility, Impaired Cognition, Impaired Funct Balance, Impaired I ADL's, Impaired Self-Care Skills, Restricted Funct UE ROM Discharge Recommendations Plan/Recommendations: Continue POC Treatment Plan/Plan of Care Treatment,Training & Education: Yes Patient would benefit from OT for education, treatment and training to promote independence in ADL's, mobility, safety and/or upper extremity function for ADL's. Plan of Care: ADL Retraining, Cognitive Retraining, Functional Mobility, Group Exercise/Act as Ind, UE Funct Exercise/Act, W/C Management Training Treatment Duration: Dec 04, 2021 Frequency: At least 5 of 7 days/Wk (IRF) Estimated Hrs Per Day: 1.5 hours per day Agreement: Yes Rehab Potential: Guarded Time/GCodes Start Time: 10:57 Stop Time: 11:27 Total Time Billed (hr/min): 30 Billed Treatment Time 1 visit EX Constnace Rausch OT Nov 13, 2021 11:24
--- NOTE | 2021-11-13 11:27 | Cardiology Progress Note ---
Subjective Date Seen by Provider: Nov 13, 2021 Time Seen by Provider: 11:25 Subjective/Events-last exam Patient is laying down in bed, tired. No new complaint Review of Systems General: No Chills, No Night Sweats; Fatigue, Malaise; No Appetite, No Other HEENT: No Head Aches, No Visual Changes, No Eye Pain, No Ear Pain, No Dysphasia, No Sinus Congestion, No Post Nasal Drip, No Sore Throat, No Other Pulmonary: No Dyspnea, No Cough, No Pleuritic Chest Pain, No Other Cardiovascular: Edema; No: Chest Pain, Palpitations, Orthopnea, Paroxysmal Noc. Dyspnea, Lt Headedness, Other Objective-Cardiology Exam Last Set of Vital Signs Vital Signs 11/13/21 11/13/21 07:40 09:55 Temp 36.8 Pulse 103 Resp 18 B/P (MAP) 121/60 (80) Pulse Ox 94 O2 Delivery High Flow N/C O2 Flow Rate 8.00 I&O Intake and Output 11/12/21 23:59 Intake Total 1250 ml Output Total 3375 ml Balance -2125 ml Intake Oral 1250 ml Output Urine Total 3175 ml Stool Total 200 ml General: Alert, Oriented X3, Cooperative HEENT: Atraumatic, PERRLA Lungs: Clear to Auscultation, Normal Air Movement Heart: Normal S1, Normal S2, Other (Peripheral edema) Abdomen: Other (ascites) Extremities: No Clubbing, Other Skin: No Rashes Neuro: Normal Speech Psych/Mental Status: Mental Status NL, Mood NL A/P-Cardiology Admission Diagnosis afib mitral valve replacement HTN Critical illness myopathy Assessment/Plan Atrial fibrillation, reports long standing hx of afib since 1999, history of GI bleed on Coumadin and Eliquis, patient reports has been off OAC for the past couple years. Currently rate controlled afib, continue to monitor. History of Mitral valve replacement with tissue valve with Dr. Smith approx 6-7 years, questionable MAZE and KRISTEN ligation, I will try to obtain copy of records for further review. 2D Echo done November 06, 2021 showing EF 55-60%, mild to moderate mitral stenosis, PA 80mmHg. Cor pulmonale with severe pulmonary hypertension, peripheral edema, started on Lasix, increased to 80mg BID on 11/10/21, Zaroxolyn 5mg x 1 dose given yesterday, will continue with BID Lasix again today. History of AAA with endograft repair. S/p large bowel obstruction in Aug 2021 requiring resection and colostomy Recent aspiration pneumonia requiring intubation, extubated and slowly improving, on supplemental oxygen. Hypertension, controlled, continue to monitor. Critical illness myopathy CKD, continue to montior renal function Right lower extremity hematoma per US done at [facility] 3/4 Anemia requiring recent blood transfusion, continue to monitor H/H. Depression MELI HEARN MD Nov 13, 2021 11:27
--- NOTE | 2021-11-13 11:47 | Physical Therapy Daily Note ---
PT Daily Note-Current Subjective Pt. in bed on arrival, very lethargic initially. Slowly awakens to gentle voice and light touch of PT OT for co Rx session. Pt. agreeable to Rx, Does c/o fatigue and weakness during Rx and once mentioned R lateral lower extremity discomfort at area of hematoma. More alert as Rx progressed and engaged more , smiled etc Pain Location: No Pain Reported Comment: did not rate pain in LE Appearance edema conts, 4+ pitting edema in hips ,abdomen and proximal up rib line , round hard abdomen, red/blue face with exertion and more so if HOB is flattened. whispy voice, Mental Status Patient Orientation: Person, Place, Eyes Open Transfers SCALE: Activities may be completed with or without assistive devices. 7-Zesnkbykpi-rfvhdji completes the activity by him/herself with no assistance from a helper. 5-Set-up or Clean-up Assistance-helper sets up or cleans up; patient completes activity. [place] assists only prior to or following the activity. 4-Supervision or Touching Assistance-helper provides verbal cues and/or touching/steadying and/or contact guard assistance as patient completes activity. Assistance may be provided throughout the activity or intermittently. 3-Partial/Moderate Assistance-helper does LESS THAN HALF the effort. [place] lifts, holds or supports trunk or limbs, but provides less than half the effort. 2-Substantial/Maximal Assistance-helper does MORE THAN HALF the effort. [place] lifts or holds trunk or limbs and provides more than half the effort. 9-Ukfjlieqm-jsxgsp does ALL the effort. Patient does none of the effort to c omplete the activity. Or, the assistance of 2 or more helpers is required for the patient to complete the activity. If activity was not attempted, code reason: 7-Patient Refused. 9-Not Applicable-not attempted and the patient did not perform the activity before the current illness, exacerbation or injury. 10-Not Attempted due to Environmental Limitations-(lack of equipment, weather restraints, etc.). 88-Not Attempted due to Medical Conditions or Safety Concerns. Roll Left & Right (QC): 3 Sit to Lying (QC): 2 Lying to Sitting/Side of Bed(Q: 3 Sit to Stand (QC): 3 rolling with assist of 2 side to sit mod 1, sit to stand with bed level raised pt. used locked recliner chair back to pull up on using rocking momentum on count of 3 and mod assist of 2 skilled clinicians assessing and tactilely cuing at hips and knees , sit to stand is taxing for pt. but he gave full effort this Rx. sit to supine was max assist lashell at LEs as pt layed down on right side and used UEs on bed rails Weight Bearing Full Weight Bearing Full Weight Bearing Gait Training no functional gait this date however pt. was able to side step to his right approx 4 steps using chair back to wt bear on with UEs, This was to great advantage for pt as he then sat up higher in bed and was able to lay in more comfortable position at head of bed Exercises Supine Ex: Ankle pumps, Quad Set, Rolling, Glut sets, Heel Slides, Hip abd/add Supine Reps: 12 Seated Therapy Exercises: Ankle pumps, Sit to stand (4), Long arc quads, Hip flexion Seated Reps: 8 Standing: Side steps Standing Reps: 4 Treatments PT OT co Rx secondary to complex assessment throughout attempts at function and ADLs, Pt. very debilitated, requires max to mod assist and instruction for all Assessment Current Status: Fair Progress dependent for all mobility. PT Short Term Goals Short Term Goals Time Frame: Nov 09, 2021 Roll Left & Right: 3 Sit to lyin Lying to sitting on side of be: 2 Sit to stand: 3 Chair/ait-he-wjhnn transfer: 3 PT Home Furnishings Sales Representative Goals Home Furnishings Sales Representative Goals PT Assisted Goals Time Frame: Nov 23, 2021 Roll Left & Right (QC): 4 Sit to Lying (QC): 3 Lying-Sitting on Side/Bed(QC): 3 Sit to Stand (QC): 4 Chair/Muw-sh-Mdagq Xfer(QC): 4 Toilet Transfer (QC): 4 Car Transfer (QC): 3 Does the Patient Walk: Yes Walk 10 feet (QC): 4 Walk 50ft with 2 Turns (QC): 88 Walk 150 ft (QC): 88 Walking 10ft on Uneven Surface: 88 1 Step (curb) (QC): 88 4 Steps (QC): 88 12 Steps (QC): 88 Picking up an Object (QC): 4 Wheel 50 feet with 2 turns (QC: 4 Wheel 150 feet: 4 PT Plan Treatment/Plan Treatment Plan: Continue Plan of Care Treatment Plan: Bed Mobility, Education, Functional Activity [place], Functional Strength, Group Therapy, Gait, Safety, Therapeutic Exercise, Transfers Treatment Duration: Nov 23, 2021 Frequency: At least 5 of 7 days/Wk (IRF) Estimated Hrs Per Day: 1.5 hours per day Patient and/or Family Agrees t: Yes Safety Risks/Education Patient Education: Transfer Techniques, Correct Positioning, Disease Process, Safety Issues Teaching Recipient: Patient Teaching Methods: Demonstration, Discussion Response to Teaching: Verbalize Understanding, Return Demonstration, Reinforcement Needed Time/GCodes Time In: 900 Time Out: 1000 Total Billed Treatment Time: 60 Total Billed Treatment 1,FA40m,EX20m (60 m co Rx) ST[facility] [place] OR GLACIER GUIDE Nov 13, 2021 11:46
--- NOTE | 2021-11-13 12:57 | Physical Therapy Daily Note ---
PT Daily Note-Current Subjective Pt. and in room . Pt. eating some lunch with full assist. Pt. has no c/o but does share "I am either going home tomorrow or upstairs here" shares that she is preparing and feels confident about managing this Pain Location: No Pain Reported Transfers SCALE: Activities may be completed with or without assistive devices. 8-Gpxagrxuju-qngtrlp completes the activity by him/herself with no assistance from a helper. 5-Set-up or Clean-up Assistance-helper sets up or cleans up; patient completes activity. [place] assists only prior to or following the activity. 4-Supervision or Touching Assistance-helper provides verbal cues and/or touching/steadying and/or contact guard assistance as patient completes activity. Assistance may be provided throughout the activity or intermittently. 3-Partial/Moderate Assistance-helper does LESS THAN HALF the effort. [place] lifts, holds or supports trunk or limbs, but provides less than half the effort. 2-Substantial/Maximal Assistance-helper does MORE THAN HALF the effort. [place] lifts or holds trunk or limbs and provides more than half the effort. 9-Qrurvvtfo-cqbdgg does ALL the effort. Patient does none of the effort to complete the activity. Or, the assistance of 2 or more helpers is required for the patient to complete the activity. If activity was not attempted, code reason: 7-Patient Refused. 9-Not Applicable-not attempted and the patient did not perform the activity before the current illness, exacerbation or injury. 10-Not Attempted due to Environmental Limitations-(lack of equipment, weather restraints, etc.). 88-Not Attempted due to Medical Conditions or Safety Concerns. head /upper body repositioned per pt request for better eating /digestion . Weight Bearing Full Weight Bearing Full Weight Bearing Exercises Supine Ex: Ankle pumps, Quad Set, Glut sets Supine Reps: 8 Treatments positioning and isometric LE ex Assessment Current Status: Regressing Nursing shares that has instructed to keep any Rx minimal as pts medical status is poor. Pt. to DC home on hospice tomorrow or TRF upstairs for Hospice PT Short Term Goals Short Term Goals Time Frame: Nov 09, 2021 Roll Left & Right: 3 Sit to lyin Lying to sitting on side of be: 2 Sit to stand: 3 Chair/law-dz-nbpnz transfer: 3 PT Shelter Goals Shelter Goals PT Shelter Goals Time Frame: Nov 23, 2021 Roll Left & Right (QC): 4 Sit to Lying (QC): 3 Lying-Sitting on Side/Bed(QC): 3 Sit to Stand (QC): 4 Chair/Zzj-pt-Jdgfi Xfer(QC): 4 Toilet Transfer (QC): 4 Car Transfer (QC): 3 Does the Patient Walk: Yes Walk 10 feet (QC): 4 Walk 50ft with 2 Turns (QC): 88 Walk 150 ft (QC): 88 Walking 10ft on Uneven Surface: 88 1 Step (curb) (QC): 88 4 Steps (QC): 88 12 Steps (QC): 88 Picking up an Object (QC): 4 Wheel 50 feet with 2 turns (QC: 4 Wheel 150 feet: 4 PT Plan Treatment/Plan Treatment Plan: Discontinue PT, Modify Plan, see comments Treatment Plan: Bed Mobility, Education, Functional Activity [place], Functional Strength, Group Therapy, Gait, Safety, Therapeutic Exercise, Transfers Treatment Duration: Nov 23, 2021 Frequency: At least 5 of 7 days/Wk (IRF) Estimated Hrs Per Day: 1.5 hours per day Patient and/or Family Agrees t: Yes Safety Risks/Education Patient Education: Correct Positioning Time/GCodes Time In: 1230 Time Out: 1300 Total Billed Treatment Time: 30 Total Billed Treatment 1,FA20m,EX10m ST[facility] DAVIS SUPERVISOR AREA Nov 13, 2021 12:57
[2021-11-13] MEDS: TAMSULOSIN 0.4 MG (FLOMAX) CAP PO SCH (17:55)
[2021-11-13 19:25] VITALS: BP 106/60
[2021-11-13] MEDS: traZODone 50 MG (DESYREL) TAB PO SCH (21:02)
[2021-11-14] MEDS ORDERED: MICO90PO TOP (04:12)
[2021-11-14] MEDS ORDERED: POTA-169 PO (04:12)
[2021-11-14] MEDS ORDERED: ALPR0.5T7 PO (04:12)
[2021-11-14] MEDS ORDERED: DILT30TA PO (04:12)
[2021-11-14] MEDS ORDERED: MTC10T PO (04:12)
[2021-11-14] MEDS ORDERED: VENL75CA93 PO (04:12)
[2021-11-14] MEDS ORDERED: TMSL.4C PO (04:12)
[2021-11-14] MEDS ORDERED: SPIR25TA5 PO (04:12)
[2021-11-14] MEDS ORDERED: MULT-1137 PO (04:12)
[2021-11-14] MEDS ORDERED: NYST15CR TP (04:12)
[2021-11-14] MEDS ORDERED: FURO80TA83 PO (04:12)
[2021-11-14] MEDS ORDERED: FAMO20TA5 PO (04:12)
[2021-11-14] MEDS ORDERED: TRZ50T PO (04:12)
[2021-11-14] MEDS ORDERED: CYAN-41 PO (04:12)
--- NOTE | 2021-11-14 04:13 | Discharge Summary ---
Diagnosis/Chief Complaint Date of Admission Nov 02, 2021 at 13:30 Date of Discharge Discharge Date: Nov 14, 2021 Discharge Diagnosis Assessment: 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 Recent aspiration pneumonia requiring intubation Continued hypoxia requiring supplemental oxygen Anasarca Atrial fibrillation CAD History of bypass History of AAA repair with endograft Hypertension GERD Chronic kidney disease Depression Anxiety Peterson catheter in place consulted Urology and now DC'd and voiding well Anemia iron def Transfusion required Right lower extremity hematoma Hyponatremia Scrotal edema Plan: Cardiology consult General surgery consult Ostomy consult Monitor hemoglobin Urology consult Aggressive rehab 11/03/21: Fluid restriction Iron and B12 check Urology Cardiology 11/04/2021: Continue fluid restriction Iron infusion B12 supplement Appreciate all consultants Dr. Bar for wound care 11/05/2021: Continue fluid restriction Bowel regimen Dr. Bar appreciated Dr. Rodriguez appreciated IV diuresis? 11/06/2021: IV diuresis Fluid restriction Wound care Cardiology appreciated 11/07/2021: High-protein Ensure Fluid restriction changed Close monitoring 11/08/2021: Supportive care Protein supplements 11/09/2021: Supportive care May need to start looking at skilled 11/10/2021: Supportive care Skilled care 11/11/2021: Hospice at discharge 11/12/2021: [facility] at discharge 11/13/2021: Supportive care Hospice discharge (1) Acute on chronic heart failure with preserved ejection fraction (HFpEF) Assessment & Plan: Since starting intravenous furosemide on 11/05, he has some improvement in his peripheral edema over the past 48 hours. I recommend he continue the intravenous furosemide and watch his renal function closely. I will also start spironolactone which has some positive data in the literature for patients with heart failure with preserved ejection fraction. (2) Permanent atrial fibrillation Assessment & Plan: Heart rates appear controlled with digoxin and diltiazem. Since he did not notice any difference when starting digoxin prior to this admission, I will stop the digoxin. 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 He may be a candidate for a Watchman device. He can discuss this with his regular care associate at the outside facility following discharge. (3) Pulmonary hypertension Assessment & Plan: He has severe pulmonary hypertension. Some of this could be due to acute heart failure on top of his previous mitral valve surgery now with at least a mild degree of stenosis in the bioprosthesis as noted on his ec hocardiogram during this admission. This will need to be followed longitudinally by his regular care associate. (4) Primary hypertension Assessment & Plan: Blood pressure is reasonably controlled with the present combination of medications. (5) H/O mitral valve replacement Assessment & Plan: He has a bovine bioprosthetic mitral valve. 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 This may be contributing to his heart failure. This will need to be followed by his regular care associate at the outside facility after discharge. (6) Mixed hyperlipidemia Assessment & Plan: Continue statin. Discharge Summary Discharge Physical Examination Allergies: Coded Allergies: amiodarone (Verified Allergy, Unknown, 11/02/21) lisinopril (Verified Allergy, Unknown, 11/02/21) Vitals & I&Os Vital Signs Date Time Temp Pulse Resp B/P (MAP) Pulse Ox O2 Delivery O2 Flow Rate FiO2 11/14/21 11:47 91 High Flow N/C 8.00 11/14/21 07:30 36.8 97 20 122/70 (87) General Appearance: Alert, Oriented X3, Cooperative, Other (chronically ill and frail) Respiratory: Clear to Auscultation Cardiovascular: Regular Rate Hospital Course Was the Problem List Reviewed?: Yes Long course after admitted from [place] for intensive rehab to return home. Diuresis aggressively managed the anasarca. Cardiology consulted. Urology consulted. Voiding well until peterson cath required due to weakness. The decision was made to return home on hospice and that was arranged and Dr Silva was updated. Labs (last 24 hrs) Laboratory Tests 11/03/21 06:02: White Blood Count 9.6, Red Blood Count 2.80L, Hemoglobin 8.1L, Hematocrit 27L, Mean Corpuscular Volume 95, Mean Corpuscular Hemoglobin 29, Mean Corpuscular Hemoglobin Concent 30L, Red Cell Distribution Width 16.8H, Platelet Count 213, Mean Platelet Volume 9.1, Immature Granulocyte % (Auto) 2, Neutrophils (%) (Auto) 78H, Lymphocytes (%) (Auto) 8L, Monocytes (%) (Auto) 8, Eosinophils (%) (Auto) 3, Basophils (%) (Auto) 0, Neutrophils # (Auto) 7.5, Lymphocytes # (Auto) 0.8L, Monocytes # (Auto) 0.8, Eosinophils # (Auto) 0.3, Basophils # (Auto) 0.0, Immature Granulocyte # (Auto) 0.2H, Sodium Level 128L, Potassium Level 3.1L, Chloride Level 87L, Carbon Dioxide Level 32, Anion Gap 9, Blood Urea Nitrogen 32H, Creatinine 1.00, Estimat Glomerular Filtration Rate 77, BUN/Creatinine Ratio 32, Glucose Level 88, Calcium Level 8.8, Corrected Calcium 10.1, Iron Level 33L, Total Bilirubin 0.7, Aspartate Amino Transf (AST/SGOT) 20, Alanine Aminotransferase (ALT/SGPT) 13, Alkaline Phosphatase 59, Total Protein 7.3, Albumin 2.4L, Vitamin B12 Level 617, Digoxin Level 0.61L 11/06/21 07:30: White Blood Count 9.4, Red Blood Count 3.08L, Hemoglobin 8.9L, Hematocrit 30L, Mean Corpuscular Volume 98, Mean Corpuscular Hemoglobin 29, Mean Corpuscular Hemoglobin Concent 30L, Red Cell Distribution Width 17.1H, Platelet Count 177, Mean Platelet Volume 9.4, Immature Granulocyte % (Auto) 3, Neutrophils (%) (Auto) 76H, Lymphocytes (%) (Auto) 10L, Monocytes (%) (Auto) 9, Eosinophils (%) (Auto) 2, Basophils (%) (Auto) 1, Neutrophils # (Auto) 7.1, Lymphocytes # (Auto) 0.9L, Monocytes # (Auto) 0.8, Eosinophils # (Auto) 0.2, Basophils # (Auto) 0.1, Immature Granulocyte # (Auto) 0.3H, Sodium Level 135, Potassium Level 4.2, Chloride Level 96L, Carbon Dioxide Level 27, Anion Gap 12, Blood Urea Nitrogen 35H, Creatinine 1.25, Estimat Glomerular Filtration Rate 59, BUN/Creatinine Ratio 28, Glucose Level 104, Calcium Level 8.9, Corrected Calcium 10.0, Total Bi lirubin 0.7, Aspartate Amino Transf (AST/SGOT) 22, Alanine Aminotransferase (ALT/SGPT) 19, Alkaline Phosphatase 54, Total Protein 8.1, Albumin 2.6L, Magnesium Level 2.1 11/07/21 06:00: Sodium Level 135, Potassium Level 3.9, Chloride Level 97L, Carbon Dioxide Level 29, Anion Gap 9, Blood Urea Nitrogen 31H, Creatinine 1.07, Estimat Glomerular Filtration Rate 71, BUN/Creatinine Ratio 29, Glucose Level 88, Calcium Level 9.1 11/08/21 09:55: Sodium Level 136, Potassium Level 3.7, Chloride Level 97L, Carbon Dioxide Level 30, Anion Gap 9, Blood Urea Nitrogen 33H, Creatinine 1.05, Estimat Glomerular Filtration Rate 72, BUN/Creatinine Ratio 31, Glucose Level 110H, Calcium Level 8.7 11/09/21 05:00: White Blood Count 10.8, Red Blood Count 2.88L, Hemoglobin 8.3L, Hematocrit 28L, Mean Corpuscular Volume 98, Mean Corpuscular Hemoglobin 29, Mean Corpuscular Hemoglobin Concent 29L, Red Cell Distribution Width 17.5H, Platelet Count 189, Mean Platelet Volume 9.5, Immature Granulocyte % (Auto) 3, Neutrophils (%) (Auto) 77H, Lymphocytes (%) (Auto) 9L, Monocytes (%) (Auto) 9, Eosinophils (%) (Auto) 3, Basophils (%) (Auto) 1, Neutrophils # (Auto) 8.3H, Lymphocytes # (Auto) 0.9L, Monocytes # (Auto) 0.9, Eosinophils # (Auto) 0.3, Basophils # (Auto) 0.1, Immature Granulocyte # (Auto) 0.3H, Sodium Level 132L, Potassium Level 4.0, Chloride Level 95L, Carbon Dioxide Level 28, Anion Gap 9, Blood Urea Nitrogen 32H, Creatinine 1.15, Estimat Glomerular Filtration Rate 65, BUN/Creatinine Ratio 28, Glucose Level 90, Calcium Level 8.9, Corrected Calcium 10.0, Total Bilirubin 0.7, Aspartate Amino Transf (AST/SGOT) 20, Alanine Aminotransferase (ALT/SGPT) 15, Alkaline Phosphatase 56, Total Protein 7.6, Albumin 2.6L 11/11/21 06:10: Sodium Level 130L, Potassium Level 4.1, Chloride Level 94L, Carbon Dioxide Level 29, Anion Gap 7, Blood Urea Nitrogen 31H, Creatinine 1.01, Estimat Glomerular Filtration Rate 76, BUN/Creatinine Ratio 31, Glucose Level 84, Calcium Level 8.6 11/12/21 05:40: Sodium Level 130L, Potassium Level 4.1, Chloride Level 92L, Carbon Dioxide Level 30, Anion Gap 8, Blood Urea Nitrogen 31H, Creatinine 1.05, Estimat Glomerular Filtration Rate 72, BUN/Creatinine Ratio 30, Glucose Level 94, Calcium Level 8.6, Magnesium Level 2.0 Pending Labs Laboratory Tests 11/03/21 06:02: White Blood Count 9.6, Red Blood Count 2.80, Hemoglobin 8.1, Hematocrit 27, Mean Corpuscular Volume 95, Mean Corpuscular Hemoglobin 29, Mean Corpuscular Hem oglobin Concent 30, Red Cell Distribution Width 16.8, Platelet Count 213, Mean Platelet Volume 9.1, Immature Granulocyte % (Auto) 2, Neutrophils (%) (Auto) 78, Lymphocytes (%) (Auto) 8, Monocytes (%) (Auto) 8, Eosinophils (%) (Auto) 3, Basophils (%) (Auto) 0, Neutrophils # (Auto) 7.5, Lymphocytes # (Auto) 0.8, Monocytes # (Auto) 0.8, Eosinophils # (Auto) 0.3, Basophils # (Auto) 0.0, Immature Granulocyte # (Auto) 0.2, Sodium Level 128, Potassium Level 3.1, Chloride Level 87, Carbon Dioxide Level 32, Anion Gap 9, Blood Urea Nitrogen 32, Creatinine 1.00, Estimat Glomerular Filtration Rate 77, BUN/Creatinine Ratio 32, Glucose Level 88, Calcium Level 8.8, Corrected Calcium 10.1, Iron Level 33, Total Bilirubin 0.7, Aspartate Amino Transf (AST/SGOT) 20, Alanine Ami notransferase (ALT/SGPT) 13, Alkaline Phosphatase 59, Total Protein 7.3, Albumin 2.4, Vitamin B12 Level 617, Digoxin Level 0.61 11/06/21 07:30: White Blood Count 9.4, Red Blood Count 3.08, Hemoglobin 8.9, Hematocrit 30, Mean Corpuscular Volume 98, Mean Corpuscular Hemoglobin 29, Mean Corpuscular Hemoglobin Concent 30, Red Cell Distribution Width 17.1, Platelet Count 177, Mean Platelet Volume 9.4, Immature Granulocyte % (Auto) 3, Neutrophils (%) (Auto) 76, Lymphocytes (%) (Auto) 10, Monocytes (%) (Auto) 9, Eosinophils (%) (Auto) 2, Basophils (%) (Auto) 1, Neutrophils # (Auto) 7.1, Lymphocytes # (Auto) 0.9, Monocytes # (Auto) 0.8, Eosinophils # (Auto) 0.2, Basophils # (Auto) 0.1, Immature Granulocyte # (Auto) 0.3, Sodium Level 135, Potassium Level 4.2, Chloride Level 96, Carbon Dioxide Level 27, Anion Gap 12, Blood Urea Nitrogen 35, Creatinine 1.25, Estimat Glomerular Filtration Rate 59, BUN/Creatinine Ratio 28, Glucose Level 104, Calcium Level 8.9, Corrected Calcium 10.0, Total Bilirubin 0.7, Aspartate Amino Transf (AST/SGOT) 22, Alanine Aminotransferase (ALT/SGPT) 19, Alkaline Phosphatase 54, Total Protein 8.1, Albumin 2.6, Magnesium Level 2.1 11/07/21 06:00: Sodium Level 135, Potassium Level 3.9, Chloride Level 97, Carbon Dioxide Level 29, Anion Gap 9, Blood Urea Nitrogen 31, Creatinine 1.07, Estimat Glomerular Filtration Rate 71, BUN/Creatinine Ratio 29, Glucose Level 88, Calcium Level 9.1 11/08/21 09:55: Sodium Level 136, Potassium Level 3.7, Chloride Level 97, Carbon Dioxide Level 30, Anion Gap 9, Blood Urea Nitrogen 33, Creatinine 1.05, Estimat Glomerular Filtration Rate 72, BUN/Creatinine Ratio 31, Glucose Level 110, Calcium Level 8.7 11/09/21 05:00: White Blood Count 10.8, Red Blood Count 2.88, Hemoglobin 8.3, Hematocrit 28, Mean Corpuscular Volume 98, Mean Corpuscular Hemoglobin 29, Mean Corpuscular Hemoglobin Concent 29, Red Cell Distribution Width 17.5, Platelet Count 189, Mean Platelet Volume 9.5, Immature Granulocyte % (Auto) 3, Neutrophils (%) (Auto) 77, Lymphocytes (%) (Auto) 9, Monocytes (%) (Auto) 9, Eosinophils (%) (Auto) 3, Basophils (%) (Auto) 1, Neutrophils # (Auto) 8.3, Lymphocytes # (Auto) 0.9, Monocytes # (Auto) 0.9, Eosinophils # (Auto) 0.3, Basophils # (Auto) 0.1, Immature Granulocyte # (Auto) 0.3, Sodium Level 132, Potassium Level 4.0, Chloride Level 95, Carbon Dioxide Level 28, Anion Gap 9, Blood Urea Nitrogen 32, Creatinine 1.15, Estimat Glomerular Filtration Rate 65, BUN/Creatinine Ratio 28, Glucose Level 90, Calcium Level 8.9, Corrected Calcium 10.0, Total Bilirubin 0.7, Aspartate Amino Transf (AST/SGOT) 20, Alanine Aminotransferase (ALT/SGPT) 15, Alkaline Phosphatase 56, Total Protein 7.6, Albumin 2.6 11/11/21 06:10: Sodium Level 130, Potassium Level 4.1, Chloride Level 94, Carbon Dioxide Level 29, Anion Gap 7, Blood Urea Nitrogen 31, Creatinine 1.01, Estimat Glomerular Filtration Rate 76, BUN/Creatinine Ratio 31, Glucose Level 84, Calcium Level 8.6 11/12/21 05:40: Sodium Level 130, Potassium Level 4.1, Chloride Level 92, Carbon Dioxide Level 30, Anion Gap 8, Blood Urea Nitrogen 31, Creatinine 1.05, Estimat Glomerular Filtration Rate 72, BUN/Creatinine Ratio 30, Glucose Level 94, Calcium Level 8.6, Magnesium Level 2.0 Discharge Home Medications: Active Scripts Active Tab-A-Santhosh Multivit with Iron (Multivitamin/Iron/Folic Acid) 1 Each Tablet 1 Ea PO DAILY@0700 Vitamin B-12 (Cyanocobalamin (Vitamin B-12)) 1,000 Mcg Tablet 1,000 Mcg PO DAILY@0700 Nystatin 15 Gm Cream..g. 0 Gm TP Q4H PRN Lotrimin AF (Miconazole Nitrate) 90 Gm Powder 0 Gm TOP BID Metoclopramide HCl 10 Mg Tablet 10 Mg PO Q6HR Famotidine 20 Mg Tablet 20 Mg PO BID Lasix (Furosemide) 80 Mg Tablet 80 Mg PO DAILY Klor-Con M20 (Potassium Chloride) 20 Meq Tab.er.prt 20 Meq PO DAILY@0800 Venlafaxine HCl ER (Venlafaxine HCl) 75 Mg Cap.er.24h 75 Mg PO DAILY@0700 Trazodone HCl 50 Mg Tablet 50 Mg PO HS Spironolactone 25 Mg Tablet 25 Mg PO DAILY Diltiazem HCl 30 Mg Tablet 30 Mg PO BID Flomax (Tamsulosin HCl) 0.4 Mg Cap 0.4 Mg PO DAILY@1800 Alprazolam 0.5 Mg Tablet 0.5 Mg PO Q6H PRN Reported Pantoprazole Sodium 40 Mg Tablet.dr 40 Mg PO DAILY Calcitriol 0.25 Mcg Capsule 0.25 Mcg PO MO,WE,FR Gabapentin 100 Mg Capsule 100 Mg PO BID Docusate Sodium 100 Mg Capsule 100 Mg PO BID PRN Atorvastatin Calcium 40 Mg Tablet 40 Mg PO HS Instructions to patient/family Please see electronic discharge instructions given to patient. Diagnosis/Problems Diagnosis/Problems (1) Myopathy (2) Large bowel obstruction (3) Colostomy present (4) Peterson catheter in place (5) CHF (congestive heart failure) (6) Anasarca (7) CAD (coronary artery disease) (8) History of coronary artery bypass graft (9) Chronic kidney disease, stage III (moderate) (10) Anxiety (11) Depression (12) S/P AAA repair using bifurcation graft (13) Hypertension (14) GERD (gastroesophageal reflux disease) (15) Pulmonary hypertension (16) Hematoma of right lower leg (17) Anemia (18) History of transfusion (19) Aspiration pneumonia (20) Hypoxia (21) Abdominal distention 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
[2021-11-14] MEDS: VENlafaxine XR 75 MG (EFFEXOR XR) CAP PO SCH (06:07)
[2021-11-14] MEDS: MULTIVIT W/MINERALS TAB (THERAGRAN M) PO SCH (06:07)
[2021-11-14] MEDS: CYANOCOBALAMIN 1,000 MCG (VITAMIN B-12) TABLET PO SCH (06:07)
[2021-11-14] MEDS: FUROSEMIDE 40 MG/4 ML INJ (LASIX) IVP SCH ×2 (06:08→17:41)
[2021-11-14] MEDS: CATHETER FLUSH 10 ML SYR IVP SCH ×3 (06:08→21:04)
[2021-11-14] MEDS: METOCLOPRAMIDE 10 MG (REGLAN) TAB PO SCH ×3 (06:10→17:41)
[2021-11-14 07:30] VITALS: BP 122/70
[2021-11-14] MEDS: polyethylene glycoL POWDER 17 GM (MIRALAX) PACK PO SCH ×2 (08:17→21:03)
[2021-11-14] MEDS: ENOXAPARIN 60 MG/0.6 ML (LOVENOX) SYR SQ SCH (08:17)
[2021-11-14] MEDS: FAMOTIDINE 20 MG (PEPCID) TABLET PO SCH ×2 (08:17→21:03)
[2021-11-14] MEDS: guaiFENesin (MUCINEX) 600 MG TAB PO SCH ×2 (08:17→21:03)
[2021-11-14] MEDS: SPIRONOLACTONE 25 MG (ALDACTONE) TAB PO SCH (08:17)
[2021-11-14] MEDS: GABAPENTIN 100 MG (NEURONTIN) CAP PO SCH ×2 (08:17→21:03)
[2021-11-14] MEDS: IRON SUCROSE 200 MG/10 ML (VENOFER) VIAL IV SCH (08:17)
[2021-11-14] MEDS: DOCUSATE SODIUM 100 MG (COLACE) CAP PO SCH ×2 (08:17→21:03)
[2021-11-14] MEDS: MICONAZOLE 2% POWDER (DESENEX AF) 90 GM TOP SCH ×2 (09:28→21:05)
[2021-11-14] MEDS: SENNA W/DOCUSATE (SENOKOT S) TABLET PO SCH ×2 (09:28→21:03)
[2021-11-14] MEDS: KCL 20 MEQ TAB (K-DUR) PO SCH (09:28)
[2021-11-14] MEDS: TAMSULOSIN 0.4 MG (FLOMAX) CAP PO SCH (17:41)
[2021-11-14 19:58] VITALS: BP 93/57
[2021-11-14] MEDS: traZODone 50 MG (DESYREL) TAB PO SCH (21:03)
[2021-11-14 21:07] VITALS: BP 109/70
[2021-11-15] MEDS: METOCLOPRAMIDE 10 MG (REGLAN) TAB PO SCH ×4 (00:12→17:58)
--- NOTE | 2021-11-15 04:34 | Discharge Summary ---
Diagnosis/Chief Complaint Date of Admission Nov 02, 2021 at 13:30 Date of Discharge Discharge Date: Nov 14, 2021 Discharge Diagnosis See discharge summary from yesterday Delay of discharge due to transportation to home with hospice Discharge Summary Discharge Physical Examination Allergies: Coded Allergies: amiodarone (Verified Allergy, Unknown, 11/02/21) lisinopril (Verified Allergy, Unknown, 11/02/21) Vitals & I&Os Vital Signs Date Time Temp Pulse Resp B/P (MAP) Pulse Ox O2 Delivery O2 Flow Rate FiO2 11/15/21 14:19 High Flow N/C 8.00 11/15/21 07:30 36.8 107 16 117/62 (80) 93 Hospital Course Was the Problem List Reviewed?: Yes Labs (last 24 hrs) Laboratory Tests 11/03/21 06:02: White Blood Count 9.6, Red Blood Count 2.80L, Hemoglobin 8.1L, Hematocrit 27L, Mean Corpuscular Volume 95, Mean Corpuscular Hemoglobin 29, Mean Corpuscular Hemoglobin Concent 30L, Red Cell Distribution Width 16.8H, Platelet Count 213, Mean Platelet Volume 9.1, Immature Granulocyte % (Auto) 2, Neutrophils (%) (Auto) 78H, Lymphocytes (%) (Auto) 8L, Monocytes (%) (Auto) 8, Eosinophils (%) (Auto) 3, Basophils (%) (Auto) 0, Neutrophils # (Auto) 7.5, Lymphocytes # (Auto) 0.8L, Monocytes # (Auto) 0.8, Eosinophils # (Auto) 0.3, Basophils # (Auto) 0.0, Immature Granulocyte # (Auto) 0.2H, Sodium Level 128L, Potassium Level 3.1L, Chloride Level 87L, Carbon Dioxide Level 32, Anion Gap 9, Blood Urea Nitrogen 32H, Creatinine 1.00, Estimat Glomerular Filtration Rate 77, BUN/Creatinine Ratio 32, Glucose Level 88, Calcium Level 8.8, Corrected Calcium 10.1, Iron Level 33L, Total Bilirubin 0.7, Aspartate Amino Transf (AST/SGOT) 20, Alanine Aminotransferase (ALT/SGPT) 13, Alkaline Phosphatase 59, Total Protein 7.3, Albumin 2.4L, Vitamin B12 Level 617, Digoxin Level 0.61L 11/06/21 07:30: White Blood Count 9.4, Red Blood Count 3.08L, Hemoglobin 8.9L, Hematocrit 30L, Mean Corpuscular Volume 98, Mean Corpuscular Hemoglobin 29, Mean Corpuscular Hemoglobin Concent 30L, Red Cell Distribution Width 17.1H, Platelet Count 177, Mean Platelet Volume 9.4, Immature Granulocyte % (Auto) 3, Neutrophils (%) (Auto) 76H, Lymphocytes (%) (Auto) 10L, Monocytes (%) (Auto) 9, Eosinophils (%) (Auto) 2, Basophils (%) (Auto) 1, Neutrophils # (Auto) 7.1, Lymphocytes # (Auto) 0.9L, Monocytes # (Auto) 0.8, Eosinophils # (Auto) 0.2, Basophils # (Auto) 0.1, Immature Granulocyte # (Auto) 0.3H, Sodium Level 135, Potassium Level 4.2, Chloride Level 96L, Carbon Dioxide Level 27, Anion Gap 12, Blood Urea Nitrogen 35H, Creatinine 1.25, Estimat Glomerular Filtration Rate 59, BUN/Creatinine Ratio 28, Glucose Level 104, Calcium Level 8.9, Corrected Calcium 10.0, Total Bilirubin 0.7, Aspartate Amino Transf (AST/SGOT) 22, Alanine Aminotransferase (ALT/SGPT) 19, Alkaline Phosphatase 54, Total Protein 8.1, Albumin 2.6L, Magnesium Level 2.1 11/07/21 06:00: Sodium Level 135, Potassium Level 3.9, Chloride Level 97L, Carbon Dioxide Level 29, Anion Gap 9, Blood Urea Nitrogen 31H, Creatinine 1.07, Estimat Glomerular Filtration Rate 71, BUN/Creatinine Ratio 29, Glucose Level 88, Calcium Level 9.1 11/08/21 09:55: Sodium Level 136, Potassium Level 3.7, Chloride Level 97L, Carbon Dioxide Level 30, Anion Gap 9, Blood Urea Nitrogen 33H, Creatinine 1.05, Estimat Glomerular Filtration Rate 72, BUN/Creatinine Ratio 31, Glucose Level 110H, Calcium Level 8.7 11/09/21 05:00: White Blood Count 10.8, Red Blood Count 2.88L, Hemoglobin 8.3L, Hematocrit 28L, Mean Corpuscular Volume 98, Mean Corpuscular Hemoglobin 29, Mean Corpuscular Hemoglobin Concent 29L, Red Cell Distribution Width 17.5H, Platelet Count 189, Mean Platelet Volume 9.5, Immature Granulocyte % (Auto) 3, Neutrophils (%) (Auto) 77H, Lymphocytes (%) (Auto) 9L, Monocytes (%) (Auto) 9, Eosinophils (%) (Auto) 3, Basophils (%) (Auto) 1, Neutrophils # (Auto) 8.3H, Lymphocytes # (Auto) 0.9L, Monocytes # (Auto) 0.9, Eosinophils # (Auto) 0.3, Basophils # (Auto) 0.1, Immature Granulocyte # (Auto) 0.3H, Sodium Level 132L, Potassium Level 4.0, Chloride Level 95L, Carbon Dioxide Level 28, Anion Gap 9, Blood Urea Nitrogen 32H, Creatinine 1.15, Estimat Glomerular Filtration Rate 65, BUN/Creatinine Ratio 28, Glucose Level 90, Calcium Level 8.9, Corrected Calcium 10.0, Total Bilirubin 0.7, Aspartate Amino Transf (AST/SGOT) 20, Alanine Aminotransferase (ALT/SGPT) 15, Alkaline Phosphatase 56, Total Protein 7.6, Albumin 2.6L 11/11/21 06:10: Sodium Level 130L, Potassium Level 4.1, Chloride Level 94L, Carbon Dioxide Level 29, Anion Gap 7, Blood Urea Nitrogen 31H, Creatinine 1.01, Estimat Glomerular Filtration Rate 76, BUN/Creatinine Ratio 31, Glucose Level 84, Calcium Level 8.6 11/12/21 05:40: Sodium Level 130L, Potassium Level 4.1, Chloride Level 92L, Carbon Dioxide Level 30, Anion Gap 8, Blood Urea Nitrogen 31H, Creatinine 1.05, Estimat Glomerular Filtration Rate 72, BUN/Creatinine Ratio 30, Glucose Level 94, Calcium Level 8.6, Magnesium Level 2.0 Pending Labs Laboratory Tests 11/03/21 06:02: White Blood Count 9.6, Red Blood Count 2.80, Hemoglobin 8.1, Hematocrit 27, Mean Corpuscular Volume 95, Mean Corpuscular Hemoglobin 29, Mean Corpuscular Hemoglo bin Concent 30, Red Cell Distribution Width 16.8, Platelet Count 213, Mean Platelet Volume 9.1, Immature Granulocyte % (Auto) 2, Neutrophils (%) (Auto) 78, Lymphocytes (%) (Auto) 8, Monocytes (%) (Auto) 8, Eosinophils (%) (Auto) 3, Basophils (%) (Auto) 0, Neutrophils # (Auto) 7.5, Lymphocytes # (Auto) 0.8, Monocytes # (Auto) 0.8, Eosinophils # (Auto) 0.3, Basophils # (Auto) 0.0, Im mature Granulocyte # (Auto) 0.2, Sodium Level 128, Potassium Level 3.1, Chloride Level 87, Carbon Dioxide Level 32, Anion Gap 9, Blood Urea Nitrogen 32, Creatinine 1.00, Estimat Glomerular Filtration Rate 77, BUN/Creatinine Ratio 32, Glucose Level 88, Calcium Level 8.8, Corrected Calcium 10.1, Iron Level 33, Total Bilirubin 0.7, Aspartate Amino Transf (AST/SGOT) 20, Alanine Aminotr ansferase (ALT/SGPT) 13, Alkaline Phosphatase 59, Total Protein 7.3, Albumin 2.4, Vitamin B12 Level 617, Digoxin Level 0.61 11/06/21 07:30: White Blood Count 9.4, Red Blood Count 3.08, Hemoglobin 8.9, Hematocrit 30, Mean Corpuscular Volume 98, Mean Corpuscular Hemoglobin 29, Mean Corpuscular Hemoglobin Concent 30, Red Cell Distribution Width 17.1, Platelet Count 177, Mean Platelet Volume 9.4, Immature Granulocyte % (Auto) 3, Neutrophils (%) (Auto) 76, Lymphocytes (%) (Auto) 10, Monocytes (%) (Auto) 9, Eosinophils (%) (Auto) 2, Basophils (%) (Auto) 1, Neutrophils # (Auto) 7.1, Lymphocytes # (Auto) 0.9, Monocytes # (Auto) 0.8, Eosinophils # (Auto) 0.2, Basophils # (Auto) 0.1, Immature Granulocyte # (Auto) 0.3, Sodium Level 135, Potassium Level 4.2, Chloride Level 96, Carbon Dioxide Level 27, Anion Gap 12, Blood Urea Nitrogen 35, Creatinine 1.25, Estimat Glomerular Filtration Rate 59, BUN/Creatinine Ratio 28, Glucose Level 104, Calcium Level 8.9, Corrected Calcium 10.0, Total Bilirubin 0.7, Aspartate Amino Transf (AST/SGOT) 22, Alanine Aminotransferase (ALT/SGPT) 19, Alkaline Phosphatase 54, Total Protein 8.1, Albumin 2.6, Magnesium Level 2.1 11/07/21 06:00: Sodium Level 135, Potassium Level 3.9, Chloride Level 97, Carbon Dioxide Level 29, Anion Gap 9, Blood Urea Nitrogen 31, Creatinine 1.07, Estimat Glomerular Filtration Rate 71, BUN/Creatinine Ratio 29, Glucose Level 88, Calcium Level 9.1 11/08/21 09:55: Sodium Level 136, Potassium Level 3.7, Chloride Level 97, Carbon Dioxide Level 30, Anion Gap 9, Blood Urea Nitrogen 33, Creatinine 1.05, Estimat Glomerular Filtration Rate 72, BUN/Creatinine Ratio 31, Glucose Level 110, Calcium Level 8.7 11/09/21 05:00: White Blood Count 10.8, Red Blood Count 2.88, Hemoglobin 8.3, Hematocrit 28, Mean Corpuscular Volume 98, Mean Corpuscular Hemoglobin 29, Mean Corpuscular H emoglobin Concent 29, Red Cell Distribution Width 17.5, Platelet Count 189, Mean Platelet Volume 9.5, Immature Granulocyte % (Auto) 3, Neutrophils (%) (Auto) 77, Lymphocytes (%) (Auto) 9, Monocytes (%) (Auto) 9, Eosinophils (%) (Auto) 3, Basophils (%) (Auto) 1, Neutrophils # (Auto) 8.3, Lymphocytes # (Auto) 0.9, Monocytes # (Auto) 0.9, Eosinophils # (Auto) 0.3, Basophils # (Auto) 0.1, Immature Granulocyte # (Auto) 0.3, Sodium Level 132, Potassium Level 4.0, Chloride Level 95, Carbon Dioxide Level 28, Anion Gap 9, Blood Urea Nitrogen 32, Creatinine 1.15, Estimat Glomerular Filtration Rate 65, BUN/Creatinine Ratio 28, Glucose Level 90, Calcium Level 8.9, Corrected Calcium 10.0, Total Bilirubin 0.7, Aspartate Amino Transf (AST/SGOT) 20, Alanine Aminotransferase (ALT/SGPT) 15, Alkaline Phosphatase 56, Total Protein 7.6, Albumin 2.6 11/11/21 06:10: Sodium Level 130, Potassium Level 4.1, Chloride Level 94, Carbon Dioxide Level 29, Anion Gap 7, Blood Urea Nitrogen 31, Creatinine 1.01, Estimat Glomerular Filtration Rate 76, BUN/Creatinine Ratio 31, Glucose Level 84, Calcium Level 8.6 11/12/21 05:40: Sodium Level 130, Potassium Level 4.1, Chloride Level 92, Carbon Dioxide Level 30, Anion Gap 8, Blood Urea Nitrogen 31, Creatinine 1.05, Estimat Glomerular Filtration Rate 72, BUN/Creatinine Ratio 30, Glucose Level 94, Calcium Level 8.6, Magnesium Level 2.0 Discharge Home Medications: Active Scripts Active Tab-A-Santhosh Multivit with Iron (Multivitamin/Iron/Folic Acid) 1 Each Tablet 1 Ea PO DAILY@0700 Vitamin B-12 (Cyanocobalamin (Vitamin B-12)) 1,000 Mcg Tablet 1,000 Mcg PO DAILY@0700 Nystatin 15 Gm Cream..g. 0 Gm TP Q4H PRN Lotrimin AF (Miconazole Nitrate) 90 Gm Powder 0 Gm TOP BID Metoclopramide HCl 10 Mg Tablet 10 Mg PO Q6HR Famotidine 20 Mg Tablet 20 Mg PO BID Lasix (Furosemide) 80 Mg Tablet 80 Mg PO DAILY Klor-Con M20 (Potassium Chloride) 20 Meq Tab.er.prt 20 Meq PO DAILY@0800 Venlafaxine HCl ER (Venlafaxine HCl) 75 Mg Cap.er.24h 75 Mg PO DAILY@0700 Trazodone HCl 50 Mg Tablet 50 Mg PO HS Spironolactone 25 Mg Tablet 25 Mg PO DAILY Diltiazem HCl 30 Mg Tablet 30 Mg PO BID Flomax (Tamsulosin HCl) 0.4 Mg Cap 0.4 Mg PO DAILY@1800 Alprazolam 0.5 Mg Tablet 0.5 Mg PO Q6H PRN Reported Pantoprazole Sodium 40 Mg Tablet.dr 40 Mg PO DAILY Calcitriol 0.25 Mcg Capsule 0.25 Mcg PO MO,WE,FR Gabapentin 100 Mg Capsule 100 Mg PO BID Docusate Sodium 100 Mg Capsule 100 Mg PO BID PRN Atorvastatin Calcium 40 Mg Tablet 40 Mg PO HS Instructions to patient/family Please see electronic discharge instructions given to patient. Diagnosis/Problems Diagnosis/Problems (1) Myopathy (2) Large bowel obstruction (3) Colostomy present (4) Spaulding catheter in place (5) CHF (congestive heart failure) (6) Anasarca (7) CAD (coronary artery disease) (8) History of coronary artery bypass graft (9) Chronic kidney disease, stage III (moderate) (10) Anxiety (11) Depression (12) S/P AAA repair using bifurcation graft (13) Hypertension (14) GERD (gastroesophageal reflux disease) (15) Pulmonary hypertension (16) Hematoma of right lower leg (17) Anemia (18) History of transfusion (19) Aspiration pneumonia (20) Hypoxia (21) Abdominal distention BOB HOUSER DO Nov 15, 2021 04:34
[2021-11-15] MEDS: FUROSEMIDE 40 MG/4 ML INJ (LASIX) IVP SCH ×2 (06:06→17:58)
[2021-11-15] MEDS: MULTIVIT W/MINERALS TAB (THERAGRAN M) PO SCH (06:06)
[2021-11-15] MEDS: VENlafaxine XR 75 MG (EFFEXOR XR) CAP PO SCH (06:06)
[2021-11-15] MEDS: CYANOCOBALAMIN 1,000 MCG (VITAMIN B-12) TABLET PO SCH (06:06)
[2021-11-15] MEDS: CATHETER FLUSH 10 ML SYR IVP SCH ×3 (06:07→21:19)
[2021-11-15 07:30] VITALS: BP 117/62
[2021-11-15] MEDS: GABAPENTIN 100 MG (NEURONTIN) CAP PO SCH ×2 (09:21→21:18)
[2021-11-15] MEDS: DOCUSATE SODIUM 100 MG (COLACE) CAP PO SCH ×2 (09:21→21:18)
[2021-11-15] MEDS: SPIRONOLACTONE 25 MG (ALDACTONE) TAB PO SCH (09:21)
[2021-11-15] MEDS: ENOXAPARIN 60 MG/0.6 ML (LOVENOX) SYR SQ SCH (09:21)
[2021-11-15] MEDS: KCL 20 MEQ TAB (K-DUR) PO SCH (09:21)
[2021-11-15] MEDS: guaiFENesin (MUCINEX) 600 MG TAB PO SCH ×2 (09:21→21:18)
[2021-11-15] MEDS: SENNA W/DOCUSATE (SENOKOT S) TABLET PO SCH ×2 (09:21→21:18)
[2021-11-15] MEDS: FAMOTIDINE 20 MG (PEPCID) TABLET PO SCH ×2 (09:21→21:18)
[2021-11-15] MEDS: polyethylene glycoL POWDER 17 GM (MIRALAX) PACK PO SCH ×2 (09:21→21:18)
[2021-11-15] MEDS: MICONAZOLE 2% POWDER (DESENEX AF) 90 GM TOP SCH ×2 (09:22→21:19)
[2021-11-15] MEDS: TAMSULOSIN 0.4 MG (FLOMAX) CAP PO SCH (17:58)
[2021-11-15 20:00] VITALS: BP 121/67
[2021-11-15] MEDS: traZODone 50 MG (DESYREL) TAB PO SCH (21:18)
[2021-11-16] MEDS: METOCLOPRAMIDE 10 MG (REGLAN) TAB PO SCH ×2 (00:08→06:17)
--- NOTE | 2021-11-16 05:26 | Discharge Summary ---
Diagnosis/Chief Complaint Date of Admission Nov 02, 2021 at 13:30 Date of Discharge Discharge Date: Nov 14, 2021 Discharge Diagnosis Assessment: 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 Recent aspiration pneumonia requiring intubation Continued hypoxia requiring supplemental oxygen Anasarca Atrial fibrillation CAD History of bypass History of AAA repair with endograft Hypertension GERD Chronic kidney disease Depression Anxiety Peterson catheter in place consulted Urology and now DC'd and voiding well Anemia iron def Transfusion required Right lower extremity hematoma Hyponatremia Scrotal edema Plan: Cardiology consult General surgery consult Ostomy consult Monitor hemoglobin Urology consult Aggressive rehab 11/03/21: Fluid restriction Iron and B12 check Urology Cardiology 11/04/2021: Continue fluid restriction Iron infusion B12 supplement Appreciate all consultants Dr. Bar for wound care 11/05/2021: Continue fluid restriction Bowel regimen Dr. Bar appreciated Dr. Rodriguez appreciated IV diuresis? 11/06/2021: IV diuresis Fluid restriction Wound care Cardiology appreciated 11/07/2021: High-protein Ensure Fluid restriction changed Close monitoring 11/08/2021: Supportive care Protein supplements 11/09/2021: Supportive care May need to start looking at skilled 11/10/2021: Supportive care Skilled care 11/11/2021: Hospice at discharge 11/12/2021: [facility] at discharge 11/13/2021: Supportive care Hospice discharge Discharge Summary Discharge Physical Examination Allergies: Coded Allergies: amiodarone (Verified Allergy, Unknown, 11/02/21) lisinopril (Verified Allergy, Unknown, 11/02/21) Vitals & I&Os Vital Signs Date Time Temp Pulse Resp B/P (MAP) Pulse Ox O2 Delivery O2 Flow Rate FiO2 11/16/21 10:50 36.4 100 18 105/72 100 High Flow N/C 8.00 Hospital Course Was the Problem List Reviewed?: Yes Long course after admitted from [place] for intensive rehab to return home. Diuresis aggressively managed the anasarca. Cardiology consulted. Urology consulted. Voiding well until peterson cath required due to weakness. The decision was made to return home on hospice and that was arranged and Dr Silva was up dated. Labs (last 24 hrs) Laboratory Tests 11/03/21 06:02: White Blood Count 9.6, Red Blood Count 2.80L, Hemoglobin 8.1L, Hematocrit 27L, Mean Corpuscular Volume 95, Mean Corpuscular Hemoglobin 29, Mean Corpuscular Hemoglobin Concent 30L, Red Cell Distribution Width 16.8H, Platelet Count 213, Mean Platelet Volume 9.1, Immature Granulocyte % (Auto) 2, Neutrophils (%) (Auto) 78H, Lymphocytes (%) (Auto) 8L, Monocytes (%) (Auto) 8, Eosinophils (%) (Auto) 3, Basophils (%) (Auto) 0, Neutrophils # (Auto) 7.5, Lymphocytes # (Auto) 0.8L, Monocytes # (Auto) 0.8, Eosinophils # (Auto) 0.3, Basophils # (Auto) 0.0, Immature Granulocyte # (Auto) 0.2H, Sodium Level 128L, Potassium Level 3.1L, Chloride Level 87L, Carbon Dioxide Level 32, Anion Gap 9, Blood Urea Nitrogen 32H, Creatinine 1.00, Estimat Glomerular Filtration Rate 77, BUN/Creatinine Ratio 32, Glucose Level 88, Calcium Level 8.8, Corrected Calcium 10.1, Iron Level 33L, Total Bilirubin 0.7, Aspartate Amino Transf (AST/SGOT) 20, Alanine Aminotransferase (ALT/SGPT) 13, Alkaline Phosphatase 59, Total Protein 7.3, Albumin 2.4L, Vitamin B12 Level 617, Digoxin Level 0.61L 11/06/21 07:30: White Blood Count 9.4, Red Blood Count 3.08L, Hemoglobin 8.9L, Hematocrit 30L, Mean Corpuscular Volume 98, Mean Corpuscular Hemoglobin 29, Mean Corpuscular Hemoglobin Concent 30L, Red Cell Distribution Width 17.1H, Platelet Count 177, Mean Platelet Volume 9.4, Immature Granulocyte % (Auto) 3, Neutrophils (%) (Auto) 76H, Lymphocytes (%) (Auto) 10L, Monocytes (%) (Auto) 9, Eosinophils (%) (Auto) 2, Basophils (%) (Auto) 1, Neutrophils # (Auto) 7.1, Lymphocytes # (Auto) 0.9L, Monocytes # (Auto) 0.8, Eosinophils # (Auto) 0.2, Basophils # (Auto) 0.1, Immature Granulocyte # (Auto) 0.3H, Sodium Level 135, Potassium Level 4.2, Chloride Level 96L, Carbon Dioxide Level 27, Anion Gap 12, Blood Urea Nitrogen 35H, Creatinine 1.25, Estimat Glomerular Filtration Rate 59, BUN/Creatinine Ratio 28, Glucose Level 104, Calcium Level 8.9, Corrected Calcium 10.0, Total Bilirubin 0.7, Aspartate Amino Transf (AST/SGOT) 22, Alanine Aminotransferase (ALT/SGPT) 19, Alkaline Phosphatase 54, Total Protein 8.1, Albumin 2.6L, Magnesium Level 2.1 11/07/21 06:00: Sodium Level 135, Potassium Level 3.9, Chloride Level 97L, Carbon Dioxide Level 29, Anion Gap 9, Blood Urea Nitrogen 31H, Creatinine 1.07, Estimat Glomerular Filtration Rate 71, BUN/Creatinine Ratio 29, Glucose Level 88, Calcium Level 9.1 11/08/21 09:55: Sodium Level 136, Potassium Level 3.7, Chloride Level 97L, Carbon Dioxide Level 30, Anion Gap 9, Blood Urea Nitrogen 33H, Creatinine 1.05, Estimat Glomerular Filtration Rate 72, BUN/Creatinine Ratio 31, Glucose Level 110H, Calcium Level 8.7 11/09/21 05:00: White Blood Count 10.8, Red Blood Count 2.88L, Hemoglobin 8.3L, Hematocrit 28L, Mean Corpuscular Volume 98, Mean Corpuscular Hemoglobin 29, Mean Corpuscular Hem oglobin Concent 29L, Red Cell Distribution Width 17.5H, Platelet Count 189, Mean Platelet Volume 9.5, Immature Granulocyte % (Auto) 3, Neutrophils (%) (Auto) 77H , Lymphocytes (%) (Auto) 9L, Monocytes (%) (Auto) 9, Eosinophils (%) (Auto) 3, Basophils (%) (Auto) 1, Neutrophils # (Auto) 8.3H, Lymphocytes # (Auto) 0.9L, Monocytes # (Auto) 0.9, Eosinophils # (Auto) 0.3, Basophils # (Auto) 0.1, Immature Granulocyte # (Auto) 0.3H, Sodium Level 132L, Potassium Level 4.0, Chlo ride Level 95L, Carbon Dioxide Level 28, Anion Gap 9, Blood Urea Nitrogen 32H, Creatinine 1.15, Estimat Glomerular Filtration Rate 65, BUN/Creatinine Ratio 28, Glucose Level 90, Calcium Level 8.9, Corrected Calcium 10.0, Total Bilirubin 0.7, Aspartate Amino Transf (AST/SGOT) 20, Alanine Aminotransferase (ALT/SGPT) 15, Alkaline Phosphatase 56, Total Protein 7.6, Albumin 2.6L 11/11/21 06:10: Sodium Level 130L, Potassium Level 4.1, Chloride Level 94L, Carbon Dioxide Level 29, Anion Gap 7, Blood Urea Nitrogen 31H, Creatinine 1.01, Estimat Glomerular Filtration Rate 76, BUN/Creatinine Ratio 31, Glucose Level 84, Calcium Level 8.6 11/12/21 05:40: Sodium Level 130L, Potassium Level 4.1, Chloride Level 92L, Carbon Dioxide Level 30, Anion Gap 8, Blood Urea Nitrogen 31H, Creatinine 1.05, Estimat Glomerular Filtration Rate 72, BUN/Creatinine Ratio 30, Glucose Level 94, Calcium Level 8.6, Magnesium Level 2.0 Pending Labs Laboratory Tests 11/03/21 06:02: White Blood Count 9.6, Red Blood Count 2.80, Hemoglobin 8.1, Hematocrit 27, Mean Corpuscular Volume 95, Mean Corpuscular Hemoglobin 29, Mean Corpuscular Hemoglobin Concent 30, Red Cell Distribution Width 16.8, Platelet Count 213, Mean Platelet Volume 9.1, Immature Granulocyte % (Auto) 2, Neutrophils (%) (Auto) 78, Lymphocytes (%) (Auto) 8, Monocytes (%) (Auto) 8, Eosinophils (%) (Auto) 3, Basophils (%) (Auto) 0, Neutrophils # (Auto) 7.5, Lymphocytes # (Auto) 0.8, Monocytes # (Auto) 0.8, Eosinophils # (Auto) 0.3, Basophils # (Auto) 0.0, Immature Granulocyte # (Auto) 0.2, Sodium Level 128, Potassium Level 3.1, Chloride Level 87, Carbon Dioxide Level 32, Anion Gap 9, Blood Urea Nitrogen 32, Creatinine 1.00, Estimat Glomerular Filtration Rate 77, BUN/Creatinine Ratio 32, Glucose Level 88, Calcium Level 8.8, Corrected Calcium 10.1, Iron Level 33, Total Bilirubin 0.7, Aspartate Amino Transf (AST/SGOT) 20, Alanine Aminotransferase (ALT/SGPT) 13, Alkaline Phosphatase 59, Total Protein 7.3, Albumin 2.4, Vitamin B12 Level 617, Digoxin Level 0.61 11/06/21 07:30: White Blood Count 9.4, Red Blood Count 3.08, Hemoglobin 8.9, Hematocrit 30, Mean Corpuscular Volume 98, Mean Corpuscular Hemoglobin 29, Mean Corpuscular Hemoglobin Concent 30, Red Cell Distribution Width 17.1, Platelet Count 177, Mean Platelet Volume 9.4, Immature Granulocyte % (Auto) 3, Neutrophils (%) (Auto) 76, Lymphocytes (%) (Auto) 10, Monocytes (%) (Auto) 9, Eosinophils (%) (Auto) 2, Basophils (%) (Auto) 1, Neutrophils # (Auto) 7.1, Lymphocytes # (Auto) 0.9, Monocytes # (Auto) 0.8, Eosinophils # (Auto) 0.2, Basophils # (Auto) 0.1, Immature Granulocyte # (Auto) 0.3, Sodium Level 135, Potassium Level 4.2, Chloride Level 96, Carbon Dioxide Level 27, Anion Gap 12, Blood Urea Nitrogen 35, Creatinine 1.25, Estimat Glomerular Filtration Rate 59, BUN/Creatinine Ratio 28, Glucose Level 104, Calcium Level 8.9, Corrected Calcium 10.0, Total Bilirubin 0.7, Aspartate Amino Transf (AST/SGOT) 22, Alanine Aminotransferase (ALT/SGPT) 19, Alkaline Phosphatase 54, Total Protein 8.1, Albumin 2.6, Magnesium Level 2.1 11/07/21 06:00: Sodium Level 135, Potassium Level 3.9, Chloride Level 97, Carbon Dioxide Level 29, Anion Gap 9, Blood Urea Nitrogen 31, Creatinine 1.07, Estimat Glomerular Filtration Rate 71, BUN/Creatinine Ratio 29, Glucose Level 88, Calcium Level 9.1 11/08/21 09:55: Sodium Level 136, Potassium Level 3.7, Chloride Level 97, Carbon Dioxide Level 30, Anion Gap 9, Blood Urea Nitrogen 33, Creatinine 1.05, Estimat Glomerular Filtration Rate 72, BUN/Creatinine Ratio 31, Glucose Level 110, Calcium Level 8.7 11/09/21 05:00: White Blood Count 10.8, Red Blood Count 2.88, Hemoglobin 8.3, Hematocrit 28, Mean Corpuscular Volume 98, Mean Corpuscular Hemoglobin 29, Mean Corpuscular Hemoglobin Concent 29, Red Cell Distribution Width 17.5, Platelet Count 189, Mean Platelet Volume 9.5, Immature Granulocyte % (Auto) 3, Neutrophils (%) (Auto) 77, Lymphocytes (%) (Auto) 9, Monocytes (%) (Auto) 9, Eosinophils (%) (Auto) 3, Basophils (%) (Auto) 1, Neutrophils # (Auto) 8.3, Lymphocytes # (Auto) 0.9, Monocytes # (Auto) 0.9, Eosinophils # (Auto) 0.3, Basophils # (Auto) 0.1, Immature Granulocyte # (Auto) 0.3, Sodium Level 132, Potassium Level 4.0, Chloride Level 95, Carbon Dioxide Level 28, Anion Gap 9, Blood Urea Nitrogen 32, Creatinine 1.15, Estimat Glomerular Filtration Rate 65, BUN/Creatinine Ratio 28, Glucose Level 90, Calcium Level 8.9, Corrected Calcium 10.0, Total Bilirubin 0.7, Aspartate Amino Transf (AST/SGOT) 20, Alanine Aminotransferase (ALT/SGPT) 15, Alkaline Phosphatase 56, Total Protein 7.6, Albumin 2.6 11/11/21 06:10: Sodium Level 130, Potassium Level 4.1, Chloride Level 94, Carbon Dioxide Level 29, Anion Gap 7, Blood Urea Nitrogen 31, Creatinine 1.01, Estimat Glomerular Filtration Rate 76, BUN/Creatinine Ratio 31, Glucose Level 84, Calcium Level 8.6 11/12/21 05:40: Sodium Level 130, Potassium Level 4.1, Chloride Level 92, Carbon Dioxide Level 30, Anion Gap 8, Blood Urea Nitrogen 31, Creatinine 1.05, Estimat Glomerular Filtration Rate 72, BUN/Creatinine Ratio 30, Glucose Level 94, Calcium Level 8.6, Magnesium Level 2.0 Discharge Home Medications: Active Scripts Active Bumetanide 1 Mg Tablet 1 Mg PO DAILY Tab-A-Santhosh Multivit with Iron (Multivitamin/Iron/Folic Acid) 1 Each Tablet 1 Ea PO DAILY@0700 Vitamin B-12 (Cyanocobalamin (Vitamin B-12)) 1,000 Mcg Tablet 1,000 Mcg PO DAILY@0700 Nystatin 15 Gm Cream..g. 0 Gm TP Q4H PRN Lotrimin AF (Miconazole Nitrate) 90 Gm Powder 0 Gm TOP BID Metoclopramide HCl 10 Mg Tablet 10 Mg PO Q6HR Famotidine 20 Mg Tablet 20 Mg PO BID Lasix (Furosemide) 80 Mg Tablet 80 Mg PO DAILY Klor-Con M20 (Potassium Chloride) 20 Meq Tab.er.prt 20 Meq PO DAILY@0800 Venlafaxine HCl ER (Venlafaxine HCl) 75 Mg Cap.er.24h 75 Mg PO DAILY@0700 Trazodone HCl 50 Mg Tablet 50 Mg PO HS Spironolactone 25 Mg Tablet 25 Mg PO DAILY Diltiazem HCl 30 Mg Tablet 30 Mg PO BID Flomax (Tamsulosin HCl) 0.4 Mg Cap 0.4 Mg PO DAILY@1800 Alprazolam 0.5 Mg Tablet 0.5 Mg PO Q6H PRN Reported Pantoprazole Sodium 40 Mg Tablet.dr 40 Mg PO DAILY Calcitriol 0.25 Mcg Capsule 0.25 Mcg PO MO,WE,FR Gabapentin 100 Mg Capsule 100 Mg PO BID Docusate Sodium 100 Mg Capsule 100 Mg PO BID PRN Atorvastatin Calcium 40 Mg Tablet 40 Mg PO HS Instructions to patient/family Please see electronic discharge instructions given to patient. Diagnosis/Problems Diagnosis/Problems (1) Myopathy (2) Large bowel obstruction (3) Colostomy present (4) Peterson catheter in place (5) CHF (congestive heart failure) (6) Anasarca (7) CAD (coronary artery disease) (8) History of coronary artery bypass graft (9) Chronic kidney disease, stage III (moderate) (10) Anxiety (11) Depression (12) S/P AAA repair using bifurcation graft (13) Hypertension (14) GERD (gastroesophageal reflux disease) (15) Pulmonary hypertension (16) Hematoma of right lower leg (17) Anemia (18) History of transfusion (19) Aspiration pneumonia (20) Hypoxia (21) Abdominal distention BOB HOUSER DO Nov 16, 2021 05:26
[2021-11-16] MEDS: MULTIVIT W/MINERALS TAB (THERAGRAN M) PO SCH (06:17)
[2021-11-16] MEDS: VENlafaxine XR 75 MG (EFFEXOR XR) CAP PO SCH (06:17)
[2021-11-16] MEDS: CYANOCOBALAMIN 1,000 MCG (VITAMIN B-12) TABLET PO SCH (06:17)
[2021-11-16] MEDS: FUROSEMIDE 40 MG/4 ML INJ (LASIX) IVP SCH (06:18)
[2021-11-16] MEDS: CATHETER FLUSH 10 ML SYR IVP SCH (06:18)
[2021-11-16 07:53] VITALS: BP 105/72
[2021-11-16] MEDS: polyethylene glycoL POWDER 17 GM (MIRALAX) PACK PO SCH (08:29)
[2021-11-16] MEDS: SPIRONOLACTONE 25 MG (ALDACTONE) TAB PO SCH (08:29)
[2021-11-16] MEDS: ENOXAPARIN 60 MG/0.6 ML (LOVENOX) SYR SQ SCH (08:29)
[2021-11-16] MEDS: FAMOTIDINE 20 MG (PEPCID) TABLET PO SCH (08:29)
[2021-11-16] MEDS: DOCUSATE SODIUM 100 MG (COLACE) CAP PO SCH (08:29)
[2021-11-16] MEDS: GABAPENTIN 100 MG (NEURONTIN) CAP PO SCH (08:29)
[2021-11-16] MEDS: guaiFENesin (MUCINEX) 600 MG TAB PO SCH (08:29)
[2021-11-16] MEDS: KCL 20 MEQ TAB (K-DUR) PO SCH (08:36)
[2021-11-16] MEDS: SENNA W/DOCUSATE (SENOKOT S) TABLET PO SCH (08:36)
[2021-11-16] MEDS: MICONAZOLE 2% POWDER (DESENEX AF) 90 GM TOP SCH (08:36)
--- NOTE | 2021-11-16 09:15 | Cardiology Progress Note ---
Subjective Date Seen by Provider: Nov 16, 2021 Time Seen by Provider: 08:15 Subjective/Events-last exam Patient in bed, no new complaints. Planning for discharge home with hospice. Objective-Cardiology Exam Last Set of Vital Signs Vital Signs 11/16/21 10:50 Temp 36.4 Pulse 100 Resp 18 B/P (MAP) 105/72 Pulse Ox 100 O2 Delivery High Flow N/C O2 Flow Rate 8.00 I&O Intake and Output 11/16/21 00:00 Intake Total 2640 ml Output Total 3440 ml Balance -800 ml Intake Oral 2640 ml Output Urine Total 3300 ml Stool Total 140 ml General: Alert, Oriented X3, Cooperative, Other (chronically ill and frail) HEENT: Atraumatic, PERRLA Lungs: Clear to Auscultation Heart: Regular Rate Abdomen: Other (ascites) Extremities: No Clubbing, Other Skin: No Rashes Neuro: Normal Speech Psych/Mental Status: Mental Status NL, Mood NL A/P-Cardiology Admission Diagnosis afib mitral valve replacement HTN Critical illness myopathy Assessment/Plan Atrial fibrillation, reports long standing hx of afib since 1999, history of GI bleed on Coumadin and Eliquis, patient reports has been off OAC for the past couple years. Currently rate controlled afib, continue to monitor. History of Mitral valve replacement with tissue valve with Dr. Smith approx 6-7 years, questionable MAZE and KRISTEN ligation, I will try to obtain copy of records for further review. 2D Echo done November 06, 2021 showing EF 55-60%, mild to moderate mitral stenosis, PA 80mmHg. Cor pulmonale with severe pulmonary hypertension, peripheral edema, maintained on Lasix. History of AAA with endograft repair. S/p large bowel obstruction in Aug 2021 requiring resection and colostomy Recent aspiration pneumonia requiring intubation, extubated and slowly improving, on supplemental oxygen. Hypertension, controlled, continue to monitor. Critical illness myopathy CKD, continue to montior renal function Right lower extremity hematoma per US done at [facility] 3/4 Anemia requiring recent blood transfusion, continue to monitor H/H. Depression Okay for discharge from cardiology standpoint, patient is being discharged for hospice He follows with Dr. Saez as an outpatient. Supervisory-Addendum Brief Supervisory Addendum Participated in pt care: history, MDM, physical Personally performed: exam, history, MDM Care discussed with: PA Results interpretation: Verified all documentation Notes: Patient was seen and evaluated with Alice, examination performed, management plan was discussed, agree with the current scribed note, I made few changes to the note using Italic font ALICE NGUYEN Nov 16, 2021 09:15 MELI HEARN MD Nov 16, 2021 12:43
--- NOTE | 2021-11-16 10:03 | Occupational Ther Daily Note ---
OT Current Status-Daily Note Subjective Pt more alert this date, reports feeling "tense" regarding upcoming discharge. Appearance Pt left supine in bed, all needs within reach. Mental Status/Objective Patient Orientation: Person, Place Attachments: Colostomy/Ileostomy, Peterson Catheter, IV, Oxygen ADL-Treatment Therapy Code Descriptions/Definitions Functional [place] Measure: 0=Not Assessed/NA 4=Minimal Assistance 1=Total Assistance 5=Supervision or Setup 2=Maximal Assistance 6=Modified [place] 3=Moderate Assistance 7=Complete IndependenceSCALE: Activities may be completed with or without assistive devices. 8-Tjqupawrgw-gogabus completes the activity by him/herself with no assistance from a helper. 5-Set-up or Clean-up Assistance-helper sets up or cleans up; patient completes activity. [place] assists only prior to or following the activity. 4-Supervision or Touching Assistance-helper provides verbal cues and/or touching/steadying and/or contact guard assistance as patient completes activity. Assistance may be provided throughout the activity or intermittently. 3-Partial/Moderate Assistance-helper does LESS THAN HALF the effort. [place] lifts, holds or supports trunk or limbs, but provides less than half the effort. 2-Substantial/Maximal Assistance-helper does MORE THAN HALF the effort. [place] lifts or holds trunk or limbs and provides more than half the effort. 9-Weztqpzvr-jedmxo does ALL the effort. Patient does none of the effort to complete the activity. Or, the assistance of 2 or more helpers is required for the patient to complete the activity. If activity was not attempted, code reason: 7-Patient Refused. 9-Not Applicable-not attempted and the patient did not perform the activity before the current illness, exacerbation or injury. 10-Not Attempted due to Environmental Limitations-(lack of equipment, weather restraints, etc.). 88-Not Attempted due to Medical Conditions or Safety Concerns. Eating (QC): 5 Oral Hygiene (QC): 4 Shower/Bathe Self (QC): 2 Upper Body Dressing (QC): 3 (per clinical judgment) Lower Body Dressing (QC): 1 (per clinical judgment) On/Off Footwear: 1 Toileting Hygiene (QC): 1 (colostomy, peterson catheter) Toilet Transfer (QC): 1 (per clinical judgment) Pt supine in bed at therapy arrival. Sponge bath performed at bed level. Pt able to wash upper body post set up. Dependent from lower abdomen to feet. Pt fatigues with limited bed mobility, rest needed after laying on his side in order for OT to wash buttocks. RN requests pt wear gown only, thus clothing not donned. At this time, pt is dependent for LB dressing as he requires assist with all steps. It is recommended pt complete clothing management at bed level. Anticipate min a needed to don shirt as pt requires intermittent assist with sitting balance on edge of bed. Grooming tasks performed seated upright in bed, extra time and cues to initiate. Education OT Patient Education: Correct positioning, Energy conservation, Modified ADL techniques, Progress toward Goal/Update tx plan, Purpose of tx/functional activities, Safety issues, Transfer techniques Teaching Recipient: Patient Teaching Methods: Discussion Response to Teaching: Verbalize Understanding, Reinforcement Needed OT Short Term Goals Short Term Goals Time Frame: Nov 13, 2021 Eatin Oral hygiene: 5 Toileting hygiene: 3 Shower/bathe self: 2 Upper body dressin Lower body dressin Putting on/taking off footwear: 2 OT Pediatric Care Coordinator Goals Correction Goals Time Frame: Dec 04, 2021 Eating (QC): 6 (not met) Oral Hygiene (QC): 6 (not met) Toileting Hygiene (QC): 3 (not met) Shower/Bathe Self (QC): 5 (not met) Upper Body Dressing (QC): 6 (not met) Lower Body Dressing (QC): 5 (not met) On/Off Footwear (QC): 4 (not met) 1=Demonstrate adherence to instructed precautions during ADL tasks. 2=Patient will verbalize/demonstrate understanding of assistive devices/modifications for ADL. 3=Patient will improve strength/tolerance for activity to enable patient to perform ADL's. OT Education/Plan Problem List/Assessment Assessment: Decreased Activ Tolerance, Decreased Safety Aware, Decreased UE Strength, Dependent Transfers, Impaired Bed Mobility, Impaired Cognition, Impaired Coordination, Impaired Funct Balance, Impaired I ADL's, Impaired Self- Care Skills, Restricted Funct UE ROM Discharge Recommendations Plan/Recommendations: Continue POC Therapy Discharge Recommendati: Post Acute OT (pt to discharge home with hospice ) Treatment Plan/Plan of Care Treatment,Training & Education: Yes Patient would benefit from OT for education, treatment and training to promote independence in ADL's, mobility, safety and/or upper extremity function for ADL's. Plan of Care: ADL Retraining, Caregiver Training, Cognitive Retraining, Functional Mobility, Group Exercise/Act as Ind, UE Funct Exercise/Act, W/C Management Training Treatment Duration: Dec 04, 2021 Frequency: At least 5 of 7 days/Wk (IRF) Estimated Hrs Per Day: 1.5 hours per day Agreement: Yes Rehab Potential: Guarded Time/GCodes Start Time: 09:30 Stop Time: 10:00 Total Time Billed (hr/min): 30 Billed Treatment Time 1 visit ADL x2 Constance Hogan OT Nov 16, 2021 10:03
--- NOTE | 2021-11-16 10:04 | Physical Therapy Daily Note ---
PT Daily Note-Current Subjective Patient in bed pre tx, agrees to PT, has no complaints of pain. Appearance Patient in bed post tx with nurse call, phone, tray, all needs met. Mental Status Patient Orientation: Person, Place, Situation Attachments: Oxygen, Spaulding Catheter Transfers SCALE: Activities may be completed with or without assistive devices. 7-Ejiaholmkl-pfsdfhf completes the activity by him/herself with no assistance from a helper. 5-Set-up or Clean-up Assistance-helper sets up or cleans up; patient completes activity. [place] assists only prior to or following the activity. 4-Supervision or Touching Assistance-helper provides verbal cues and/or touching/steadying and/or contact guard assistance as patient completes activity. Assistance may be provided throughout the activity or intermittently. 3-Partial/Moderate Assistance-helper does LESS THAN HALF the effort. [place] lifts, holds or supports trunk or limbs, but provides less than half the effort. 2-Substantial/Maximal Assistance-helper does MORE THAN HALF the effort. [place] lifts or holds trunk or limbs and provides more than half the effort. 8-Wcgrnqtbi-msqspj does ALL the effort. Patient does none of the effort to complete the activity. Or, the assistance of 2 or more helpers is required for the patient to complete the activity. If activity was not attempted, code reason: 7-Patient Refused. 9-Not Applicable-not attempted and the patient did not perform the activity before the current illness, exacerbation or injury. 10-Not Attempted due to Environmental Limitations-(lack of equipment, weather restraints, etc.). 88-Not Attempted due to Medical Conditions or Safety Concerns. Roll Left & Right (QC): 4 Sit to Lying (QC): 2 Lying to Sitting/Side of Bed(Q: 3 Sit to Stand (QC): 1 Chair/Yih-if-Wahda Xfer(QC): 2 Toilet Transfer (QC): 2 Car Transfer (QC): 2 Patient performs rolling with SBA, supine to sit mod assist, sit to supine max assist, sit <-> stand dependent, transfers max assist, car transfer max assist. The first time he stood from the bed he was very retropulsive and needed assist of 2 to stand, after that he needed max assist, cues for hand placement and positioning. Weight Bearing Full Weight Bearing Full Weight Bearing Gait Training Walk 10 feet (QC): 88 Walk 50 ft with 2 Turns(QC): 88 Walk 150 ft (QC): 88 Walking 10ft/uneven surface-QC: 88 Gait Persons Needed: 1 Gait Assistive Device: FWW Patient was able to ambulate about 2' from the bed to the WC during transfer, feet don't clear floor, steps are about an inch each time Wheelchair Training Wheel 50 ft with 2 turns (QC): 4 Wheel 150 ft (QC): 88 Type of Wheelchair: Manual Patient can propel a manual WC 50' with SBA, very slow, needs multiple rest breaks Stair Training 1 Step (curb) (QC): 88 4 Steps (QC): 88 12 Steps (QC): 88 Balance Picking up an Object (QC): 88 Treatments bed mobility and transfers, WC mobiltiy Assessment Current Status: Poor Progress Patient has made little to no progress in functional mobility, he is being discharged today PT Short Term Goals Short Term Goals Time Frame: Nov 09, 2021 Roll Left & Right: 3 Sit to lyin Lying to sitting on side of be: 2 Sit to stand: 3 Chair/ydp-oc-wrbbm transfer: 3 PT Supervisor Polishing Goals Supervisor Polishing Goals PT Skilled Nursing Goals Time Frame: Nov 23, 2021 Roll Left & Right (QC): 4 Sit to Lying (QC): 3 Lying-Sitting on Side/Bed(QC): 3 Sit to Stand (QC): 4 Chair/Pce-mg-Wdeoc Xfer(QC): 4 Toilet Transfer (QC): 4 Car Transfer (QC): 3 Does the Patient Walk: Yes Walk 10 feet (QC): 4 Walk 50ft with 2 Turns (QC): 88 Walk 150 ft (QC): 88 Walking 10ft on Uneven Surface: 88 1 Step (curb) (QC): 88 4 Steps (QC): 88 12 Steps (QC): 88 Picking up an Object (QC): 4 Wheel 50 feet with 2 turns (QC: 4 Wheel 150 feet: 4 PT Plan Problem List Problem List: Activity Tolerance, Functional Strength, Safety, Balance, Gait, Transfer, Bed Mobility, ROM Treatment/Plan Treatment Plan: Continue Plan of Care Treatment Plan: Bed Mobility, Education, Functional Activity Whitney, Functional Strength, Group Therapy, Gait, Safety, Therapeutic Exercise, Transfers Treatment Duration: Nov 23, 2021 Frequency: At least 5 of 7 days/Wk (IRF) Estimated Hrs Per Day: 1.5 hours per day Patient and/or Family Agrees t: Yes Safety Risks/Education Patient Education: Transfer Techniques, Correct Positioning, W/C Management, Safety Issues Teaching Recipient: Patient Teaching Methods: Demonstration, Discussion Response to Teaching: Reinforcement Needed Time/GCodes Time In: 0900 Time Out: 919 Total Billed Treatment Time: 20 Total Billed Treatment 1 visit FA 20' CLIFTON STANLEY PT Nov 16, 2021 10:04
--- NOTE | 2021-11-16 10:09 | Therapy Team Discharge Summary ---
Therapy Discharge Summary Discharge Recommendations Date of Discharge Physical Therapy Patient came to rehab s/p sigmoid resection and colostomy. Upon evaluation patient rolls with max assist, supine <-> sit dependent. Patient has been performing bed mobility and transfer training, WC mobility, functional strength ening, and education. Patient has made a little progress and has only met his retirement goals for rolling and supine to sit. Now, patient performs rolling with SBA, supine to sit mod assist, sit to supine max assist, sit <-> stand dependent, transfers max assist, car transfer max assist, propel a manual WC 50' with SBA, was able to ambulate a couple of feet with max assist using a rolling walker. Patient is being discharged from this facility today and will be discharged from PT at this time. Roll Left to Right (QC): 4 Sit to Lying (QC): 2 Lying to Sitting/Side of Bed(Q: 3 Sit to Stand (QC): 1 Chair/Zya-bh-Vqpsp Xfer(QC): 2 Toilet Transfer (QC): 2 Car Transfer (QC): 2 Does the Patient Walk: No and Walking Goal IS indicated Walk 10 feet (QC): 88 Walk 50 ft with 2 Turns(QC): 88 Walk 150 ft (QC): 88 Walking 10ft on uneven surface: 88 Gait Assistive Device: FWW Does the Pt Use a Wheelchair: Yes Wheel 50 ft with 2 turns (QC): 4 Wheel 150 ft (QC): 88 Type of Wheelchair: Manual 1 Step (curb) (QC): 88 4 Steps (QC): 88 12 Steps (QC): 88 Balance Sitting Static: Fair Balance Sitting Dynamic: Fair Balance-Standing Static: Poor Picking up an Object (QC): 88 Occupational Therapy Decreased Activ Tolerance, Decreased Safety Aware, Decreased UE Strength, Dependent Transfers, Edema, Impaired Bed Mobility, Impaired Cognition, Impaired Funct Balance, Impaired I ADL's, Impaired Self-Care Skills, Restricted Funct UE ROM Eating (QC): 4 Oral Hygiene (QC): 7 Shower/Bathe Self (QC): 3 Upper Body Dressing (QC): 4 Lower Body Dressing (QC): 1 On/Off Footwear (QC): 1 Toileting Hygiene (QC): 1 PT Senior Living Goals Senior Living Goals PT Search Planner Goals Time Frame: Nov 23, 2021 Roll Left to Right (QC): 4 Sit to Lying (QC): 3 Lying-Sitting on Side/Bed(QC): 3 Sit to Stand (QC): 4 Chair/Ult-gw-Yklrd Xfer(QC): 4 Car Transfer (QC): 3 Does the Patient Walk: Yes Walk 10 feet (QC): 4 Walk 10ft-Uneven Surface(QC): 88 Walk 50ft with 2 Turns (QC): 88 Walk 150 ft (QC): 88 Wheel 50 feet with 2 turns (QC: 4 1 Step (curb) (QC): 88 4 Steps (QC): 88 12 Steps (QC): 88 Picking up an Object (QC): 4 OT Search Planner Goals Search Planner Goals Time Frame: Dec 04, 2021 Eating (QC): 6 Oral Hygiene (QC): 6 Shower/Bathe Self (QC): 5 Upper Body Dressing (QC): 6 Lower Body Dressing (QC): 5 On/Off Footwear (QC): 4 Toileting Hygiene (QC): 3 Toilet/Commode Transfer (QC): 4 1=Demonstrate adherence to instructed precautions during ADL tasks. 2=Patient will verbalize/demonstrate understanding of assistive devices/modifications for ADL. 3=Patient will improve strength/tolerance for activity to enable patient to perform ADL's. Speech Senior Living Goals Senior Living Goals 1. The patient will demonstrate increased neurocognitive skills for safe discharge to the least restrictive environment. NOT MET Time Frame: Two Weeks CLIFTON STANLEY PT Nov 16, 2021 10:08
[2021-11-16] MEDS ORDERED: BUME1TAB8 PO (10:15)
[2021-11-16 10:50] VITALS: BP 105/72
--- NOTE | 2021-11-16 10:50 | Progress Note ---
ASHISH MCCOY 11/16/21 1050: Progress Note Patient condition is stable currently and will be discharged to hospice today 11/16/2021. LYNN HOUSER DO 11/17/21 0532: Supervisory-Addendum Brief Verification & Attestation Participated in pt care: history, MDM, physical Personally performed: exam, history, MDM, supervision of care Care discussed with: Medical Student Procedures: n/a Results interpretation: Verified all documentation Verification and Attestation of Medical Student E/M Service A medical student performed and documented this service in my presence. I reviewed and verified all information documented by the medical student and made modifications to such information, when appropriate. I personally performed the physical exam and medical decision making. Lynn Houser Nov 17, 2021,05:32 ASHISH MCCOY Nov 16, 2021 10:50 LYNN HOUSER DO Nov 17, 2021 05:32
--- NOTE | 2021-11-16 13:06 | Therapy Team Discharge Summary ---
Therapy Discharge Summary Discharge Recommendations Date of Discharge Nov 16, 2021 at 10:50 Therapy D/C Recommendations: Bath Aide, Home w/ Family Support, Other, See Comments (hospice care) Physical Therapy Roll Left to Right (QC): 4 Sit to Lying (QC): 2 Lying to Sitting/Side of Bed(Q: 3 Sit to Stand (QC): 1 Chair/Nbw-ck-Ocxlp Xfer(QC): 2 Toilet Transfer (QC): 2 Car Transfer (QC): 2 Does the Patient Walk: No and Walking Goal IS indicated Walk 10 feet (QC): 88 Walk 50 ft with 2 Turns(QC): 88 Walk 150 ft (QC): 88 Walking 10ft on uneven surface: 88 Gait Assistive Device: FWW Does the Pt Use a Wheelchair: Yes Wheel 50 ft with 2 turns (QC): 4 Wheel 150 ft (QC): 88 Type of Wheelchair: Manual 1 Step (curb) (QC): 88 4 Steps (QC): 88 12 Steps (QC): 88 Balance Sitting Static: Fair Balance Sitting Dynamic: Fair Balance-Standing Static: Poor Picking up an Object (QC): 88 Occupational Therapy Pt arrived to [facility]U s/p Signmoid colon resection; colostomy. At time of eval, pt was sba for eating, oral care, dependent for lower body dressing, footwear, toileting, max a for bathing, and mod a for UB dressing. During rehab stay, OT focused on bed mobility, sitting/standing balance, strengthening, endurance, ROM, activity tolerance, and sequencing in order to improve indep and safety with adls and functional transfers. 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 Pt will be discharging home on hospice and will be discharged from OT. Decreased Activ Tolerance, Decreased Safety Aware, Decreased UE Strength, Dependent Transfers, Impaired Bed Mobility, Impaired Cognition, Impaired Coordination, Impaired Funct Balance, Impaired I ADL's, Impaired Self-Care Skills, Restricted Funct UE ROM Eating (QC): 5 Oral Hygiene (QC): 4 Shower/Bathe Self (QC): 2 Upper Body Dressing (QC): 3 (per clinical judgment) Lower Body Dressing (QC): 1 (per clinical judgment) On/Off Footwear (QC): 1 Toileting Hygiene (QC): 1 (colostomy, peterson catheter) PT Nursing Home Goals Certified Master Locksmith Goals PT Certified Master Locksmith Goals Time Frame: Nov 23, 2021 Roll Left to Right (QC): 4 Sit to Lying (QC): 3 Lying-Sitting on Side/Bed(QC): 3 Sit to Stand (QC): 4 Chair/Zfx-le-Zlemo Xfer(QC): 4 Car Transfer (QC): 3 Does the Patient Walk: Yes Walk 10 feet (QC): 4 Walk 10ft-Uneven Surface(QC): 88 Walk 50ft with 2 Turns (QC): 88 Walk 150 ft (QC): 88 Wheel 50 feet with 2 turns (QC: 4 1 Step (curb) (QC): 88 4 Steps (QC): 88 12 Steps (QC): 88 Picking up an Object (QC): 4 OT Certified Master Locksmith Goals Nursing Home Goals Time Frame: Dec 04, 2021 Eating (QC): 6 (not met) Oral Hygiene (QC): 6 (not met) Shower/Bathe Self (QC): 5 (not met) Upper Body Dressing (QC): 6 (not met) Lower Body Dressing (QC): 5 (not met) On/Off Footwear (QC): 4 (not met) Toileting Hygiene (QC): 3 (not met) Toilet/Commode Transfer (QC): 4 1=Demonstrate adherence to instructed precautions during ADL tasks. 2=Patient will verbalize/demonstrate understanding of assistive devices/modifications for ADL. 3=Patient will improve strength/tolerance for activity to enable patient to perform ADL's. Speech Nursing Home Goals Certified Master Locksmith Goals 1. The patient will demonstrate increased neurocognitive skills for safe discharge to the least restrictive environment. NOT MET Time Frame: Two Weeks Constance Hogan OT Nov 16, 2021 13:06
== END 2021-11-16 10:50 | disposition hospice, home (50) | DRG 91 ==
PROVIDERS: ADMIT Internal Medicine; ATTEND Internal Medicine
DX: G72.81 Critical illness myopathy (principal); I50.33 Acute on chronic diastolic (congestive) heart failure; I13.0 Hypertensive heart and chronic kidney disease with heart failure and stage 1 through stage 4 chronic kidney disease, or unspecified chronic kidney disease; I42.9 Cardiomyopathy, unspecified; D62 Acute posthemorrhagic anemia; E46 Unspecified protein-calorie malnutrition; I48.21 Permanent atrial fibrillation; E87.1 Hypo-osmolality and hyponatremia; Z66 Do not resuscitate; N18.30 Chronic kidney disease, stage 3 unspecified; K59.09 Other constipation; F41.9 Anxiety disorder, unspecified; F32.A Depression, unspecified; K21.9 Gastro-esophageal reflux disease without esophagitis; R58 Hemorrhage, not elsewhere classified; I27.29 Other secondary pulmonary hypertension; N40.1 Benign prostatic hyperplasia with lower urinary tract symptoms; I25.10 Atherosclerotic heart disease of native coronary artery without angina pectoris; L30.4 Erythema intertrigo; B37.2 Candidiasis of skin and nail; L84 Corns and callosities; R33.8 Other retention of urine; B07.0 Plantar wart; E78.2 Mixed hyperlipidemia; N50.89 Other specified disorders of the male genital organs; Z95.1 Presence of aortocoronary bypass graft; Z87.891 Personal history of nicotine dependence; Z96.651 Presence of right artificial knee joint; Z95.2 Presence of prosthetic heart valve; Z88.8 Allergy status to other drugs, medicaments and biological substances; Z82.49 Family history of ischemic heart disease and other diseases of the circulatory system; Z68.37 Body mass index [BMI] 37.0-37.9, adult; Z93.3 Colostomy status; T45.515D Adverse effect of anticoagulants, subsequent encounter
CPT/HCPCS: 36415; 36569; 71045; 76937; 80048; 80053; 80162; 82607; 83540; 83735; 85025; 93005; 93306; 94640; 94760